=== PATIENT | female | born 1980 | race Caucasian/White ===

== ENCOUNTER 2017-07-12 20:33 | Observation (INO) | payer MEDICAID, SELFPAY ==
[2017-07-12 20:34] VITALS: BP 132/93; PULSE 100; RESP 18; TEMP 36.9; O2SAT 98; BMI 40.5
--- NOTE | 2017-07-12 20:44 | EKG12_ITS ---
Test Reason : REPEAT Blood Pressure : / mmHG Vent. Rate : 099 BPM Atrial Rate : 099 BPM P-R Int : 176 ms QRS Dur : 086 ms QT Int : 338 ms P-R-T Axes : 040 033 008 degrees QTc Int : 433 ms Normal sinus rhythm Nonspecific T wave abnormality Abnormal ECG Confirmed by MIKAEL HENRIQUEZ, AISHA ([id number]), newspaper or periodical editor ALESSANDRA TOLLIVER ([id number]) on 07/14/2017 1:25:12 PM Referred By: GIO Confirmed By:AISHA YOUSSEF MD
--- NOTE | 2017-07-12 20:48 | RAD_ITS ---
XR Chest 1 View INDICATION: PT STATED CHEST PAIN COMPARISON: None FINDINGS: Heart size and pulmonary vascularity are within normal limits. The lungs are clear without evidence of airspace consolidation or pleural effusion. The osseous structures are grossly unremarkable. RAD/Chest 1 View (Portable) IMPRESSION: No radiographic evidence of acute intrathoracic disease. at 2112 Reported and signed by: Brianne Bermeo MD Electronically Signed: Brianne Bermeo MD at 20:10 EDT Tel , Service support ,
[2017-07-12 20:51] LABS: Absolute Lymphocyte Count 2.14 X10^3/ul (0.83-4.51); Absolute Neutrophil Count 4.5 X10^3/uL (2.0-7.7); Basophil# 0.01 X10^3/uL; Basophil% 0.1 % (0-1); Eosinophil# 0.34 X10^3/uL; Eosinophils% 4.6 % (0-5); Hematocrit 42.4 % (37-47); Hemoglobin 13.7 g/dl (12.0-15.0); Lymphocyte # 2.14 X10^3/ul (4.0); Lymphocyte % 29.2 % (19-41); Mean Corp Hgb Conc 32.3 g/gl (32-36); Mean Corpuscular Hgb 27.2 pg (27.0-32.0); Mean Corpuscular Volume 84.3 fL (81-99); Mean Platelet Vol. 10.4 fl (6.2-12.0); Monocyte# 0.32 X10^3/uL; Monocyte% 4.4 % (0-10); Neutrophil # 4.51 X10^3/uL (2.7-7.7); Neutrophil % 61.6 % (47-70); Platelet Count 281 K/mm3 (150-450); RBC Distribution Width CV 13.2 % (11.6-14.6); RBC Distribution Width SD 39.7 fl (35.1-43.9); Red Blood Count 5.03 M/mm3 (4.2-5.4); White Blood Count 7.3 K/mm3 (4.4-11.0)
[2017-07-12 20:52] LABS: POSITIVE COUNT NO; POSITIVE DIFFERENTIAL NO; POSITIVE MORPHOLOGY NO
--- NOTE | 2017-07-12 20:57 | ED.DCSUM_ITS ---
- ER Visit Summary Date of Service: 07/12/17 Chief Complaint: Midsternal/left-sided sharp chest pain that started 3-4 hours ago with radiation to the left shoulder. History of Present Illness: The patient is a 37 F who presents with midsternal/ left-sided sharp chest pain with radiation to the left shoulder that started 3- 4 hours ago while at rest. She does have history of type 2 diabetes requiring insulin. She was diagnosed with diabetes in 2007. Brother had an DE at the age of 40. Mother and father both had cardiac problems. She denies hypertension, hypercholesterolemia and denies smoking. She denies history of PE or DVT. She denies any leg pain, swelling discoloration. She does not take aspirin because she had an anaphylactic reaction. She denies any ocular, visual or auditory symptoms. She has no constitutional symptoms of fever, chills night sweats. She denies palpitations or rapid heartbeat. She denies shortness of breath, dyspnea, orthopnea or PND. GI review of systems negative. review of systems negative. She denies history of bruising easily or bleeding problems. Physical Examination: Vital signs are marked for slight elevation of blood pressure 132/93. Head is atraumatic normocephalic. Pupils are equal round reactive. Extraocular muscles are intact. TMs are pearly white with landmarks noted. Nares patent with no drainage. Posterior pharynx without erythema or exudate. Uvula is midline. There is no dysphonia or dysphasia. Trachea is midline. There is no stridor with auscultation of the neck. Heart is regular without murmur, gallop or rub. S1 and S2 are normal. Lungs are clear to auscultation with good movement of air bilaterally. Abdomen is soft nontender with no hepatosplenomegaly. Negative Vazquez sign. There is no asymmetry, swelling, discoloration, leg vein distention, palpable cords or tenderness along the distribution of the deep venous system. Test Results: EKG revealed a sinus rhythm rate of 97 and is normal. Portable chest x-ray of nose normal cardiac silhouette, lung parenchyma, mediastinum and musculoskeletal structures. CBC normal. Troponin less than 0.02. BMP is remarkable for glucose of 396. Patient received 10 units of insulin subcu. Emergency Department Course and Treatment: EKG, chest x-ray and blood work was obtained to evaluate patient's complaint of chest pain. Need to rule out cardiac versus pulmonary versus GI cause. She did not receive aspirin because she had an anaphylactic reaction. Treatment Plan: Patient's heart score is 1. A 3 hour delta was ordered. Repeat EKG and blood work at 2335. If repeat EKG and troponin are normal outpatient follow-up would be appropriate. Disposition: Pending 3 hour delta troponin and EKG if repeat troponin and EKG are negative she will be discharged home with appropriate home-going instructions Impression: 1. Mid/left sided chest pain 2. Hyperglycemia and type II diabetic requiring insulin This note was generated with [employer] dictation software. It may contain incorrect words, spelling, and punctuation that were not noted in review of the chart prior to signing ED Disposition - Plan for ED Patient: Disposition: Home or Assisted Living Chief Complaint: Chest Pain Instructions: ED Chest Pain Atypical Unkn Cause, ED Hyperglycemia Diabetic Referrals: Padilla Osborne DO [Primary Care Provider] - 2 Days
[2017-07-12 21:05] LABS: Anion Gap 10 (5-15); BUN 13 mg/dL (7-18); BUN/Creat Ratio 14.2 RATIO (10-20); Chloride 99 mmol/L (98-107); Creatinine, Serum 0.91 mg/dL (0.55-1.02); EST Glomerular Filtration Rate 73 mL/min (>60); Est Glom Filt Rate - Afr Amer 89 mL/min (>60); Estimated Creatinine Clearance 78.47 ml/min; Glucose 396 mg/dL (74-106); Potassium 4.3 mmol/L (3.5-5.1); Sodium Level 137 mmol/L (136-145)
[2017-07-12 22:11] VITALS: BP 120/85; PULSE 99; RESP 20; O2SAT 98
[2017-07-12 23:11] LABS: Bedside Glucose 309 mg/dL (70-110)
--- NOTE | 2017-07-12 23:35 | EKG12_ITS ---
Test Reason : CP Blood Pressure : / mmHG Vent. Rate : 097 BPM Atrial Rate : 097 BPM P-R Int : 178 ms QRS Dur : 084 ms QT Int : 346 ms P-R-T Axes : 046 034 022 degrees QTc Int : 439 ms Normal sinus rhythm Normal ECG Confirmed by MIKAEL HENRIQUEZ, AISHA ([id number]), editor magazine ALESSANDRA TOLLIVER ([id number]) on 07/14/2017 1:25:26 PM Referred By: GIO/DILIA Confirmed By:AISHA YOUSSEF MD
[2017-07-13] VITALS (14 sets, daily range): BP systolic 110–133; BP diastolic 64–94; PULSE 86–97; RESP 14–18; TEMP 36.6–36.9; O2SAT 93–99; BMI 39.5
--- NOTE | 2017-07-13 02:31 | PCM.HP.STD ---
Problem List (1) Chest pain Status: Acute (2) DMII (diabetes mellitus, type 2) Status: Acute (3) HTN (hypertension) Status: Chronic History of Present Illness Date of Admission: 07/13/17 Chief Complaint: Chest pain The patient is a 37 year old female w/ h/o DMII and HTN admitted for chest pain. She c/o chest pain around 5:00 PM while resting at home. Pain was in the midepigastric area and radiated to the left shoulder and down the left arm. Pain lasted for hours. Nothing made it better or worse. Pain was not associated with any other symptoms. No diaphoresis. No palpitation. Pain was constant and severe. Pain came on suddenly and slowly improved over the course of a few hours. Both her mother and father has CAD. Her bother has NM at 40 y/o. She came to the ED for further workup. Past Medical History Past Medical History (Chronic Problems): Chronic Problems HTN (hypertension) (Chronic) Allergies aspirin Allergy (Verified 12/04/16 18:42) Hives ibuprofen Allergy (Verified 12/04/16 18:42) Hives tramadol Adverse Reaction (Verified 12/04/16 18:42) Other DIZZINESS Home Medications: Ambulatory Orders Medication Instructions Recorded Insulin Degludec [Tresiba 24 units SQ DAILY 12/04/16 Flextouch U-100] Liraglutide [Victoza 2-David] 1 injectable SQ DAILY 12/04/16 Metformin(XR) [Glucophage Xr] 500 mg PO BID 12/04/16 Levothyroxine [Synthroid] 50 mcg PO DAILY 07/12/17 Surgical History: no surgical history Psychiatric History: No pertinent psych hx HOUSE PRINCIPAL History: No pertinent HOUSE PRINCIPAL history Lives: With Family Smoking Status: Never smoker - *Family History Paternal History Items: Heart Disease Review of Systems Constitutional: Denies: Chills, Fever, Weight Change HEENT: Denies: Head Aches, Sinus Congestion, Sinus Drainage Cardiovascular: Reports: Chest Pain. Denies: Palpitations Respiratory: Denies: Cough, Shortness of breath at rest, Sputum production Gastrointestinal: Denies: Abdominal Pain, Nausea, Vomiting Genitourinary: Denies: Dysuria Musculoskeletal: Denies: Joint Pain, Joint Tenderness Skin: Denies: Rash, Wounds Neurological: Denies: Numbness, Tingling, Focal weakness Psychiatric: Denies: Anxiety, Depression, Homicidal Ideations, Suicidal Ideations Hematologic/ Lymphatic: Denies: Easy Bruising, Easy Bleeding VTE Information - Inpt Only VTE Present on Admission: No VTE Mechan Device Prophylaxis: SCD's VTE Pharm Prophylaxis ordered?: Yes Patient Problems: Active and Suspected Problems Chest pain (Acute) DMII (diabetes mellitus, type 2) (Acute) - Physical Exam General: Alert, Oriented x3, Cooperative HEENT: Atraumatic, PERRLA, EOMI, Normocephalic Neck: Supple, No JVD, Negative Carotid Bruits Lungs: Clear to auscultation, Normal air movement Cardiovascular: Regular rate, No murmurs Abdomen: Bowel Sounds Present, Soft, Non Tender Extremities: No edema, Capillary Refill Less than 3 Seconds Skin: No rashes, No breakdown Musculoskeletal: No Tenderness to Palpation of Joints or Extremities Neurological: Cranial nerves II-XII grossly intact Psych/Mental Status: Normal Affect, Appropriate Vital Signs Temp Pulse Resp BP Pulse Ox 98.4 F 93 14 120/80 97 07/13/17 01:30 07/13/17 01:30 07/13/17 01:30 07/13/17 01:30 07/13/17 01:30 Assessment/Plan Active and Suspected Problems Chest pain (Acute) DMII (diabetes mellitus, type 2) (Acute) 37 year old female w/ h/o DMII and HTN admitted for chest pain. 1) Chest pain: Heart score 4 Her brother has NM at 40 y/o. EKG disclosed flattening of T-wave in the inferolateral leads. Chest xray and trop negative. Will get serial trops. ECHO and stress test in AM. Will get lipid panel and A1C. Will start plavix given allergy to ASA. Will also start statin and beta-junaid. Nitro PRN. 2) DMII: Poorly controlled. Resume home meds. Accucheck and sliding scale. Monitor. 3) HTN: SBP 120s. Start beta-junaid. Monitor. 4) Prophylaxis: SCD / heparin.
--- NOTE | 2017-07-13 02:41 | HP.PCM_ITS ---
Problem List (1) Chest pain Status: Acute (2) DMII (diabetes mellitus, type 2) Status: Acute (3) HTN (hypertension) Status: Chronic History of Present Illness Date of Admission: 07/13/17 Chief Complaint: Chest pain The patient is a 37 year old female w/ h/o DMII and HTN admitted for chest pain. She c/o chest pain around 5:00 PM while resting at home. Pain was in the midepigastric area and radiated to the left shoulder and down the left arm. Pain lasted for hours. Nothing made it better or worse. Pain was not associated with any other symptoms. No diaphoresis. No palpitation. Pain was constant and severe. Pain came on suddenly and slowly improved over the course of a few hours. Both her mother and father has CAD. Her bother has ND at 40 y/o. She came to the ED for further workup. Past Medical History Past Medical History (Chronic Problems): Chronic Problems HTN (hypertension) (Chronic) Allergies aspirin Allergy (Verified 12/04/16 18:42) Hives ibuprofen Allergy (Verified 12/04/16 18:42) Hives tramadol Adverse Reaction (Verified 12/04/16 18:42) Other DIZZINESS Home Medications: Ambulatory Orders Medication Instructions Recorded Insulin Degludec [Tresiba 24 units SQ DAILY 12/04/16 Flextouch U-100] Liraglutide [Victoza 2-David] 1 injectable SQ DAILY 12/04/16 Metformin(XR) [Glucophage Xr] 500 mg PO BID 12/04/16 Levothyroxine [Synthroid] 50 mcg PO DAILY 07/12/17 Surgical History: no surgical history Psychiatric History: No pertinent psych hx 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 Denies: Palpitations Respiratory: Denies: Cough, Shortness of breath at rest, Sputum production Gastrointestinal: Denies: Abdominal Pain, Nausea, Vomiting Genitourinary: Denies: Dysuria Musculoskeletal: Denies: Joint Pain, Joint Tenderness Skin: Denies: Rash, Wounds Neurological: Denies: Numbness, Tingling, Focal weakness Psychiatric: Denies: Anxiety, Depression, Homicidal Ideations, Suicidal Ideations Hematologic/ Lymphatic: Denies: Easy Bruising, Easy Bleeding VTE Information - Inpt Only VTE Present on Admission: No VTE Mechan Device Prophylaxis: SCD's VTE Pharm Prophylaxis ordered?: Yes Patient Problems: Active and Suspected Problems Chest pain (Acute) DMII (diabetes mellitus, type 2) (Acute) - Physical Exam General: Alert, Oriented x3, Cooperative HEENT: Atraumatic, PERRLA, EOMI, Normocephalic Neck: Supple, No JVD, Negative Carotid Bruits Lungs: Clear to auscultation, Normal air movement Cardiovascular: Regular rate, No murmurs Abdomen: Bowel Sounds Present, Soft, Non Tender Extremities: No edema, Capillary Refill Less than 3 Seconds Skin: No rashes, No breakdown Musculoskeletal: No Tenderness to Palpation of Joints or Extremities Neurological: Cranial nerves II-XII grossly intact Psych/Mental Status: Normal Affect, Appropriate Vital Signs Temp Pulse Resp BP Pulse Ox 98.4 F 93 14 120/80 97 07/13/17 01:30 07/13/17 01:30 07/13/17 01:30 07/13/17 01:30 07/13/17 01:30 Assessment/Plan Active and Suspected Problems Chest pain (Acute) DMII (diabetes mellitus, type 2) (Acute) 37 year old female w/ h/o DMII and HTN admitted for chest pain. 1) Chest pain: Heart score 4 Her brother has ND at 40 y/o. EKG disclosed flattening of T-wave in the inferolateral leads. Chest xray and trop negative. Will get serial trops. ECHO and stress test in AM. Will get lipid panel and A1C. Will start plavix given allergy to ASA. Will also start statin and beta-junaid. Nitro PRN. 2) DMII: Poorly controlled. Resume home meds. Accucheck and sliding scale. Monitor. 3) HTN: SBP 120s. Start beta-junaid. Monitor. 4) Prophylaxis: SCD / heparin.
[2017-07-13 02:48] LABS: Vista UDS pH Range 6
[2017-07-13] MEDS: Clopidogrel Bisulfate 75 MG Tablet PO (02:58)
[2017-07-13] MEDS: 0.9% NaCl Peripheral Flush Adult/Peds IV ×2 (02:58→05:17)
[2017-07-13 02:59] LABS: Amphetamine Urine VISTA NEGATIVE (<1000 ng/mL); Barbiturate Urine VISTA NEGATIVE (< 200 ng/mL); Benzodiazepine Urine VISTA NEGATIVE (< 200 ng/mL); Cocaine Urine VISTA NEGATIVE (< 300 ng/mL); Ecstacy Urine VISTA NEGATIVE (< 500 ng/mL); Methadone Urine VISTA NEGATIVE (< 300 ng/mL); PCP Urine VISTA NEGATIVE (< 25 ng/mL); THC Urine VISTA NEGATIVE (< 50 ng/mL)
[2017-07-13 03:59] LABS: Absolute Lymphocyte Count 2.21 X10^3/ul (0.83-4.51); Absolute Neutrophil Count 3.1 X10^3/uL (2.0-7.7); Basophil# 0.01 X10^3/uL; Basophil% 0.2 % (0-1); Eosinophil# 0.33 X10^3/uL; Eosinophils% 5.4 % (0-5); Hematocrit 39.6 % (37-47); Hemoglobin 13.1 g/dl (12.0-15.0); Lymphocyte # 2.21 X10^3/ul (4.0); Lymphocyte % 36.5 % (19-41); Mean Corp Hgb Conc 33.1 g/gl (32-36); Mean Corpuscular Hgb 27.5 pg (27.0-32.0); Mean Corpuscular Volume 83.2 fL (81-99); Mean Platelet Vol. 10.5 fl (6.2-12.0); Monocyte# 0.41 X10^3/uL; Monocyte% 6.8 % (0-10); Neutrophil # 3.09 X10^3/uL (2.7-7.7); Neutrophil % 50.9 % (47-70); Platelet Count 244 K/mm3 (150-450); RBC Distribution Width CV 13.1 % (11.6-14.6); Red Blood Count 4.76 M/mm3 (4.2-5.4); White Blood Count 6.1 K/mm3 (4.4-11.0)
[2017-07-13 04:02] LABS: POSITIVE COUNT NO; POSITIVE DIFFERENTIAL NO; POSITIVE MORPHOLOGY NO
[2017-07-13] MEDS: Levothyroxine 50 MCG Tablet PO (05:16)
[2017-07-13] MEDS: Morphine 4 MG/ML Syringe IV (05:16)
[2017-07-13 05:22] LABS: ALB/GLOB Ratio 0.9 RATIO (0.9-2.4); AST(SGOT) 13 U/L (15-37); Alanine Aminotransfer ALT/SGPT 27 U/L (13-56); Albumin, Serum 3.1 g/dL (3.2-5.0); Alkaline Phosphatase 72 U/L (45-117); Anion Gap 9 (5-15); BUN 12 mg/dL (7-18); BUN/Creat Ratio 16.7 RATIO (10-20); Calcium,Total 8.5 mg/dL (8.5-10.1); Chloride 103 mmol/L (98-107); Cholesterol 195 mg/dL (200); Creatinine, Serum 0.72 mg/dL (0.55-1.02); EST Glomerular Filtration Rate 97 mL/min (>60); Est Glom Filt Rate - Afr Amer 117 mL/min (>60); Estimated Creatinine Clearance 99.18 ml/min; Globulin 3.6 g/dL (2.2-4.2); Glucose 261 mg/dL (74-106); High Density Lipoprotein 40 mg/dL; Magnesium 1.8 mg/dL (1.6-2.6); Potassium 3.9 mmol/L (3.5-5.1); Protein, Total 6.7 g/dL (6.4-8.2); Sodium Level 137 mmol/L (136-145); Triglycerides 156 mg/dL; Very Low Density Lipoprotein 31 mg/dL (5-40)
[2017-07-13 05:55] LABS: Partial Thromboplast Time 25.5 Seconds (24.1-36.2)
--- NOTE | 2017-07-13 05:55 | EKG12_ITS ---
Test Reason : AM EKG Blood Pressure : / mmHG Vent. Rate : 079 BPM Atrial Rate : 079 BPM P-R Int : 186 ms QRS Dur : 102 ms QT Int : 386 ms P-R-T Axes : 057 067 041 degrees QTc Int : 442 ms Normal sinus rhythm Normal ECG When compared with ECG of 12-JUL-2017 23:36, MANUAL COMPARISON REQUIRED, DATA IS UNCONFIRMED Confirmed by MIKAEL HENRIQUEZ, AISHA ([id number]), scientific editor ALESSANDRA TOLLIVER ([id number]) on 07/14/2017 1:40:04 PM Referred By: AKANKSHA Confirmed By:AISHA YOUSSEF MD
[2017-07-13 06:11] LABS: International Normalized Ratio 1.1; Prothrombin Time (Protime)PT. 13.9 SECONDS (11.7-14.9)
[2017-07-13 07:05] LABS: Bedside Glucose 253 mg/dL (70-110)
[2017-07-13 10:02] LABS: Hemoglobin A1c 10.8 % (4.2-6.3)
[2017-07-13] MEDS: Metoprolol Tartrate 25 MG Tablet 12.5 MG PO (10:34)
--- NOTE | 2017-07-13 10:48 | STRESSREP ---
Stress Test Report Exercise myocardial perfusion stress test. 37-year-old lady with a history of chest pain. Stress protocol: Resting EKG demonstrates normal sinus rhythm with a rate of 82 bpm normal intervals and noted resting blood pressure is 110/68 mmHg. The patient exercised according to the regular Dani protocol for total duration of 7 minutes and 10 seconds completing 1 minute and 10 seconds to stage III of the Dani protocol. The maximum heart rate attained was 187 bpm which was 102% of maximum predicted heart rate the maximum workload attained was 8.6 metabolic equivalents. At rest there were no ST or T-wave changes noted suggest ischemia at peak exercise upsloping ST changes only were noted with no meet the criteria for ischemia. No clinical angina was noted. The patient did get short of breath. Myocardial perfusion protocol. 14.7 mCi of technetium 99m sestamibi was injected at rest. The patient exercised according to Dani protocol for 4 7 minutes and 10 seconds attaining 102% of maximum predicted heart rate and a workload of 8.6 metabolic equivalents. At peak exercise 44.8 mCi of technetium 99m sestamibi was injected. Stress images were obtained stress and rest images were reconstructed and compared in the short axis vertical long and horizontal long axis. Gated images were also obtained. Perfusion SPECT analysis: Review of the stress images demonstrate normal uptake of tracer noted in all areas of the myocardium. The resting images similarly demonstrate normal uptake of tracer noted in all areas of the myocardium. No areas of reversibility are noted suggest ischemia no previous infarct is noted. Gated SPECT analysis: The gated ejection fraction is 75%. Conclusion: Normal exercise myocardial perfusion stress test at a moderate workload. No angina noted.
--- NOTE | 2017-07-13 11:12 | DCINST_ITS ---
- Discharge Diagnoses Current Active Problems: Current Active and Chronic Problems Chest pain (Acute) DMII (diabetes mellitus, type 2) (Acute) HTN (hypertension) (Chronic) You will use the following diet at home:: Calorie/Carbohydrate Controlled ( specify 1200, 1400, etc) Discharge Activity: Return to Normal Activity Call your doctor if you observe: Shortness of breath, Dizziness, Fainting spells , Chest pain, Increased palpitations (irregular heartbeat) Instructions: ED Chest Pain Atypical Unkn Cause, ED Hyperglycemia Diabetic Allergies/Adverse Reactions: Allergies aspirin Allergy (Verified 12/04/16 18:42) Hives ibuprofen Allergy (Verified 12/04/16 18:42) Hives tramadol Adverse Reaction (Verified 12/04/16 18:42) Other DIZZINESS Medications to take at Discharge Insulin Degludec [Tresiba Flextouch U-100] 24 units SQ DAILY 12/04/16 Liraglutide [Victoza 2-David] 1 injectable SQ DAILY 12/04/16 Metformin(XR) [Glucophage Xr] 500 mg PO BID 12/04/16 Levothyroxine [Synthroid] 50 mcg PO DAILY 07/12/17 Primary Care Physician: Padilla Osborne DO [Primary Care Provider] - 2 Days Please follow up with your Primary Care Physician in: 1 Week Proposed Discharge Date: 07/13/17
--- NOTE | 2017-07-13 11:13 | PCM.DC.SUM ---
<Shyla Key - Last Filed: 07/13/17 11:20> Discharge Date and Diagnosis Date of Admission: 07/13/17 Date of Discharge: 07/13/17 - Primary Discharge Diagnosis Active and Suspected Problems 1. Atypical chest pain-ACS ruled out. - Secondary Discharge Diagnosis Chronic Problems Type 2 diabetes mellitus Hypothyroidism Hospital Course and Treatment Imaging Results: Diagnostic Data Chest X-Ray 07/12/17 20:48 IMPRESSION: No radiographic evidence of acute intrathoracic disease. at 2112 Reported and signed by: Brianne Bermeo MD Electronically Signed: Brianne Bermeo MD at 20:10 EDT Tel , Service support , Operations: None Procedures: Stress test Summary of Care Provided: The patient is a 37 year old F admitted 07/13/17 due to chest pain. ACS ruled out. She has a past medical history of type 2 diabetes mellitus, hypothyroidism. Patient stated her pain occurred suddenly while resting at the home. Pain was continuous for a few hours. Pain has since resolved. Troponin negative ?3. Patient underwent nuclear stress test which was negative for ischemia. Chest x-ray unremarkable. Lipid panel within normal limits. Patient's type 2 diabetes mellitus is poorly controlled, hemoglobin A1c 10.8%. Recommend further follow-up with primary care physician to adjust diabetic medications. TSH within normal limits. Patient seen and examined prior to discharge. Heart rate regular rate and rhythm. Lungs clear. Abdomen soft, nontender. Neuro grossly intact. Vital signs stable. Patient stable for discharge home with further follow-up with primary care physician. This patient was seen by RAMA Jeffery under the supervision of Dr. Lopez. Discharge Diet: Low fat/ Low Cholesterol, Carb Control Diet Discharge Activity: Return to Normal Activity Call your doctor if you observe: Shortness of breath, Dizziness, Fainting spells, Chest pain, Increased palpitations (irregular heartbeat) Home Medications: Medications to take at Discharge Insulin Degludec [Tresiba Flextouch U-100] 24 units SQ DAILY 12/04/16 Liraglutide [Victoza 2-David] 1 injectable SQ DAILY 12/04/16 Metformin(XR) [Glucophage Xr] 500 mg PO BID 12/04/16 Levothyroxine [Synthroid] 50 mcg PO DAILY 07/12/17 Primary Care Physician: Padilla Osborne DO [Primary Care Provider] - 2 Days Please follow up with your Primary Care Physician in: 1 Week Patient Instructions: ED Chest Pain Atypical Unkn Cause, ED Hyperglycemia Diabetic Disposition: Home Minutes spent on discharge:: 35 Patient Condition:: Stable Medical Necessity - Tobacco Use Smoking Status: Never smoker Meaningful Use Info Meaningful Use Diagnoses (Choose all that apply): None applicable <Deyvi Lpoez E - Last Filed: 07/13/17 13:34> Discharge Date and Diagnosis - Secondary Discharge Diagnosis Chronic Problems HTN (hypertension) (Chronic) Hospital Course and Treatment Imaging Results: 07/13/17 05:55 Nuclear Stress Test - Chemical [NM] AM (NON MEDS) Summary of Care Provided: Hospitalist note: discharge summary above reviewed as well as physical examination and agree with above discharge plan. Patient was admitted for atypical chest pain for evaluation. She has risk factors for CAD including diabetes and obesity. Her EKG revealed no acute ischemic changes. Troponin was negative ?3. A chest x-ray showed no acute findings. She underwent nuclear stress test that was reported as negative without evidence of stress-induced myocardial ischemia. ACS ruled out. Her pain could be due to musculoskeletal pain. Patient discharged home in a stable medical condition, discharged on her home medication without any changes, recommended to follow-up with PCP in 1 week. - Physical Exam General: Alert, Oriented x3, Cooperative, No apparent distress. HEENT: Atraumatic, PERRLA, EOMI. Neck: Supple, No JVD, Negative Carotid Bruits, Trachea Midline, Thyroid Normal. Lungs: Clear to auscultation, Normal air movement, No rhonchi, No wheeze, No rales. Cardiovascular: Regular rate, Regular Rhythm, Normal S1, Normal S2, PMI Normal. Abdomen: Bowel Sounds Present, Soft, Non Tender, Non-Distended, No Hepato-splenomegaly. Extremities: No clubbing, No cyanosis, No edema Skin: No rashes, No breakdown Neurological: Neuro grossly intact Vital Signs are stable. . Minutes spent on discharge:: 25 Code Visit OBSV E&M: 50533 Observ/hosp same date L1
--- NOTE | 2017-07-13 11:20 | DS.PCM_ITS ---
<Shyla Key - Last Filed: 07/13/17 11:20> Discharge Date and Diagnosis Date of Admission: 07/13/17 Date of Discharge: 07/13/17 - Primary Discharge Diagnosis Active and Suspected Problems 1. Atypical chest pain-ACS ruled out. - Secondary Discharge Diagnosis Chronic Problems Type 2 diabetes mellitus Hypothyroidism Hospital Course and Treatment Imaging Results: Diagnostic Data Chest X-Ray 07/12/17 20:48 IMPRESSION: No radiographic evidence of acute intrathoracic disease. at 2112 Reported and signed by: Brianne Bermeo MD Electronically Signed: Brianne Bermeo MD at 20:10 EDT Tel , Service support , Operations: None Procedures: Stress test Summary of Care Provided: The patient is a 37 year old F admitted 07/13/17 due to chest pain. ACS ruled out. She has a past medical history of type 2 diabetes mellitus, hypothyroidism. Patient stated her pain occurred suddenly while resting at the home. Pain was continuous for a few hours. Pain has since resolved. Troponin negative ?3. Patient underwent nuclear stress test which was negative for ischemia. Chest x-ray unremarkable. Lipid panel within normal limits. Patient 's type 2 diabetes mellitus is poorly controlled, hemoglobin A1c 10.8%. Recommend further follow-up with primary care physician to adjust diabetic medications. TSH within normal limits. Patient seen and examined prior to discharge. Heart rate regular rate and rhythm. Lungs clear. Abdomen soft, nontender. Neuro grossly intact. Vital signs stable. Patient stable for discharge home with further follow-up with primary care physician. This patient was seen by RAMA Jeffery under the supervision of Dr. Lopez. Discharge Diet: Low fat/ Low Cholesterol, Carb Control Diet Discharge Activity: Return to Normal Activity Call your doctor if you observe: Shortness of breath, Dizziness, Fainting spells , Chest pain, Increased palpitations (irregular heartbeat) Home Medications: Medications to take at Discharge Insulin Degludec [Tresiba Flextouch U-100] 24 units SQ DAILY 12/04/16 Liraglutide [Victoza 2-David] 1 injectable SQ DAILY 12/04/16 Metformin(XR) [Glucophage Xr] 500 mg PO BID 12/04/16 Levothyroxine [Synthroid] 50 mcg PO DAILY 07/12/17 Primary Care Physician: Padilla Osborne DO [Primary Care Provider] - 2 Days Please follow up with your Primary Care Physician in: 1 Week Patient Instructions: ED Chest Pain Atypical Unkn Cause, ED Hyperglycemia Diabetic Disposition: Home Minutes spent on discharge:: 35 Patient Condition:: Stable Medical Necessity - Tobacco Use Smoking Status: Never smoker Meaningful Use Info Meaningful Use Diagnoses (Choose all that apply): None applicable <Deyvi Lopez E - Last Filed: 07/13/17 13:34> Discharge Date and Diagnosis - Secondary Discharge Diagnosis Chronic Problems HTN (hypertension) (Chronic) Hospital Course and Treatment Imaging Results: 07/13/17 05:55 Nuclear Stress Test - Chemical [NM] AM (NON MEDS) Summary of Care Provided: Hospitalist note: discharge summary above reviewed as well as physical examination and agree with above discharge plan. Patient was admitted for atypical chest pain for evaluation. She has risk factors for CAD including diabetes and obesity. Her EKG revealed no acute ischemic changes. Troponin was negative ?3. A chest x- ray showed no acute findings. She underwent nuclear stress test that was reported as negative without evidence of stress-induced myocardial ischemia. ACS ruled out. Her pain could be due to musculoskeletal pain. Patient discharged home in a stable medical condition, discharged on her home medication without any changes, recommended to follow-up with PCP in 1 week. - Physical Exam General: Alert, Oriented x3, Cooperative, No apparent distress. HEENT: Atraumatic, PERRLA, EOMI. Neck: Supple, No JVD, Negative Carotid Bruits, Trachea Midline, Thyroid Normal. Lungs: Clear to auscultation, Normal air movement, No rhonchi, No wheeze, No rales. Cardiovascular: Regular rate, Regular Rhythm, Normal S1, Normal S2, PMI Normal. Abdomen: Bowel Sounds Present, Soft, Non Tender, Non-Distended, No Hepato- splenomegaly. Extremities: No clubbing, No cyanosis, No edema Skin: No rashes, No breakdown Neurological: Neuro grossly intact Vital Signs are stable. . Minutes spent on discharge:: 25 Code Visit OBSV E&M: 38240 Observ/hosp same date L1
[2017-07-13 12:26] LABS: Bedside Glucose 385 mg/dL (70-110)
== END 2017-07-13 11:12 | disposition home or self-care (01) ==
LOC: ED 23:25 → PCU 07-13 01:28
PROVIDERS: Admitting Provider Internal Medicine; Emergency Provider Emergency Medicine; Family Provider Student in an Organized Health Care Education/Training Program; PCP Student in an Organized Health Care Education/Training Program; Visit Provider Hospitalist
DX: R07.89 Other chest pain (principal); E03.9 Hypothyroidism, unspecified; E11.65 Type 2 diabetes mellitus with hyperglycemia; I10 Essential (primary) hypertension; Z79.899 Other long term (current) drug therapy; Z79.4 Long term (current) use of insulin; E66.9 Obesity, unspecified; Z68.39 Body mass index [BMI] 39.0-39.9, adult; Z71.3 Dietary counseling and surveillance; Z82.49 Family history of ischemic heart disease and other diseases of the circulatory system
CPT/HCPCS: 36415; 71045; 78452; 80048; 80053; 80061; 80307; 82962; 83036; 83735; 84443; 84484; 85025; 85610; 85730; 93005; 93017; 96374; 99218; 99285; A9500; A4216; G0378

== ENCOUNTER → 2017-08-25 10:10 | Outpatient (CLI) | payer MEDICAID, SELFPAY ==
--- NOTE | 2017-08-25 10:15 | RAD_ITS ---
STUDY: X-RAY - LUMBAR SPINE REASON FOR EXAM: Female, 37 years old. Back pain TECHNIQUE: 5 view(s) of the lumbar spine were obtained. COMPARISON: None FINDINGS: There is no evidence of fracture or dislocation in the lumbar spine. The vertebral body heights and disc spaces are well-maintained. There are no significant degenerative changes. RAD/L/S Spine Min 4 Views IMPRESSION: No fracture or dislocation in the lumbar spine. Electronically Signed: Juan Oconnor, at 16:03 EDT Tel , Service support ,
== END ==
PROVIDERS: Family Provider Student in an Organized Health Care Education/Training Program; PCP Student in an Organized Health Care Education/Training Program; Visit Provider Nurse Practitioner Family
DX: M54.5 Low back pain (principal)
CPT/HCPCS: 72110

== ENCOUNTER 2017-10-16 09:59 | Emergency (ER) | payer MEDICAID, SELFPAY ==
[2017-10-16 09:59] VITALS: BP 131/82; PULSE 128; RESP 16; TEMP 37.4; O2SAT 96; BMI 38.9
--- NOTE | 2017-10-16 10:12 | ED.DCSUM_ITS ---
- ER Visit Summary Date of Service: 10/16/17 Chief Complaint: Nausea and vomiting with chills and temperature documented to 100.3 History of Present Illness: The patient is a 37 F who presents with temperature documented 100.3 with bilateral low back pain with nausea and vomiting and chills that started this morning. She states she does not feel well. She complains of dry mouth. She does complain of bifrontal headache. The headaches are not positional. She denies photophobia, change in vision or double vision. She denies rhinorrhea, congestion, postnasal drainage or ear pain. She reports sore throat after vomiting. She denies any chest pain, cough or shortness of breath. She denies leg pain, swelling or discoloration. She denies dysuria, frequency, urgency or hematuria. She denies any vaginal bleeding or discharge. She denies any skin lesions. Please read written note for complete detail Physical Examination: Vital signs remarkable for heart rate 128. She appears ill but not toxic. Head is atraumatic normocephalic. Pupils equal round reactive. Extra muscles are intact. Sclerae anicteric. TMs are normal. Nares patent with no discharge. Tongue and mucosa are dry. Uvula midline. No exudate or erythema. Trach is midline. There is no cervical lymphadenopathy. Heart is rapid and regular without murmur, gallop or rub. Lungs are clear to auscultation with good maneuver bilaterally. Abdomen is soft nontender with decreased bowel sounds. There is no CVA tenderness noted. There is no skin lesions noted. There is no asymmetry, swelling, discoloration, leg vein distention, palpable cords or tenderness along the distribution of the deep venous system. She is alert and oriented ?3 with a nonfocal neurologic exam Test Results: White count is 11.7 thousand 81 segs no bands. Electronic panels marked for glucose 164. UA reveals leukoesterase and blood on macro as well as ketones. There is evidence of pyuria with 5-10 WBCs 0-5 RBCs and 1+ bacteria. Emergency Department Course and Treatment: IV was established and she will receive 1 L of normal saline wide open. Since she has type 1 diabetes will treat the nausea vomiting with Reglan. Because she complains of low back pain with documented temperature 100.3 with chills will obtain UA. BMP to assess glucose and kidney function. Treatment Plan: Patient's symptoms are secondary to urinary tract infection. Patient will receive 1 g of Rocephin IV piggyback. If she has no vomiting will discharge to home with antiemetic and antibiotic. She was informed to follow- up with Dr. Osborne in 3 days. Disposition: Discharged to home Impression: 1. Complex urinary tract infection 2. Sepsis 3. Hyperglycemia in type I diabetic 4. Dehydration with ketosis This note was generated with [employer] dictation software. It may contain incorrect words, spelling, and punctuation that were not noted in review of the chart prior to signing ED Disposition - Plan for ED Patient: Disposition: Home or Assisted Living Chief Complaint: Nausea/Vomiting Instructions: ED UTI Cystitis Female Prescriptions: Ciprofloxacin [Cipro] 500 mg PO BID #14 tab Metoclopramide [Reglan] 10 mg PO 4X/DAY PRN #10 tab PRN Reason: Headache Referrals: Padilla Osborne DO [Primary Care Provider] - 1-2 Days if not improving
[2017-10-16 10:18] LABS: Absolute Lymphocyte Count 1.57 X10^3/ul (0.83-4.51); Absolute Neutrophil Count 9.5 X10^3/uL (2.0-7.7); Basophil# 0.02 X10^3/uL; Basophil% 0.2 % (0-1); Eosinophil# 0.08 X10^3/uL; Eosinophils% 0.7 % (0-5); Hematocrit 44.2 % (37-47); Hemoglobin 14.5 g/dl (12.0-15.0); Lymphocyte # 1.57 X10^3/ul (4.0); Lymphocyte % 13.5 % (19-41); Mean Corp Hgb Conc 32.8 g/gl (32-36); Mean Corpuscular Hgb 27.5 pg (27.0-32.0); Mean Corpuscular Volume 83.7 fL (81-99); Monocyte% 4.3 % (0-10); Neutrophil # 9.46 X10^3/uL (2.7-7.7); Neutrophil % 81.1 % (47-70); Platelet Count 284 K/mm3 (150-450); RBC Distribution Width CV 13.2 % (11.6-14.6); RBC Distribution Width SD 39.2 fl (35.1-43.9); Red Blood Count 5.28 M/mm3 (4.2-5.4); White Blood Count 11.7 K/mm3 (4.4-11.0)
[2017-10-16 10:19] LABS: POSITIVE COUNT NO; POSITIVE DIFFERENTIAL NO; POSITIVE MORPHOLOGY NO
[2017-10-16 10:30] LABS: Anion Gap 10 (5-15); BUN 9 mg/dL (7-18); BUN/Creat Ratio 11.1 RATIO (10-20); Calcium,Total 9.4 mg/dL (8.5-10.1); Chloride 99 mmol/L (98-107); Creatinine, Serum 0.81 mg/dL (0.55-1.02); EST Glomerular Filtration Rate 84 mL/min (>60); Est Glom Filt Rate - Afr Amer 101 mL/min (>60); Estimated Creatinine Clearance 88.16 ml/min; Glucose 164 mg/dL (74-106); Potassium 3.8 mmol/L (3.5-5.1); Sodium Level 137 mmol/L (136-145)
[2017-10-16] MEDS: Metoclopramide 10 MG/2 ML Vial IV (10:30)
[2017-10-16] MEDS: 0.9% Normal Saline 1,000 ML 1000 ML IV (10:30)
[2017-10-16 10:47] LABS: Color, Urine Yellow (Yellow); Glucose, Dipstick Normal (Normal); Ketone-Dipstick 5 mg/dl (Negative); Leukocyte Esterase-Dipstick 25 /ul (Negative); Nitrite-Dipstick Negative (Negative); Occult Blood-Urine 25 /ul (Negative); Protein-Dipstick 100 mg/dl (Negative); Urine Bilirubin Dipstick Negative (Negative); Urine Clarity Sl. Cloudy (Clear); Urine Urobilinogen Normal (Normal)
[2017-10-16 10:54] LABS: Red Blood Cells-Urine 0-5 SEEN /hpf (0-5); White Blood Cells 5-10 SEEN /hpf (0-5)
[2017-10-16 10:55] LABS: Bacteria 1+ /hpf (None Seen); Squamous Epithelial Cells - UA 0-5 SEEN /hpf (5-10)
[2017-10-16 10:56] LABS: Mucous, Urine RARE /hpf (<or=2+)
[2017-10-16] MEDS: Ceftriaxone 1 GM/50 ML BAG IV (11:13)
[2017-10-16 11:58] VITALS: BP 132/81; PULSE 118; RESP 22; O2SAT 100
== END 2017-10-16 11:59 | disposition home or self-care (01) ==
PROVIDERS: Emergency Provider Emergency Medicine; Family Provider Student in an Organized Health Care Education/Training Program; PCP Student in an Organized Health Care Education/Training Program
DX: A41.9 Sepsis, unspecified organism (principal); N30.90 Cystitis, unspecified without hematuria; E10.65 Type 1 diabetes mellitus with hyperglycemia; E86.0 Dehydration; E88.89 Other specified metabolic disorders; I10 Essential (primary) hypertension; E66.9 Obesity, unspecified; R00.0 Tachycardia, unspecified; Z68.38 Body mass index [BMI] 38.0-38.9, adult; Z79.84 Long term (current) use of oral hypoglycemic drugs; Z79.899 Other long term (current) drug therapy
CPT/HCPCS: 80048; 81001; 85025; 87077; 87086; 87088; 87186; 96365; 96375; 99283; J7030; A4216

== ENCOUNTER 2018-03-23 20:10 | Emergency (ER) | payer MEDICAID, SELFPAY ==
[2018-03-23 20:11] VITALS: BP 154/92; PULSE 111; RESP 18; TEMP 35.8; O2SAT 100; BMI 39.8
[2018-03-23] MEDS: BACITRACIN 15 GM Tube 1 APPLIC TOPICAL (21:22)
[2018-03-23] MEDS: Cephalexin 250 MG Capsule 500 MG PO (21:22)
--- NOTE | 2018-03-23 21:35 | ED.VISSUMM ---
- ER Visit Summary Date of Service: 03/23/18 Chief Complaint: Burn History of Present Illness: The patient is a 37 F presenting for evaluation secondary to a burn. Patient reports that about 2 days ago she was making a rock candy and she suffered a burn to her left ring finger. She is left hand dominate. Tetanus status is up-to-date. Patient states that she is having increasing pain and spreading redness. Physical Examination: Physical exam shows evidence of a blister over the dorsum of the middle phalanges of the patient's left ring finger. There is surrounding erythema with some streaking going up to the proximal portion of the hand. Test Results: None indicated Emergency Department Course and Treatment: Patient presented with a second-degree burn with evidence of infection. Patient told me that there was spontaneous drainage coming from this, so I did decide to deroof of the blister. A 21 gauge needle was used to incise along the blister, and then tissue scissors steps were used to remove the excess tissue. Bacitracin dressing was placed over top of this, and the patient will be placed on Keflex. Disposition: Discharge Impression: 1. Infected second-degree burn of the left ring finger This note was generated with [employer] dictation software. It may contain incorrect words, spelling, and punctuation that were not noted in review of the chart prior to signing ED Disposition - Plan for ED Patient: Disposition: Home or Assisted Living Chief Complaint: Burn Diagnosis: Cellulitis Instructions: ED Burn Scald, ED Infec Skin Cellulitis Prescriptions: Cephalexin [Keflex] 500 mg PO Q6 #40 cap Referrals: Padilla Osborne DO [Primary Care Provider] - 3-5 Days
--- NOTE | 2018-03-23 21:38 | ED.DCSUM_ITS ---
- ER Visit Summary Date of Service: 03/23/18 Chief Complaint: Burn History of Present Illness: The patient is a 37 F presenting for evaluation secondary to a burn. Patient reports that about 2 days ago she was making a rock candy and she suffered a burn to her left ring finger. She is left hand dominate. Tetanus status is up-to-date. Patient states that she is having increasing pain and spreading redness. Physical Examination: Physical exam shows evidence of a blister over the dorsum of the middle phalanges of the patient's left ring finger. There is surrounding erythema with some streaking going up to the proximal portion of the hand. Test Results: None indicated Emergency Department Course and Treatment: Patient presented with a second- degree burn with evidence of infection. Patient told me that there was spontaneous drainage coming from this, so I did decide to deroof of the blister. A 21 gauge needle was used to incise along the blister, and then tissue scissors steps were used to remove the excess tissue. Bacitracin dressing was placed over top of this, and the patient will be placed on Keflex. Disposition: Discharge Impression: 1. Infected second-degree burn of the left ring finger This note was generated with [employer] dictation software. It may contain incorrect words, spelling, and punctuation that were not noted in review of the chart p rior to signing ED Disposition - Plan for ED Patient: Disposition: Home or Assisted Living Chief Complaint: Burn Diagnosis: Cellulitis Instructions: ED Burn Scald, ED Infec Skin Cellulitis Prescriptions: Cephalexin [Keflex] 500 mg PO Q6 #40 cap Referrals: Padilla Osborne DO [Primary Care Provider] - 3-5 Days
--- OUTSIDE RECORDS SUMMARY | 2018-05-10 00:31 | XMS RPT_ITS ---
:1980 Author Organization OHIP Care Team Providers Name Role Phone [facility] Unavailable Yamil Ying Attending Unavailable [facility] Unavailable Akanksha, Adelso Admitting Unavailable Deyvi Lopez Attending Unavailable Akanksha, Adelso Admitting Unavailable [facility] Unavailable Akanksha, Adelso Consulting Unavailable Deyvi Lopez Attending Unavailable Denys Swain Attending Unavailable Akanksha, Adelso Referring Unavailable Michelle Payne NP-C Attending Unavailable [facility] Unavailable Denys Swain Attending Unavailable Akanksha, Adelso Referring Unavailable Pad[facility] Unavailable Agustin Virgen Attending Unavailable MIRANDA, PADILLA Castrejon Referring Unavailable OSBORNE, PADILLA L Attending Unavailable CORNIELLO, SWATI L (MARGARINE MAKER) Attending Unavailable BRANDON JONES Attending Unavailable CORNIELLO, SWATI L (MARGARINE MAKER) Attending Unavailable CORNIELLO, SWATI L (MARGARINE MAKER) Attending Unavailable ELROY CINTRON (PT) Attending Unavailable BRANDON JONES Referring Unavailable CORNIELLO, SWATI L (MARGARINE MAKER) Attending Unavailable CORNIELLO, SWATI L (MARGARINE MAKER) Referring Unavailable CORNIELLO, SWATI L (MARGARINE MAKER) Attending Unavailable LILIANA RAMIREZ Referring Unavailable CORNIELLO, SWATI L (MARGARINE MAKER) Referring Unavailable CORNIELLO, SWATI L (MARGARINE MAKER) Attending Unavailable CORNIELLO, SWATI L (MARGARINE MAKER) Referring Unavailable CORNIELLO, SWATI L (MARGARINE MAKER) Referring Unavailable LILIANA RAMIREZ Attending Unavailable OSBORNE, PADILLA L Referring Unavailable MEGHA SARAVIA (PT) Attending Unavailable ABDULAZIZ INTERIANO (STONE CARRIAGE OPERATOR) Referring Unavailable ABDULAZIZ INTERIANO (STONE CARRIAGE OPERATOR) Attending Unavailable ABDULAZIZ INTERIANO (STONE CARRIAGE OPERATOR) Referring Unavailable CORNIELLO, SWATI L (MARGARINE MAKER) Attending Unavailable CORNIELLO, SWATI L (MARGARINE MAKER) Referring Unavailable OSBORNE, PADILLA L Referring Unavailable ELROY CINTRON (PT) Attending Unavailable BRANDON JONES Referring Unavailable PROBLEMS PROBLEMS DATE TYPE CONDITION / CODE ATTENDING STATUS SOURCE 03/11/2018 Active Pain in right knee NA Active [facility] / M25.561(ICD-10) [facility] Repository 03/11/2018 Active Pain in left knee / NA Active [facility] M25.562(ICD-10) [facility] Repository 02/26/2018 Active Nontoxic NA Active [facility] multinodular goiter [facility] / E04.2(ICD-10) Repository 09/28/2015 Active Type 2 diabetes NA Active [facility] mellitus with [facility] hyperglycemia / Repository E11.65(ICD-10) 08/26/2017 Unknown M54.5 - Low back Prebish, Michelle Active [facility] pain / STONE CARRIAGE OPERATOR[facility] M54.5(ICD-10) Hospital Repository 08/12/2017 Active Hypothyroidism, NA Active [facility] unspecified / [facility] E03.9(ICD-10) Repository 08/04/2017 Active Unknown / RANI, MEGHA Active [facility] UNK(Unknown) (PT) [facility] Repository 07/22/2017 Active Other penitentiary NA Active [facility] (current) drug [facility] therapy / Repository Z79.899(ICD-10) 08/27/2017 Unknown R07.9 - Chest pain, Brynn, [place] Active [facility] unspecified / Community R07.9(ICD-10) Hospital Repository 08/27/2017 Unknown R07.89 - Other Brynn, Denys Active [facility] chest pain / Community R07.89(ICD-10) Hospital Repository 08/27/2017 Unknown I10 - Essential Brynn, Denys Active [facility] (primary) Community hypertension / Hospital I10(ICD-10) Repository PROCEDURES PROCEDURES No Procedure Records FoundRESULTS RESULTS PROGRESS Observed: 04/23/2018 Status: COMPLETED Source: [facility] 10:36 AM [facility] [place] REPOSITORY HNO ID: [id number] Author: Elroy (Pt) Abdulaziz Service: (none) Author Type: Physical Therapist Type: Progress Notes Filed: 04/23/2018 12:38 PM Note Text: Episode Visit Count: 2 Therapist That Will Oversee The Plan Of Care: Elroy Cintron Start of Care Date: 04/01/18 Plan of Care Certification Date: 04/01/18 Patient Identified by Name and Date of : Yes REHABILITATION AND SPORTS THERAPY PHYSICAL THERAPY TREATMENT NOTE ASSESSMENT: Yamila Kitchen demonstrated appropriate difficulty with exercises and was able to progress clamshells to added yellow theraband today. Patient continues to struggle with hills and stairs. The patient will continue to benefit from continued skilled physical therapy for progress report next session to gauge progress towards therapy. PLAN FOR NEXT VISIT: Progress report SUBJECTIVE: Pt with no change in condition thus far. [place] and stairs are still the hardest things for her to negotiate Pain Score: 9/10 Pain Location: Knee - Right;Knee - Left Description: Aching;Sharp Frequency: Continuous OBJECTIVE MEASURES WITH LEVEL OF FUNCTION: Patient with continued hypomobility of bilateral patella's medially TREATMENT: Therapeutic Exercise: 1: Patellar mobs with holds medially 2x10 2: Glute bridging 2x10 3: Prone hip extension 2x10/side 4: Side lying hip abduction 2x10/side 5: Side lying clamshells 2x10/side 6: Pt educated on proper brace wear and to try a compression sleeve underneath to prevent the brace from slipping down her leg Skilled Intervention: Patient was educated in proper exercise technique and purpose for exercises. Skilled judgment was provided in selection of appropriate interventions. Correct performance of therapeutic exercises was facilitated with verbal and visual cuing. Billing: [facility]: Therapeutic Exercise ([id number]): 1:1 time: 40 minutes (3 units: 38-52 mins) Total time: 40 minutes Elroy Cintron PT CNTHERAPY Observed: 04/23/2018 Status: COMPLETED Source: [place] 10:30 AM [facility] REPOSITORY OT/PT/Speech Visit (PTWS) YAMILA KITCHEN ([id number]) 1980 F Date Time Provider Department 04/23/18 10:30 AM ELROY CINTRON (PT) PTWS Date Time Provider Department Center 04/23/2018 10:30 AM [id number], SEAN (PT)PTWS [facility] Reason for Visit: Physical Therapy [503] Primary Visit Diagnosis:Chronic pain of both knees [M25.561, M25.562, G89.29] Allergies As of Date: 04/23/2018 Noted Allergy Reaction ASPIRIN 07/16/2011 12 - Shortness of Breath IBUPROFEN 07/16/2011 12 - Shortness of Breath SIMVASTATIN 2014 2 - Rash 12 - Shortness of Breath TRAMADOL 01/31/2014 14 - Other: See Comments Comments: Dizziness Date Reviewed: 04/21/2018 Reviewed by: Swati Campo - Fully Assessed Prescriptions as of 04/23/2018 Sig: PROPRANOLOL 60 MG TABLET Take 1 tablet by mouth once d* MELOXICAM 15 MG TABLET Take 1 tablet by mouth once d* INSULIN DEGLUDEC (U-100) 100 * Inject 40 Units subcutaneousl* LEVOTHYROXINE 50 MCG TABLET Take 1 tablet by mouth once d* METFORMIN ER 500 MG TABLET,EX* Take 2 tablets by mouth twice* PEN NEEDLE, DIABETIC 29 GAUGE* Use one needle per dose. 1 p* LIRAGLUTIDE 0.6 MG/0.1 ML (18* Inject 1.2 mg subcutaneously * PRAVASTATIN 20 MG TABLET Take 1 tablet by mouth once d* FLUTICASONE 50 MCG/ACTUATION * Use 2 Sprays in each nostril * FEXOFENADINE 60 MG TABLET Take 1 tablet by mouth once d* BLOOD-GLUCOSE METER KIT Glucose Meter of Choice - Kit* BLOOD SUGAR DIAGNOSTIC STRIPS Test blood sugar(s) 1 times d* LANCETS Test blood sugar(s) 1 times d* BUSPIRONE 5 MG TABLET Take 1 tablet by mouth three * FREESTYLE LITE STRIPS USE ONE STRIP TO CHECK GLUCOS* ALBUTEROL SULFATE HFA 90 MCG/* Inhale 2 Puffs as instructed * GLUCOSE 4 GRAM CHEWABLE TABLET Take 4 tablets by mouth as ne* Progress Notes: Elroy Cintron, PT 04/23/2018 12:38 PM Signed Episode Visit Count: 2 Therapist That Will Oversee The Plan Of Care: Elroy Cintron Start of Care Date: 04/01/18 Plan of Care Certification Date: 04/01/18 Patient Identified by Name and Date of : Yes REHABILITATION AND SPORTS THERAPY PHYSICAL THERAPY TREATMENT NOTE ASSESSMENT: Yamila Michel Fidelina demonstrated appropriate difficulty with exercises and was able to progress clamshells to added yellow theraband today. Patient continues to struggle with hills and stairs. The patient will continue to benefit from continued skilled physical therapy for progress report next session to gauge progress towards therapy. PLAN FOR NEXT VISIT: Progress report SUBJECTIVE: Pt with no change in condition thus far. [place] and stairs are still the hardest things for her to negotiate Pain Score: 9/10 Pain Location: Knee - Right;Knee - Left Description: Aching;Sharp Frequency: Continuous OBJECTIVE MEASURES WITH LEVEL OF FUNCTION: Patient with continued hypomobility of bilateral patella's medially TREATMENT: Therapeutic Exercise: 1: Patellar mobs with holds medially 2x10 2: Glute bridging 2x10 3: Prone hip extension 2x10/side 4: Side lying hip abduction 2x10/side 5: Side lying clamshells 2x10/side 6: Pt educated on proper brace wear and to try a compression sleeve underneath to prevent the brace from slipping down her leg Skilled Intervention: Patient was educated in proper exercise technique and purpose for exercises. Skilled judgment was provided in selection of appropriate interventions. Correct performance of therapeutic exercises was facilitated with verbal and visual cuing. Billing: [facility]: Therapeutic Exercise ([id number]): 1:1 time: 40 minutes (3 units: 38-52 mins) Total time: 40 minutes Elroy Cintron PT PROGRESS Observed: 04/21/2018 Status: COMPLETED Source: [place] 1:44 PM [facility] REPOSITORY HNO ID: [id number] Author: Swati Castrejon (Stock Or Delivery Clerk) Karena Service: (none) Author Type: Nurse Practitioner Type: Progress Notes Filed: 04/21/2018 2:07 PM Note Text: HP/CC: Yamila Kitchen is a 37 year old female who presents with complaint of a headache with chronic onset. The pain is located at bilateral and parietal region, and is described as: aching and throbbing, moderate and 8/10 in intensity; radiation: none. Associated symptoms include: phonopobia. Neurologic Symptoms: visual changes. Contributory PMHx: Prior headaches: yes Migraine history: no HTN: no DM: yes-120s temporal arthritis: no URI: yes Fever: no Chills: no Travel history (encephalitis): no Injury/Trauma: Yes Caffeine Intake: Yes- tea 2 per week Alcohol Intake: No. LMP: Patient's last menstrual period was 04/06/2018 (exact date). Contraception: tubal ligation Treatment: Treatments attempted include: anti-inflammatory drugs. Medication attempted include: acetaminophen. Taking OTC meds (Advil, Motrin, Aleve, ibuprofen, Tylenol): Yes If so, how often: three times per day(s) Do they help: Yes- but once wears off PENA returns Taking prescription meds (Imitrex, Zomig, Maxalt, Midrin): No Stopped amitriptyline d/t SE of fatigue PHYSICAL EXAMINATION: BP 114/72 (BP Site: Left Arm, BP Position: Sitting, BP Cuff Size: Large Adult) Pulse 100 Resp 14 Wt 113.9 kg (251 lb) BMI 40.51 kg/m? General appearance: Well appearing, alert, in no acute distress, well-hydrated, well nourished. and Obese, NC/AT. Skin: Skin color, texture, turgor normal, no suspicious rashes or lesions Head: Normocephalic, no masses, lesions, tenderness or abnormalities; TMJ pain: no Eyes: Anicteric sclera. Pupils are equally round and reactive to light. Extraocular movements are intact. Ears: External ears normal, canals clear, TM's normal Nose/Sinuses: Nares normal, septum midline, mucosa normal, no drainage or sinus tenderness Oropharynx: Lips, mucosa, and tongue normal, teeth and gums normal, oropharynx normal Neck: Supple, no adenopathy; thyroid symmetric, normal size, no bruits Lungs: Lungs clear to auscultation. No wheezing, rhonchi, rales Heart: RRR without murmur, gallop, or rubs. No ectopy Musculoskeletal: Muscular strength intact, No joint swelling, deformity, or tenderness Neuro: Gait normal. Reflexes normal and symmetric. Sensation grossly intact., CN II-XII intact, DTR 2+ upper and lower ext's, MS 5/5 upper and lower ext's, no motor or sensory deficit, propioception intact speech intact, gait intact, memory intact, A+Ox3 in time, place and person. Visual page intact. ASSESSMENT/PLAN: 1. Headache, unspecified headache type - ICD9: 784.0, ICD10: R51 - PROPRANOLOL 60 MG TABLET - follow up as scheduled MANNY Andre Observed: 04/21/2018 Status: COMPLETED Source: [place] 1:40 PM [facility] REPOSITORY Office Visit (FAMPWS) YAMILA KITCHEN ([id number]) 1980 F Date Time Provider Department 04/21/18 1:40 PM SWATI CAMPO (MAX) BRYON During your visit today, we recorded the following information about you: Pulse Respiration Blood pressure Weight 100/minute 14/minute 114/72 113.9 kg Last Period 04/06/18 Swati Campo APRN.CNP 04/21/2018 2:07 PM Signed HP/CC: Yamila Kitchen is a 37 year old female who presents with complaint of a headache with chronic onset. The pain is located at bilateral and parietal region, and is described as: aching and throbbing, moderate and 8/10 in intensity; radiation: none. Associated symptoms include: phonopobia. Neurologic Symptoms: visual changes. Contributory PMHx: Prior headaches: yes Migraine history: no HTN: no DM: yes-120s temporal arthritis: no URI: yes Fever: no Chills: no Travel history (encephalitis): no Injury/Trauma: Yes Caffeine Intake: Yes- tea 2 per week Alcohol Intake: No. LMP: Patient's last menstrual period was 04/06/2018 (exact date). Contraception: tubal ligation Treatment: Treatments attempted include: anti-inflammatory drugs. Medication attempted include: acetaminophen. Taking OTC meds (Advil, Motrin, Aleve, ibuprofen, Tylenol): Yes If so, how often: three times per day(s) Do they help: Yes- but once wears off PENA returns Taking prescription meds (Imitrex, Zomig, Maxalt, Midrin): No Stopped amitriptyline d/t SE of fatigue PHYSICAL EXAMINATION: BP 114/72 (BP Site: Left Arm, BP Position: Sitting, BP Cuff Size: Large Adult) Pulse 100 Resp 14 Wt 113.9 kg (251 lb) BMI 40.51 kg/m? General appearance: Well appearing, alert, in no acute distress, well-hydrated, well nourished. and Obese, NC/AT. Skin: Skin color, texture, turgor normal, no suspicious rashes or lesions Head: Normocephalic, no masses, lesions, tenderness or abnormalities; TMJ pain: no Eyes: Anicteric sclera. Pupils are equally round and reactive to light. Extraocular movements are intact. Ears: External ears normal, canals clear, TM's normal Nose/Sinuses: Nares normal, septum midline, mucosa normal, no drainage or sinus tenderness Oropharynx: Lips, mucosa, and tongue normal, teeth and gums normal, oropharynx normal Neck: Supple, no adenopathy; thyroid symmetric, normal size, no bruits Lungs: Lungs clear to auscultation. No wheezing, rhonchi, rales Heart: RRR without murmur, gallop, or rubs. No ectopy Musculoskeletal: Muscular strength intact, No joint swelling, deformity, or tenderness Neuro: Gait normal. Reflexes normal and symmetric. Sensation grossly intact., CN II-XII intact, DTR 2+ upper and lower ext's, MS 5/5 upper and lower ext's, no motor or sensory deficit, propioception intact speech intact, gait intact, memory intact, A+Ox3 in time, place and person. Visual page intact. ASSESSMENT/PLAN: 1. Headache, unspecified headache type - ICD9: 784.0, ICD10: R51 - PROPRANOLOL 60 MG TABLET - follow up as scheduled Swati Campo APRN.[facility] Allergies As of Date: 04/21/2018 Noted Allergy Reaction ASPIRIN 07/16/2011 12 - Shortness of Breath IBUPROFEN 07/16/2011 12 - Shortness of Breath SIMVASTATIN 2014 2 - Rash 12 - Shortness of Breath TRAMADOL 01/31/2014 14 - Other: See Comments Comments: Dizziness Date Reviewed: 04/21/2018 Reviewed by: Swati Campo - Fully Assessed Reason for Visit: Medication Follow-up [270] Primary Visit Diagnosis:Headache, unspecified headache type [R51] Order(s):propranolol (INDERAL) 60 mg tabletTake 1 tablet by mouth once daily.Disp: 90 tabletRfl: 0 Prescriptions as of 04/21/2018 Sig: PROPRANOLOL 60 MG TABLET Take 1 tablet by mouth once d* MELOXICAM 15 MG TABLET Take 1 tablet by mouth once d* INSULIN DEGLUDEC (U-100) 100 * Inject 40 Units subcutaneousl* LEVOTHYROXINE 50 MCG TABLET Take 1 tablet by mouth once d* METFORMIN ER 500 MG TABLET,EX* Take 2 tablets by mouth twice* PEN NEEDLE, DIABETIC 29 GAUGE* Use one needle per dose. 1 p* LIRAGLUTIDE 0.6 MG/0.1 ML (18* Inject 1.2 mg subcutaneously * PRAVASTATIN 20 MG TABLET Take 1 tablet by mouth once d* FLUTICASONE 50 MCG/ACTUATION * Use 2 Sprays in each nostril * FEXOFENADINE 60 MG TABLET Take 1 tablet by mouth once d* BLOOD-GLUCOSE METER KIT Glucose Meter of Choice - Kit* BLOOD SUGAR DIAGNOSTIC STRIPS Test blood sugar(s) 1 times d* LANCETS Test blood sugar(s) 1 times d* BUSPIRONE 5 MG TABLET Take 1 tablet by mouth three * FREESTYLE LITE STRIPS USE ONE STRIP TO CHECK GLUCOS* ALBUTEROL SULFATE HFA 90 MCG/* Inhale 2 Puffs as instructed * GLUCOSE 4 GRAM CHEWABLE TABLET Take 4 tablets by mouth as ne* Problem List As Of Date 04/21/2018 Noted Resolved Left wrist pain [M25.532] INVALID FOR*04/30/2016 Left wrist tendinitis [M77.8] INVALID FOR*04/30/2016 Multinodular goiter [E04.2] INVALID FOR* Hypothyroidism [E03.9] INVALID FOR* Diabetes mellitus type 2, controlled, without c*INVALID FOR*04/30/2016 Obesity, Class III, BMI 40-49.9 (morbid obesity*INVALID FOR* Major depression [F32.9] INVALID FOR*04/30/2016 Major depressive disorder, recurrent episode, m*INVALID FOR* Uncontrolled type 2 diabetes mellitus without c*INVALID FOR* Recurrent major depression in partial remission*INVALID FOR*04/30/2016 Pelvic floor dysfunction [M62.89] INVALID FOR* Pain in left hip [M25.552] INVALID FOR* Chronic pain of both knees [M25.561, M25.562, G*INVALID FOR* Prescriptions ordered this encounter Disp Refills Start End PROPRANOLOL 60 MG TABLET 90 t* 0 04/21/2018 Route: ORAL Sig: Take 1 tablet by mouth once daily. Medications Discontinued During This Encounter Xkjrloklbinedmj-Gfiguieww-SI (BROMFE* 200 * 0 03/02/2018 04/21/2018 Route: ORAL Sig: Take 10 mL by mouth four times daily as needed. Disc: Reason for discontinue is not on file. dextromethorphan-guaiFENesin (MUCINE* 30 t* 0 05/18/2017 04/21/2018 Route: ORAL Sig: Take 1 tablet by mouth twice daily. Disc: Course of therapy completed amitriptyline (ELAVIL) 25 mg tablet 30 t* 2 10/15/2017 04/21/2018 Route: ORAL Sig: Take 1 tablet by mouth daily at bedtime. Disc: Side Effects Follow-up and Disposition History Recorded Encounter Status:Closed by SWATI CAMPO CNP on 04/21/18 PROGRESS Observed: 04/01/2018 Status: COMPLETED Source: [place] 4:39 PM [facility] REPOSITORY HNO ID: [id number] Author: Elroy (Pt) Abdulaziz Service: (none) Author Type: Physical Therapist Type: Progress Notes Filed: 04/01/2018 5:14 PM Note Text: Episode Visit Count: 1 Therapist That Will Oversee The Plan Of Care: Elroy Cintron Start of Care Date: 04/01/18 Plan of Care Certification Date: 04/01/18 Patient Identified by Name and Date of : Yes REHABILITATION AND SPORTS THERAPY PHYSICAL THERAPY EVALUATION PLAN OF CARE: Assessment: Yamila Kitchen presents with the chief complaint of bilateral knee pain. She presents with impairments of limited hip strength, painful knee crepitus with lateral tilting and lateral translation of the patella, difficulty with stairs, walking, and standing. She may benefit from skilled therapy services to improve the above noted deficits to decrease pain and improve patient's quality of life. Will also work with patient to provide better fit with knee braces as these help, but she has difficulty keeping them in place. Prognosis: Fair Fair due to: clinical presentation;multiple co- morbidities;chronic nature of impairments;limited tolerance to activity Goals for Episode of Care: created on 04/01/18 through 06/02/18 [place] in home exercise program. Patient will decrease pain rating by 2 points to meet minimal clinical important difference for numeric pain rating scale. Patient will increase strength of B hips to 5/5 to allow for normalized gait mechanics, perform ADLs and negotiate stairs. Perform stairs and hills with decreased report of symptoms/pain in 6 weeks. Perform walking and standing without pain. Planned Interventions, Frequency, and Duration: Current Frequency: 1x/week Duration: 4 weeks Total Number of Visits Planned: 4 Planned Treatment Interventions: Therapeutic exercise;Manual therapy;Self-group home management;Patient/Family/Caregiver Education;Gait Training;Neuromuscular re-education PLAN FOR NEXT VISIT: continue manual on patellar tendon, distal quads; patellar mobs medially, work on fitting braces correctly, progress hip strengthening Patient demonstrates good understanding of plan of care and treatment. The above goals and plan of care were discussed and agreed upon by patient/family. SUBJECTIVE: Yamila Kitchen is a 37 year old female seen today for B knee pain R>L 3 years with pain getting worse. Pt feels it most going up and down stairs, with down worse and she takes it 1 step at a time descending with right leg first. [place], 1 mile or more of walking. Pt has noticed swelling on the outside of both knees, and pain is in the center of the knee. When pt sleeps pain can be on the inside of the knees, and she is a side sleeper. She did get braces but they tend to slip and fall down the knee so she hasn't been wearing them. Rest is the only thing she has found that helps. Pain Score: 9/10 Pain Location: Knee - Right;Knee - Left Description: Sharp;Aching;Sore Frequency: Continuous OBJECTIVE MEASURES WITH LEVEL OF FUNCTION: Knee Observations R Knee Presents with: Comments R Knee Presents with Comments: lateral tilt and translation of patella L Knee Presents with: Comments L Knee Presents with Comments: lateral tilt of patella R Knee Palpation Tenderness: Patellar tendon LE AROM R Knee Extension: -2 Degrees R Knee Flexion: 135 Degrees L Knee Extension: -2 Degrees L Knee Flexion: 135 Degrees LE Joint Mobility R Patellar Mobility: Hypomobile L Patellar Mobility: Hypomobile LE Strength R Hip Extension: 4/5 R Hip Flexion (L2): 5/5 R Hip ABduction: 4/5 R Hip ADduction: 4+/5 R Hip Internal Rotation: 4+/5 R Hip External Rotation: 4/5 R Knee Extension (L3): 4+/5 R Knee Flexion: 4+/5 L Hip Extension: 4+/5 L Hip Flexion (L2): 5/5 L Hip ABduction: 4/5 L Hip ADduction: 5/5 L Hip Internal Rotation: 5/5 L Hip External Rotation: 4+/5 L Knee Extension (L3): 5/5 L Knee Flexion: 5/5 Education: TREATMENT: Evaluation Therapeutic Exercise: 1: Patellar mobs with holds medially 2x10 2: Side lying hip abduction 2x10/side 3: Prone hip extension 2x10/side 4: Glute bridging 2x10 5: Side lying clamshells 2x10/side Skilled Intervention: Patient was educated in proper exercise technique and purpose for exercises. Skilled judgment was provided in selection of appropriate interventions. Provided written instruction for home exercise program to facilitate proper performance and compliance. Correct performance of therapeutic exercises was facilitated with verbal, visual and tactile cuing. Manual Therapy: 1: Manual patellar mobs medially with rpessure to pt tolerance x20/side with 5 second holds at end range 2: IASTM to B distal quads and patellar tendons with push to pt tolerance Skilled Intervention: Manual skills to improve joint mobility, ROM, and decrease pain. Utilized anatomy knowledge of the therapist, and assessment of patient's response to intervention. Billing: [facility]: Evaluation - Low Complexity ([id number]) Therapeutic Exercise (21475): 1:1 time: 10 minutes (1 unit: 8-22 mins) Manual Therapy (11950): 1:1 time: 15 minutes (1 unit: 8-22 mins) Total time: 48 minutes Elroy Cintron PT CNTHERAPY Observed: 04/01/2018 Status: COMPLETED Source: [place] 10:15 AM [facility] REPOSITORY OT/PT/Speech Visit (PTWS) YAMILA KITCHEN ([id number]) 1980 F Date Time Provider Department 04/01/18 10:15 AM ELROY CINTRON (PT) PTWS Date Time Provider Department Center 04/01/2018 10:15 AM [id number], SEAN (PT)PTWS [facility] Reason for Visit: PT Eval [747] Physical Therapy [503] Primary Visit Diagnosis:Chronic pain of both knees [M25.561, M25.562, G89.29] Allergies As of Date: 04/01/2018 Noted Allergy Reaction ASPIRIN 07/16/2011 12 - Shortness of Breath IBUPROFEN 07/16/2011 12 - Shortness of Breath SIMVASTATIN 2014 2 - Rash 12 - Shortness of Breath TRAMADOL 01/31/2014 14 - Other: See Comments Comments: Dizziness Date Reviewed: 03/26/2018 Reviewed by: Luc Blackwood LPN - Fully Assessed Prescriptions as of 04/01/2018 Sig: ALBUTEROL SULFATE HFA 90 MCG/* Inhale 2 Puffs as instructed * AMITRIPTYLINE 25 MG TABLET Take 1 tablet by mouth daily * BLOOD SUGAR DIAGNOSTIC STRIPS Test blood sugar(s) 1 times d* BLOOD-GLUCOSE METER KIT Glucose Meter of Choice - Kit* BROMPHENIRAMINE-PSEUDOEPHEDRI* Take 10 mL by mouth four time* BUSPIRONE 5 MG TABLET Take 1 tablet by mouth three * DEXTROMETHORPHAN-GUAIFENESIN * Take 1 tablet by mouth twice * FEXOFENADINE 60 MG TABLET Take 1 tablet by mouth once d* FLUTICASONE 50 MCG/ACTUATION * Use 2 Sprays in each nostril * FREESTYLE LITE STRIPS USE ONE STRIP TO CHECK GLUCOS* GLUCOSE 4 GRAM CHEWABLE TABLET Take 4 tablets by mouth as ne* INSULIN DEGLUDEC (U-100) 100 * Inject 40 Units subcutaneousl* PEN NEEDLE, DIABETIC 29 GAUGE* Use one needle per dose. 1 p* LANCETS Test blood sugar(s) 1 times d* LEVOTHYROXINE 50 MCG TABLET Take 1 tablet by mouth once d* LIRAGLUTIDE 0.6 MG/0.1 ML (18* Inject 1.2 mg subcutaneously * MELOXICAM 15 MG TABLET Take 1 tablet by mouth once d* METFORMIN ER 500 MG TABLET,EX* Take 2 tablets by mouth twice* PRAVASTATIN 20 MG TABLET Take 1 tablet by mouth once d* Progress Notes: Elroy Cintron, PT 04/01/2018 5:14 PM Signed Episode Visit Count: 1 Therapist That Will Oversee The Plan Of Care: Elroy Cintron Start of Care Date: 04/01/18 Plan of Care Certification Date: 04/01/18 Patient Identified by Name and Date of : Yes REHABILITATION AND SPORTS THERAPY PHYSICAL THERAPY EVALUATION PLAN OF CARE: Assessment: Yamila Kitchen presents with the chief complaint of bilateral knee pain. She presents with impairments of limited hip strength, painful knee crepitus with lateral tilting and lateral translation of the patella, difficulty with stairs, walking, and standing. She may benefit from skilled therapy services to improve the above noted deficits to decrease pain and improve patient's quality of life. Will also work with patient to provide better fit with knee braces as these help, but she has difficulty keeping them in place. Prognosis: Fair Fair due to: clinical presentation;multiple co- morbidities;chronic nature of impairments;limited tolerance to activity Goals for Episode of Care: created on 04/01/18 through 06/02/18 [place] in home exercise program. Patient will decrease pain rating by 2 points to meet minimal clinical important difference for numeric pain rating scale. Patient will increase strength of B hips to 5/5 to allow for normalized gait mechanics, perform ADLs and negotiate stairs. Perform stairs and hills with decreased report of symptoms/pain in 6 weeks. Perform walking and standing without pain. Planned Interventions, Frequency, and Duration: Current Frequency: 1x/week Duration: 4 weeks Total Number of Visits Planned: 4 Planned Treatment Interventions: Therapeutic exercise;Manual therapy;Self-group home management;Patient/Family/Caregiver Education;Gait Training;Neuromuscular re-education PLAN FOR NEXT VISIT: continue manual on patellar tendon, distal quads; patellar mobs medially, work on fitting braces correctly, progress hip strengthening Patient demonstrates good understanding of plan of care and treatment. The above goals and plan of care were discussed and agreed upon by patient/family. SUBJECTIVE: Yamila Kitchen is a 37 year old female seen today for B knee pain R>L 3 years with pain getting worse. Pt feels it most going up and down stairs, with down worse and she takes it 1 step at a time descending with right leg first. [place], 1 mile or more of walking. Pt has noticed swelling on the outside of both knees, and pain is in the center of the knee. When pt sleeps pain can be on the inside of the knees, and she is a side sleeper. She did get braces but they tend to slip and fall down the knee so she hasn't been wearing them. Rest is the only thing she has found that helps. Pain Score: 9/10 Pain Location: Knee - Right;Knee - Left Description: Sharp;Aching;Sore Frequency: Continuous OBJECTIVE MEASURES WITH LEVEL OF FUNCTION: Knee Observations R Knee Presents with: Comments R Knee Presents with Comments: lateral tilt and translation of patella L Knee Presents with: Comments L Knee Presents with Comments: lateral tilt of patella R Knee Palpation Tenderness: Patellar tendon LE AROM R Knee Extension: -2 Degrees R Knee Flexion: 135 Degrees L Knee Extension: -2 Degrees L Knee Flexion: 135 Degrees LE Joint Mobility R Patellar Mobility: Hypomobile L Patellar Mobility: Hypomobile LE Strength R Hip Extension: 4/5 R Hip Flexion (L2): 5/5 R Hip ABduction: 4/5 R Hip ADduction: 4+/5 R Hip Internal Rotation: 4+/5 R Hip External Rotation: 4/5 R Knee Extension (L3): 4+/5 R Knee Flexion: 4+/5 L Hip Extension: 4+/5 L Hip Flexion (L2): 5/5 L Hip ABduction: 4/5 L Hip ADduction: 5/5 L Hip Internal Rotation: 5/5 L Hip External Rotation: 4+/5 L Knee Extension (L3): 5/5 L Knee Flexion: 5/5 Education: TREATMENT: Evaluation Therapeutic Exercise: 1: Patellar mobs with holds medially 2x10 2: Side lying hip abduction 2x10/side 3: Prone hip extension 2x10/side 4: Glute bridging 2x10 5: Side lying clamshells 2x10/side Skilled Intervention: Patient was educated in proper exercise technique and purpose for exercises. Skilled judgment was provided in selection of appropriate interventions. Provided written instruction for home exercise program to facilitate proper performance and compliance. Correct performance of therapeutic exercises was facilitated with verbal, visual and tactile cuing. Manual Therapy: 1: Manual patellar mobs medially with rpessure to pt tolerance x20/side with 5 second holds at end range 2: IASTM to B distal quads and patellar tendons with push to pt tolerance Skilled Intervention: Manual skills to improve joint mobility, ROM, and decrease pain. Utilized anatomy knowledge of the therapist, and assessment of patient's response to intervention. Billing: [facility]: Evaluation - Low Complexity (10353) Therapeutic Exercise (26491): 1:1 time: 10 minutes (1 unit: 8-22 mins) Manual Therapy (99422): 1:1 time: 15 minutes (1 unit: 8-22 mins) Total time: 48 minutes Elroy Cintron PT PROGRESS Observed: 03/26/2018 Status: COMPLETED Source: [place] 11:09 AM [facility] REPOSITORY O ID: [id number] Author: Swati Castrejon (Max) Karena Service: (none) Author Type: Nurse Practitioner Type: Progress Notes Filed: 03/26/2018 11:14 AM Note Text: HPI/CC: Yamila Kitchen is a 37 year old female who presents to the office today for ER follow-up. She was to [facility] ER for 2nd degree burn to left ring finger after suffering a burn making rock candy. Burn became infected and she presented to the ER for evaluation. ER unroofed blister advised antibiotic ointment and PO keflex. Currently reports improved erythematous streaking, no drainage, fever, chills. REVIEW OF SYSTEMS As a arnoldo HISTORIES: PAST MEDICAL HISTORY Diagnosis Date - Diabetes mellitus type 2, controlled, without complications (HCC) 08/04/2014 - Hypothyroidism 05/2014 - Major depressive disorder, recurrent episode, moderate (HCC) 10/31/2014 - Obesity 08/04/2014 PAST SURGICAL HISTORY Procedure Laterality Date - [facility]/04[facility]2016 MAC - EGD W/O OR W/BRUSH/WASH N/A 06/04/2016 MAC - LIGATE FALLOPIAN TUBE 2013 Tubal ligation - PAST SURGICAL HISTORY OF 2013 - PAST SURGICAL HISTORY OF Left tendon surgery on left wrist FAMILY HISTORY Problem Relation Age of Onset - Diabetes Mother - Thyroid Mother hypothyroid - Stroke Mother - Diabetes Father - Stroke Father - Diabetes Sister - Diabetes Maternal Grandmother - Heart Maternal Grandmother congestive heart failure - Diabetes Maternal Grandfather - Heart Maternal Grandfather - Heart Paternal Grandfather had hole in heart at age 16 - Cancer Paternal Grandfather eye Social History Marital status: Single Spouse name: Years of education: Number of children: 4 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 amitriptyline (ELAVIL) 25 mg tablet Take 1 tablet by mouth daily at bedtime. blood sugar diagnostic (BLOOD GLUCOSE TEST) test strip Test blood sugar(s) 1 times daily. Dx: Type 2 DM - Uncontrolled Insulin: Yes Blood-Glucose Meter monitoring kit Glucose Meter of Choice - Kit - Dx: Type 2 DM - Uncontrolled Nxplgphbovawnih-Ntsnwjpiw-UH (BROMFED DM) 2-30-10 mg/5 mL syrup Take 10 mL by mouth four times daily as needed. busPIRone (BUSPAR) 5 mg tablet Take 1 tablet by mouth three times daily. As needed for anxiety attack dextromethorphan-guaiFENesin (MUCINEX DM) 30-600 mg per tablet Take 1 tablet by mouth twice daily. fexofenadine (JULIANN) 60 mg tablet Take 1 tablet by mouth once daily. fluticasone (FLONASE) 50 mcg/actuation nasal spray Use 2 Sprays in each nostril once daily. Rinse mouth after use. FREESTYLE LITE STRIPS test strip USE ONE STRIP TO CHECK GLUCOSE ONCE DAILY DIRECTED glucose 4 gram chewable tablet Take 4 tablets by mouth as needed. For low blood sugars insulin degludec (TRESIBA) 100 unit/mL (3 mL) injection Inject 40 Units subcutaneously every 24 hours. Insulin Gerald, Disposable, (PEN NEEDLE) 29 gauge x 1/2 ndle Use one needle per dose. 1 per day Lancets lancets Test blood sugar(s) 1 times daily. Dx: Type 2 DM - Uncontrolled Insulin: Yes levothyroxine (LEVOXYL) 50 mcg tablet Take 1 tablet by mouth once daily. Take on empty stomach. For Thyroid liraglutide (VICTOZA) 0.6 mg/ 0.1 ml subcutaneous pen injector Inject 1.2 mg subcutaneously once daily. meloxicam (MOBIC) 15 mg tablet Take 1 tablet by mouth once daily. metFORMIN ER (GLUCOPHAGE XR) 500 mg 24 hr tablet Take 2 tablets by mouth twice daily before meals. pravastatin (PRAVACHOL) 20 mg tablet Take 1 tablet by mouth once daily. No current facility-administered medications on file prior to visit. ALLERGIES Allergen Reactions - Aspirin Shortness of Breath - Ibuprofen Shortness of Breath - Simvastatin Rash, Shortness of Breath - Tramadol Other: See Comments Dizziness PHYSICAL EXAMINATION: BP 110/86 Pulse 80 Resp 16 Wt 112 kg (247 lb) BMI 39.87 kg/m? General appearance: Well appearing, alert, in no acute distress, well-hydrated, well nourished. and Obese Skin: left ring finger with open wound, skin macerated otherwise healing well. ASSESSMENT/PLAN: 1. Skin burn - ICD9: 949.0, ICD10: T30.0 - continue current care with periods of letting wound open to air. - f/u if worse MANNY AndreOV Observed: 03/26/2018 Status: COMPLETED Source: [place] 10:40 AM [facility] REPOSITORY Office Visit (FAMPWS) FIDELINAYAMILA M ([id number]) 1980 F Date Time Provider Department 03/26/18 10:40 AM SWATI CAMPO (MAX) FAMPWS During your visit today, we recorded the following information about you: Pulse Respiration Blood pressure Weight 80/minute 16/minute 110/86 112 kg Swati Campo APRN.CNP 03/26/2018 11:14 AM Signed HPI/CC: Yamila Kitchen is a 37 year old female who presents to the office today for ER follow-up. She was to [facility] ER for 2nd degree burn to left ring finger after suffering a burn making rock candy. Burn became infected and she presented to the ER for evaluation. ER unroofed blister advised antibiotic ointment and PO keflex. Currently reports improved erythematous streaking, no drainage, fever, chills. REVIEW OF SYSTEMS As a arnoldo HISTORIES: PAST MEDICAL HISTORY Diagnosis Date - Diabetes mellitus type 2, controlled, without complications (HCC) 08/04/2014 - Hypothyroidism 05/2014 - Major depressive disorder, recurrent episode, moderate (HCC) 10/31/2014 - Obesity 08/04/2014 PAST SURGICAL HISTORY Procedure Laterality Date - COLONOSCOP W/ OR W/O [facility] SPEC N/A 06/04/2016 MAC - EGD W/O OR W/BRUSH/WASH N/A 06/04/2016 MAC - LIGATE FALLOPIAN TUBE 2013 Tubal ligation - PAST SURGICAL HISTORY OF 2013 - PAST SURGICAL HISTORY OF Left tendon surgery on left wrist FAMILY HISTORY Problem Relation Age of Onset - Diabetes Mother - Thyroid Mother hypothyroid - Stroke Mother - Diabetes Father - Stroke Father - Diabetes Sister - Diabetes Maternal Grandmother - Heart Maternal Grandmother congestive heart failure - Diabetes Maternal Grandfather - Heart Maternal Grandfather - Heart Paternal Grandfather had hole in heart at age 16 - Cancer Paternal Grandfather eye Social History Marital status: Single Spouse name: Years of education: Number of children: 4 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 amitriptyline (ELAVIL) 25 mg tablet Take 1 tablet by mouth daily at bedtime. blood sugar diagnostic (BLOOD GLUCOSE TEST) test strip Test blood sugar(s) 1 times daily. Dx: Type 2 DM - Uncontrolled E11.65 Insulin: Yes Blood-Glucose Meter monitoring kit Glucose Meter of Choice - Kit - Dx: Type 2 DM - Uncontrolled E11.65 Ibpimpprvcrolle-Pqlcwiqcp-BS (BROMFED DM) 2-30-10 mg/5 mL syrup Take 10 mL by mouth four times daily as needed. busPIRone (BUSPAR) 5 mg tablet Take 1 tablet by mouth three times daily. As needed for anxiety attack dextromethorphan-guaiFENesin (MUCINEX DM) 30-600 mg per tablet Take 1 tablet by mouth twice daily. fexofenadine (JULIANN) 60 mg tablet Take 1 tablet by mouth once daily. fluticasone (FLONASE) 50 mcg/actuation nasal spray Use 2 Sprays in each nostril once daily. Rinse mouth after use. FREESTYLE LITE STRIPS test strip USE ONE STRIP TO CHECK GLUCOSE ONCE DAILY DIRECTED glucose 4 gram chewable tablet Take 4 tablets by mouth as needed. For low blood sugars insulin degludec (TRESIBA) 100 unit/mL (3 mL) injection Inject 40 Units subcutaneously every 24 hours. Insulin Gerald, Disposable, (PEN NEEDLE) 29 gauge x 1/2 ndle Use one needle per dose. 1 per day Lancets lancets Test blood sugar(s) 1 times daily. Dx: Type 2 DM - Uncontrolled E11.65 Insulin: Yes levothyroxine (LEVOXYL) 50 mcg tablet Take 1 tablet by mouth once daily. Take on empty stomach. For Thyroid liraglutide (VICTOZA) 0.6 mg/ 0.1 ml subcutaneous pen injector Inject 1.2 mg subcutaneously once daily. meloxicam (MOBIC) 15 mg tablet Take 1 tablet by mouth once daily. metFORMIN ER (GLUCOPHAGE XR) 500 mg 24 hr tablet Take 2 tablets by mouth twice daily before meals. pravastatin (PRAVACHOL) 20 mg tablet Take 1 tablet by mouth once daily. No current facility-administered medications on file prior to visit. ALLERGIES Allergen Reactions - Aspirin Shortness of Breath - Ibuprofen Shortness of Breath - Simvastatin Rash, Shortness of Breath - Tramadol Other: See Comments Dizziness PHYSICAL EXAMINATION: BP 110/86 Pulse 80 Resp 16 Wt 112 kg (247 lb) BMI 39.87 kg/m? General appearance: Well appearing, alert, in no acute distress, well-hydrated, well nourished. and Obese Skin: left ring finger with open wound, skin macerated otherwise healing well. ASSESSMENT/PLAN: 1. Skin burn - ICD9: 949.0, ICD10: T30.0 - continue current care with periods of letting wound open to air. - f/u if worse Swati Campo APRN.MARGARINE MAKER Allergies As of Date: 03/26/2018 Noted Allergy Reaction ASPIRIN 07/16/2011 12 - Shortness of Breath IBUPROFEN 07/16/2011 12 - Shortness of Breath SIMVASTATIN 2014 2 - Rash 12 - Shortness of Breath TRAMADOL 01/31/2014 14 - Other: See Comments Comments: Dizziness Date Reviewed: 03/26/2018 Reviewed by: Luc Blackwood LPN - Fully Assessed Reason for Visit: ER F/U [41] Cmt: [facility] ER 03/23 dx: burn L ring finger Primary Visit Diagnosis:Skin burn [T30.0] Prescriptions as of 03/26/2018 Sig: ALBUTEROL SULFATE HFA 90 MCG/* Inhale 2 Puffs as instructed * AMITRIPTYLINE 25 MG TABLET Take 1 tablet by mouth daily * BLOOD SUGAR DIAGNOSTIC STRIPS Test blood sugar(s) 1 times d* BLOOD-GLUCOSE METER KIT Glucose Meter of Choice - Kit* BROMPHENIRAMINE-PSEUDOEPHEDRI* Take 10 mL by mouth four time* BUSPIRONE 5 MG TABLET Take 1 tablet by mouth three * DEXTROMETHORPHAN-GUAIFENESIN * Take 1 tablet by mouth twice * FEXOFENADINE 60 MG TABLET Take 1 tablet by mouth once d* FLUTICASONE 50 MCG/ACTUATION * Use 2 Sprays in each nostril * FREESTYLE LITE STRIPS USE ONE STRIP TO CHECK GLUCOS* GLUCOSE 4 GRAM CHEWABLE TABLET Take 4 tablets by mouth as ne* INSULIN DEGLUDEC (U-100) 100 * Inject 40 Units subcutaneousl* PEN NEEDLE, DIABETIC 29 GAUGE* Use one needle per dose. 1 p* LANCETS Test blood sugar(s) 1 times d* LEVOTHYROXINE 50 MCG TABLET Take 1 tablet by mouth once d* LIRAGLUTIDE 0.6 MG/0.1 ML (18* Inject 1.2 mg subcutaneously * MELOXICAM 15 MG TABLET Take 1 tablet by mouth once d* METFORMIN ER 500 MG TABLET,EX* Take 2 tablets by mouth twice* PRAVASTATIN 20 MG TABLET Take 1 tablet by mouth once d* Problem List As Of Date 03/26/2018 Noted Resolved Left wrist pain [M25.532] INVALID FOR*04/30/2016 Left wrist tendinitis [M77.8] INVALID FOR*04/30/2016 Multinodular goiter [E04.2] INVALID FOR* Hypothyroidism [E03.9] INVALID FOR* Diabetes mellitus type 2, controlled, without c*INVALID FOR*04/30/2016 Obesity, Class III, BMI 40-49.9 (morbid obesity*INVALID FOR* Major depression [F32.9] INVALID FOR*04/30/2016 Major depressive disorder, recurrent episode, m*INVALID FOR* Uncontrolled type 2 diabetes mellitus without c*INVALID FOR* Recurrent major depression in partial remission*INVALID FOR*04/30/2016 Pelvic floor dysfunction [M62.89] INVALID FOR* Pain in left hip [M25.552] INVALID FOR* Encounter Status:Closed by SWATI CAMPO CNP on 03/26/18 EMERGENCY DEPARTMENT Observed: 03/24/2018 Status: F Source: CHERY SUMMARY 12:35 AM [facility] REPOSITORY [facility] Medical Records Department [address] [place] [address] Emergency Department Summary 03/23/18 2135 MR#: [id number] Acct: [id number] Name: YAMILA KITCHEN Rep #: [id number] : 1980 37 From: Yamil Ying MD PCP: Padilla Carroll DO Status: DEP ER - ER Visit Summary Date of Service: 03/23/18 Chief Complaint: Burn History of Present Illness: The patient is a 37 F presenting for evaluation secondary to a burn. Patient reports that about 2 days ago she was making a rock candy and she suffered a burn to her left ring finger. She is left hand dominate. Tetanus status is up-to-date. Patient states that she is having increasing pain and spreading redness. Physical Examination: Physical exam shows evidence of a blister over the dorsum of the middle phalanges of the patient's left ring finger. There is surrounding erythema with some streaking going up to the proximal portion of the hand. Test Results: None indicated Emergency Department Course and Treatment: Patient presented with a second-degree burn with evidence of infection. Patient told me that there was spontaneous drainage coming from this, so I did decide to deroof of the blister. A 21 gauge needle was used to incise along the blister, and then tissue scissors steps were used to remove the excess tissue. Bacitracin dressing was placed over top of this, and the patient will be placed on Keflex. Disposition: Discharge Impression: 1. Infected second-degree burn of the left ring finger This note was generated with FX Aligned dictation software. It may contain incorrect words, spelling, and punctuation that were not noted in review of the chart prior to signing ED Disposition - Plan for ED Patient: Disposition: Home or Assisted Living Chief Complaint: Burn Diagnosis: Cellulitis Instructions: ED Burn Scald, ED Infec Skin Cellulitis Prescriptions: Cephalexin [Keflex] 500 mg PO Q6 #40 cap Referrals: Padilla Osborne DO [Primary Care Provider] - 3-5 Days What to do if you have Problems For any increased pain, shortness of breath, bleeding, nausea or vomiting, chest pain, or any unexpected problems, contact your Primary Care Provider. Call [facility] ([phone]) or report to the closest Emergency Room. Call 911 if necessary. 03/24/18 0035 <Electronically signed by Yamil Ying MD> Date Yamil Ying MD Cosigner Signature (If Indicated): Date CC: Padilla Carroll DO PROGRESS Observed: 03/19/2018 Status: COMPLETED Source: [place] 10:36 AM [facility] REPOSITORY HNO ID: [id number] Author: Juhi Zayas Ma Service: (none) Author Type: (none) Type: Progress Notes Filed: 03/19/2018 10:39 AM Note Text: PT ASSESSMENT - CASTING ROOM Yamila presents for Application of brace. Applied XL lateral J brace to Bilateral knee. Patient electronically signed Arthur JACKSON. Patient has been instructed in Care and proper application of brace. Printed manufacturers instructions were sent home with patient. Juhi Zayas Ma PROGRESS Observed: 03/19/2018 Status: COMPLETED Source: [place] 10:29 AM [facility] REPOSITORY HNO ID: [id number] Author: Brandon Jones V Service: (none) Author Type: Physician Type: Progress Notes Filed: 03/19/2018 10:39 AM Note Text: SELF Ms. Kitchen is a 37 year old female that presents today complaining of knee problems bilaterally for the last 9 years. She claims that this pain appears to be related to exercising on a stair stepper- at least that is her connection to the onset of pain. The pain is described as chronic located in the front of the knee. Patient states that her pain level is a number 9 on a scale of 1-10 ALLERGIES: Aspirin; Ibuprofen; Simvastatin; Tramadol MEDICATIONS: Current Outpatient Prescriptions: insulin degludec (TRESIBA) 100 unit/mL (3 mL) injection Inject 40 Units subcutaneously every 24 hours. levothyroxine (LEVOXYL) 50 mcg tablet Take 1 tablet by mouth once daily. Take on empty stomach. For Thyroid metFORMIN ER (GLUCOPHAGE XR) 500 mg 24 hr tablet Take 2 tablets by mouth twice daily before meals. Insulin Gerald, Disposable, (PEN NEEDLE) 29 gauge x 1/2 ndle Use one needle per dose. 1 per day amitriptyline (ELAVIL) 25 mg tablet Take 1 tablet by mouth daily at bedtime. liraglutide (VICTOZA) 0.6 mg/ 0.1 ml subcutaneous pen injector Inject 1.2 mg subcutaneously once daily. pravastatin (PRAVACHOL) 20 mg tablet Take 1 tablet by mouth once daily. fexofenadine (JULIANN) 60 mg tablet Take 1 tablet by mouth once daily. Blood-Glucose Meter monitoring kit Glucose Meter of Choice - Kit - Dx: Type 2 DM - Uncontrolled E11.65 blood sugar diagnostic (BLOOD GLUCOSE TEST) test strip Test blood sugar(s) 1 times daily. Dx: Type 2 DM - Uncontrolled E11.65 Insulin: Yes Lancets lancets Test blood sugar(s) 1 times daily. Dx: Type 2 DM - Uncontrolled E11.65 Insulin: Yes busPIRone (BUSPAR) 5 mg tablet Take 1 tablet by mouth three times daily. As needed for anxiety attack FREESTYLE LITE STRIPS test strip USE ONE STRIP TO CHECK GLUCOSE ONCE DAILY DIRECTED glucose 4 gram chewable tablet Take 4 tablets by mouth as needed. For low blood sugars meloxicam (MOBIC) 15 mg tablet Take 1 tablet by mouth once daily. Ebhcslkyywgzwrv-Bifanagjz-SB (BROMFED DM) 2-30-10 mg/5 mL syrup Take 10 mL by mouth four times daily as needed. fluticasone (FLONASE) 50 mcg/actuation nasal spray Use 2 Sprays in each nostril once daily. Rinse mouth after use. albuterol HFA (PROAIR HFA) 90 mcg/actuation inhaler Inhale 2 Puffs as instructed every 4 hours as needed. dextromethorphan-guaiFENesin (MUCINEX DM) 30-600 mg per tablet Take 1 tablet by mouth twice daily. No current facility-administered medications for this visit. MEDICAL HISTORY: PAST MEDICAL HISTORY Diagnosis Date - Diabetes mellitus type 2, controlled, without complications (HCC) 08/04/2014 - Hypothyroidism 05/2014 - Major depressive disorder, recurrent episode, moderate (HCC) 10/31/2014 - Obesity 08/04/2014 SURGICAL HISTORY: PAST SURGICAL HISTORY Procedure Laterality Date - COLONOSCOP W/ OR W/O BRSH SPEC N/A 06/04/2016 MAC - EGD W/O OR W/BRUSH/WASH N/A 06/04/2016 MAC - LIGATE FALLOPIAN TUBE 2013 Tubal ligation - PAST SURGICAL HISTORY OF 2013 - PAST SURGICAL HISTORY OF Left tendon surgery on left wrist FAMILY HISTORY: FAMILY HISTORY Problem Relation Age of Onset - Diabetes Mother - Thyroid Mother hypothyroid - Stroke Mother - Diabetes Father - Stroke Father - Diabetes Sister - Diabetes Maternal Grandmother - Heart Maternal Grandmother congestive heart failure - Diabetes Maternal Grandfather - Heart Maternal Grandfather - Heart Paternal Grandfather had hole in heart at age 16 - Cancer Paternal Grandfather eye SOCIAL HISTORY: Social History Marital status: Single Spouse name: Years of education: Number of children: 4 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 0-135 degrees of motion. No Abnormal Anterior, Posterior, Varus or Valgus Laxity. No Medial or Lateral Joint Line Tenderness. No pain with Direct Palpation over the Distal Medial or Lateral Femoral Condyles. Negative Staci's Test. There is pain with Patellar compression. The Left Knee Reveals No Effusion. 0-135 degrees of motion. No Abnormal Anterior, Posterior, Varus or Valgus Laxity. No Medial or Lateral Joint Line Tenderness. No pain with Direct Palpation over the Distal Medial or Lateral Femoral Condyles. Negative Staci's Test. There is pain with patellar compression. RADIOGRAPH: MILD DEGENERATIVE JOINT DISEASE OF THE KNEE JOINT AND PATELLOFEMORAL JOINT BILATERALLY. ?BILATERAL LATERAL SUBLUXATION THE PATELLA ASSESSMENT: patellofemoral arthritis with lateral subluxation bilaterally PLAN: patellar J-braces issued PT order entered Signed Prescriptions Disp Refills meloxicam (MOBIC) 15 mg tablet 30 tablet 0 Sig: Take 1 tablet by mouth once daily. ASA and ibuprofen allergies listed, but patient states she has taken mobic in the past with no allergic reaction DO JOSELUIS Holman Observed: 03/19/2018 Status: COMPLETED Source: [place] 10:00 AM [facility] [place] REPOSITORY Office Visit (UC) YAMILA KITCHEN ([id number]) 1980 F Date Time Provider Department 03/19/18 10:00 AM BRANDON JONES During your visit today, we recorded the following information about you: Juhi Zayas Ma 03/19/2018 10:39 AM Signed AMB ROOMING INTAKE FLOWSHEET DATA Risk Screening Do you have concerns about personal safety or safety in the home?: No Pain Pain Score: 9/10 Pain Location: Other: See Comment (bilateral knees) Description: Stabbing Duration Amount of Time: 8 Duration Units: Years Frequency: Continuous Intervention: Other: See comment (none) Patient here today for evaluation of bilateral knee pain. States stairs are painful. Right knee pops and locks. Brandon Jones DO 03/19/2018 10:39 AM Signed SELF Ms. Kitchen is a 37 year old female that presents today complaining of knee problems bilaterally for the last 9 years. She claims that this pain appears to be related to exercising on a stair stepper- at least that is her connection to the onset of pain. The pain is described as chronic located in the front of the knee. Patient states that her pain level is a number 9 on a scale of 1-10 ALLERGIES: Aspirin; Ibuprofen; Simvastatin; Tramadol MEDICATIONS: Current Outpatient Prescriptions: insulin degludec (TRESIBA) 100 unit/mL (3 mL) injection Inject 40 Units subcutaneously every 24 hours. levothyroxine (LEVOXYL) 50 mcg tablet Take 1 tablet by mouth once daily. Take on empty stomach. For Thyroid metFORMIN ER (GLUCOPHAGE XR) 500 mg 24 hr tablet Take 2 tablets by mouth twice daily before meals. Insulin Gerald, Disposable, (PEN NEEDLE) 29 gauge x 1/2 ndle Use one needle per dose. 1 per day amitriptyline (ELAVIL) 25 mg tablet Take 1 tablet by mouth daily at bedtime. liraglutide (VICTOZA) 0.6 mg/ 0.1 ml subcutaneous pen injector Inject 1.2 mg subcutaneously once daily. pravastatin (PRAVACHOL) 20 mg tablet Take 1 tablet by mouth once daily. fexofenadine (JULIANN) 60 mg tablet Take 1 tablet by mouth once daily. Blood-Glucose Meter monitoring kit Glucose Meter of Choice - Kit - Dx: Type 2 DM - Uncontrolled E11.65 blood sugar diagnostic (BLOOD GLUCOSE TEST) test strip Test blood sugar(s) 1 times daily. Dx: Type 2 DM - Uncontrolled E11.65 Insulin: Yes Lancets lancets Test blood sugar(s) 1 times daily. Dx: Type 2 DM - Uncontrolled E11.65 Insulin: Yes busPIRone (BUSPAR) 5 mg tablet Take 1 tablet by mouth three times daily. As needed for anxiety attack FREESTYLE LITE STRIPS test strip USE ONE STRIP TO CHECK GLUCOSE ONCE DAILY DIRECTED glucose 4 gram chewable tablet Take 4 tablets by mouth as needed. For low blood sugars meloxicam (MOBIC) 15 mg tablet Take 1 tablet by mouth once daily. Meklhnxtihtrrml-Dxbwphulj-YO (BROMFED DM) 2-30-10 mg/5 mL syrup Take 10 mL by mouth four times daily as needed. fluticasone (FLONASE) 50 mcg/actuation nasal spray Use 2 Sprays in each nostril once daily. Rinse mouth after use. albuterol HFA (PROAIR HFA) 90 mcg/actuation inhaler Inhale 2 Puffs as instructed every 4 hours as needed. dextromethorphan-guaiFENesin (MUCINEX DM) 30-600 mg per tablet Take 1 tablet by mouth twice daily. No current facility-administered medications for this visit. MEDICAL HISTORY: PAST MEDICAL HISTORY Diagnosis Date - Diabetes mellitus type 2, controlled, without complications (HCC) 08/04/2014 - Hypothyroidism 05/2014 - Major depressive disorder, recurrent episode, moderate (HCC) 10/31/2014 - Obesity 08/04/2014 SURGICAL HISTORY: PAST SURGICAL HISTORY Procedure Laterality Date - COLONOSCOP W/ OR W/O BRSH SPEC N/A 06/04/2016 MAC - EGD W/O OR W/BRUSH/WASH N/A 06/04/2016 MAC - LIGATE FALLOPIAN TUBE 2013 Tubal ligation - PAST SURGICAL HISTORY OF 2013 - PAST SURGICAL HISTORY OF Left tendon surgery on left wrist FAMILY HISTORY: FAMILY HISTORY Problem Relation Age of Onset - Diabetes Mother - Thyroid Mother hypothyroid - Stroke Mother - Diabetes Father - Stroke Father - Diabetes Sister - Diabetes Maternal Grandmother - Heart Maternal Grandmother congestive heart failure - Diabetes Maternal Grandfather - Heart Maternal Grandfather - Heart Paternal Grandfather had hole in heart at age 16 - Cancer Paternal Grandfather eye SOCIAL HISTORY: Social History Marital status: Single Spouse name: Years of education: Number of children: 4 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 0-135 degrees of motion. No Abnormal Anterior, Posterior, Varus or Valgus Laxity. No Medial or Lateral Joint Line Tenderness. No pain with Direct Palpation over the Distal Medial or Lateral Femoral Condyles. Negative Staci's Test. There is pain with Patellar compression. The Left Knee Reveals No Effusion. 0-135 degrees of motion. No Abnormal Anterior, Posterior, Varus or Valgus Laxity. No Medial or Lateral Joint Line Tenderness. No pain with Direct Palpation over the Distal Medial or Lateral Femoral Condyles. Negative Staci's Test. There is pain with patellar compression. RADIOGRAPH: MILD DEGENERATIVE JOINT DISEASE OF THE KNEE JOINT AND PATELLOFEMORAL JOINT BILATERALLY. ?BILATERAL LATERAL SUBLUXATION THE PATELLA ASSESSMENT: patellofemoral arthritis with lateral subluxation bilaterally PLAN: patellar J-braces issued PT order entered Signed Prescriptions Disp Refills meloxicam (MOBIC) 15 mg tablet 30 tablet 0 Sig: Take 1 tablet by mouth once daily. ASA and ibuprofen allergies listed, but patient states she has taken mobic in the past with no allergic reaction DO Juhi Holman Ma 03/19/2018 10:39 AM Signed PT ASSESSMENT - CASTING ROOM Yamila presents for Application of brace. Applied XL lateral J brace to Bilateral knee. Patient electronically signed Arthur JACKSON. Patient has been instructed in Care and proper application of brace. Printed manufacturers instructions were sent home with patient. Juhi Zayas Ma Referring Provider: SELF [[id number]] Allergies As of Date: 03/19/2018 Noted Allergy Reaction ASPIRIN 07/16/2011 12 - Shortness of Breath IBUPROFEN 07/16/2011 12 - Shortness of Breath SIMVASTATIN 2014 2 - Rash 12 - Shortness of Breath TRAMADOL 01/31/2014 14 - Other: See Comments Comments: Dizziness Date Reviewed: 03/19/2018 Reviewed by: Juhi Zayas Ma - Fully Assessed Reason for Visit: New Patient [172] Cmt: Bilateral knee pain REF: Karena x-ray: 03/11/2018 Primary Visit Diagnosis:Patellofemoral arthritis [M17.10] Order(s):CONSULT TO PHYSICAL THERAPY [6416] Order #: [id number]: 1 meloxicam (MOBIC) 15 mg tabletTake 1 tablet by mouth once daily.Disp: 30 tabletRfl: 0 Prescriptions as of 03/19/2018 Sig: INSULIN DEGLUDEC (U-100) 100 * Inject 40 Units subcutaneousl* LEVOTHYROXINE 50 MCG TABLET Take 1 tablet by mouth once d* METFORMIN ER 500 MG TABLET,EX* Take 2 tablets by mouth twice* PEN NEEDLE, DIABETIC 29 GAUGE* Use one needle per dose. 1 p* AMITRIPTYLINE 25 MG TABLET Take 1 tablet by mouth daily * LIRAGLUTIDE 0.6 MG/0.1 ML (18* Inject 1.2 mg subcutaneously * PRAVASTATIN 20 MG TABLET Take 1 tablet by mouth once d* FEXOFENADINE 60 MG TABLET Take 1 tablet by mouth once d* BLOOD-GLUCOSE METER KIT Glucose Meter of Choice - Kit* BLOOD SUGAR DIAGNOSTIC STRIPS Test blood sugar(s) 1 times d* LANCETS Test blood sugar(s) 1 times d* BUSPIRONE 5 MG TABLET Take 1 tablet by mouth three * FREESTYLE LITE STRIPS USE ONE STRIP TO CHECK GLUCOS* GLUCOSE 4 GRAM CHEWABLE TABLET Take 4 tablets by mouth as ne* MELOXICAM 15 MG TABLET Take 1 tablet by mouth once d* BROMPHENIRAMINE-PSEUDOEPHEDRI* Take 10 mL by mouth four time* FLUTICASONE 50 MCG/ACTUATION * Use 2 Sprays in each nostril * ALBUTEROL SULFATE HFA 90 MCG/* Inhale 2 Puffs as instructed * DEXTROMETHORPHAN-GUAIFENESIN * Take 1 tablet by mouth twice * Medication notes this encounter ACIBOMDJXBOTJUS-OELKMDXGZTYEROH-QE 2 MG-30 MG-10 MG/5 ML SYRUP >> Juhi Zayas Ma 03/19/2018 9:51 AM >> JUHI ZAYAS MA ThuMar 19, 2018 9:51 AM Not taking. Problem List As Of Date 03/19/2018 Noted Resolved Left wrist pain [M25.532] INVALID FOR*04/30/2016 Left wrist tendinitis [M77.8] INVALID FOR*04/30/2016 Multinodular goiter [E04.2] INVALID FOR* Hypothyroidism [E03.9] INVALID FOR* Diabetes mellitus type 2, controlled, without c*INVALID FOR*04/30/2016 Obesity, Class III, BMI 40-49.9 (morbid obesity*INVALID FOR* Major depression [F32.9] INVALID FOR*04/30/2016 Major depressive disorder, recurrent episode, m*INVALID FOR* Uncontrolled type 2 diabetes mellitus without c*INVALID FOR* Recurrent major depression in partial remission*INVALID FOR*04/30/2016 Pelvic floor dysfunction [M62.89] INVALID FOR* Pain in left hip [M25.552] INVALID FOR* Prescriptions ordered this encounter Disp Refills Start End MELOXICAM 15 MG TABLET 30 t* 0 03/19/2018 Route: ORAL Sig: Take 1 tablet by mouth once daily. Encounter Status:Closed by BRANDON JONES DO, V on 03/19/18 PROGRESS Observed: 03/19/2018 Status: COMPLETED Source: [place] 9:53 AM [facility] REPOSITORY O ID: [id number] Author: Juhi Zayas Ma Service: (none) Author Type: (none) Type: Progress Notes Filed: 03/19/2018 10:39 AM Note Text: AMB ROOMING INTAKE FLOWSHEET DATA Risk Screening Do you have concerns about personal safety or safety in the home?: No Pain Pain Score: 9/10 Pain Location: Other: See Comment (bilateral knees) Description: Stabbing Duration Amount of Time: 8 Duration Units: Years Frequency: Continuous Intervention: Other: See comment (none) Patient here today for evaluation of bilateral knee pain. States stairs are painful. Right knee pops and locks. XR KNEE 4V AP/PA/LAT/MERCH Observed: 03/11/2018 Status: F Source: [facility] 10:55 AM [facility] REPOSITORY * * *Final Report* * * DATE OF EXAM: Mar 11 2018 10:55AM WOX [id number] - XR KNEE 4V AP/PA/LAT/MERCH CARLOS ALBERTO / PROCEDURE REASON: multiple diagnoses * * * * Physician Interpretation * * * * HISTORY: 37-YEAR-OLD FEMALE WITH Pain in both knees, unspecified chronicity Pain in both knees, unspecified chronicity . Anterior bilateral knee pain without injury. Right knee is worse than the left. TECHNIQUE: XR KNEE 4V AP/PA/LAT/MERCH CARLOS ALBERTO Laterality: BILATERAL Number of different views (projections): 4 each COMPARISON: None RESULT: Left knee: Small osteophytes about the medial compartment knee joint and patellofemoral joint. Tiny joint effusion. No fracture. Lateral subluxation and lateral tilting the patellofemoral joint. Right knee: Small osteophytes about the medial compartment knee joint with slight lateral translation tibia in relation to the femur. Patellofemoral joint is laterally subluxed with lateral tilting the patella. Osteophytes but patellofemoral joint. No fracture. No joint effusion. IMPRESSION: MILD DEGENERATIVE JOINT DISEASE OF THE KNEE JOINT AND PATELLOFEMORAL JOINT BILATERALLY. BILATERAL LATERAL SUBLUXATION THE PATELLA. Customer Quality Specialist: PSCB Transcribe Date/Time: Mar 11 2018 2:07P Dictated by : PILY FOSTER MD This examination was interpreted and the report reviewed and electronically signed by: PILY FOSTER MD on Mar 11 2018 2:09PM EST [id number] PROGRESS Observed: 03/11/2018 Status: COMPLETED Source: [place] 10:37 AM [facility] REPOSITORY O ID: [id number] Author: Judith Castrejon (Thai Campbell Service: (none) Author Type: Die Forger Type: Progress Notes Filed: 03/11/2018 10:55 AM Note Text: Radiology Service Progress Note PATIENT NAME: Yamila Kitchen DATE OF SERVICE: March 11, 2018 TIME: 10:37 AM PATIENT IDENTITY VERIFICATION COMPLETED USING TWO (2) METHODS: Patient confirmed name verbally and Date of . PATIENT GENDER DATA: Female. status: : No status: NO. PATIENT RELEVANT IMPLANT DATA REVIEWED: Not Applicable RADIOLOGY DEPARTMENT: General X-ray: Exam(s) Completed: Lower Extremity X-Ray(s): Knee, AP / Lat / Tunne / Merchant Bilateral and Wt. Bearing: PERIPHERAL IV DATA: Not applicable SIGNED BY: RT Neftali March 11, 2018 10:37 AM PROGRESS Observed: 03/11/2018 Status: COMPLETED Source: [place] 9:48 AM [facility] REPOSITORY O ID: [id number] Author: Swati Castrejon (Max) Karena Service: (none) Author Type: Nurse Practitioner Type: Progress Notes Filed: 03/11/2018 10:22 AM Note Text: HPI/CC: Yamila Kitchen is a 37 year old female who presents to the office today for review of health conditions. Ms. Kitchen has past history of diabetes, hyperlipidemia and hypertension. DM: Since our last visit she denies excessive thirst or increased frequency of urination, chest pain or dyspnea , numbness, tingling or pain in extremities, new or unusual visual symptoms and low sugar/hypoglycemic reactions. Follows a diabetic diet some of the time. She is compliant with medication(s) and is tolerating med(s) without any side effects. She reports checking her glucose on a once a day schedule with sugars in the fasting 110 range. Patient's last HgA1C was Hemoglobin A1C (%) Date Value 12/02/2017 8.6 07/22/2017 10.8 Hemoglobin A1C (POCT) (%) Date Value 11/05/2017 8.8 10/06/2017 9.3 ) Last Ophthalmology exam was within the past 12 months Last Podiatry exam- none Hyperlipidemia. Current therapy includes pravastatin (Pravachol) 20 mg. Taking ever other day Denies side effects of muscle weakness or achiness. Her most recent lipid panels are reviewed. Cholesterol, Total (mg/dL) Date Value 12/02/2017 188 HDL Cholesterol (mg/dL) Date Value 12/02/2017 38 LDL Cholesterol (mg/dL) Date Value 12/02/2017 111 Triglyceride (mg/dL) Date Value 12/02/2017 197 C/o bilateral knee pain. Intermittent for years but has worsened over the last month. Pain is sharp achy. Experiences popping and locking of joints. Previous Dx with knee tendinitis. Has attempted topical treatment. Bought knee braces but has not started using them. Previously treated with Naprosyn and Mobic without relief. Has seen pain management. Was told she needed to see PT before other treatment regimens. Continues to experience throat pain. Was seen in 03/02. Rapid and culture negative. REVIEW OF SYSTEMS: as above Reviewed relevant PMHx, PSHx, Social Hx, current medications and allergies. PHYSICAL EXAMINATION: BP 112/78 Pulse 80 Resp 16 Wt 109.3 kg (241 lb) BMI 38.90 kg/m? General appearance: Well appearing, alert, in no acute distress, well-hydrated, well nourished. Skin: Skin color, texture, turgor normal, no suspicious rashes or lesions Head: Normocephalic, no masses, lesions, tenderness or abnormalities Eyes: Anicteric sclera Ears: External ears normal Oropharynx: Lips, mucosa, and tongue normal, teeth and gums normal, oropharynx normal Neck: Supple, no adenopathy; thyroid symmetric, normal size, no bruits Lungs: Lungs clear to auscultation. No wheezing, rhonchi, rales Heart: RRR without murmur, gallop, or rubs. No ectopy Extremities: bilateral LE with FROM with mild- moderate pain. Pain to palpation of right lateral/medial Ligament. No laxity noted. ASSESSMENT/PLAN: 1. Uncontrolled type 2 diabetes mellitus without complication, without long-term current use of insulin (HCC) - ICD9: 250.02, ICD10: E11.65 (primary diagnosis) Worsening control - Continue current medications - Blood glucose monitoring on a once a day schedule - Follow up in 3 months, sooner should any other issues arise. - BP goal of <130/80 - LDL goal of <100 - COMP METABOLIC PANEL, fasting lipids, CBC - HEMOGLOBIN A1C (POC): 9.6% - increase Tresiba to 40 mg daily 2. Pain in both knees, unspecified chronicity - ICD9: 719.46, ICD10: M25.561, M25.562 - XR KNEE GENERAL 4V AP BOTH/PA BOTH/LAT/MERC BILAT - CONSULT TO PHYSICAL THERAPY - use knee braces, ice and NSAIDs as per box label - OV with PCP and labs in 3 months prior to appt. Swati Campo APRN.MARGARINE MAKER CNOV Observed: 03/11/2018 Status: COMPLETED Source: [place] 9:40 AM [facility] REPOSITORY Office Visit (FAMPWS) YAMILA KITCHEN ([id number]) 1980 F Date Time Provider Department 03/11/18 9:40 AM SWATI CAMPO ([facility]) [facility] During your visit today, we recorded the following information about you: Pulse Respiration Blood pressure Weight 80/minute 16/minute 112/78 109.3 kg Swati Campo APRN.CNP 03/11/2018 10:22 AM Signed HPI/CC: Yamila Kitchen is a 37 year old female who presents to the office today for review of health conditions. Ms. Kitchen has past history of diabetes, hyperlipidemia and hypertension. DM: Since our last visit she denies excessive thirst or increased frequency of urination, chest pain or dyspnea , numbness, tingling or pain in extremities, new or unusual visual symptoms and low sugar/hypoglycemic reactions. Follows a diabetic diet some of the time. She is compliant with medication(s) and is tolerating med(s) without any side effects. She reports checking her glucose on a once a day schedule with sugars in the fasting 110 range. Patient's last HgA1C was Hemoglobin A1C (%) Date Value 12/02/2017 8.6 07/22/2017 10.8 Hemoglobin A1C (POCT) (%) Date Value 11/05/2017 8.8 10/06/2017 9.3 ) Last Ophthalmology exam was within the past 12 months Last Podiatry exam- none Hyperlipidemia. Current therapy includes pravastatin (Pravachol) 20 mg. Taking ever other day Denies side effects of muscle weakness or achiness. Her most recent lipid panels are reviewed. Cholesterol, Total (mg/dL) Date Value 12/02/2017 188 HDL Cholesterol (mg/dL) Date Value 12/02/2017 38 LDL Cholesterol (mg/dL) Date Value 12/02/2017 111 Triglyceride (mg/dL) Date Value 12/02/2017 197 C/o bilateral knee pain. Intermittent for years but has worsened over the last month. Pain is sharp achy. Experiences popping and locking of joints. Previous Dx with knee tendinitis. Has attempted topical treatment. Bought knee braces but has not started using them. Previously treated with Naprosyn and Mobic without relief. Has seen pain management. Was told she needed to see PT before other treatment regimens. Continues to experience throat pain. Was seen in 03/02. Rapid and culture negative. REVIEW OF SYSTEMS: as above Reviewed relevant PMHx, PSHx, Social Hx, current medications and allergies. PHYSICAL EXAMINATION: BP 112/78 Pulse 80 Resp 16 Wt 109.3 kg (241 lb) BMI 38.90 kg/m? General appearance: Well appearing, alert, in no acute distress, well-hydrated, well nourished. Skin: Skin color, texture, turgor normal, no suspicious rashes or lesions Head: Normocephalic, no masses, lesions, tenderness or abnormalities Eyes: Anicteric sclera Ears: External ears normal Oropharynx: Lips, mucosa, and tongue normal, teeth and gums normal, oropharynx normal Neck: Supple, no adenopathy; thyroid symmetric, normal size, no bruits Lungs: Lungs clear to auscultation. No wheezing, rhonchi, rales Heart: RRR without murmur, gallop, or rubs. No ectopy Extremities: bilateral LE with FROM with mild- moderate pain. Pain to palpation of right lateral/medial Ligament. No laxity noted. ASSESSMENT/PLAN: 1. Uncontrolled type 2 diabetes mellitus without complication, without long-term current use of insulin (HCC) - ICD9: 250.02, ICD10: E11.65 (primary diagnosis) Worsening control - Continue current medications - Blood glucose monitoring on a once a day schedule - Follow up in 3 months, sooner should any other issues arise. - BP goal of <130/80 - LDL goal of <100 - COMP METABOLIC PANEL, fasting lipids, CBC - HEMOGLOBIN A1C (POC): 9.6% - increase Tresiba to 40 mg daily 2. Pain in both knees, unspecified chronicity - ICD9: 719.46, ICD10: M25.561, M25.562 - XR KNEE GENERAL 4V AP BOTH/PA BOTH/LAT/MERC BILAT - CONSULT TO PHYSICAL THERAPY - use knee braces, ice and NSAIDs as per box label - OV with PCP and labs in 3 months prior to appt. MANNY Andre APRN.CNP 03/11/2018 10:19 AM Signed ASSESSMENT/PLAN: 1. Uncontrolled type 2 diabetes mellitus without complication, without long-term current use of insulin (HCC) - ICD9: 250.02, ICD10: E11.65 (primary diagnosis) Worsening control - Blood glucose monitoring on a once a day schedule - Follow up in 3 months, sooner should any other issues arise. - BP goal of <130/80 - LDL goal of <100 - COMP METABOLIC PANEL, fasting lipids, CBC in 3 months prior to office visit - HEMOGLOBIN A1C (POC) - increase Tresiba to 40 mg daily 2. Pain in both knees, unspecified chronicity - ICD9: 719.46, ICD10: M25.561, M25.562 - XR KNEE GENERAL 4V AP BOTH/PA BOTH/LAT/MERC BILAT - CONSULT TO PHYSICAL THERAPY - use knee braces, ice and NSAIDs as per box label - OV with PCP and labs in 3 months prior to appt. Swati Campo APRN.CNP Allergies As of Date: 03/11/2018 Noted Allergy Reaction ASPIRIN 07/16/2011 12 - Shortness of Breath IBUPROFEN 07/16/2011 12 - Shortness of Breath SIMVASTATIN 2014 2 - Rash 12 - Shortness of Breath TRAMADOL 01/31/2014 14 - Other: See Comments Comments: Dizziness Date Reviewed: 03/11/2018 Reviewed by: Luc Blackwood LPN - Fully Assessed Reason for Visit: Recheck [92] Cmt: medication review Knee Pain [132] Cmt: bilateral knee pain x couple weeks; no acute injury Primary Visit Diagnosis:Uncontrolled type 2 diabetes mellitus without complication, without long-term current use of insulin (HCC) [E11.65] Other Visit Diagnosis:Pain in both knees, unspecified chronicity [M25.561, M25.562] Order(s):XR KNEE GENERAL 4V AP BOTH/PA BOTH/LAT/MERC BILAT [0064775] Order #: [id number] FUTURE CONSULT TO PHYSICAL THERAPY [9071] Order #: [id number]: 1 HEMOGLOBIN A1C (POC) [1856018] Order #: [id number]. #:[id number] CBC + DIFF [SQCBCDIF] Order #: [id number] FUTURE LIPID PANEL BASIC [SQLIPB] Order #: [id number] FUTURE COMP METABOLIC PANEL [SQCMP] Order #: [id number] FUTURE HGB A1C [KTKMI4Q] Order #: [id number] FUTURE insulin degludec (TRESIBA) 100 unit/mL (3 mL) injectionInject 40 Units subcutaneously every 24 hours.Disp: 6 PenRfl: 3 Prescriptions as of 03/11/2018 Sig: INSULIN DEGLUDEC (U-100) 100 * Inject 40 Units subcutaneousl* BROMPHENIRAMINE-PSEUDOEPHEDRI* Take 10 mL by mouth four time* LEVOTHYROXINE 50 MCG TABLET Take 1 tablet by mouth once d* METFORMIN ER 500 MG TABLET,EX* Take 2 tablets by mouth twice* PEN NEEDLE, DIABETIC 29 GAUGE* Use one needle per dose. 1 p* AMITRIPTYLINE 25 MG TABLET Take 1 tablet by mouth daily * LIRAGLUTIDE 0.6 MG/0.1 ML (18* Inject 1.2 mg subcutaneously * PRAVASTATIN 20 MG TABLET Take 1 tablet by mouth once d* FLUTICASONE 50 MCG/ACTUATION * Use 2 Sprays in each nostril * FEXOFENADINE 60 MG TABLET Take 1 tablet by mouth once d* BLOOD-GLUCOSE METER KIT Glucose Meter of Choice - Kit* BLOOD SUGAR DIAGNOSTIC STRIPS Test blood sugar(s) 1 times d* LANCETS Test blood sugar(s) 1 times d* BUSPIRONE 5 MG TABLET Take 1 tablet by mouth three * FREESTYLE LITE STRIPS USE ONE STRIP TO CHECK GLUCOS* ALBUTEROL SULFATE HFA 90 MCG/* Inhale 2 Puffs as instructed * DEXTROMETHORPHAN-GUAIFENESIN * Take 1 tablet by mouth twice * GLUCOSE 4 GRAM CHEWABLE TABLET Take 4 tablets by mouth as ne* Problem List As Of Date 03/11/2018 Noted Resolved Left wrist pain [M25.532] INVALID FOR*04/30/2016 Left wrist tendinitis [M77.8] INVALID FOR*04/30/2016 Multinodular goiter [E04.2] INVALID FOR* Hypothyroidism [E03.9] INVALID FOR* Diabetes mellitus type 2, controlled, without c*INVALID FOR*04/30/2016 Obesity, Class III, BMI 40-49.9 (morbid obesity*INVALID FOR* Major depression [F32.9] INVALID FOR*04/30/2016 Major depressive disorder, recurrent episode, m*INVALID FOR* Uncontrolled type 2 diabetes mellitus without c*INVALID FOR* Recurrent major depression in partial remission*INVALID FOR*04/30/2016 Pelvic floor dysfunction [M62.89] INVALID FOR* Pain in left hip [M25.552] INVALID FOR* Other instructions from your clinician: ASSESSMENT/PLAN: 1. Uncontrolled type 2 diabetes mellitus without complication, without long-term current use of insulin (HCC) - ICD9: 250.02, ICD10: E11.65 (primary diagnosis) Worsening control - Blood glucose monitoring on a once a day schedule - Follow up in 3 months, sooner should any other issues arise. - BP goal of <130/80 - LDL goal of <100 - COMP METABOLIC PANEL, fasting lipids, CBC in 3 months prior to office visit - HEMOGLOBIN A1C (POC) - increase Tresiba to 40 mg daily 2. Pain in both knees, unspecified chronicity - ICD9: 719.46, ICD10: M25.561, M25.562 - XR KNEE GENERAL 4V AP BOTH/PA BOTH/LAT/MERC BILAT - CONSULT TO PHYSICAL THERAPY - use knee braces, ice and NSAIDs as per box label - OV with PCP and labs in 3 months prior to appt. Swati Campo APRN.MARGARINE MAKER Prescriptions ordered this encounter Disp Refills Start End INSULIN DEGLUDEC (U-100) 100 UNIT/ML* 6 Pen 3 03/11/2018 Class: Med Update Route: SUBCUTANEOUS Sig: Inject 40 Units subcutaneously every 24 hours. Medications Discontinued During This Encounter tolnaftate (TINACTIN) 1 % cream 35.4* 0 08/03/2017 03/11/2018 Route: TOPICAL Sig: Apply 1 application to affected area twice daily. Disc: Course of therapy completed insulin degludec (TRESIBA) 100 unit/* 6 Pen 3 10/06/2017 03/11/2018 Route: SUBCUTANEOUS Sig: Inject 36 Units subcutaneously every 24 hours. Disc: Reason for discontinue is not on file. Disposition: Return in about 3 months (around 06/10/2018) for DM, cholesterol. Follow-up and Disposition History Recorded Letter Text Swati Campo CNP [address] [place], [place] [address] 03/11/2018 TO WHOM IT MAY CONCERN: This is to confirm that Yamila Kitchen had an appointment and was seen at the [facility] in the Department of Family Medicine by Swati Campo CNPon 03/11/2018 and may return to normal activities based on exam. Sincerely yours, Swati Campo CNP Encounter Status:Closed by SWATI CAMPO CNP on 03/11/18 PROGRESS Observed: 03/02/2018 Status: COMPLETED Source: [place] 1:11 PM [facility] REPOSITORY HNO ID: [id number] Author: Winston Wong) [place] Service: (none) Author Type: Physician Pack Out Operator Type: Progress Notes Filed: 03/02/2018 1:13 PM Note Text: Subjective HPI Patient presents with a sore throat ?3 days and a cough ?1 day. Her mom is here with similar symptoms. She has had some congestion. She is not a smoker. No history of asthma. Denies chest pain or shortness of breath. Cough has not been productive. No vomiting, she has had a couple bouts of diarrhea. No fevers that she has had some chills. No abdominal pain. Review of Systems Constitutional: Positive for chills. Negative for fever. HENT: Positive for congestion and sore throat. Eyes: Negative. Respiratory: Positive for cough. Negative for sputum production, shortness of breath and wheezing. Cardiovascular: Negative. Gastrointestinal: Positive for diarrhea and nausea. Negative for abdominal pain and vomiting. Genitourinary: Negative. Skin: Negative. All other systems reviewed and are negative. PAST MEDICAL HISTORY Diagnosis Date - Diabetes mellitus type 2, controlled, without complications (HCC) 08/04/2014 - Hypothyroidism 05/2014 - Major depressive disorder, recurrent episode, moderate (HCC) 10/31/2014 - Obesity 08/04/2014 Current Outpatient Prescriptions: levothyroxine (LEVOXYL) 50 mcg tablet Take 1 tablet by mouth once daily. Take on empty stomach. For Thyroid Disp: 30 tablet Rfl: 5 metFORMIN ER (GLUCOPHAGE XR) 500 mg 24 hr tablet Take 2 tablets by mouth twice daily before meals. Disp: 120 tablet Rfl: 3 Insulin Gerald, Disposable, (PEN NEEDLE) 29 gauge x 1/2 ndle Use one needle per dose. 1 per day Disp: 100 Each Rfl: 11 amitriptyline (ELAVIL) 25 mg tablet Take 1 tablet by mouth daily at bedtime. Disp: 30 tablet Rfl: 2 liraglutide (VICTOZA) 0.6 mg/ 0.1 ml subcutaneous pen injector Inject 1.2 mg subcutaneously once daily. Disp: 2 Pen Rfl: 3 fluticasone (FLONASE) 50 mcg/actuation nasal spray Use 2 Sprays in each nostril once daily. Rinse mouth after use. Disp: 1 Bottle Rfl: 11 fexofenadine (JULIANN) 60 mg tablet Take 1 tablet by mouth once daily. Disp: 90 tablet Rfl: 3 insulin degludec (TRESIBA) 100 unit/mL (3 mL) injection Inject 36 Units subcutaneously every 24 hours. Disp: 6 Pen Rfl: 3 Blood-Glucose Meter monitoring kit Glucose Meter of Choice - Kit - Dx: Type 2 DM - Uncontrolled E11.65 Disp: 1 Each Rfl: 0 blood sugar diagnostic (BLOOD GLUCOSE TEST) test strip Test blood sugar(s) 1 times daily. Dx: Type 2 DM - Uncontrolled E11.65 Insulin: Yes Disp: 50 Strip Rfl: 11 Lancets lancets Test blood sugar(s) 1 times daily. Dx: Type 2 DM - Uncontrolled E11.65 Insulin: Yes Disp: 100 Each Rfl: 11 busPIRone (BUSPAR) 5 mg tablet Take 1 tablet by mouth three times daily. As needed for anxiety attack Disp: 30 tablet Rfl: 1 FREESTYLE LITE STRIPS test strip USE ONE STRIP TO CHECK GLUCOSE ONCE DAILY DIRECTED Disp: 100 Strip Rfl: 11 albuterol HFA (PROAIR HFA) 90 mcg/actuation inhaler Inhale 2 Puffs as instructed every 4 hours as needed. Disp: 1 Inhaler Rfl: 0 dextromethorphan-guaiFENesin (MUCINEX DM) 30-600 mg per tablet Take 1 tablet by mouth twice daily. Disp: 30 tablet Rfl: 0 glucose 4 gram chewable tablet Take 4 tablets by mouth as needed. For low blood sugars Disp: 30 tablet Rfl: 3 Tlwnandvzojwsgv-Fxnxuonrh-TG (BROMFED DM) 2-30-10 mg/5 mL syrup Take 10 mL by mouth four times daily as needed. Disp: 200 mL Rfl: 0 pravastatin (PRAVACHOL) 20 mg tablet Take 1 tablet by mouth once daily. (Patient not taking: Reported on 03/02/2018 ) Disp: 30 tablet Rfl: 3 tolnaftate (TINACTIN) 1 % cream Apply 1 application to affected area twice daily. (Patient not taking: Reported on 03/02/2018 ) Disp: 35.4 g Rfl: 0 No current facility-administered medications for this visit. PAST SURGICAL HISTORY Procedure Laterality Date - COLONOSCOP W/ OR W/O [facility]SH SPEC N/A 06/04/2016 MAC - EGD W/O OR W/BRUSH/WASH N/A 06/04/2016 MAC - LIGATE FALLOPIAN TUBE 2013 Tubal ligation - PAST SURGICAL HISTORY OF 2014 - PAST SURGICAL HISTORY OF Left tendon surgery on left wrist FAMILY HISTORY Problem Relation Age of Onset - Diabetes Mother - Thyroid Mother hypothyroid - Stroke Mother - Diabetes Father - Stroke Father - Diabetes Sister - Diabetes Maternal Grandmother - Heart Maternal Grandmother congestive heart failure - Diabetes Maternal Grandfather - Heart Maternal Grandfather - Heart Paternal Grandfather had hole in heart at age 16 - Cancer Paternal Grandfather eye Social History Substance Use Topics - Smoking status: Never Smoker - Smokeless tobacco: Never Used - Alcohol use No BP 118/78 Pulse 78 Temp 36.3 ?C (97.4 ?F) (Tympanic) Resp 16 Wt 112.5 kg (248 lb) LMP 02/02/2018 SpO2 98% BMI 40.03 kg/m? Objective Physical Exam Constitutional: She is oriented to person, place, and time and well-developed, well-nourished, and in no distress. HENT: Head: Normocephalic and atraumatic. Right Ear: Tympanic membrane, external ear and ear canal normal. Left Ear: Tympanic membrane, external ear and ear canal normal. Nose: Mucosal edema and rhinorrhea present. Mouth/Throat: Uvula is midline and mucous membranes are normal. Posterior oropharyngeal erythema present. No oropharyngeal exudate, posterior oropharyngeal edema or tonsillar abscesses. Neck: Normal range of motion. Neck supple. Cardiovascular: Normal rate, regular rhythm and normal heart sounds. Pulmonary/Chest: Effort normal and breath sounds normal. No respiratory distress. She has no wheezes. She has no rales. Lymphadenopathy: She has no cervical adenopathy. Neurological: She is alert and oriented to person, place, and time. Skin: Skin is warm and dry. No rash noted. Psychiatric: Affect normal. Nursing note and vitals reviewed. ASSESSMENT/PLAN: 1. Sore throat - ICD9: 462, ICD10: J02.9 (primary diagnosis) - Rapid Strep negative in the office today and Throat culture pending - Discussed supportive care treatment with fluids, rest and analgesia. - GROUP A STREPTOCOCCUS BY PCR - RAPID STREP TEST B/O 2. Viral URI with cough - ICD9: 465.9, ICD10: J06.9, B97.89 - Discussed viral etiology and rationale for treatment. - Symptomatic treatment with prn analgesia - Supportive care with fluids and rest - Bromfed for sx. Discussed with patient concerning symptoms to go to the emergency department or follow up here. Pt agreeable with this plan. Winston Fierro PA-C GROUP A STREP BY Collected: 03/02/2018 Status: F Source: [place] PCR 11:00 AM [facility] REPOSITORY TYPE CODE TESTS RESULT OUT OF REFERENCE UNITS RANGE LAB GASSRC Throat Swab GAS Specimen Source LAB PCRGAS Negative for Group A Strep Group A PCR Streptococcus by PCR. Result Comment: This test was developed and its performance characteristics determined by [facility]'s Emre Zhu [facility] [place] ([facility] It has not been cleared or approved by the FDA. -[facility] is regulated under CLIA as qualified to perform high-complexity testing. This test is used for clinical purposes. It should not be regarded as inv estigational or for research. Performed By: #### GASPCR #### [facility] [address] [place], [place] [address] CNOV Observed: 03/02/2018 Status: COMPLETED Source: [place] 10:00 AM [facility] REPOSITORY Office Visit (WSTR) YAMILA KITCHEN ([id number]) 1980 F Date Time Provider Department 03/02/18 10:00 AM WINSTON FIERRO) [facility] During your visit today, we recorded the following information about you: Temperature Pulse Respiration Blood pressure 97.4 degrees 78/minute 16/minute 118/78 Weight Last Period 112.5 kg 02/02/18 Winston Fierro PA-C 03/02/2018 1:13 PM Signed Subjective HPI Patient presents with a sore throat ?3 days and a cough ?1 day. Her mom is here with similar symptoms. She has had some congestion. She is not a smoker. No history of asthma. Denies chest pain or shortness of breath. Cough has not been productive. No vomiting, she has had a couple bouts of diarrhea. No fevers that she has had some chills. No abdominal pain. Review of Systems Constitutional: Positive for chills. Negative for fever. HENT: Positive for congestion and sore throat. Eyes: Negative. Respiratory: Positive for cough. Negative for sputum production, shortness of breath and wheezing. Cardiovascular: Negative. Gastrointestinal: Positive for diarrhea and nausea. Negative for abdominal pain and vomiting. Genitourinary: Negative. Skin: Negative. All other systems reviewed and are negative. PAST MEDICAL HISTORY Diagnosis Date - Diabetes mellitus type 2, controlled, without complications ([facility]) 08/04/2014 - Hypothyroidism 05/2014 - Major depressive disorder, recurrent episode, moderate (HCC) 10/31/2014 - Obesity 08/04/2014 Current Outpatient Prescriptions: levothyroxine (LEVOXYL) 50 mcg tablet Take 1 tablet by mouth once daily. Take on empty stomach. For Thyroid Disp: 30 tablet Rfl: 5 metFORMIN ER (GLUCOPHAGE XR) 500 mg 24 hr tablet Take 2 tablets by mouth twice daily before meals. Disp: 120 tablet Rfl: 3 Insulin Gerald, Disposable, (PEN NEEDLE) 29 gauge x 1/2 ndle Use one needle per dose. 1 per day Disp: 100 Each Rfl: 11 amitriptyline (ELAVIL) 25 mg tablet Take 1 tablet by mouth daily at bedtime. Disp: 30 tablet Rfl: 2 liraglutide (VICTOZA) 0.6 mg/ 0.1 ml subcutaneous pen injector Inject 1.2 mg subcutaneously once daily. Disp: 2 Pen Rfl: 3 fluticasone (FLONASE) 50 mcg/actuation nasal spray Use 2 Sprays in each nostril once daily. Rinse mouth after use. Disp: 1 Bottle Rfl: 11 fexofenadine (JULIANN) 60 mg tablet Take 1 tablet by mouth once daily. Disp: 90 tablet Rfl: 3 insulin degludec (TRESIBA) 100 unit/mL (3 mL) injection Inject 36 Units subcutaneously every 24 hours. Disp: 6 Pen Rfl: 3 Blood-Glucose Meter monitoring kit Glucose Meter of Choice - Kit - Dx: Type 2 DM - Uncontrolled E11.65 Disp: 1 Each Rfl: 0 blood sugar diagnostic (BLOOD GLUCOSE TEST) test strip Test blood sugar(s) 1 times daily. Dx: Type 2 DM - Uncontrolled E11.65 Insulin: Yes Disp: 50 Strip Rfl: 11 Lancets lancets Test blood sugar(s) 1 times daily. Dx: Type 2 DM - Uncontrolled E11.65 Insulin: Yes Disp: 100 Each Rfl: 11 busPIRone (BUSPAR) 5 mg tablet Take 1 tablet by mouth three times daily. As needed for anxiety attack Disp: 30 tablet Rfl: 1 FREESTYLE LITE STRIPS test strip USE ONE STRIP TO CHECK GLUCOSE ONCE DAILY DIRECTED Disp: 100 Strip Rfl: 11 albuterol HFA (PROAIR HFA) 90 mcg/actuation inhaler Inhale 2 Puffs as instructed every 4 hours as needed. Disp: 1 Inhaler Rfl: 0 dextromethorphan-guaiFENesin (MUCINEX DM) 30-600 mg per tablet Take 1 tablet by mouth twice daily. Disp: 30 tablet Rfl: 0 glucose 4 gram chewable tablet Take 4 tablets by mouth as needed. For low blood sugars Disp: 30 tablet Rfl: 3 Yhoezlcoowfbbcj-Fqcoqnlep-FW (BROMFED DM) 2-30-10 mg/5 mL syrup Take 10 mL by mouth four times daily as needed. Disp: 200 mL Rfl: 0 pravastatin (PRAVACHOL) 20 mg tablet Take 1 tablet by mouth once daily. (Patient not taking: Reported on 03/02/2018 ) Disp: 30 tablet Rfl: 3 tolnaftate (TINACTIN) 1 % cream Apply 1 application to affected area twice daily. (Patient not taking: Reported on 03/02/2018 ) Disp: 35.4 g Rfl: 0 No current facility-administered medications for this visit. PAST SURGICAL HISTORY Procedure Laterality Date - COLONOSCOP W/ OR W/O [facility] SPEC N/A 06/04/2016 MAC - EGD W/O OR W/BRUSH/WASH N/A 06/04/2016 MAC - LIGATE FALLOPIAN TUBE 2013 Tubal ligation - PAST SURGICAL HISTORY OF 2013 - PAST SURGICAL HISTORY OF Left tendon surgery on left wrist FAMILY HISTORY Problem Relation Age of Onset - Diabetes Mother - Thyroid Mother hypothyroid - Stroke Mother - Diabetes Father - Stroke Father - Diabetes Sister - Diabetes Maternal Grandmother - Heart Maternal Grandmother congestive heart failure - Diabetes Maternal Grandfather - Heart Maternal Grandfather - Heart Paternal Grandfather had hole in heart at age 16 - Cancer Paternal Grandfather eye Social History Substance Use Topics - Smoking status: Never Smoker - Smokeless tobacco: Never Used - Alcohol use No BP 118/78 Pulse 78 Temp 36.3 ?C (97.4 ?F) (Tympanic) Resp 16 Wt 112.5 kg (248 lb) LMP 02/02/2018 SpO2 98% BMI 40.03 kg/m? Objective Physical Exam Constitutional: She is oriented to person, place, and time and well-developed, well-nourished, and in no distress. HENT: Head: Normocephalic and atraumatic. Right Ear: Tympanic membrane, external ear and ear canal normal. Left Ear: Tympanic membrane, external ear and ear canal normal. Nose: Mucosal edema and rhinorrhea present. Mouth/Throat: Uvula is midline and mucous membranes are normal. Posterior oropharyngeal erythema present. No oropharyngeal exudate, posterior oropharyngeal edema or tonsillar abscesses. Neck: Normal range of motion. Neck supple. Cardiovascular: Normal rate, regular rhythm and normal heart sounds. Pulmonary/Chest: Effort normal and breath sounds normal. No respiratory distress. She has no wheezes. She has no rales. Lymphadenopathy: She has no cervical adenopathy. Neurological: She is alert and oriented to person, place, and time. Skin: Skin is warm and dry. No rash noted. Psychiatric: Affect normal. Nursing note and vitals reviewed. ASSESSMENT/PLAN: 1. Sore throat - ICD9: 462, ICD10: J02.9 (primary diagnosis) - Rapid Strep negative in the office today and Throat culture pending - Discussed supportive care treatment with fluids, rest and analgesia. - GROUP A STREPTOCOCCUS BY PCR - RAPID STREP TEST B/O 2. Viral URI with cough - ICD9: 465.9, ICD10: J06.9, B97.89 - Discussed viral etiology and rationale for treatment. - Symptomatic treatment with prn analgesia - Supportive care with fluids and rest - Bromfed for sx. Discussed with patient concerning symptoms to go to the emergency department or follow up here. Pt agreeable with this plan. Winston Fierro PA-C Referring Provider: SELF [200] Allergies As of Date: 03/02/2018 Noted Allergy Reaction ASPIRIN 07/16/2011 12 - Shortness of Breath IBUPROFEN 07/16/2011 12 - Shortness of Breath SIMVASTATIN 2014 2 - Rash 12 - Shortness of Breath TRAMADOL 01/31/2014 14 - Other: See Comments Comments: Dizziness Date Reviewed: 03/02/2018 Reviewed by: Jeanette Luna Ma - Fully Assessed Reason for Visit: Cough [28] Cmt: sore throat x 3 days, chills x this am Primary Visit Diagnosis:Sore throat [J02.9] Other Visit Diagnosis:Viral URI with cough [J06.9, B97.89] Order(s):GROUP A STREPTOCOCCUS BY PCR [SQGASPCR] Order #: [id number] RAPID STREP TEST B/O [6114390] Order #: [id number] Zgnsvbccgublyyx-Tninwncvj-VB (BROMFED DM) 2-30-10 mg/5 mL syrupTake 10 mL by mouth four times daily as needed.Disp: 200 mLRfl: 0 Prescriptions as of 03/02/2018 Sig: LEVOTHYROXINE 50 MCG TABLET Take 1 tablet by mouth once d* METFORMIN ER 500 MG TABLET,EX* Take 2 tablets by mouth twice* PEN NEEDLE, DIABETIC 29 GAUGE* Use one needle per dose. 1 p* AMITRIPTYLINE 25 MG TABLET Take 1 tablet by mouth daily * LIRAGLUTIDE 0.6 MG/0.1 ML (18* Inject 1.2 mg subcutaneously * FLUTICASONE 50 MCG/ACTUATION * Use 2 Sprays in each nostril * FEXOFENADINE 60 MG TABLET Take 1 tablet by mouth once d* INSULIN DEGLUDEC (U-100) 100 * Inject 36 Units subcutaneousl* BLOOD-GLUCOSE METER KIT Glucose Meter of Choice - Kit* BLOOD SUGAR DIAGNOSTIC STRIPS Test blood sugar(s) 1 times d* LANCETS Test blood sugar(s) 1 times d* BUSPIRONE 5 MG TABLET Take 1 tablet by mouth three * FREESTYLE LITE STRIPS USE ONE STRIP TO CHECK GLUCOS* ALBUTEROL SULFATE HFA 90 MCG/* Inhale 2 Puffs as instructed * DEXTROMETHORPHAN-GUAIFENESIN * Take 1 tablet by mouth twice * GLUCOSE 4 GRAM CHEWABLE TABLET Take 4 tablets by mouth as ne* BROMPHENIRAMINE-PSEUDOEPHEDRI* Take 10 mL by mouth four time* PRAVASTATIN 20 MG TABLET Take 1 tablet by mouth once d* Patient not taking: Reported on 03/02/2018 TOLNAFTATE 1 % TOPICAL CREAM Apply 1 application to affect* Patient not taking: Reported on 03/02/2018 Problem List As Of Date 03/02/2018 Noted Resolved Left wrist pain [M25.532] INVALID FOR*04/30/2016 Left wrist tendinitis [M77.8] INVALID FOR*04/30/2016 Multinodular goiter [E04.2] INVALID FOR* Hypothyroidism [E03.9] INVALID FOR* Diabetes mellitus type 2, controlled, without c*INVALID FOR*04/30/2016 Obesity, Class III, BMI 40-49.9 (morbid obesity*INVALID FOR* Major depression [F32.9] INVALID FOR*04/30/2016 Major depressive disorder, recurrent episode, m*INVALID FOR* Uncontrolled type 2 diabetes mellitus without c*INVALID FOR* Recurrent major depression in partial remission*INVALID FOR*04/30/2016 Pelvic floor dysfunction [M62.89] INVALID FOR* Pain in left hip [M25.552] INVALID FOR* Prescriptions ordered this encounter Disp Refills Start End JPHKKADTYVRLFFP-MAGUACKGRMKQBRU-IS 2* 200 * 0 03/02/2018 Route: ORAL Sig: Take 10 mL by mouth four times daily as needed. Letter Text [facility] PEREZ Rooney [address] [place], [place] [address] 03/02/2018 TO WHOM IT MAY CONCERN: This is to confirm that Yamila Kitchen had an appointment and was seen at the [facility] in the Department of Urgent Care by PEREZ Rooney on 03/02/2018 and may return to work on 03/03/2018. 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 PATIENT GENDER DATA: Female. status: : No status: N/A PATIENT RELEVANT IMPLANT DATA REVIEWED: Not Applicable RADIOLOGY DEPARTMENT: Ultrasound PERIPHERAL IV DATA: Not applicable SIGNED BY: SHYLA PIZARRO RDMS RVEnid February 26, 2018 2:10 PM US THYROID/PARATHYROID Observed: 02/26/2018 Status: F Source: [place] 2:09 PM [facility] REPOSITORY * * *Final Report* * * DATE OF EXAM: Feb 26 2018 2:09PM [facility] 1048 - US THYROID/PARATHYROID / PROCEDURE REASON: Multiple thyroid nodules * * * * Physician Interpretation * * * * EXAMINATION: US THYROID/PARATHYROID HISTORY: Follow-up Multiple thyroid nodules . TECHNIQUE: US THYROID/PARATHYROID Laterality: Not applicable Number of different views (projections): Not applicable M: XB_1 Grayscale and color-flow evaluation of the thyroid gland was performed. Images were stored in a permanent archive. Comparison is made to prior ultrasound dated 12 Aug 2017 RESULT: The thyroid gland is inhomogeneous in echogenicity with normal vascularity. The right lobe measures 4.5 x 1.8 x 1.3 cm. The left measures 4.4 x 1.8 x 1.1 cm. The isthmus measures 2 mm. With respect to the right lobe, there is a somewhat iso to hyperechoic nodule within the right mid gland laterally which measures 11 x 11 x 10 mm. Inferiorly and laterally there is a 9 x 9 x 7 mm isoechoic nodule and inferiorly a somewhat hypoechoic nodule measuring 9 x 8 x 8 mm.. With respect to the left lobe, within the inferior lobe there is a isoechoic to hyperechoic nodule measuring 11 x 11 x 11 mm. Within the mid gland laterally there is a 7 x 7 x 7 mm hyperechoic nodule and within the mid to superior gland centrally there is a small hypoechoic nodule with hypoechoic rim measuring 6 x 6 x 4 mm.. IMPRESSION: Multiple bilateral thyroid nodules as detailed in report. Allowing for differences in technologist scanning and measurement techniques, findings appear stable. No new nodules or dominant masses are identified. Customer Quality Specialist: SIMRAN Transcribe Date/Time: Feb 26 2018 10:02P Dictated by : DEVIN WEAVER MD This examination was interpreted and the report reviewed and electronically signed by: DEVIN WEAVER MD on Feb 26 2018 10:07PM EST [id number] PROGRESS Observed: 01/22/2018 Status: COMPLETED Source: [place] 6:04 PM [facility] REPOSITORY HNO ID: [id number] Author: Winston Wong) [place] Service: (none) Author Type: Physician Pack Out Operator Type: Progress Notes Filed: 01/22/2018 6:07 PM Note Text: Subjective HPI Patient presents with a chief complaint of dental infection. Her left lower molar has been bothering her over the past 3 days. She noticed yesterday however that her face was starting to swell. She goes to the [facility] dentist in [place] but they told her she did have antibiotics before they were able to see her. She denies fever or chills. She has type II diabetic. Review of Systems HENT: Dental pain All other systems reviewed and are negative. PAST MEDICAL HISTORY Diagnosis Date - Diabetes mellitus type 2, controlled, without complications (HCC) 08/04/2014 - Hypothyroidism 05/2014 - Major depressive disorder, recurrent episode, moderate (HCC) 10/31/2014 - Obesity 08/04/2014 Current Outpatient Prescriptions: levothyroxine (LEVOXYL) 50 mcg tablet Take 1 tablet by mouth once daily. Take on empty stomach. For Thyroid Disp: 30 tablet Rfl: 5 metFORMIN ER (GLUCOPHAGE XR) 500 mg 24 hr tablet Take 2 tablets by mouth twice daily before meals. Disp: 120 tablet Rfl: 3 Insulin Gerald, Disposable, (PEN NEEDLE) 29 gauge x 1/2 ndle Use one needle per dose. 1 per day Disp: 100 Each Rfl: 11 amitriptyline (ELAVIL) 25 mg tablet Take 1 tablet by mouth daily at bedtime. Disp: 30 tablet Rfl: 2 liraglutide (VICTOZA) 0.6 mg/ 0.1 ml subcutaneous pen injector Inject 1.2 mg subcutaneously once daily. Disp: 2 Pen Rfl: 3 pravastatin (PRAVACHOL) 20 mg tablet Take 1 tablet by mouth once daily. Disp: 30 tablet Rfl: 3 fluticasone (FLONASE) 50 mcg/actuation nasal spray Use 2 Sprays in each nostril once daily. Rinse mouth after use. Disp: 1 Bottle Rfl: 11 fexofenadine (JULIANN) 60 mg tablet Take 1 tablet by mouth once daily. Disp: 90 tablet Rfl: 3 insulin degludec (TRESIBA) 100 unit/mL (3 mL) injection Inject 36 Units subcutaneously every 24 hours. Disp: 6 Pen Rfl: 3 Blood-Glucose Meter monitoring kit Glucose Meter of Choice - Kit - Dx: Type 2 DM - Uncontrolled E11.65 Disp: 1 Each Rfl: 0 blood sugar diagnostic (BLOOD GLUCOSE TEST) test strip Test blood sugar(s) 1 times daily. Dx: Type 2 DM - Uncontrolled E11.65 Insulin: Yes Disp: 50 Strip Rfl: 11 Lancets lancets Test blood sugar(s) 1 times daily. Dx: Type 2 DM - Uncontrolled E11.65 Insulin: Yes Disp: 100 Each Rfl: 11 tolnaftate (TINACTIN) 1 % cream Apply 1 application to affected area twice daily. Disp: 35.4 g Rfl: 0 busPIRone (BUSPAR) 5 mg tablet Take 1 tablet by mouth three times daily. As needed for anxiety attack Disp: 30 tablet Rfl: 1 FREESTYLE LITE STRIPS test strip USE ONE STRIP TO CHECK GLUCOSE ONCE DAILY DIRECTED Disp: 100 Strip Rfl: 11 albuterol HFA (PROAIR HFA) 90 mcg/actuation inhaler Inhale 2 Puffs as instructed every 4 hours as needed. Disp: 1 Inhaler Rfl: 0 dextromethorphan-guaiFENesin (MUCINEX DM) 30-600 mg per tablet Take 1 tablet by mouth twice daily. Disp: 30 tablet Rfl: 0 glucose 4 gram chewable tablet Take 4 tablets by mouth as needed. For low blood sugars Disp: 30 tablet Rfl: 3 penicillin V potassium (V-CILLIN, VEETIDS) 500 mg tablet Take 1 tablet by mouth four times daily for 10 days. Disp: 40 tablet Rfl: 0 No current facility-administered medications for this visit. PAST SURGICAL HISTORY Procedure Laterality Date - COLONOSCOP W/ OR W/O BRSH SPEC N/A 06/04/2016 MAC - EGD W/O OR W/BRUSH/WASH N/A 06/04/2016 MAC - LIGATE FALLOPIAN TUBE 2013 Tubal ligation - PAST SURGICAL HISTORY OF 2014 - PAST SURGICAL HISTORY OF Left tendon surgery on left wrist FAMILY HISTORY Problem Relation Age of Onset - Diabetes Mother - Thyroid Mother hypothyroid - Stroke Mother - Diabetes Father - Stroke Father - Diabetes Sister - Diabetes Maternal Grandmother - Heart Maternal Grandmother congestive heart failure - Diabetes Maternal Grandfather - Heart Maternal Grandfather - Heart Paternal Grandfather had hole in heart at age 16 - Cancer Paternal Grandfather eye Social History Substance Use Topics - Smoking status: Never Smoker - Smokeless tobacco: Never Used - Alcohol use No BP 120/84 Pulse 90 Temp 36.6 ?C (97.9 ?F) (Left Tympanic) Resp 16 Wt 108.2 kg (238 lb 9.6 oz) SpO2 98% BMI 38.51 kg/m? Objective Physical Exam Constitutional: She is oriented to person, place, and time and well-developed, well-nourished, and in no distress. HENT: Head: Normocephalic and atraumatic. Overall patient has multiple dental caries present on exam. Tooth #18 is severely decayed. There is some redness surrounding the gumline but no fluctuance or abscess visualized. She has some mild overlying facial swelling on the left lower jaw. No sign of ludwigs angina Cardiovascular: Normal rate, regular rhythm and normal heart sounds. Pulmonary/Chest: Effort normal and breath sounds normal. Neurological: She is alert and oriented to person, place, and time. Skin: Skin is warm and dry. Psychiatric: Affect and judgment normal. Nursing note and vitals reviewed. ASSESSMENT/PLAN: 1. Dental infection - ICD9: 522.4, ICD10: K04.7 Patient started on Pen-VK. Instructed that if she has any more significant facial swelling fevers or chills or odor come in the ER otherwise follow up with the dentist. She was agreeable to this plan. CARMEN Valles Observed: 01/22/2018 Status: COMPLETED Source: [place] 5:30 PM [facility] REPOSITORY Office Visit (WSTR) YAMILA KITCHEN ([id number]) 1980 F Date Time Provider Department 01/22/18 5:30 PM WINSTON FIERRO (PEREZ) [facility] During your visit today, we recorded the following information about you: Temperature Pulse Respiration Blood pressure 97.9 degrees 90/minute 16/minute 120/84 Weight 108.2 kg Winston Fierro PA-C 01/22/2018 6:07 PM Signed Subjective HPI Patient presents with a chief complaint of dental infection. Her left lower molar has been bothering her over the past 3 days. She noticed yesterday however that her face was starting to swell. She goes to the [facility] dentist in [place] but they told her she did have antibiotics before they were able to see her. She denies fever or chills. She has type II diabetic. Review of Systems HENT: Dental pain All other systems reviewed and are negative. PAST MEDICAL HISTORY Diagnosis Date - Diabetes mellitus type 2, controlled, without complications (HCC) 08/04/2014 - Hypothyroidism 05/2014 - Major depressive disorder, recurrent episode, moderate (HCC) 10/31/2014 - Obesity 08/04/2014 Current Outpatient Prescriptions: levothyroxine (LEVOXYL) 50 mcg tablet Take 1 tablet by mouth once daily. Take on empty stomach. For Thyroid Disp: 30 tablet Rfl: 5 metFORMIN ER (GLUCOPHAGE XR) 500 mg 24 hr tablet Take 2 tablets by mouth twice daily before meals. Disp: 120 tablet Rfl: 3 Insulin Gerald, Disposable, (PEN NEEDLE) 29 gauge x 1/2 ndle Use one needle per dose. 1 per day Disp: 100 Each Rfl: 11 amitriptyline (ELAVIL) 25 mg tablet Take 1 tablet by mouth daily at bedtime. Disp: 30 tablet Rfl: 2 liraglutide (VICTOZA) 0.6 mg/ 0.1 ml subcutaneous pen injector Inject 1.2 mg subcutaneously once daily. Disp: 2 Pen Rfl: 3 pravastatin (PRAVACHOL) 20 mg tablet Take 1 tablet by mouth once daily. Disp: 30 tablet Rfl: 3 fluticasone (FLONASE) 50 mcg/actuation nasal spray Use 2 Sprays in each nostril once daily. Rinse mouth after use. Disp: 1 Bottle Rfl: 11 fexofenadine (JULIANN) 60 mg tablet Take 1 tablet by mouth once daily. Disp: 90 tablet Rfl: 3 insulin degludec (TRESIBA) 100 unit/mL (3 mL) injection Inject 36 Units subcutaneously every 24 hours. Disp: 6 Pen Rfl: 3 Blood-Glucose Meter monitoring kit Glucose Meter of Choice - Kit - Dx: Type 2 DM - Uncontrolled E11. Disp: 1 Each Rfl: 0 blood sugar diagnostic (BLOOD GLUCOSE TEST) test strip Test blood sugar(s) 1 times daily. Dx: Type 2 DM - Uncontrolled E11.65 Insulin: Yes Disp: 50 Strip Rfl: 11 Lancets lancets Test blood sugar(s) 1 times daily. Dx: Type 2 DM - Uncontrolled E11.65 Insulin: Yes Disp: 100 Each Rfl: 11 tolnaftate (TINACTIN) 1 % cream Apply 1 application to affected area twice daily. Disp: 35.4 g Rfl: 0 busPIRone (BUSPAR) 5 mg tablet Take 1 tablet by mouth three times daily. As needed for anxiety attack Disp: 30 tablet Rfl: 1 FREESTYLE LITE STRIPS test strip USE ONE STRIP TO CHECK GLUCOSE ONCE DAILY DIRECTED Disp: 100 Strip Rfl: 11 albuterol HFA (PROAIR HFA) 90 mcg/actuation inhaler Inhale 2 Puffs as instructed every 4 hours as needed. Disp: 1 Inhaler Rfl: 0 dextromethorphan-guaiFENesin (MUCINEX DM) 30-600 mg per tablet Take 1 tablet by mouth twice daily. Disp: 30 tablet Rfl: 0 glucose 4 gram chewable tablet Take 4 tablets by mouth as needed. For low blood sugars Disp: 30 tablet Rfl: 3 penicillin V potassium (V-CILLIN, VEETIDS) 500 mg tablet Take 1 tablet by mouth four times daily for 10 days. Disp: 40 tablet Rfl: 0 No current facility-administered medications for this visit. PAST SURGICAL HISTORY Procedure Laterality Date - COLONOSCOP W/ OR W/O BRSH SPEC N/A 06/04/2016 MAC - EGD W/O OR W/BRUSH/WASH N/A 06/04/2016 MAC - LIGATE FALLOPIAN TUBE 2013 Tubal ligation - PAST SURGICAL HISTORY OF 2013 - PAST SURGICAL HISTORY OF Left tendon surgery on left wrist FAMILY HISTORY Problem Relation Age of Onset - Diabetes Mother - Thyroid Mother hypothyroid - Stroke Mother - Diabetes Father - Stroke Father - Diabetes Sister - Diabetes Maternal Grandmother - Heart Maternal Grandmother congestive heart failure - Diabetes Maternal Grandfather - Heart Maternal Grandfather - Heart Paternal Grandfather had hole in heart at age 16 - Cancer Paternal Grandfather eye Social History Substance Use Topics - Smoking status: Never Smoker - Smokeless tobacco: Never Used - Alcohol use No BP 120/84 Pulse 90 Temp 36.6 ?C (97.9 ?F) (Left Tympanic) Resp 16 Wt 108.2 kg (238 lb 9.6 oz) SpO2 98% BMI 38.51 kg/m? Objective Physical Exam Constitutional: She is oriented to person, place, and time and well-developed, well-nourished, and in no distress. HENT: Head: Normocephalic and atraumatic. Overall patient has multiple dental caries present on exam. Tooth #18 is severely decayed. There is some redness surrounding the gumline but no fluctuance or abscess visualized. She has some mild overlying facial swelling on the left lower jaw. No sign of ludwigs angina Cardiovascular: Normal rate, regular rhythm and normal heart sounds. Pulmonary/Chest: Effort normal and breath sounds normal. Neurological: She is alert and oriented to person, place, and time. Skin: Skin is warm and dry. Psychiatric: Affect and judgment normal. Nursing note and vitals reviewed. ASSESSMENT/PLAN: 1. Dental infection - ICD9: 522.4, ICD10: K04.7 Patient started on Pen-VK. Instructed that if she has any more significant facial swelling fevers or chills or odor come in the ER otherwise follow up with the dentist. She was agreeable to this plan. Winston Fierro PA-C Referring Provider: SELF [[id number]] Allergies As of Date: 01/22/2018 Noted Allergy Reaction ASPIRIN 07/16/2011 12 - Shortness of Breath IBUPROFEN 07/16/2011 12 - Shortness of Breath SIMVASTATIN 2014 2 - Rash 12 - Shortness of Breath TRAMADOL 01/31/2014 14 - Other: See Comments Comments: Dizziness Date Reviewed: 01/22/2018 Reviewed by: Bobbi Lennon Ma - Fully Assessed Reason for Visit: infected tooth [Other] Cmt: x 3 days Primary Visit Diagnosis:Dental infection [K04.7] Order(s):penicillin V potassium (V-CILLIN, VEETIDS) 500 mg tabletTake 1 tablet by mouth four times daily for 10 days.Disp: 40 tabletRfl: 0 Prescriptions as of 01/22/2018 Sig: LEVOTHYROXINE 50 MCG TABLET Take 1 tablet by mouth once d* METFORMIN ER 500 MG TABLET,EX* Take 2 tablets by mouth twice* PEN NEEDLE, DIABETIC 29 GAUGE* Use one needle per dose. 1 p* AMITRIPTYLINE 25 MG TABLET Take 1 tablet by mouth daily * LIRAGLUTIDE 0.6 MG/0.1 ML (18* Inject 1.2 mg subcutaneously * PRAVASTATIN 20 MG TABLET Take 1 tablet by mouth once d* FLUTICASONE 50 MCG/ACTUATION * Use 2 Sprays in each nostril * FEXOFENADINE 60 MG TABLET Take 1 tablet by mouth once d* INSULIN DEGLUDEC (U-100) 100 * Inject 36 Units subcutaneousl* BLOOD-GLUCOSE METER KIT Glucose Meter of Choice - Kit* BLOOD SUGAR DIAGNOSTIC STRIPS Test blood sugar(s) 1 times d* LANCETS Test blood sugar(s) 1 times d* TOLNAFTATE 1 % TOPICAL CREAM Apply 1 application to affect* BUSPIRONE 5 MG TABLET Take 1 tablet by mouth three * FREESTYLE LITE STRIPS USE ONE STRIP TO CHECK GLUCOS* ALBUTEROL SULFATE HFA 90 MCG/* Inhale 2 Puffs as instructed * DEXTROMETHORPHAN-GUAIFENESIN * Take 1 tablet by mouth twice * GLUCOSE 4 GRAM CHEWABLE TABLET Take 4 tablets by mouth as ne* PENICILLIN V POTASSIUM 500 MG* Take 1 tablet by mouth four t* Problem List As Of Date 01/22/2018 Noted Resolved Left wrist pain [M25.532] INVALID FOR*04/30/2016 Left wrist tendinitis [M77.8] INVALID FOR*04/30/2016 Multinodular goiter [E04.2] INVALID FOR* Hypothyroidism [E03.9] INVALID FOR* Diabetes mellitus type 2, controlled, without c*INVALID FOR*04/30/2016 Obesity, Class III, BMI 40-49.9 (morbid obesity*INVALID FOR* Major depression [F32.9] INVALID FOR*04/30/2016 Major depressive disorder, recurrent episode, m*INVALID FOR* Uncontrolled type 2 diabetes mellitus without c*INVALID FOR* Recurrent major depression in partial remission*INVALID FOR*04/30/2016 Pelvic floor dysfunction [M62.89] INVALID FOR* Pain in left hip [M25.552] INVALID FOR* Prescriptions ordered this encounter Disp Refills Start End PENICILLIN V POTASSIUM 500 MG TABLET 40 t* 0 01/22/2018 02/01/2018 Route: ORAL Sig: Take 1 tablet by mouth four times daily for 10 days. Encounter Status:Closed by WINSTON FIERRO PA-C on 01/22/18 COMP METABOLIC PANEL Collected: 12/02/2017 Status: F Source: [facility] 9:50 AM [facility] TYPE CODE TESTS RESULT OUT OF REFERENCE UNITS RANGE LAB TP 6.3-8.0 g/dL Protein, Total 6.3 LAB ALB 3.9-4.9 g/dL Albumin 4.2 LAB CA 8.5-10.2 mg/dL Calcium, Total 9.5 LAB TBIL 0.2-1.3 mg/dL Bilirubin, Total 0.8 LAB ALKP 32-117 U/L Alkaline Phosphatase 77 LAB AST 13-35 U/L Low AST 12 LAB GLU 74-99 mg/dL Glucose High 180 Result Comment: The [place] Diabetes Association (ADA) provides guidance for cutoff values for fasting glucose and random glucose. The ADA defines fasting as no caloric intake for at least 8 hours. Fas ting plasma glucose results between 100 to 125 mg/dL indicate increased risk for diabetes (prediabetes). Fasting plasma glucose results greater than or equal to 126 mg/dL meet the criteria for diagnosis of diabetes. In the absence of unequivocal hyperglycemia, results should be confirmed by repeat testing. In a patient with classic symptoms of hyperglycemia or hyperglycemic crisis, random plasma glucose results greater than or equal to 200 mg/dL meet the criteria for diagnosis of diabetes. Reference: Standards of Medical Care in Diabetes 2016, [place] Diabetes Association. Diabetes Care. 2016.39(Suppl 1). LAB BUN 7-21 mg/dL BUN 14 LAB CRET 0.58-0.96 mg/dL Creatinine 0.67 LAB NA 136-144 mmol/L Sodium 139 LAB K 3.7-5.1 mmol/L Potassium 4.3 LAB CL 97-105 mmol/L Chloride 100 LAB CO2 22-30 mmol/L CO2 27 LAB AGAP 9-18 mmol/L Anion Gap 12 LAB ALT 7-38 U/L ALT 17 LAB GFRAA eGFR- Amer. >60 LAB GFRNAA . eGFR-All Other Races >60 Result Comment: eGFR (Estimated GFR) Units of measure: mL/min/1.73 meters squared eGFR is derived from the reexpressed MDRD Study equation using the following parameters: serum creatinine, age, gender and race. The creatinine assay has been calibrated to be traceable to IDMS. An eGFR <60 mL/min/1.73m2 for >3 months is consistent with chronic kidney disease. Refer to KDOQI guidelines for clinical interpretation. In patients with unstable renal function, e.g. those with acute kidney injury, the eGFR may not accurately reflect actual GFR. Performed By: #### CMP, LIPB, HBA1C #### [facility] [address] [place] [address] LIPID PANEL, BASIC Collected: 12/02/2017 Status: F Source: [place] 9:50 AM [facility] REPOSITORY TYPE CODE TESTS RESULT OUT OF REFERENCE UNITS RANGE LAB CHOL <200 mg/dL Cholesterol 188 Result Comment: <200 mg/dL, Desirable 200-239 mg/dL, Borderline high >239 mg/dL, High LAB TRIGLY <150 mg/dL Triglyceride High 197 Result Comment: <150 mg/dL, Normal 150-199 mg/dL, Borderline high 200-499 mg/dL, High >499 mg/dL, Very high LAB HDL >39 mg/dL HDL-Cholesterol Low 38 Result Comment: 40-59 mg/dL, Acceptable >59 mg/dL, High: Negative risk factor for coronary heart disease <40 mg/dL, Low: Positive risk factor for coronary heart disease LAB LDL <100 mg/dL LDL-Cholesterol High 111 Result Comment: <100 mg/dL, Optimal 100-129 mg/dL, Near optimal/above optimal 130-159 mg/dL, Borderline high 160-189 mg/dL, High >189 mg/dL, Very high Secondary prevention optimal LDL Cholesterol levels are recommended to be < 70 mg/dL LAB NONHDL <130 mg/dL Non HDL High Cholesterol 150 Result Comment: <130 mg/dL, Optimal 130-159 mg/dL, Near optimal/above optimal 160-189 mg/dL, Borderline high 190-219 mg/dL, High >219 mg/dL, Very high Secondary prevention optimal non HDL Cholesterol levels are recommended to be < 100 mg/dL LAB FT hrs Fasting Time 12 LAB VLDL <30 mg/dL High VLDL Cholesterol 39 LAB TCHDL <5.10 TC:HDL Ratio 4.95 LAB LDLHDL <2.54 High LDL:HDL Ratio 2.92 Result Comment: Reference: 1. National Cholesterol Education Program ATP III Guideline At-A-Glance Quick Desk Reference: National Heart, Lung, and Blood [place]. National Institutes of Health. 2001: NIH Publication No. 01-3305. 2. An International Atherosclerosis Society position paper: global recommendations for the management of dyslipidemia: executive summary, Atherosclerosis. 2014: 232(2):410-413. Performed By: #### CMP, LIPB, HBA1C #### [facility] [address] [place] [id number] HEMOGLOBIN A1C Collected: 12/02/2017 Status: F Source: [place] 9:50 AM [facility] REPOSITORY TYPE CODE TESTS RESULT OUT OF REFERENCE UNITS RANGE LAB HGBA1C 4.3-5.6 % High Hemoglobin A1c 8.6 LAB HBA0 mg/dL Est. Average Glucose 200 Result Comment: eAG: (Estimated average glucose) is a calculated value from HgbA1c and is textile machinery sales representative of the average blood glucose level in the last 2-3 month period. Performed By: #### CMP, LIPB, HBA1C #### [facility] [address] [place] [id number] PROGRESS Observed: 11/05/2017 Status: COMPLETED Source: [place] 9:35 AM [facility] REPOSITORY HNO ID: [id number] Author: Swati Campo Service: (none) Author Type: Nurse Practitioner Type: Progress Notes Filed: 11/05/2017 10:39 AM Note Text: HPI/CC: Yamila Kitchen is a 37 year old female who presents to the office today for review of health conditions. Ms. Kitchen has past history of diabetes, hyperlipidemia and hypertension. DM: Since our last visit she denies excessive thirst or increased frequency of urination, chest pain or dyspnea , numbness, tingling or pain in extremities, new or unusual visual symptoms, low sugar/hypoglycemic reactions and lightheadedness/dizziness. Follows a diabetic diet probably noncomplaint although I cannot elucidate specific history. She is compliant with medication(s) and is tolerating med(s) without any side effects. She reports checking her glucose on a once a day schedule with sugars in the fasting 100-119 range. Patient's last HgA1C was Hemoglobin A1C (%) Date Value 07/22/2017 10.8 02/27/2017 8.5 Hemoglobin A1C (POCT) (%) Date Value 11/05/2017 8.8 10/06/2017 9.3 ) Hyperlipidemia. Current therapy includes pravastatin (Pravachol) 20 mg. Denies side effects of muscle weakness or achiness. Her most recent lipid panels are reviewed. Cholesterol, Total (mg/dL) Date Value 10/06/2017 183 HDL Cholesterol (mg/dL) Date Value 10/06/2017 44 LDL Cholesterol (mg/dL) Date Value 10/06/2017 104 Triglyceride (mg/dL) Date Value 10/06/2017 177 Yamila gets sporadic irregular exercise. REVIEW OF SYSTEMS: as above Reviewed relevant PMHx, PSHx, Social Hx, current medications and allergies. PHYSICAL EXAMINATION: BP 110/74 Pulse 84 Resp 16 Wt 110.2 kg (243 lb) BMI 39.22 kg/m? General appearance: Well appearing, alert, in no acute distress, well-hydrated, well nourished. Lungs: Lungs clear to auscultation. No wheezing, rhonchi, rales Heart: RRR without murmur, gallop, or rubs. No ectopy ASSESSMENT/PLAN: 1. Uncontrolled type 2 diabetes mellitus without complication, without long-term current use of insulin (HCC) - ICD9: 250.02, ICD10: E11.65 improved control - Continue current medications - Blood glucose monitoring on a once a day schedule - Follow up in 1 month with labs prior, sooner should any other issues arise. - BP goal of <130/80 - LDL goal of <100 - COMP METABOLIC PANEL - LIPID PANEL BASIC - HGB A1C Swati Campo APRN.CNP CNOV Observed: 11/05/2017 Status: COMPLETED Source: [place] 9:20 AM [facility] REPOSITORY Office Visit (FAMPWS) YAMILA KITCHEN ([id number]) 1980 F Date Time Provider Department 11/05/17 9:20 AM [facility] During your visit today, we recorded the following information about you: Pulse Respiration Blood pressure Weight 84/minute 16/minute 110/74 110.2 kg Swati Campo APRN.CNP 11/05/2017 10:39 AM Signed HPI/CC: Yamila Kitchen is a 37 year old female who presents to the office today for review of health conditions. Ms. Kitchen has past history of diabetes, hyperlipidemia and hypertension. DM: Since our last visit she denies excessive thirst or increased frequency of urination, chest pain or dyspnea , numbness, tingling or pain in extremities, new or unusual visual symptoms, low sugar/hypoglycemic reactions and lightheadedness/dizziness. Follows a diabetic diet probably noncomplaint although I cannot elucidate specific history. She is compliant with medication(s) and is tolerating med(s) without any side effects. She reports checking her glucose on a once a day schedule with sugars in the fasting 100-119 range. Patient's last HgA1C was Hemoglobin A1C (%) Date Value 07/22/2017 10.8 02/27/2017 8.5 Hemoglobin A1C (POCT) (%) Date Value 11/05/2017 8.8 10/06/2017 9.3 ) Hyperlipidemia. Current therapy includes pravastatin (Pravachol) 20 mg. Denies side effects of muscle weakness or achiness. Her most recent lipid panels are reviewed. Cholesterol, Total (mg/dL) Date Value 10/06/2017 183 HDL Cholesterol (mg/dL) Date Value 10/06/2017 44 LDL Cholesterol (mg/dL) Date Value 10/06/2017 104 Triglyceride (mg/dL) Date Value 10/06/2017 177 Yamila gets sporadic irregular exercise. REVIEW OF SYSTEMS: as above Reviewed relevant PMHx, PSHx, Social Hx, current medications and allergies. PHYSICAL EXAMINATION: BP 110/74 Pulse 84 Resp 16 Wt 110.2 kg (243 lb) BMI 39.22 kg/m? General appearance: Well appearing, alert, in no acute distress, well-hydrated, well nourished. Lungs: Lungs clear to auscultation. No wheezing, rhonchi, rales Heart: RRR without murmur, gallop, or rubs. No ectopy ASSESSMENT/PLAN: 1. Uncontrolled type 2 diabetes mellitus without complication, without long-term current use of insulin ([facility]) - ICD9: 250.02, ICD10: E11.65 improved control - Continue current medications - Blood glucose monitoring on a once a day schedule - Follow up in 1 month with labs prior, sooner should any other issues arise. - BP goal of <130/80 - LDL goal of <100 - COMP METABOLIC PANEL - LIPID PANEL BASIC - HGB A1C Swati Campo APRN.MARGARINE MAKER Referring Provider: SWATI CAMPO ([facility]) [[id number]] Allergies As of Date: 11/05/2017 Noted Allergy Reaction ASPIRIN 07/16/2011 12 - Shortness of Breath IBUPROFEN 07/16/2011 12 - Shortness of Breath SIMVASTATIN 2014 2 - Rash 12 - Shortness of Breath TRAMADOL 01/31/2014 14 - Other: See Comments Comments: Dizziness Date Reviewed: 11/05/2017 Reviewed by: Luc Mowrer SOFTWARE PRODUCT MANAGER - Fully Assessed Primary Visit Diagnosis:Uncontrolled type 2 diabetes mellitus without complication, without long-term current use of insulin (HCC) [E11.65] Order(s):COMP METABOLIC PANEL [SQCMP] Order #: [id number] FUTURE LIPID PANEL BASIC [SQLIPB] Order #: [id number] FUTURE HGB A1C [FXZXW3G] Order #: [id number] FUTURE HEMOGLOBIN A1C (POC) [[id number]] Order #: [id number]. #:[id number] Prescriptions as of 11/05/2017 Sig: LEVOTHYROXINE 50 MCG TABLET Take 1 tablet by mouth once d* METFORMIN ER 500 MG TABLET,EX* Take 2 tablets by mouth twice* PEN NEEDLE, DIABETIC 29 GAUGE* Use one needle per dose. 1 p* AMITRIPTYLINE 25 MG TABLET Take 1 tablet by mouth daily * LIRAGLUTIDE 0.6 MG/0.1 ML (18* Inject 1.2 mg subcutaneously * PRAVASTATIN 20 MG TABLET Take 1 tablet by mouth once d* FLUTICASONE 50 MCG/ACTUATION * Use 2 Sprays in each nostril * FEXOFENADINE 60 MG TABLET Take 1 tablet by mouth once d* INSULIN DEGLUDEC (U-100) 100 * Inject 36 Units subcutaneousl* BLOOD-GLUCOSE METER KIT Glucose Meter of Choice - Kit* BLOOD SUGAR DIAGNOSTIC STRIPS Test blood sugar(s) 1 times d* LANCETS Test blood sugar(s) 1 times d* TOLNAFTATE 1 % TOPICAL CREAM Apply 1 application to affect* BUSPIRONE 5 MG TABLET Take 1 tablet by mouth three * FREESTYLE LITE STRIPS USE ONE STRIP TO CHECK GLUCOS* ALBUTEROL SULFATE HFA 90 MCG/* Inhale 2 Puffs as instructed * GLUCOSE 4 GRAM CHEWABLE TABLET Take 4 tablets by mouth as ne* DEXTROMETHORPHAN-GUAIFENESIN * Take 1 tablet by mouth twice * Problem List As Of Date 11/05/2017 Noted Resolved Left wrist pain [M25.532] INVALID FOR*04/30/2016 Left wrist tendinitis [M77.8] INVALID FOR*04/30/2016 Multinodular goiter [E04.2] INVALID FOR* Hypothyroidism [E03.9] INVALID FOR* Diabetes mellitus type 2, controlled, without c*INVALID FOR*04/30/2016 Obesity, Class III, BMI 40-49.9 (morbid obesity*INVALID FOR* Major depression [F32.9] INVALID FOR*04/30/2016 Major depressive disorder, recurrent episode, m*INVALID FOR* Uncontrolled type 2 diabetes mellitus without c*INVALID FOR* Recurrent major depression in partial remission*INVALID FOR*04/30/2016 Pelvic floor dysfunction [M62.89] INVALID FOR* Pain in left hip [M25.552] INVALID FOR* Encounter Status:Closed by SWATI CAMPO CNP on 11/05/17 EMERGENCY DEPARTMENT Observed: 10/16/2017 Status: F Source: LOLITA SUMMARY 11:47 AM [facility] REPOSITORY [facility] Medical Records Department [address] [place] [address] Emergency Department Summary 10/16/17 1009 MR#: [id number] Acct: [id number] Name: YAMILA KITCHEN Rep #: [id number] : 1980 37 From: Agustin Virgen MD PCP: Padilla Carroll DO Status: REG ER - ER Visit Summary Date of Service: 10/16/17 Chief Complaint: Nausea and vomiting with chills and temperature documented to 100.3 History of Present Illness: The patient is a 37 F who presents with temperature documented 100.3 with bilateral low back pain with nausea and vomiting and chills that started this morning. She states she does not feel well. She complains of dry mouth. She does complain of bifrontal headache. The headaches are not positional. She denies photophobia, change in vision or double vision. She denies rhinorrhea, congestion, postnasal drainage or ear pain. She reports sore throat after vomiting. She denies any chest pain, cough or shortness of breath. She denies leg pain, swelling or discoloration. She denies dysuria, frequency, urgency or hematuria. She denies any vaginal bleeding or discharge. She denies any skin lesions. Please read written note for complete detail Physical Examination: Vital signs remarkable for heart rate 128. She appears ill but not toxic. Head is atraumatic normocephalic. Pupils equal round reactive. Extra muscles are intact. Sclerae anicteric. TMs are normal. Nares patent with no discharge. Tongue and mucosa are dry. Uvula midline. No exudate or erythema. Trach is midline. There is no cervical lymphadenopathy. Heart is rapid and regular without murmur, gallop or rub. Lungs are clear to auscultation with good maneuver bilaterally. Abdomen is soft nontender with decreased bowel sounds. There is no CVA tenderness noted. There is no skin lesions noted. There is no asymmetry, swelling, discoloration, leg vein distention, palpable cords or tenderness along the distribution of the deep venous system. She is alert and oriented 3 with a nonfocal neurologic exam Test Results: White count is 11.7 thousand 81 segs no bands. Electronic panels marked for glucose 164. UA reveals leukoesterase and blood on macro as well as ketones. There is evidence of pyuria with 5-10 WBCs 0-5 RBCs and 1+ bacteria. Emergency Department Course and Treatment: IV was established and she will receive 1 L of normal saline wide open. Since she has type 1 diabetes will treat the nausea vomiting with Reglan. Because she complains of low back pain with documented temperature 100.3 with chills will obtain UA. BMP to assess glucose and kidney function. Treatment Plan: Patient's symptoms are secondary to urinary tract infection. Patient will receive 1 g of Rocephin IV piggyback. If she has no vomiting will discharge to home with antiemetic and antibiotic. She was informed to follow-up with Dr. Osborne in 3 days. Disposition: Discharged to home Impression: 1. Complex urinary tract infection 2. Sepsis 3. Hyperglycemia in type I diabetic 4. Dehydration with ketosis This note was generated with FX Aligned dictation software. It may contain incorrect words, spelling, and punctuation that were not noted in review of the chart prior to signing ED Disposition - Plan for ED Patient: Disposition: Home or Assisted Living Chief Complaint: Nausea/Vomiting Instructions: ED UTI Cystitis Female Prescriptions: Ciprofloxacin [Cipro] 500 mg PO BID #14 tab Metoclopramide [Reglan] 10 mg PO 4X/DAY PRN #10 tab PRN Reason: Headache Referrals: Padilla Osborne DO [Primary Care Provider] - 1-2 Days if not improving What to do if you have Problems For any increased pain, shortness of breath, bleeding, nausea or vomiting, chest pain, or any unexpected problems, contact your Primary Care Provider. Call [facility] ([phone]) or report to the closest Emergency Room. Call 911 if necessary. 10/16/17 1147 <Electronically signed by Agustin Virgen MD> Date Agustin Virgen MD Cosigner Signature (If Indicated): Date CC: Padilla Carroll, URINALYSIS, COMPLETE Collected: 10/16/2017 Status: F Source: CHERY 10:30 AM [facility] REPOSITORY Order Comment: Order Date: 10/16/17 Has pt arrived? Y How was Urine Obtained? CLEAN CATCH TYPE CODE TESTS RESULT OUT OF RANGE REFERENCE UNITS LAB L400.3000 Yellow COLOR Normal Yellow LAB L400.3050 Clear Normal CLARITY Sl. Cloudy LAB L400.3200 Normal mg/dl Normal GLUCOSE, UR Normal LAB L400.3300 Negative mg/dL Normal BILIRUBIN URINE Negative LAB L400.3400 Negative mg/dl High 5 KETONE UR LAB L400.3465 1.002-1.030 Normal SP.GR. DIPSTX 1.020 LAB L400.3550 5.0 - 8.0 pH UR Normal 5.0 LAB L400.3600 Negative mg/dl High PROT DIPSTX 100 LAB L400.3700 Normal mg/dl Normal UROBILI Normal LAB L400.3750 Negative Normal NITRITE UR Negative LAB L400.3780 Negative /ul High 25 OCCULT BLOOD-UR LAB L400.3800 Negative /ul High LEUK 25 ESTERASE LAB L400.4050 0-5 /hpf WBC Normal 5-10 SEEN LAB L400.4100 0-5 /hpf Normal RBC-UA 0-5 SEEN LAB L400.4150 5-10 /hpf SQUAM Normal EPI 0-5 SEEN LAB L400.4300 None Seen /hpf 1+ Normal BACTERIA LAB L400.4350 <or=2+ /hpf Normal MUCUS, URINE RARE Performed By: #### L400.0001 #### [facility] [address] [place], [address] Observed: 10/16/2017 Status: F Source: CHERY CULTURE, URINE 10:30 AM [facility] REPOSITORY Order Date: 10/16/17 Has pt arrived? Y Urine Culture ORGANISM 1: Klebsiella pneumoniae sp pneum [place] Count 80,000-100,000 Klebsiella pneumoniae sp pneum: REACTION Amoxacillin/Clavulanic Acid $ <=2 S Ampicillin $ >=32 R Ampicillin/Sulbactam $ 4 S Cefazolin $ <=4 S Cefepime $ <=1 S Ceftriaxone $ <=1 S Ciprofloxacin $ <=0.25 S ESBL - Ertapenim $$$ <=0.5 S Gentamicin $ <=1 S Imipenem *NF <=0.25 S Levofloxacin $ <=0.12 S Nitrofurantoin $ <=16 S Piperacillin/Tazobactam $$ 8 S Tobramycin $ <=1 S Trimethoprim/Sulfametho $ <=20 S (NF) indicates non-formulary drug at [facility]. Approval by Infectious Disease Specialist required before non-formulary drugs may be ordered and/or dispensed. Performed By: #### M100.0650 #### [facility] [address] [place], [address] CBC W/DIFF, AUTOMATED Collected: 10/16/2017 Status: F Source: CHERY 10:10 AM [facility] REPOSITORY TYPE CODE TESTS RESULT OUT OF RANGE REFERENCE UNITS LAB L100.1000 4.4-11.0 K/mm3 High WBC 11.7 LAB L100.1200 4.2-5.4 M/mm3 Normal RBC 5.28 LAB L100.1300 12.0-15.0 g/dl Normal HGB 14.5 LAB L100.1400 37-47 % Normal HCT 44.2 LAB L100.1500 81-99 fL Normal MCV 83.7 LAB L100.1600 27.0-32.0 pg Normal MCH 27.5 LAB L100.1700 32-36 g/gl Normal MCHC 32.8 LAB L100.1810 11.6-14.6 % Normal RDW CV 13.2 LAB L100.1820 35.1-43.9 fl Normal RDW SD 39.2 LAB L100.1900 150-450 K/mm3 Normal PLT 284 LAB L100.2000 6.2-12.0 fl Normal MPV 10.0 LAB L100.2100 47-70 % High NEUT% 81.1 LAB L100.2200 19-41 % Low LY% 13.5 LAB L100.2300 0-10 % Normal MONO% 4.3 LAB L100.2400 0-5 % Normal EO% 0.7 LAB L100.2500 0-1 % Normal BASO% 0.2 LAB L100.2550 0.0-0.9 % Normal IM GRAN % 0.200 Result Comment: IG% - Immature Granulocytes (promyelocytes, myelocytes and metamyelocytes) > 1% indicates that a LEFT SHIFT is Present. LAB L100.2620 2.0-7.7 X10 3/uL High Absolute Neut 9.5 LAB L100.2720 0.83-4.51 X10 3/ul Normal Absolute Lymph 1.57 Performed By: #### L100.0100 #### [facility] [address] [place], [address] BASIC METABOLIC Collected: 10/16/2017 Status: F Source: LOLITA PROFILE (BMP) 10:10 AM [facility] REPOSITORY TYPE CODE TESTS RESULT OUT OF RANGE REFERENCE UNITS LAB L501.0100 74-106 mg/dL High GLU 164 Result Comment: Fasting Glucose result greater than or equal to 126 mg/dL suggests DIABETES MELLITUS per A.D.A. criteria. Please note revised GLUCOSE reference range effective 2017. LAB L501.1000 7-18 mg/dL Normal BUN 9 LAB L501.1100 0.55-1.02 mg/dL Normal CREAT,SERUM 0.81 Result Comment: The validity of the calculated GFR AND GFRAA in patients over 70 years has not been determined. Clinical correlation is essential. LAB L501.1110 >60 mL/min Normal EST GFR 84 Result Comment: Non- GFR Calc LAB L501.1115 >60 mL/min Normal EST GFR - AA 101 Result Comment: GFR Calc LAB L501.1255 ml/min Normal Estimated CRCL 88.16 LAB L501.1300 10-20 RATIO Normal BUN/CRE 11.1 LAB L501.2200 8.5-10 mg/dL Normal .1 CA 9.4 LAB L501.5300 136-14 mmol/L Normal 5 NA 137 LAB L501.5600 3.5-5. mmol/L Normal 1 K 3.8 LAB L501.5900 98-107 mmol/L Normal CL 99 LAB L501.6100 21.0-3 mmol/L Normal 2.0 CO2 28.0 LAB L501.6200 5-15 Normal GAP 10 Performed By: #### L500.2500 #### [facility] [address] [place], [address] COMP METABOLIC PANEL Collected: 10/06/2017 Status: F Source: ALTHEIMER 10:05 AM [facility] [place] REPOSITORY TYPE CODE TESTS RESULT OUT OF REFERENCE UNITS RANGE LAB TP 6.3-8.0 g/dL Protein, Total 7.4 LAB ALB 3.9-4.9 g/dL Albumin 4.5 LAB CA 8.5-10.2 mg/dL Calcium, Total 9.5 LAB TBIL 0.2-1.3 mg/dL Bilirubin, Total 0.6 LAB ALKP 32-117 U/L Alkaline Phosphatase 63 LAB AST 13-35 U/L AST 26 LAB GLU 74-99 mg/dL Glucose High 121 Result Comment: The [place] Diabetes Association (ADA) provides guidance for cutoff values for fasting glucose and random glucose. The ADA defines fasting as no caloric intake for at least 8 hours. Fas ting plasma glucose results between 100 to 125 mg/dL indicate increased risk for diabetes (prediabetes). Fasting plasma glucose results greater than or equal to 126 mg/dL meet the criteria for diagnosis of diabetes. In the absence of unequivocal hyperglycemia, results should be confirmed by repeat testing. In a patient with classic symptoms of hyperglycemia or hyperglycemic crisis, random plasma glucose results greater than or equal to 200 mg/dL meet the criteria for diagnosis of diabetes. Reference: Standards of Medical Care in Diabetes 2016, [place] Diabetes Association. Diabetes Care. 2016.39(Suppl 1). LAB BUN 7-21 mg/dL BUN 11 LAB CRET 0.58-0.96 mg/dL Creatinine Low 0.57 LAB NA 136-144 mmol/L Sodium 140 LAB K 3.7-5.1 mmol/L Potassium 4.2 LAB CL 97-105 mmol/L Chloride 99 LAB CO2 22-30 mmol/L CO2 27 LAB AGAP 9-18 mmol/L Anion Gap 14 LAB ALT 7-38 U/L ALT 28 LAB GFRAA eGFR- Amer. >60 LAB GFRNAA . eGFR-All Other Races >60 Result Comment: eGFR (Estimated GFR) Units of measure: mL/min/1.73 meters squared eGFR is derived from the reexpressed MDRD Study equation using the following parameters: serum creatinine, age, gender and race. The creatinine assay has been calibrated to be traceable to IDMS. An eGFR <60 mL/min/1.73m2 for >3 months is consistent with chronic kidney disease. Refer to KDOQI guidelines for clinical interpretation. In patients with unstable renal function, e.g. those with acute kidney injury, the eGFR may not accurately reflect actual GFR. Performed By: #### CMP, LIPB #### [facility] [address] [place], [place] [address] LIPID PANEL, BASIC Collected: 10/06/2017 Status: F Source: ALTHEIMER 10:05 AM [facility] [place] REPOSITORY TYPE CODE TESTS RESULT OUT OF REFERENCE UNITS RANGE LAB CHOL <200 mg/dL Cholesterol 183 Result Comment: <200 mg/dL, Desirable 200-239 mg/dL, Borderline high >239 mg/dL, High LAB TRIGLY <150 mg/dL Triglyceride High 177 Result Comment: <150 mg/dL, Normal 150-199 mg/dL, Borderline high 200-499 mg/dL, High >499 mg/dL, Very high LAB HDL >39 mg/dL HDL-Cholesterol 44 Result Comment: 40-59 mg/dL, Acceptable >59 mg/dL, High: Negative risk factor for coronary heart disease <40 mg/dL, Low: Positive risk factor for coronary heart disease LAB LDL <100 mg/dL LDL-Cholesterol High 104 Result Comment: <100 mg/dL, Optimal 100-129 mg/dL, Near optimal/above optimal 130-159 mg/dL, Borderline high 160-189 mg/dL, High >189 mg/dL, Very high Secondary prevention optimal LDL Cholesterol levels are recommended to be < 70 mg/dL LAB NONHDL <130 mg/dL Non HDL High Cholesterol 139 Result Comment: <130 mg/dL, Optimal 130-159 mg/dL, Near optimal/above optimal 160-189 mg/dL, Borderline high 190-219 mg/dL, High >219 mg/dL, Very high Secondary prevention optimal non HDL Cholesterol levels are recommended to be < 100 mg/dL LAB FT hrs Fasting Time 12 LAB VLDL <30 mg/dL High VLDL Cholesterol 35 LAB TCHDL <5.10 TC:HDL Ratio 4.16 LAB LDLHDL <2.54 LDL:HDL Ratio 2.36 Result Comment: Reference: 1. National Cholesterol Education Program ATP III Guideline At-A-Glance Quick Desk Reference: National Heart, Lung, and Blood [place]. National Institutes of Health. 2001: NIH Publication No. 01-3305. 2. An International Atherosclerosis Society position paper: global recommendations for the management of dyslipidemia: executive summary, Atherosclerosis. 2014: 232(2):410-413. Performed By: #### CMP, LIPB #### [facility] [address] [place], [place] [address] CNOV Observed: 10/06/2017 Status: COMPLETED Source: ALTHEIMER 9:20 AM [facility] REPOSITORY Office Visit (FAMPWS) FIDELINAYAMILA Michel ([id number]) 1980 F Date Time Provider Department 10/06/17 9:20 AM SWATI CAMPO [facility] During your visit today, we recorded the following information about you: Pulse Respiration Blood pressure Weight 88/minute 16/minute 104/72 110.2 kg Last Period 09/28/17 Swati Campo APRN.CNP 10/06/2017 9:42 AM Signed HPI/CC: Yamila Kitchen is a 37 year old female who presents to the office today for review of health conditions. Ms. Kitchen has past history of diabetes, hyperlipidemia and hypertension. DM: Since our last visit she denies excessive thirst or increased frequency of urination, chest pain or dyspnea , numbness, tingling or pain in extremities, new or unusual visual symptoms and low sugar/hypoglycemic reactions. Patient admits to have low sugar/hypoglycemic reactions less than once a week. Follows a diabetic diet generally not very much. She is compliant with medication(s) and is tolerating med(s) without any side effects. She reports checking her glucose on a once a day schedule with sugars in the fasting 120-130 range. Patient's last HgA1C was Hemoglobin A1C (%) Date Value 07/22/2017 10.8 02/27/2017 8.5 Hemoglobin A1C (POCT) (%) Date Value 09/02/2017 10.1 ) Last Ophthalmology exam was within the past 3 months Hyperlipidemia. No medications. Her most recent lipid panels are reviewed. Cholesterol, Total (mg/dL) Date Value 02/27/2017 213 HDL Cholesterol (mg/dL) Date Value 02/27/2017 52 LDL Cholesterol (mg/dL) Date Value 02/27/2017 125 Triglyceride (mg/dL) Date Value 02/27/2017 178 Last 3 Encounter BP Readings: Date: BP: 10/06/2017 104/72 09/02/2017 120/74 08/24/2017 140/90 Yamila denies regular aerobic exercise. Headaches: x 2 weeks sharp maxillary pain, constant. Reports sneezing. Denies fever, chills, PND, sore throat, ear pain, cough, numbness, tingling, change in vision, N/V, Attempted acetaminophen without resolve. REVIEW OF SYSTEMS: as above Reviewed relevant PMHx, PSHx, Social Hx, current medications and allergies. PHYSICAL EXAMINATION: BP 104/72 Pulse 88 Resp 16 Wt 110.2 kg (243 lb) LMP 09/28/2017 BMI 39.22 kg/m? General appearance: Well appearing, alert, in no acute distress, well-hydrated, well nourished., Morbidly obese Skin: Skin color, texture, turgor normal, no suspicious rashes or lesions, Positives: Rash: diffuse, discrete open maculopapular rash Head: Normocephalic, no masses, lesions, tenderness or abnormalities Eyes: Anicteric sclera. Ears: External ears normal, canals clear, TM's normal Nose/Sinuses: external nares normal, septum midline, no drainage. + bilateral maxillary sinus tenderness, Positive findings: right side mucosa erythematous and left side swollen, mucosa swollen, pale, and boggy Oropharynx: Lips, mucosa, and tongue normal, teeth and gums normal, oropharynx normal Neck: Supple, no adenopathy; thyroid symmetric, normal size, no bruits Lungs: Lungs clear to auscultation. No wheezing, rhonchi, rales Heart: RRR without murmur, gallop, or rubs. No ectopy ASSESSMENT/PLAN: 1. Uncontrolled type 2 diabetes mellitus without complication, without long-term current use of insulin ([facility]) - ICD9: 250.02, ICD10: E11.65 (primary diagnosis) uncontrolled - Increase Tresiba to 36 units daily - Blood glucose monitoring on a once a day schedule - Encouraged regular aerobic exercise and weight loss - Follow up in 1 month, sooner should any other issues arise. - BP goal of <130/80 - LDL goal of <100 - COMP METABOLIC PANEL - LIPID PANEL BASIC 2. Allergic sinusitis - ICD9: 477.9, ICD10: J30.9 - FLUTICASONE 50 MCG/ACTUATION NASAL SPRAY,SUSPENSION - FEXOFENADINE 60 MG TABLET MANNY Andre APRN.CNP 10/06/2017 9:42 AM Addendum ASSESSMENT/PLAN: 1. Uncontrolled type 2 diabetes mellitus without complication, without long-term current use of insulin ([facility]) - ICD9: 250.02, ICD10: E11.65 (primary diagnosis) uncontrolled - Increase Tresiba to 36 units daily - Blood glucose monitoring on a once a day schedule - Encouraged regular aerobic exercise and weight loss - Follow up in 1 month, sooner should any other issues arise. - BP goal of <130/80 - LDL goal of <100 - COMP METABOLIC PANEL - LIPID PANEL BASIC 2. Allergic sinusitis - ICD9: 477.9, ICD10: J30.9 - FLUTICASONE 50 MCG/ACTUATION NASAL SPRAY,SUSPENSION - FEXOFENADINE 60 MG TABLET - f/u 1 month Swati Campo APRN.CNP Referring Provider: SWATI CAMPO (MAX) [[id number]] Allergies As of Date: 10/06/2017 Noted Allergy Reaction ASPIRIN 07/16/2011 12 - Shortness of Breath IBUPROFEN 07/16/2011 12 - Shortness of Breath SIMVASTATIN 2014 2 - Rash 12 - Shortness of Breath TRAMADOL 01/31/2014 14 - Other: See Comments Comments: Dizziness Date Reviewed: 10/06/2017 Reviewed by: Luc Blackwood LPN - Fully Assessed Reason for Visit: Recheck [92] Cmt: 1 month follow up Primary Visit Diagnosis:Uncontrolled type 2 diabetes mellitus without complication, without long-term current use of insulin (HCC) [E11.65] Other Visit Diagnosis:Allergic sinusitis [J30.9] Order(s):COMP METABOLIC PANEL [SQCMP] Order #: [id number] FUTURE LIPID PANEL BASIC [SQLIPB] Order #: [id number] FUTURE fluticasone (FLONASE) 50 mcg/actuation nasal sprayUse 2 Sprays in each nostril once daily. Rinse mouth after use.Disp: 1 BottleRfl: 11 fexofenadine (JULIANN) 60 mg tabletTake 1 tablet by mouth once daily.Disp: 90 tabletRfl: 3 HEMOGLOBIN A1C (POC) [2959912] Order #: [id number]. #:[id number] insulin degludec (TRESIBA) 100 unit/mL (3 mL) injectionInject 36 Units subcutaneously every 24 hours.Disp: 6 PenRfl: 3 Prescriptions as of 10/06/2017 Sig: INSULIN DEGLUDEC (U-100) 100 * Inject 36 Units subcutaneousl* BLOOD-GLUCOSE METER KIT Glucose Meter of Choice - Kit* BLOOD SUGAR DIAGNOSTIC STRIPS Test blood sugar(s) 1 times d* LANCETS Test blood sugar(s) 1 times d* TOLNAFTATE 1 % TOPICAL CREAM Apply 1 application to affect* BUSPIRONE 5 MG TABLET Take 1 tablet by mouth three * AMITRIPTYLINE 25 MG TABLET TAKE ONE TABLET BY MOUTH ONCE* FREESTYLE LITE STRIPS USE ONE STRIP TO CHECK GLUCOS* LIRAGLUTIDE 0.6 MG/0.1 ML (18* Inject 1.2 mg subcutaneously * ALBUTEROL SULFATE HFA 90 MCG/* Inhale 2 Puffs as instructed * DEXTROMETHORPHAN-GUAIFENESIN * Take 1 tablet by mouth twice * PEN NEEDLE, DIABETIC 29 GAUGE* Use one needle per dose. 1 p* LEVOTHYROXINE 50 MCG TABLET Take 1 tablet by mouth once d* METFORMIN ER 500 MG TABLET,EX* Take 2 tablets by mouth twice* GLUCOSE 4 GRAM CHEWABLE TABLET Take 4 tablets by mouth as ne* FLUTICASONE 50 MCG/ACTUATION * Use 2 Sprays in each nostril * FEXOFENADINE 60 MG TABLET Take 1 tablet by mouth once d* Problem List As Of Date 10/06/2017 Noted Resolved Left wrist pain [M25.532] INVALID FOR*04/30/2016 Left wrist tendinitis [M77.8] INVALID FOR*04/30/2016 Multinodular goiter [E04.2] INVALID FOR* Hypothyroidism [E03.9] INVALID FOR* Diabetes mellitus type 2, controlled, without c*INVALID FOR*04/30/2016 Obesity, Class III, BMI 40-49.9 (morbid obesity*INVALID FOR* Major depression [F32.9] INVALID FOR*04/30/2016 Major depressive disorder, recurrent episode, m*INVALID FOR* Uncontrolled type 2 diabetes mellitus without c*INVALID FOR* Recurrent major depression in partial remission*INVALID FOR*04/30/2016 Pelvic floor dysfunction [M62.89] INVALID FOR* Pain in left hip [M25.552] INVALID FOR* Other instructions from your clinician: ASSESSMENT/PLAN: 1. Uncontrolled type 2 diabetes mellitus without complication, without long-term current use of insulin (HCC) - ICD9: 250.02, ICD10: E11.65 (primary diagnosis) uncontrolled - Increase Tresiba to 36 units daily - Blood glucose monitoring on a once a day schedule - Encouraged regular aerobic exercise and weight loss - Follow up in 1 month, sooner should any other issues arise. - BP goal of <130/80 - LDL goal of <100 - COMP METABOLIC PANEL - LIPID PANEL BASIC 2. Allergic sinusitis - ICD9: 477.9, ICD10: J30.9 - FLUTICASONE 50 MCG/ACTUATION NASAL SPRAY,SUSPENSION - FEXOFENADINE 60 MG TABLET - f/u 1 month Swati Campo APRN.MARGARINE MAKER Prescriptions ordered this encounter Disp Refills Start End FLUTICASONE 50 MCG/ACTUATION NASAL S* 1 John* 11 10/06/2017 Route: EACH NOSTRIL Sig: Use 2 Sprays in each nostril once daily. Rinse mouth after use. FEXOFENADINE 60 MG TABLET 90 t* 3 10/06/2017 Route: ORAL Sig: Take 1 tablet by mouth once daily. INSULIN DEGLUDEC (U-100) 100 UNIT/ML* 6 Pen 3 10/06/2017 Route: SUBCUTANEOUS Sig: Inject 36 Units subcutaneously every 24 hours. Medications Discontinued During This Encounter insulin degludec (TRESIBA) 100 unit/* 6 Pen 3 09/02/2017 10/06/2017 Route: SUBCUTANEOUS Sig: Inject 34 Units subcutaneously every 24 hours. Disc: Reason for discontinue is not on file. Encounter Status:Closed by SWATI CAMPO CNP on 10/06/17 PROGRESS Observed: 10/06/2017 Status: COMPLETED Source: ALTHEIMER 9:14 AM [facility] REPOSITORY HNO ID: [id number] Author: Swati Castrejon (Max) Karena Service: (none) Author Type: Nurse Practitioner Type: Progress Notes Filed: 10/06/2017 9:42 AM Note Text: HPI/CC: Yamila Kitchen is a 37 year old female who presents to the office today for review of health conditions. Ms. Kitchen has past history of diabetes, hyperlipidemia and hypertension. DM: Since our last visit she denies excessive thirst or increased frequency of urination, chest pain or dyspnea , numbness, tingling or pain in extremities, new or unusual visual symptoms and low sugar/hypoglycemic reactions. Patient admits to have low sugar/hypoglycemic reactions less than once a week. Follows a diabetic diet generally not very much. She is compliant with medication(s) and is tolerating med(s) without any side effects. She reports checking her glucose on a once a day schedule with sugars in the fasting 120-130 range. Patient's last HgA1C was Hemoglobin A1C (%) Date Value 07/22/2017 10.8 02/27/2017 8.5 Hemoglobin A1C (POCT) (%) Date Value 09/02/2017 10.1 ) Last Ophthalmology exam was within the past 3 months Hyperlipidemia. No medications. Her most recent lipid panels are reviewed. Cholesterol, Total (mg/dL) Date Value 02/27/2017 213 HDL Cholesterol (mg/dL) Date Value 02/27/2017 52 LDL Cholesterol (mg/dL) Date Value 02/27/2017 125 Triglyceride (mg/dL) Date Value 02/27/2017 178 Last 3 Encounter BP Readings: Date: BP: 10/06/2017 104/72 09/02/2017 120/74 08/24/2017 140/90 Yamila denies regular aerobic exercise. Headaches: x 2 weeks sharp maxillary pain, constant. Reports sneezing. Denies fever, chills, PND, sore throat, ear pain, cough, numbness, tingling, change in vision, N/V, Attempted acetaminophen without resolve. REVIEW OF SYSTEMS: as above Reviewed relevant PMHx, PSHx, Social Hx, current medications and allergies. PHYSICAL EXAMINATION: BP 104/72 Pulse 88 Resp 16 Wt 110.2 kg (243 lb) LMP 09/28/2017 BMI 39.22 kg/m? General appearance: Well appearing, alert, in no acute distress, well-hydrated, well nourished., Morbidly obese Skin: Skin color, texture, turgor normal, no suspicious rashes or lesions, Positives: Rash: diffuse, discrete open maculopapular rash Head: Normocephalic, no masses, lesions, tenderness or abnormalities Eyes: Anicteric sclera. Ears: External ears normal, canals clear, TM's normal Nose/Sinuses: external nares normal, septum midline, no drainage. + bilateral maxillary sinus tenderness, Positive findings: right side mucosa erythematous and left side swollen, mucosa swollen, pale, and boggy Oropharynx: Lips, mucosa, and tongue normal, teeth and gums normal, oropharynx normal Neck: Supple, no adenopathy; thyroid symmetric, normal size, no bruits Lungs: Lungs clear to auscultation. No wheezing, rhonchi, rales Heart: RRR without murmur, gallop, or rubs. No ectopy ASSESSMENT/PLAN: 1. Uncontrolled type 2 diabetes mellitus without complication, without long-term current use of insulin (HCC) - ICD9: 250.02, ICD10: E11.65 (primary diagnosis) uncontrolled - Increase Tresiba to 36 units daily - Blood glucose monitoring on a once a day schedule - Encouraged regular aerobic exercise and weight loss - Follow up in 1 month, sooner should any other issues arise. - BP goal of <130/80 - LDL goal of <100 - COMP METABOLIC PANEL - LIPID PANEL BASIC 2. Allergic sinusitis - ICD9: 477.9, ICD10: J30.9 - FLUTICASONE 50 MCG/ACTUATION NASAL SPRAY,SUSPENSION - FEXOFENADINE 60 MG TABLET Swati Campo APRN.CNP CNOV Observed: 09/02/2017 Status: COMPLETED Source: [place] 10:40 AM [facility] REPOSITORY Office Visit (FAMPWS) FIDELINAYAMILA ZENDEJAS ([id number]) 1980 F Date Time Provider Department 09/02/17 10:40 AM SWATI CAMPO [facility] During your visit today, we recorded the following information about you: Pulse Respiration Blood pressure Weight 80/minute 20/minute 120/74 112.5 kg Swati Campo APRN.CNP 09/02/2017 11:21 AM Signed HPI/CC: Yamila Kitchen is a 37 year old female who presents to the office today for review of health conditions. Ms. Kitchen has past history of diabetes, hyperlipidemia and hypertension. DM: Since our last visit she denies excessive thirst or increased frequency of urination, chest pain or dyspnea , numbness, tingling or pain in extremities, new or unusual visual symptoms, low sugar/hypoglycemic reactions and lightheadedness/dizziness. Follows a diabetic diet probably noncomplaint although I cannot elucidate specific history. She is compliant with medication(s) and is tolerating med(s) without any side effects. She reports checking her glucose on a once a day schedule with sugars in the fasting 150-179 range. Patient's last HgA1C was Hemoglobin A1C (%) Date Value 07/22/2017 10.8 02/27/2017 8.5 Hemoglobin A1C (POCT) (%) Date Value 09/02/2017 10.1 ) Last Ophthalmology exam was within the past 6 months Hyperlipidemia. Current therapy includes none Cholesterol, Total (mg/dL) Date Value 02/27/2017 213 HDL Cholesterol (mg/dL) Date Value 02/27/2017 52 LDL Cholesterol (mg/dL) Date Value 02/27/2017 125 Triglyceride (mg/dL) Date Value 02/27/2017 178 Hypertension: states that she is feeling well and denies any symptoms referable to elevated blood pressure. Specifically denies chest pain, palpitations, dyspnea and peripheral edema. Patient denies any side effects of her medication(s) and is compliant with their regimen. Last 3 Encounter BP Readings: Date: BP: 09/02/2017 120/74 08/24/2017 140/90 08/03/2017 120/80 She watches her diet for sodium, low fat and low cholesterol probably noncomplaint although I cannot elucidate specific history. She does not check BP's generally. Yamila denies regular aerobic exercise. Starting to see pain management Dr. Burk and Pt tomorrow REVIEW OF SYSTEMS: as above Reviewed relevant PMHx, PSHx, Social Hx, current medications and allergies. PHYSICAL EXAMINATION: BP 120/74 Pulse 80 Resp 20 Wt 112.5 kg (248 lb) BMI 40.03 kg/m? General appearance: Well appearing, alert, in no acute distress, well-hydrated, well nourished. Neck: Supple, no adenopathy; thyroid symmetric, normal size, no bruits Lungs: Lungs clear to auscultation. No wheezing, rhonchi, rales Heart: RRR without murmur, gallop, or rubs. No ectopy ASSESSMENT/PLAN: 1. Uncontrolled type 2 diabetes mellitus without complication, without long-term current use of insulin ([facility]) - ICD9: 250.02, ICD10: E11.65 uncontrolled poorly controlled - HB A1C B/O - INSULIN DEGLUDEC (U-100) 100 UNIT/ML (3 ML) SUBCUTANEOUS PEN- increased from 30 to 34 units - F/U 1 month Swati Campo APRN.MARGARINE MAKER Referring Provider: SELF [200] Allergies As of Date: 09/02/2017 Noted Allergy Reaction ASPIRIN 07/16/2011 12 - Shortness of Breath IBUPROFEN 07/16/2011 12 - Shortness of Breath SIMVASTATIN 2014 2 - Rash 12 - Shortness of Breath TRAMADOL 01/31/2014 14 - Other: See Comments Comments: Dizziness Date Reviewed: 09/02/2017 Reviewed by: Swati Castrejon (Stock Or Delivery Clerk) Karena - Fully Assessed Reason for Visit: Diabetes [34] Primary Visit Diagnosis:Uncontrolled type 2 diabetes mellitus without complication, without long-term current use of insulin (HCC) [E11.65] Order(s):HB A1C B/O [0540076] Order #: [id number] HEMOGLOBIN A1C (POC) [1901801] Order #: [id number]. #:[id number] insulin degludec (TRESIBA) 100 unit/mL (3 mL) injectionInject 34 Units subcutaneously every 24 hours.Disp: 6 PenRfl: 3 Prescriptions as of 09/02/2017 Sig: INSULIN DEGLUDEC (U-100) 100 * Inject 34 Units subcutaneousl* TOLNAFTATE 1 % TOPICAL CREAM Apply 1 application to affect* BUSPIRONE 5 MG TABLET Take 1 tablet by mouth three * AMITRIPTYLINE 25 MG TABLET TAKE ONE TABLET BY MOUTH ONCE* FREESTYLE LITE STRIPS USE ONE STRIP TO CHECK GLUCOS* LIRAGLUTIDE 0.6 MG/0.1 ML (18* Inject 1.2 mg subcutaneously * ALBUTEROL SULFATE HFA 90 MCG/* Inhale 2 Puffs as instructed * DEXTROMETHORPHAN-GUAIFENESIN * Take 1 tablet by mouth twice * PEN NEEDLE, DIABETIC 29 GAUGE* Use one needle per dose. 1 p* LEVOTHYROXINE 50 MCG TABLET Take 1 tablet by mouth once d* METFORMIN ER 500 MG TABLET,EX* Take 2 tablets by mouth twice* GLUCOSE 4 GRAM CHEWABLE TABLET Take 4 tablets by mouth as ne* Problem List As Of Date 09/02/2017 Noted Resolved Left wrist pain [M25.532] INVALID FOR*04/30/2016 Left wrist tendinitis [M77.8] INVALID FOR*04/30/2016 Multinodular goiter [E04.2] INVALID FOR* Hypothyroidism [E03.9] INVALID FOR* Diabetes mellitus type 2, controlled, without c*INVALID FOR*04/30/2016 Obesity, Class III, BMI 40-49.9 (morbid obesity*INVALID FOR* Major depression [F32.9] INVALID FOR*04/30/2016 Major depressive disorder, recurrent episode, m*INVALID FOR* Uncontrolled type 2 diabetes mellitus without c*INVALID FOR* Recurrent major depression in partial remission*INVALID FOR*04/30/2016 Pelvic floor dysfunction [M62.89] INVALID FOR* Pain in left hip [M25.552] INVALID FOR* Prescriptions ordered this encounter Disp Refills Start End INSULIN DEGLUDEC (U-100) 100 UNIT/ML* 6 Pen 3 09/02/2017 Route: SUBCUTANEOUS Sig: Inject 34 Units subcutaneously every 24 hours. Medications Discontinued During This Encounter insulin degludec (TRESIBA) 100 unit/* 6 Pen 3 08/03/2017 09/02/2017 Route: SUBCUTANEOUS Sig: Inject 30 Units subcutaneously every 24 hours. Disc: Reason for discontinue is not on file. Encounter Status:Closed by SWATI CAMPO CNP on 09/02/17 PROGRESS Observed: 09/02/2017 Status: COMPLETED Source: [place] 10:35 AM [facility] REPOSITORY [facility] ID: [id number] Author: Swati Light) Karena Service: (none) Author Type: Nurse Practitioner Type: Progress Notes Filed: 09/02/2017 11:21 AM Note Text: HPI/CC: Yamila Kitchen is a 37 year old female who presents to the office today for review of health conditions. Ms. Kitchen has past history of diabetes, hyperlipidemia and hypertension. DM: Since our last visit she denies excessive thirst or increased frequency of urination, chest pain or dyspnea , numbness, tingling or pain in extremities, new or unusual visual symptoms, low sugar/hypoglycemic reactions and lightheadedness/dizziness. Follows a diabetic diet probably noncomplaint although I cannot elucidate specific history. She is compliant with medication(s) and is tolerating med(s) without any side effects. She reports checking her glucose on a once a day schedule with sugars in the fasting 150-179 range. Patient's last HgA1C was Hemoglobin A1C (%) Date Value 07/22/2017 10.8 02/27/2017 8.5 Hemoglobin A1C (POCT) (%) Date Value 09/02/2017 10.1 ) Last Ophthalmology exam was within the past 6 months Hyperlipidemia. Current therapy includes none Cholesterol, Total (mg/dL) Date Value 02/27/2017 213 HDL Cholesterol (mg/dL) Date Value 02/27/2017 52 LDL Cholesterol (mg/dL) Date Value 02/27/2017 125 Triglyceride (mg/dL) Date Value 02/27/2017 178 Hypertension: states that she is feeling well and denies any symptoms referable to elevated blood pressure. Specifically denies chest pain, palpitations, dyspnea and peripheral edema. Patient denies any side effects of her medication(s) and is compliant with their regimen. Last 3 Encounter BP Readings: Date: BP: 09/02/2017 120/74 08/24/2017 140/90 08/03/2017 120/80 She watches her diet for sodium, low fat and low cholesterol probably noncomplaint although I cannot elucidate specific history. She does not check BP's generally. Yamila denies regular aerobic exercise. Starting to see pain management Dr. Burk and Pt tomorrow REVIEW OF SYSTEMS: as above Reviewed relevant PMHx, PSHx, Social Hx, current medications and allergies. PHYSICAL EXAMINATION: BP 120/74 Pulse 80 Resp 20 Wt 112.5 kg (248 lb) BMI 40.03 kg/m? General appearance: Well appearing, alert, in no acute distress, well-hydrated, well nourished. Neck: Supple, no adenopathy; thyroid symmetric, normal size, no bruits Lungs: Lungs clear to auscultation. No wheezing, rhonchi, rales Heart: RRR without murmur, gallop, or rubs. No ectopy ASSESSMENT/PLAN: 1. Uncontrolled type 2 diabetes mellitus without complication, without long-term current use of insulin (HCC) - ICD9: 250.02, ICD10: E11.65 uncontrolled poorly controlled - HB A1C B/O - INSULIN DEGLUDEC (U-100) 100 UNIT/ML (3 ML) SUBCUTANEOUS PEN- increased from 30 to 34 units - F/U 1 month Swati Campo APRN.CNP PROGRESS Observed: 08/25/2017 Status: COMPLETED Source: [place] 3:08 PM [facility] REPOSITORY HNO ID: [id number] Author: Liliana Ramirez Service: (none) Author Type: Physician Type: Progress Notes Filed: 08/28/2017 9:33 AM Note Text: Yamila Kitchen 1980 REFERRING PHYSICIAN: Padilla Osborne DO CHIEF COMPLAINT: Consult (thyroid) HPI: The patient is a 37 year old female present with multiple thyroid nodules by US. Has been on thyroid hormones since 2014. Denies any thyroid cancer in the family. Denies swallowing problems. Denies new onset hoarseness. Denies globus symptoms. Denies exposure to radiation. Denies history of thyroiditis. US 08/12/17 Right thyroid lobe: Size: 3.7 x 1.3 x 2 cm (cc by AP by transverse) Nodules: Heterogeneous, minimally vascular nodules include 1.1 x 0.9 x 1 cm (previously 0.9 x 0.6 x 0.6 cm) lateral mid pole; 0.9 x 0.7 x 0.8 cm (previously 0.7 x 0.6 x 0.9 cm) posterior lower pole; 0.8 x 0.7 x 0.7 cm (previously 0.6 x 0.6 x 0.8 cm) mid lower pole; and 1 x 0.9 x 0.9 cm (previously 0.7 x 0.6 x 0.9 cm) caudal lower pole nodules Left thyroid lobe: Size: 4.2 x 1.1 x 1.9 cm (cc by AP by transverse) Nodules: Mildly heterogeneous, vascular nodules include 0.8 x 0.7 x 0.7 cm (previously 0.9 x 0.8 x 0.9 cm) mid pole; and 0.9 x 1.1 x 1 cm (previously reported as separate nodules measuring 0.8 x 1.1 x 0.8 cm in aggregate). Isthmus: Size: 0.2 cm (AP) Nodules: None PAST MEDICAL HISTORY Diagnosis Date - Diabetes mellitus type 2, controlled, without complications (HCC) 08/04/2014 - Hypothyroidism 05/2014 - Major depressive disorder, recurrent episode, moderate (HCC) 10/31/2014 - Obesity 08/04/2014 PAST SURGICAL HISTORY Procedure Laterality Date - COLONOSCOP W/ OR W/O BRSH SPEC N/A 06/04/2016 MAC - EGD W/O OR W/BRUSH/WASH N/A 06/04/2016 MAC - LIGATE FALLOPIAN TUBE 2013 Tubal ligation - PAST SURGICAL HISTORY OF 2013 - PAST SURGICAL HISTORY OF Left tendon surgery on left wrist PAST INJURIES Denies head injuries, had fracture of left ankle in past Current Outpatient Prescriptions: tolnaftate (TINACTIN) 1 % cream Apply 1 application to affected area twice daily. insulin degludec (TRESIBA) 100 unit/mL (3 mL) injection Inject 30 Units subcutaneously every 24 hours. busPIRone (BUSPAR) 5 mg tablet Take 1 tablet by mouth three times daily. As needed for anxiety attack amitriptyline (ELAVIL) 25 mg tablet TAKE ONE TABLET BY MOUTH ONCE DAILY AT BEDTIME FREESTYLE LITE STRIPS test strip USE ONE STRIP TO CHECK GLUCOSE ONCE DAILY DIRECTED liraglutide (VICTOZA 2-DANIELLE) 0.6 mg/0.1 mL (18 mg/3 mL) pnij Inject 1.2 mg subcutaneously once daily. albuterol HFA (PROAIR HFA) 90 mcg/actuation inhaler Inhale 2 Puffs as instructed every 4 hours as needed. dextromethorphan-guaiFENesin (MUCINEX DM) 30-600 mg per tablet Take 1 tablet by mouth twice daily. Insulin Gerald, Disposable, (PEN NEEDLE) 29 gauge x 1/2 ndle Use one needle per dose. 1 per day levothyroxine (LEVOXYL) 50 mcg tablet Take 1 tablet by mouth once daily. Take on empty stomach. For Thyroid metFORMIN ER (GLUCOPHAGE XR) 500 mg 24 hr tablet Take 2 tablets by mouth twice daily before meals. glucose 4 gram chewable tablet Take 4 tablets by mouth as needed. 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 Social History Main Topics Smoking status: Never Smoker Smokeless tobacco: Never Used Alcohol use: No Drug use: No Sexual activity: Yes Partners with: Male control/protection: None FAMILY HISTORY Problem Relation Age of Onset - Diabetes Mother - Thyroid Mother hypothyroid - Stroke Mother - Diabetes Father - Stroke Father - Diabetes Sister - Diabetes Maternal Grandmother - Heart Maternal Grandmother congestive heart failure - Diabetes Maternal Grandfather - Heart Maternal Grandfather - Heart Paternal Grandfather had hole in heart at age 16 - Cancer Paternal Grandfather eye REVIEW OF SYSTEMS: General: The patient NOTES fatigue, denies weight loss, denies weight gain, denies feeling hot, and denies feelings of cold. Eyes: The patient denies glaucoma, denies eye injury/surgery, wears glasses or contacts. Ear/Nose/Throat: The patient NOTES allergies, denies hayfever, denies ear infections, and denies bloody noses. Cardiovascular: The patient denies chest pain, denies heart disease, denies high blood pressure,denies cardiac stent, denies prior heart attack, denies irregular heart beat, denies high cholesterol, denies poor circulation, denies heart failure, other cardiac issues, denies claudication, denies cold feet, denies peripheral arterial stent. Respiratory: The patient denies tuberculosis, denies pneumonia, denies frequent cough, denies pulmonary embolism, denies shortness of breath, and denies coughing up blood. Gastrointestinal: The patient denies difficulty swallowing, denies acid reflux, denies ulcers, denies vomiting, denies jaundice/hepatitis, denies gallbladder problems, denies black or tarry stools, denies hemorrhoids, denies bleeding from rectum, denies diverticulitis, denies constipation, denies diarrhea, denies loss of stool control, and denies hernias. Kidney/Bladder: The patient denies kidney stones, denies urine infections, and denies bloody urine. Skin: The patient denies a history of skin cancer, denies bleeding/changing moles, and denies a history of skin rash. Neurologic: has migraine headaches, denies seizures, denies head/spinal injuries, and denies stroke/TIA. Psychiatric: has depression - feeling down, but denies suicidal ideations, denies substance abuse. Endocrine: The patient NOTES thyroid disorders, NOTES diabetes, and denies hormonal problems. Hematologic: The patient denies a history of bruising, denies bleeding, and denies anemia, denies blood clots. Infections: The patient denies a history of measles and mumps, denies rheumatic fever, and denies sexually transmitted diseases. Musculoskeletal: The patient denies back pain/injury, denies back problems, denies sciatica, denies knee/foot trouble, denies arthritis, or denies gout. PHYSICAL EXAMINATION: General: The patient is 37 year old female, well nourished, well hydrated in no acute distress. The patient is oriented to time, place, and person. VITALS: Blood pressure 140/90, pulse 96, weight 112.9 kg (249 lb). Ht: 5'6 Body mass index is 40.19 kg/m?. Head ? Normocephalic. EOM intact with sclera clear and no icterus noted. Wearing glasses. Mouth with mucus membranes moist. Neck - supple with no jugular venous distention noted. Trachea is midline. No carotid bruits noted. No thyroid enlargement or thyroid nodules detected. No masses noted. Lungs ? clear to auscultation. Normal breath sounds . No rales/rhonchi/wheezing noted. No labored breathing noted, such as retractions. Heart ? normal S1 and S2 auscultated. No rubs/clicks/murmurs noted. Regular rate. Abdomen ? soft and benign. Normal bowel sounds. No abdominal bruits noted. Difficult to determine if any masses or organomegaly due to body habitus. Extremities ? no calf tenderness noted. No pitting edema noted. Skin ? normal skin integrity. Lymph ? no cervical adenopathy detected, no supraclavicular adenopathy detected, no axillary adenopathy detected Neurological ? gait normal, no focal deficits noted Psych ? 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 I have offered US guided FNA biopsies of right and left thyroid nodules. I have explained the procedure to the patient. I have counseled the patient as to the risks of the procedure, including but not limited to: infection, bleeding, injury to any blood vessels/nerves, scar tissue, wound infections, complications of anesthesia, etc. ? the patient understands. She does not want to undergo biopsy. Will follow up with US in 6 months to follow up with me after scan. I have answered all questions to the patient?s satisfaction and the patient has no further questions. . Diagnoses: (E04.2) Multiple thyroid nodules (primary encounter diagnosis) (E66.01) Morbid obesity (HCC) (Z79.899) residential use of drug (thyroid hormone) Return to Clinic: The patient is instructed to follow-up with me if any worsening signs/symptoms. Liliana Ramirez MD L/S SPINE MIN 4 Observed: 08/25/2017 Status: F Source: CHERY VIEWS 10:14 AM [facility] REPOSITORY [facility] Imaging Services [address] [place] [address] L/S Spine Min 4 Views MR#: [id number] Acct: [id number] Name: YAMILA KITCHEN Rep #: [id number] : 1980 F 37 From: Juan Oconnor MD PCP: Padilla Carroll DO Status: REG CLI Study: L/S Spine Min 4 Views Date of Exam: 08/25/17 Exam# [id number] Ordering Dr: Michelle Payne STUDY: X-RAY - LUMBAR SPINE REASON FOR EXAM: Female, 37 years old. Back pain TECHNIQUE: 5 view(s) of the lumbar spine were obtained. COMPARISON: None FINDINGS: There is no evidence of fracture or dislocation in the lumbar spine. The vertebral body heights and disc spaces are well-maintained. There are no significant degenerative changes. RAD/L/S Spine Min 4 Views IMPRESSION: No fracture or dislocation in the lumbar spine. Electronically Signed: Juan Oconnor, at 16:03 EDT Tel , Service support , CC: Michelle Carroll DO Customer Quality Specialist: Signed CNOV Observed: 08/24/2017 Status: COMPLETED Source: [place] 2:50 PM [facility] REPOSITORY Office Visit (GENSWS) YAMILA KITCHEN ([id number]) 1980 F Date Time Provider Department 08/24/17 2:50 PM LILIANA RAMIREZS During your visit today, we recorded the following information about you: Pulse Blood pressure Weight 96/minute 140/90 112.9 kg Heriberto Chino BEN 08/24/2017 3:07 PM Signed REVIEW OF SYSTEMS: General: The patient NOTES fatigue, denies weight loss, denies weight gain, denies feeling hot, and denies feelings of cold. Eyes: The patient denies glaucoma, denies eye injury/surgery, wears glasses or contacts. Ear/Nose/Throat: The patient NOTES allergies, denies hayfever, denies ear infections, and denies bloody noses. Cardiovascular: The patient denies chest pain, denies heart disease, denies high blood pressure,denies cardiac stent, denies prior heart attack, denies irregular heart beat, denies high cholesterol, denies poor circulation, denies heart failure, other cardiac issues, denies claudication, denies cold feet, denies peripheral arterial stent. Respiratory: The patient denies tuberculosis, denies pneumonia, denies frequent cough, denies pulmonary embolism, denies shortness of breath, and denies coughing up blood. Gastrointestinal: The patient denies difficulty swallowing, denies acid reflux, denies ulcers, denies vomiting, denies jaundice/hepatitis, denies gallbladder problems, denies black or tarry stools, denies hemorrhoids, denies bleeding from rectum, denies diverticulitis, denies constipation, denies diarrhea, denies loss of stool control, and denies hernias. Kidney/Bladder: The patient denies kidney stones, denies urine infections, and denies bloody urine. Skin: The patient denies a history of skin cancer, denies bleeding/changing moles, and denies a history of skin rash. Neurologic: The patient denies a history of epilepsy/convulsions, NOTES headaches, denies head/spinal injuries, and denies stroke/TIA. Psychiatric: The patient denies psychiatric medications, NOTES depression, and denies voices, denies substance abuse. Endocrine: The patient NOTES thyroid disorders, NOTES diabetes, and denies hormonal problems. Hematologic: The patient denies a history of bruising, denies bleeding, and denies anemia, denies blood clots. Infections: The patient denies a history of measles and mumps, denies rheumatic fever, and denies sexually transmitted diseases. Musculoskeletal: The patient denies back pain/injury, denies back problems, denies sciatica, denies knee/foot trouble, denies arthritis, or denies gout. When was patient's last Mammogram screening? 07/26/17 Last Colonoscopy: N/A Heriberto Ramirez MD 08/28/2017 9:33 AM Signed Yamila Kitchen 1980 REFERRING PHYSICIAN: Padilla Osborne DO CHIEF COMPLAINT: Consult (thyroid) HPI: The patient is a 37 year old female present with multiple thyroid nodules by US. Has been on thyroid hormones since 2015. Denies any thyroid cancer in the family. Denies swallowing problems. Denies new onset hoarseness. Denies globus symptoms. Denies exposure to radiation. Denies history of thyroiditis. US 08/12/17 Right thyroid lobe: Size: 3.7 x 1.3 x 2 cm (cc by AP by transverse) Nodules: Heterogeneous, minimally vascular nodules include 1.1 x 0.9 x 1 cm (previously 0.9 x 0.6 x 0.6 cm) lateral mid pole; 0.9 x 0.7 x 0.8 cm (previously 0.7 x 0.6 x 0.9 cm) posterior lower pole; 0.8 x 0.7 x 0.7 cm (previously 0.6 x 0.6 x 0.8 cm) mid lower pole; and 1 x 0.9 x 0.9 cm (previously 0.7 x 0.6 x 0.9 cm) caudal lower pole nodules Left thyroid lobe: Size: 4.2 x 1.1 x 1.9 cm (cc by AP by transverse) Nodules: Mildly heterogeneous, vascular nodules include 0.8 x 0.7 x 0.7 cm (previously 0.9 x 0.8 x 0.9 cm) mid pole; and 0.9 x 1.1 x 1 cm (previously reported as separate nodules measuring 0.8 x 1.1 x 0.8 cm in aggregate). Isthmus: Size: 0.2 cm (AP) Nodules: None PAST MEDICAL HISTORY Diagnosis Date - Diabetes mellitus type 2, controlled, without complications (HCC) 08/04/2014 - Hypothyroidism 05/2014 - Major depressive disorder, recurrent episode, moderate (HCC) 10/31/2014 - Obesity 08/04/2014 PAST SURGICAL HISTORY Procedure Laterality Date - COLONOSCOP W/ OR W/O BRSH SPEC N/A 06/04/2016 MAC - EGD W/O OR W/BRUSH/WASH N/A 06/04/2016 MAC - LIGATE FALLOPIAN TUBE 2013 Tubal ligation - PAST SURGICAL HISTORY OF 2013 - PAST SURGICAL HISTORY OF Left tendon surgery on left wrist PAST INJURIES Denies head injuries, had fracture of left ankle in past Current Outpatient Prescriptions: tolnaftate (TINACTIN) 1 % cream Apply 1 application to affected area twice daily. insulin degludec (TRESIBA) 100 unit/mL (3 mL) injection Inject 30 Units subcutaneously every 24 hours. busPIRone (BUSPAR) 5 mg tablet Take 1 tablet by mouth three times daily. As needed for anxiety attack amitriptyline (ELAVIL) 25 mg tablet TAKE ONE TABLET BY MOUTH ONCE DAILY AT BEDTIME FREESTYLE LITE STRIPS test strip USE ONE STRIP TO CHECK GLUCOSE ONCE DAILY DIRECTED liraglutide (VICTOZA 2-DANIELLE) 0.6 mg/0.1 mL (18 mg/3 mL) pnij Inject 1.2 mg subcutaneously once daily. albuterol HFA (PROAIR HFA) 90 mcg/actuation inhaler Inhale 2 Puffs as instructed every 4 hours as needed. dextromethorphan-guaiFENesin (MUCINEX DM) 30-600 mg per tablet Take 1 tablet by mouth twice daily. Insulin Gerald, Disposable, (PEN NEEDLE) 29 gauge x 1/2 ndle Use one needle per dose. 1 per day levothyroxine (LEVOXYL) 50 mcg tablet Take 1 tablet by mouth once daily. Take on empty stomach. For Thyroid metFORMIN ER (GLUCOPHAGE XR) 500 mg 24 hr tablet Take 2 tablets by mouth twice daily before meals. glucose 4 gram chewable tablet Take 4 tablets by mouth as needed. 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 Social History Main Topics Smoking status: Never Smoker Smokeless tobacco: Never Used Alcohol use: No Drug use: No Sexual activity: Yes Partners with: Male control/protection: None FAMILY HISTORY Problem Relation Age of Onset - Diabetes Mother - Thyroid Mother hypothyroid - Stroke Mother - Diabetes Father - Stroke Father - Diabetes Sister - Diabetes Maternal Grandmother - Heart Maternal Grandmother congestive heart failure - Diabetes Maternal Grandfather - Heart Maternal Grandfather - Heart Paternal Grandfather had hole in heart at age 16 - Cancer Paternal Grandfather eye REVIEW OF SYSTEMS: General: The patient NOTES fatigue, denies weight loss, denies weight gain, denies feeling hot, and denies feelings of cold. Eyes: The patient denies glaucoma, denies eye injury/surgery, wears glasses or contacts. Ear/Nose/Throat: The patient NOTES allergies, denies hayfever, denies ear infections, and denies bloody noses. Cardiovascular: The patient denies chest pain, denies heart disease, denies high blood pressure,denies cardiac stent, denies prior heart attack, denies irregular heart beat, denies high cholesterol, denies poor circulation, denies heart failure, other cardiac issues, denies claudication, denies cold feet, denies peripheral arterial stent. Respiratory: The patient denies tuberculosis, denies pneumonia, denies frequent cough, denies pulmonary embolism, denies shortness of breath, and denies coughing up blood. Gastrointestinal: The patient denies difficulty swallowing, denies acid reflux, denies ulcers, denies vomiting, denies jaundice/hepatitis, denies gallbladder problems, denies black or tarry stools, denies hemorrhoids, denies bleeding from rectum, denies diverticulitis, denies constipation, denies diarrhea, denies loss of stool control, and denies hernias. Kidney/Bladder: The patient denies kidney stones, denies urine infections, and denies bloody urine. Skin: The patient denies a history of skin cancer, denies bleeding/changing moles, and denies a history of skin rash. Neurologic: has migraine headaches, denies seizures, denies head/spinal injuries, and denies stroke/TIA. Psychiatric: has depression - feeling down, but denies suicidal ideations, denies substance abuse. Endocrine: The patient NOTES thyroid disorders, NOTES diabetes, and denies hormonal problems. Hematologic: The patient denies a history of bruising, denies bleeding, and denies anemia, denies blood clots. Infections: The patient denies a history of measles and mumps, denies rheumatic fever, and denies sexually transmitted diseases. Musculoskeletal: The patient denies back pain/injury, denies back problems, denies sciatica, denies knee/foot trouble, denies arthritis, or denies gout. PHYSICAL EXAMINATION: General: The patient is 37 year old female, well nourished, well hydrated in no acute distress. The patient is oriented to time, place, and person. VITALS: Blood pressure 140/90, pulse 96, weight 112.9 kg (249 lb). Ht: 5'6 Body mass index is 40.19 kg/m?. Head ? Normocephalic. EOM intact with sclera clear and no icterus noted. Wearing glasses. Mouth with mucus membranes moist. Neck - supple with no jugular venous distention noted. Trachea is midline. No carotid bruits noted. No thyroid enlargement or thyroid nodules detected. No masses noted. Lungs ? clear to auscultation. Normal breath sounds . No rales/rhonchi/wheezing noted. No labored breathing noted, such as retractions. Heart ? normal S1 and S2 auscultated. No rubs/clicks/murmurs noted. Regular rate. Abdomen ? soft and benign. Normal bowel sounds. No abdominal bruits noted. Difficult to determine if any masses or organomegaly due to body habitus. Extremities ? no calf tenderness noted. No pitting edema noted. Skin ? normal skin integrity. Lymph ? no cervical adenopathy detected, no supraclavicular adenopathy detected, no axillary adenopathy detected Neurological ? gait normal, no focal deficits noted Psych ? 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 I have offered US guided FNA biopsies of right and left thyroid nodules. I have explained the procedure to the patient. I have counseled the patient as to the risks of the procedure, including but not limited to: infection, bleeding, injury to any blood vessels/nerves, scar tissue, wound infections, complications of anesthesia, etc. ? the patient understands. She does not want to undergo biopsy. Will follow up with US in 6 months to follow up with me after scan. I have answered all questions to the patient?s satisfaction and the patient has no further questions. . 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 [Z79.899] Order(s):US THYROID/PARATHYROID [[id number]] Order #: [id number] FUTURE Prescriptions as of 08/24/2017 Sig: TOLNAFTATE 1 % TOPICAL CREAM Apply 1 application to affect* INSULIN DEGLUDEC (U-100) 100 * Inject 30 Units subcutaneousl* BUSPIRONE 5 MG TABLET Take 1 tablet by mouth three * AMITRIPTYLINE 25 MG TABLET TAKE ONE TABLET BY MOUTH ONCE* FREESTYLE LITE STRIPS USE ONE STRIP TO CHECK GLUCOS* LIRAGLUTIDE 0.6 MG/0.1 ML (18* Inject 1.2 mg subcutaneously * ALBUTEROL SULFATE HFA 90 MCG/* Inhale 2 Puffs as instructed * DEXTROMETHORPHAN-GUAIFENESIN * Take 1 tablet by mouth twice * PEN NEEDLE, DIABETIC 29 GAUGE* Use one needle per dose. 1 p* LEVOTHYROXINE 50 MCG TABLET Take 1 tablet by mouth once d* METFORMIN ER 500 MG TABLET,EX* Take 2 tablets by mouth twice* GLUCOSE 4 GRAM CHEWABLE TABLET Take 4 tablets by mouth as ne* Problem List As Of Date 08/24/2017 Noted Resolved Left wrist pain [M25.532] INVALID FOR*04/30/2016 Left wrist tendinitis [M77.8] INVALID FOR*04/30/2016 Multinodular goiter [E04.2] INVALID FOR* Hypothyroidism [E03.9] INVALID FOR* Diabetes mellitus type 2, controlled, without c*INVALID FOR*04/30/2016 Obesity, Class III, BMI 40-49.9 (morbid obesity*INVALID FOR* Major depression [F32.9] INVALID FOR*04/30/2016 Major depressive disorder, recurrent episode, m*INVALID FOR* Uncontrolled type 2 diabetes mellitus without c*INVALID FOR* Recurrent major depression in partial remission*INVALID FOR*04/30/2016 Pelvic floor dysfunction [M62.89] INVALID FOR* Pain in left hip [M25.552] INVALID FOR* Visit Notes: >> Heriberto Chino LPN ThuAugust 24, 2017 3:06 PM Status: Signed REVIEW OF SYSTEMS: General: The patient NOTES fatigue, denies weight loss, denies weight gain, denies feeling hot, and denies feelings of cold. Eyes: The patient denies glaucoma, denies eye injury/surgery, wears glasses or contacts. Ear/Nose/Throat: The patient NOTES allergies, denies hayfever, denies ear infections, and denies bloody noses. Cardiovascular: The patient denies chest pain, denies heart disease, denies high blood pressure,denies cardiac stent, denies prior heart attack, denies irregular heart beat, denies high cholesterol, denies poor circulation, denies heart failure, other cardiac issues, denies claudication, denies cold feet, denies peripheral arterial stent. Respiratory: The patient denies tuberculosis, denies pneumonia, denies frequent cough, denies pulmonary embolism, denies shortness of breath, and denies coughing up blood. Gastrointestinal: The patient denies difficulty swallowing, denies acid reflux, denies ulcers, denies vomiting, denies jaundice/hepatitis, denies gallbladder problems, denies black or tarry stools, denies hemorrhoids, denies bleeding from rectum, denies diverticulitis, denies constipation, denies diarrhea, denies loss of stool control, and denies hernias. Kidney/Bladder: The patient denies kidney stones, denies urine infections, and denies bloody urine. Skin: The patient denies a history of skin cancer, denies bleeding/changing moles, and denies a history of skin rash. Neurologic: The patient denies a history of epilepsy/convulsions, NOTES headaches, denies head/spinal injuries, and denies stroke/TIA. Psychiatric: The patient denies psychiatric medications, NOTES depression, and denies voices, denies substance abuse. Endocrine: The patient NOTES thyroid disorders, NOTES diabetes, and denies hormonal problems. Hematologic: The patient denies a history of bruising, denies bleeding, and denies anemia, denies blood clots. Infections: The patient denies a history of measles and mumps, denies rheumatic fever, and denies sexually transmitted diseases. Musculoskeletal: The patient denies back pain/injury, denies back problems, denies sciatica, denies knee/foot trouble, denies arthritis, or denies gout. When was patient's last Mammogram screening? 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 PATIENT GENDER DATA: Female. status: : No status: N/A PATIENT RELEVANT IMPLANT DATA REVIEWED: Not Applicable RADIOLOGY DEPARTMENT: Ultrasound PERIPHERAL IV DATA: Not applicable SIGNED BY: SHYLA PIZARRO RDMS RVEnid August 12, 2017 11:23 AM US THYROID/PARATHYROID Observed: 08/12/2017 Status: F Source: [place] 11:22 AM [facility] REPOSITORY * * *Final Report* * * DATE OF EXAM: Aug 12 2017 11:22AM [facility] 1048 - US THYROID/PARATHYROID / PROCEDURE REASON: Hypothyroidism, unspecified * * * * Physician Interpretation * * * * THYROID ULTRASOUND COMPARISON: 05/23/2014 INDICATION: Nodule follow-up TECHNIQUE: Real-time tolentino scale ultrasound imaging of the thyroid was performed with color Doppler imaging. Images were obtained and stored in a permanent archive. RESULT: Thyroid is homogeneous in echotexture. Symmetric Doppler signal to both thyroid lobes without hyperemia. Right thyroid lobe: Size: 3.7 x 1.3 x 2 cm (cc by AP by transverse) Nodules: Heterogeneous, minimally vascular nodules include 1.1 x 0.9 x 1 cm (previously 0.9 x 0.6 x 0.6 cm) lateral mid pole; 0.9 x 0.7 x 0.8 cm (previously 0.7 x 0.6 x 0.9 cm) posterior lower pole; 0.8 x 0.7 x 0.7 cm (previously 0.6 x 0.6 x 0.8 cm) mid lower pole; and 1 x 0.9 x 0.9 cm (previously 0.7 x 0.6 x 0.9 cm) caudal lower pole nodules Left thyroid lobe: Size: 4.2 x 1.1 x 1.9 cm (cc by AP by transverse) Nodules: Mildly heterogeneous, vascular nodules include 0.8 x 0.7 x 0.7 cm (previously 0.9 x 0.8 x 0.9 cm) mid pole; and 0.9 x 1.1 x 1 cm (previously reported as separate nodules measuring 0.8 x 1.1 x 0.8 cm in aggregate). Isthmus: Size: 0.2 cm (AP) Nodules: None IMPRESSION: Multinodular goiter. Slight interval enlargement of several nodules since 05/23/2014. Customer Quality Specialist: SIMRAN Transcribe Date/Time: Aug 13 2017 9:20A Dictated by : FRANCINE VERONICA MD This examination was interpreted and the report reviewed and electronically signed by: FRANCINE VERONICA MD on Aug 13 2017 9:28AM EST [id number] PROGRESS Observed: 08/07/2017 Status: COMPLETED Source: [place] 11:23 AM [facility] REPOSITORY [place] ID: [id number] Author: Megha (Pt) Rani Service: (none) Author Type: Physical Therapist Type: Progress Notes Filed: 08/07/2017 11:39 AM Note Text: Episode Visit Count: 1 Therapist That Will Oversee The Plan Of Care: Megha Saravia PT (Recommending she see Amie Jarrell PT in [place]) Start of Care Date: 08/04/17 Plan of Care Certification Date: 08/04/17 Patient Identified by Name and Date of : Yes REHABILITATION AND SPORTS THERAPY PHYSICAL THERAPY EVALUATION PLAN OF CARE: Assessment: Yamila Kitchen presents with the chief complaint of sacral pain and L hip pain. She presents with impairments of pain with palpation to Sacrum, L hip pain, difficulty sitting, and pain during sexual intercouse. She has had these symptoms since 2014. Patient would benefit from further evaluation by a pelvic floor therapist as subjectively she seems to have pelvic floor dysfunction. Further evaluation of her pelvic floor by a Pelvic Floor PT would be helpful to rule in/out pelvic floor dysfunction as patient stated that performing Kegal exercises causes pain as does sexual intercourse. Prognosis: Fair Fair due to: chronic nature of impairments;coping skills;decreased motivation Goals for Episode of Care: created on 08/04/17 through 10/02/17 [place] in home exercise program. Perform sitting for 60 without pain. Patient will be able to perform stairs without pain. Demonstrate improvement on functional score: Improve Modified Oswestry Pain Questionnaire (LBP) by 6 points (12%) to indicate a Minimal Clinical Important Difference. (Goal: 24%) Planned Interventions, Frequency, and Duration: Current Frequency: 1x/week Duration: 5 weeks Total Number of Visits Planned: 6 Patient to be see for Planned Treatment Interventions: (Pelvic Floor Therapy) PLAN FOR NEXT VISIT: Patient to be evaluated by a pelvic floor therapist Patient demonstrates fair understanding of plan of care and treatment. The above goals and plan of care were discussed and agreed upon by patient/family. SUBJECTIVE: Yamila Kitchen is a 37 year old female seen today for tailbone pain. Sitting on a donut doesn't help. Sitting 20- 30 minutes fair ups symptoms. Does not have low back pain. Does have issues with her hip. The L hip pops in and out started after had son in 1998. About month ago heard a loud pop coming from L hip and was in pain for 1 month. Now finds can't move her leg out as far as she could. Trieds to avoid stairs, even though lives in an upstair apartment. No issues with going to the bathroom and no numbness/tingling. Kegal exercises causes shooting pain up the tailbone. Had her daughter in 2014 devleoped what sounds like a keloid and is painful during sex. Sexual intercourse started to get painful in 2017. Functional Limitations: sitting (stairs, inclines when walking) Prior Level of Function: (pain in the tailbone region has stayed same since 2014) Patient Goals: to get rid of the pain. Intake Information: Prescription present Pain Score: 7/10 (Sitting for more than 20-30mins 10/10) Pain Location: (Tailbone) Description: Stabbing;Aching Frequency: Continuous Post Treatment Pain Score: No Change OBJECTIVE MEASURES WITH LEVEL OF FUNCTION: Spine Observations Spine Observations: Tenderness to plapation to S1-S5 and tailbone. Painful to palpation over L ASIS. Painful over B PSIS Lumbar Spine AROM Lumbar Flexion: Normal Lumbar Extension: (declined to performed due causing increase in sx) Lumbar R Side-Bend: Normal Lumbar L Side-Bend: Normal Lumbar R Rotation: Normal Lumbar L Rotation: Normal LE AROM R Hip Flexion: 120 Degrees R Hip Internal Rotation: 30 Degrees R Hip External Rotation: 60 Degrees L Hip Flexion: 90 Degrees (sharp on outside of L hip) L Hip ABduction : 15 Degrees (painful) L Hip Internal Rotation: 30 Degrees (very painful in L hip) L Hip External Rotation: 60 Degrees (painful) LE Flexibility Flexibility: Hamstring Flexibility R Hamstring Flexibility: 80 L Hamstring Flexibility: 80 Education: Education Learning Preferences: Explanation Barriers: Desire and Motivation;Emotions Learning/educational needs: Plan of Care Education Provided: Yes, see treatment interventions for education provided Education Provided To: Patient Education Mode/Type: Explanation/Discussion Response to Education/Teach Back: States/Identifies TREATMENT: Evaluation Manual Therapy: 1: Recommended patient see a Pelvic Floor Therapist as it seems that she may have pelvic floor dysfunction. This is something I do not treat. Provided patient with name of Amber Saha PT who works in [employer]. 2: Provided patient education in the anatomy of the sacrum + hips using a spine model. Skilled Intervention: Manual skills to improve joint mobility, ROM, and decrease pain. Utilized anatomy knowledge of the therapist, and assessment of patient's response to intervention. Billing: [facility]: Evaluation - Moderate Complexity (17873) Manual Therapy (14630): 1:1 time: 10 minutes (1 unit: 8-22 mins) Total time: 40 minutes Megha Saravia PT CNTHERAPY Observed: 08/04/2017 Status: COMPLETED Source: [place] 2:45 PM [facility] REPOSITORY OT/PT/Speech Visit (PTWS) YAMILA KITCHEN ([id number]) 1980 F Date Time Provider Department 08/04/17 2:45 PM MEGHA SARAVIA (PT) PTWS Date Time Provider Department Center 08/04/2017 2:45 PM [id number], DIANA (PT)PTWS [facility] Reason for Visit: PT Eval [747] Patient Education [91] Primary Visit Diagnosis:Pelvic floor dysfunction [M62.89] Other Visit Diagnosis:Pain in left hip [M25.552] Allergies As of Date: 08/04/2017 Noted Allergy Reaction ASPIRIN 07/16/2011 12 - Shortness of Breath IBUPROFEN 07/16/2011 12 - Shortness of Breath SIMVASTATIN 2014 2 - Rash 12 - Shortness of Breath TRAMADOL 01/31/2014 14 - Other: See Comments Comments: Dizziness Date Reviewed: 08/03/2017 Reviewed by: Layne Montana LPN - Fully Assessed Prescriptions as of 08/04/2017 Sig: TOLNAFTATE 1 % TOPICAL CREAM Apply 1 application to affect* INSULIN DEGLUDEC (U-100) 100 * Inject 30 Units subcutaneousl* BUSPIRONE 5 MG TABLET Take 1 tablet by mouth three * AMITRIPTYLINE 25 MG TABLET TAKE ONE TABLET BY MOUTH ONCE* FREESTYLE LITE STRIPS USE ONE STRIP TO CHECK GLUCOS* LIRAGLUTIDE 0.6 MG/0.1 ML (18* Inject 1.2 mg subcutaneously * ALBUTEROL SULFATE HFA 90 MCG/* Inhale 2 Puffs as instructed * DEXTROMETHORPHAN-GUAIFENESIN * Take 1 tablet by mouth twice * PEN NEEDLE, DIABETIC 29 GAUGE* Use one needle per dose. 1 p* LEVOTHYROXINE 50 MCG TABLET Take 1 tablet by mouth once d* METFORMIN ER 500 MG TABLET,EX* Take 2 tablets by mouth twice* GLUCOSE 4 GRAM CHEWABLE TABLET Take 4 tablets by mouth as ne* Progress Notes: Megha Saravia, PT 08/07/2017 11:39 AM Signed Episode Visit Count: 1 Therapist That Will Oversee The Plan Of Care: Megha Saravia, PT (Recommending she see Amie Jarrell PT in [place]) Start of Care Date: 08/04/17 Plan of Care Certification Date: 08/04/17 Patient Identified by Name and Date of : Yes REHABILITATION AND SPORTS THERAPY PHYSICAL THERAPY EVALUATION PLAN OF CARE: Assessment: Yamila Kitchen presents with the chief complaint of sacral pain and L hip pain. She presents with impairments of pain with palpation to Sacrum, L hip pain, difficulty sitting, and pain during sexual intercouse. She has had these symptoms since 2014. Patient would benefit from further evaluation by a pelvic floor therapist as subjectively she seems to have pelvic floor dysfunction. Further evaluation of her pelvic floor by a Pelvic Floor PT would be helpful to rule in/out pelvic floor dysfunction as patient stated that performing Kegal exercises causes pain as does sexual intercourse. Prognosis: Fair Fair due to: chronic nature of impairments;coping skills;decreased motivation Goals for Episode of Care: created on 08/04/17 through 10/02/17 [place] in home exercise program. Perform sitting for 60 without pain. Patient will be able to perform stairs without pain. Demonstrate improvement on functional score: Improve Modified Oswestry Pain Questionnaire (LBP) by 6 points (12%) to indicate a Minimal Clinical Important Difference. (Goal: 24%) Planned Interventions, Frequency, and Duration: Current Frequency: 1x/week Duration: 5 weeks Total Number of Visits Planned: 6 Patient to be see for Planned Treatment Interventions: (Pelvic Floor Therapy) PLAN FOR NEXT VISIT: Patient to be evaluated by a pelvic floor therapist Patient demonstrates fair understanding of plan of care and treatment. The above goals and plan of care were discussed and agreed upon by patient/family. SUBJECTIVE: Yamila Kitchen is a 37 year old female seen today for tailbone pain. Sitting on a donut doesn't help. Sitting 20-30 minutes fair ups symptoms. Does not have low back pain. Does have issues with her hip. The L hip pops in and out started after had son in 1998. About month ago heard a loud pop coming from L hip and was in pain for 1 month. Now finds can't move her leg out as far as she could. Trieds to avoid stairs, even though lives in an [place]stair apartment. No issues with going to the bathroom and no numbness/tingling. Kegal exercises causes shooting pain up the tailbone. Had her daughter in 2014 devleoped what sounds like a keloid and is painful during sex. Sexual intercourse started to get painful in 2017. Functional Limitations: sitting (stairs, inclines when walking) Prior Level of Function: (pain in the tailbone region has stayed same since 2014) Patient Goals: to get rid of the pain. Intake Information: Prescription present Pain Score: 7/10 (Sitting for more than 20-30mins 10/10) Pain Location: (Tailbone) Description: Stabbing;Aching Frequency: Continuous Post Treatment Pain Score: No Change OBJECTIVE MEASURES WITH LEVEL OF FUNCTION: Spine Observations Spine Observations: Tenderness to plapation to S1-S5 and tailbone. Painful to palpation over L ASIS. Painful over B PSIS Lumbar Spine AROM Lumbar Flexion: Normal Lumbar Extension: (declined to performed due causing increase in sx) Lumbar R Side-Bend: Normal Lumbar L Side-Bend: Normal Lumbar R Rotation: Normal Lumbar L Rotation: Normal LE AROM R Hip Flexion: 120 Degrees R Hip Internal Rotation: 30 Degrees R Hip External Rotation: 60 Degrees L Hip Flexion: 90 Degrees (sharp on outside of L hip) L Hip ABduction : 15 Degrees (painful) L Hip Internal Rotation: 30 Degrees (very painful in L hip) L Hip External Rotation: 60 Degrees (painful) LE Flexibility Flexibility: Hamstring Flexibility R Hamstring Flexibility: 80 L Hamstring Flexibility: 80 Education: Education Learning Preferences: Explanation Barriers: Desire and Motivation;Emotions Learning/educational needs: Plan of Care Education Provided: Yes, see treatment interventions for education provided Education Provided To: Patient Education Mode/Type: Explanation/Discussion Response to Education/Teach Back: States/Identifies TREATMENT: Evaluation Manual Therapy: 1: Recommended patient see a Pelvic Floor Therapist as it seems that she may have pelvic floor dysfunction. This is something I do not treat. Provided patient with name of Amber Saha PT who works in [employer]. 2: Provided patient education in the anatomy of the sacrum + hips using a spine model. Skilled Intervention: Manual skills to improve joint mobility, ROM, and decrease pain. Utilized anatomy knowledge of the therapist, and assessment of patient's response to intervention. Billing: [facility]: Evaluation - Moderate Complexity ([id number]) Manual Therapy ([id number]): 1:1 time: 10 minutes (1 unit: 8-22 mins) Total time: 40 minutes Megha Saravia PT PROGRESS Observed: 08/03/2017 Status: COMPLETED Source: [place] 9:25 AM [facility] REPOSITORY O ID: [id number] Author: Padilla Osborne Service: (none) Author Type: Physician Type: Progress Notes Filed: 08/03/2017 9:29 AM Note Text: Patient presents with: Follow Up: diabetes HPI: Yamila Kitchen is a 37 year old female who presents to the office today for review of health conditions. Concerns today: Admits to some anxiety recently with a struggling relationship with her boyfriend, denies abuse concerns, is feeling anxious at times, they frequently argue, diagnosed with panic attacks when last seen at the EMERGENCY DEPARTMENT in [place]. Asking for medication she can take during these episodes, trying to get out of this relationship. No SI or HI, denies depression Sleeping well with amitriptyline overall She had stopped taking all her diabetes medications for several months. Blood glucose fasting >200s Ms. Kitchen has past history of diabetes. Since our last visit she denies excessive thirst or increased frequency of urination, chest pain or dyspnea , new or unusual visual symptoms and low sugar/hypoglycemic reactions. Follows a diabetic diet generally not very much. She is not compliant with medication(s) but is tolerating med(s) without any side effects. She reports checking her glucose on a once a day schedule with sugars in the fasting >200 range. Patient's last HgA1C was Hemoglobin A1C (%) Date Value 07/22/2017 10.8 02/27/2017 8.5 ) Last Ophthalmology exam was within the past 3 months Ms. Kitchen reports history of hyperlipidemia. Current therapy includes no current treatment. Denies side effects of muscle weakness or achiness. Her most recent lipid panels are reviewed. Cholesterol, Total (mg/dL) Date Value 02/27/2017 213 HDL Cholesterol (mg/dL) Date Value 02/27/2017 52 LDL Cholesterol (mg/dL) Date Value 02/27/2017 125 Triglyceride (mg/dL) Date Value 02/27/2017 178 Ms. Kitchen indicates a history of hypertension and states that she is feeling well and denies any symptoms referable to elevated blood pressure. Specifically denies headache, chest pain, palpitations, dyspnea and peripheral edema. Patient denies any side effects of her medication(s) and is compliant with their regimen. Last 3 Encounter BP Readings: Date: BP: 08/03/2017 120/80 07/28/2017 110/78 05/25/2017 122/80 She watches her diet for sodium, low fat and low cholesterol some of the time. She does not check BP's generally. Yamila gets minimal exercise. PAST MEDICAL HISTORY Diagnosis Date - Diabetes mellitus type 2, controlled, without complications (HCC) 08/04/2014 - Hypothyroidism 05/2014 - Major depressive disorder, recurrent episode, moderate (HCC) 10/31/2014 - Obesity 08/04/2014 PAST SURGICAL HISTORY Procedure Laterality Date - COLONOSCOP W/ OR W/O BRSH SPEC N/A 06/04/2016 MAC - EGD W/O OR W/BRUSH/WASH N/A 06/04/2016 MAC - LIGATE FALLOPIAN TUBE 2013 Tubal ligation - PAST SURGICAL HISTORY OF 2014 - PAST SURGICAL HISTORY OF Left tendon surgery on left wrist Social History Marital status: Single Spouse name: Years of education: Number of children: 4 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 Social History Main Topics Smoking status: Never Smoker Smokeless status: Never Used Alcohol use: No Drug use: No Sexual activity: Yes Partners with: Male control/protection: None FAMILY HISTORY Problem Relation Age of Onset - Diabetes Mother - Thyroid Mother hypothyroid - Stroke Mother - Diabetes Father - Stroke Father - Diabetes Sister - Diabetes Maternal Grandmother - Heart Maternal Grandmother congestive heart failure - Diabetes Maternal Grandfather - Heart Maternal Grandfather - Heart Paternal Grandfather had hole in heart at age 16 - Cancer Paternal Grandfather eye Allergies: ALLERGIES Allergen Reactions - Aspirin Shortness of Breath - Ibuprofen Shortness of Breath - Simvastatin Rash, Shortness of Breath - Tramadol Other: See Comments Dizziness Current Meds: tolnaftate (TINACTIN) 1 % cream Apply 1 application to affected area twice daily. insulin degludec (TRESIBA) 100 unit/mL (3 mL) injection Inject 30 Units subcutaneously every 24 hours. amitriptyline (ELAVIL) 25 mg tablet TAKE ONE TABLET BY MOUTH ONCE DAILY AT BEDTIME FREESTYLE LITE STRIPS test strip USE ONE STRIP TO CHECK GLUCOSE ONCE DAILY DIRECTED liraglutide (VICTOZA 2-DANIELLE) 0.6 mg/0.1 mL (18 mg/3 mL) pnij Inject 1.2 mg subcutaneously once daily. albuterol HFA (PROAIR HFA) 90 mcg/actuation inhaler Inhale 2 Puffs as instructed every 4 hours as needed. dextromethorphan-guaiFENesin (MUCINEX DM) 30-600 mg per tablet Take 1 tablet by mouth twice daily. Insulin Gerald, Disposable, (PEN NEEDLE) 29 gauge x 1/2 ndle Use one needle per dose. 1 per day levothyroxine (LEVOXYL) 50 mcg tablet Take 1 tablet by mouth once daily. Take on empty stomach. For Thyroid metFORMIN ER (GLUCOPHAGE XR) 500 mg 24 hr tablet Take 2 tablets by mouth twice daily before meals. glucose 4 gram chewable tablet Take 4 tablets by mouth as needed. For low blood sugars busPIRone (BUSPAR) 5 mg tablet Take 1 tablet by mouth three times daily. As needed for anxiety attack Review of Systems: The remainder of the review of systems is negative. PE: 08/03/17 0854 BP: 120/80 Pulse: 80 Resp: 20 Temp: 36.1 ?C (97 ?F) TempSrc: Left Tympanic Weight: 112.9 kg (249 lb) Gen: AANDO, NAD, non-toxic appearing,sullen appearing, cooperative HEENT: NT/AC, PERRLA, EOMs intact b/l, nares clear and patent b/l, pharynx without erythema, exudate or lesions. Uvula midline. Poor dentition, MMM Neck: supple, No cervical LAD, + NT symmetric thyromegaly, no carotid bruits CV: RRR, normal S1 and S2, no murmurs, no gallops, no rubs, Pulses 2+ and symmetric in UE and LE b/l Lungs: normal respiratory effort, CTA b/l, no wheezing or rhonchi or rales Abd: soft, obese, NT, ND, +BS, no hepatosplenomegaly MS: FROM all 4 extremities Neuro: CN II-XII intact b/l, sensation intact. Skin: warm, dry, intact, No rashes or lesions on exposed skin. ASSESSMENT/PLAN: 1. Uncontrolled type 2 diabetes mellitus without complication, without long-term current use of insulin (HCC) - ICD9: 250.02, ICD10: E11.65 (primary diagnosis) uncontrolled - Increase Tresiba - Blood glucose monitoring on a twice a day schedule - Encouraged regular aerobic exercise and weight loss - Follow up in 1 months, sooner should any other issues arise. - Discussed diabetic education issues of penitentiary diabetic complications, diet, medications- side effects and need for compliance and importance of exercise with patient. - BP goal of <130/80 - LDL goal of <100 - INSULIN DEGLUDEC (U-100) 100 UNIT/ML (3 ML) SUBCUTANEOUS PEN 2. Athlete's foot on left - ICD9: 110.4, ICD10: B35.3 - Treat with cream twice a day until rash resolves and then another week - TOLNAFTATE 1 % TOPICAL CREAM 3. Anxiety attack - ICD9: 300.01, ICD10: F41.0 - rx prn as below, f/u in office in 1 month, situational triggered. - BUSPIRONE 5 MG TABLET 4. Acquired hypothyroidism - ICD9: 244.9, ICD10: E03.9 - US THYROID/PARATHYROID Padilla Osborne DO To ER if develops chest pain, shortness of breath, or severe worsening of symptoms. Discussed risks, benefits, alternatives, and potential side effects of medications. Patient expressed understanding and agreed with the plan. Padilla Osborne DO [address] [place] [address] CNOV Observed: 08/03/2017 Status: COMPLETED Source: [place] 8:40 AM [facility] REPOSITORY Office Visit (FAMPWS) FIDELINAYAMILA Michel ([id number]) 1980 F Date Time Provider Department 08/03/17 8:40 AM [facility] During your visit today, we recorded the following information about you: Temperature Pulse Respiration Blood pressure 97 degrees 80/minute 20/minute 120/80 Weight Last Period 112.9 kg 06/28/17 Padilla Osborne DO 08/03/2017 9:10 AM Signed Please call Or my chart message me your fasting morning blood sugar levels in 1-2 weeks after your dose changed of the Tresiba (up to 30 units) Padilla Osborne DO 08/03/2017 9:29 AM Signed Patient presents with: Follow Up: diabetes HPI: Yamila Kitchen is a 37 year old female who presents to the office today for review of health conditions. Concerns today: Admits to some anxiety recently with a struggling relationship with her boyfriend, denies abuse concerns, is feeling anxious at times, they frequently argue, diagnosed with panic attacks when last seen at the EMERGENCY DEPARTMENT in [place]. Asking for medication she can take during these episodes, trying to get out of this relationship. No SI or HI, denies depression Sleeping well with amitriptyline overall She had stopped taking all her diabetes medications for several months. Blood glucose fasting ANDgt;200s Ms. Kitchen has past history of diabetes. Since our last visit she denies excessive thirst or increased frequency of urination, chest pain or dyspnea , new or unusual visual symptoms and low sugar/hypoglycemic reactions. Follows a diabetic diet generally not very much. She is not compliant with medication(s) but is tolerating med(s) without any side effects. She reports checking her glucose on a once a day schedule with sugars in the fasting ANDgt;200 range. Patient's last HgA1C was Hemoglobin A1C (%) Date Value 07/22/2017 10.8 02/27/2017 8.5 ) Last Ophthalmology exam was within the past 3 months Ms. Kitchen reports history of hyperlipidemia. Current therapy includes no current treatment. Denies side effects of muscle weakness or achiness. Her most recent lipid panels are reviewed. Cholesterol, Total (mg/dL) Date Value 02/27/2017 213 HDL Cholesterol (mg/dL) Date Value 02/27/2017 52 LDL Cholesterol (mg/dL) Date Value 02/27/2017 125 Triglyceride (mg/dL) Date Value 02/27/2017 178 Ms. Kitchen indicates a history of hypertension and states that she is feeling well and denies any symptoms referable to elevated blood pressure. Specifically denies headache, chest pain, palpitations, dyspnea and peripheral edema. Patient denies any side effects of her medication(s) and is compliant with their regimen. Last 3 Encounter BP Readings: Date: BP: 08/03/2017 120/80 07/28/2017 110/78 05/25/2017 122/80 She watches her diet for sodium, low fat and low cholesterol some of the time. She does not check BP's generally. Yamila gets minimal exercise. PAST MEDICAL HISTORY Diagnosis Date - Diabetes mellitus type 2, controlled, without complications (HCC) 08/04/2014 - Hypothyroidism 05/2014 - Major depressive disorder, recurrent episode, moderate (HCC) 10/31/2014 - Obesity 08/04/2014 PAST SURGICAL HISTORY Procedure Laterality Date - COLONOSCOP W/ OR W/O BRSH SPEC N/A 06/04/2016 MAC - EGD W/O OR W/BRUSH/WASH N/A 06/04/2016 MAC - LIGATE FALLOPIAN TUBE 2013 Tubal ligation - PAST SURGICAL HISTORY OF 2014 - PAST SURGICAL HISTORY OF Left tendon surgery on left wrist Social History Marital status: Single Spouse name: Years of education: Number of children: 4 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 Social History Main Topics Smoking status: Never Smoker Smokeless status: Never Used Alcohol use: No Drug use: No Sexual activity: Yes Partners with: Male control/protection: None FAMILY HISTORY Problem Relation Age of Onset - Diabetes Mother - Thyroid Mother hypothyroid - Stroke Mother - Diabetes Father - Stroke Father - Diabetes Sister - Diabetes Maternal Grandmother - Heart Maternal Grandmother congestive heart failure - Diabetes Maternal Grandfather - Heart Maternal Grandfather - Heart Paternal Grandfather had hole in heart at age 16 - Cancer Paternal Grandfather eye Allergies: ALLERGIES Allergen Reactions - Aspirin Shortness of Breath - Ibuprofen Shortness of Breath - Simvastatin Rash, Shortness of Breath - Tramadol Other: See Comments Dizziness Current Meds: tolnaftate (TINACTIN) 1 % cream Apply 1 application to affected area twice daily. insulin degludec (TRESIBA) 100 unit/mL (3 mL) injection Inject 30 Units subcutaneously every 24 hours. amitriptyline (ELAVIL) 25 mg tablet TAKE ONE TABLET BY MOUTH ONCE DAILY AT BEDTIME FREESTYLE LITE STRIPS test strip USE ONE STRIP TO CHECK GLUCOSE ONCE DAILY DIRECTED liraglutide (VICTOZA 2-DANIELLE) 0.6 mg/0.1 mL (18 mg/3 mL) pnij Inject 1.2 mg subcutaneously once daily. albuterol HFA (PROAIR HFA) 90 mcg/actuation inhaler Inhale 2 Puffs as instructed every 4 hours as needed. dextromethorphan-guaiFENesin (MUCINEX DM) 30-600 mg per tablet Take 1 tablet by mouth twice daily. Insulin Gerald, Disposable, (PEN NEEDLE) 29 gauge x 1/2ANDquot; ndle Use one needle per dose. 1 per day levothyroxine (LEVOXYL) 50 mcg tablet Take 1 tablet by mouth once daily. Take on empty stomach. For Thyroid metFORMIN ER (GLUCOPHAGE XR) 500 mg 24 hr tablet Take 2 tablets by mouth twice daily before meals. glucose 4 gram chewable tablet Take 4 tablets by mouth as needed. For low blood sugars busPIRone (BUSPAR) 5 mg tablet Take 1 tablet by mouth three times daily. As needed for anxiety attack Review of Systems: The remainder of the review of systems is negative. PE: 08/03/17 0854 BP: 120/80 Pulse: 80 Resp: 20 Temp: 36.1 ?C (97 ?F) TempSrc: Left Tympanic Weight: 112.9 kg (249 lb) Gen: AANDamp;O, NAD, non-toxic appearing,sullen appearing, cooperative HEENT: NT/AC, PERRLA, EOMs intact b/l, nares clear and patent b/l, pharynx without erythema, exudate or lesions. Uvula midline. Poor dentition, MMM Neck: supple, No cervical LAD, + NT symmetric thyromegaly, no carotid bruits CV: RRR, normal S1 and S2, no murmurs, no gallops, no rubs, Pulses 2+ and symmetric in UE and LE b/l Lungs: normal respiratory effort, CTA b/l, no wheezing or rhonchi or rales Abd: soft, obese, NT, ND, +BS, no hepatosplenomegaly MS: FROM all 4 extremities Neuro: CN II-XII intact b/l, sensation intact. Skin: warm, dry, intact, No rashes or lesions on exposed skin. ASSESSMENT/PLAN: 1. Uncontrolled type 2 diabetes mellitus without complication, without long-term current use of insulin (HCC) - ICD9: 250.02, ICD10: E11.65 (primary diagnosis) uncontrolled - Increase Tresiba - Blood glucose monitoring on a twice a day schedule - Encouraged regular aerobic exercise and weight loss - Follow up in 1 months, sooner should any other issues arise. 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 - BP goal of ANDlt;130/80 - LDL goal of ANDlt;100 - INSULIN DEGLUDEC (U-100) 100 UNIT/ML (3 ML) SUBCUTANEOUS PEN 2. Athlete's foot on left - ICD9: 110.4, ICD10: B35.3 - Treat with cream twice a day until rash resolves and then another week - TOLNAFTATE 1 % TOPICAL CREAM 3. Anxiety attack - ICD9: 300.01, ICD10: F41.0 - rx prn as below, f/u in office in 1 month, situational triggered. - BUSPIRONE 5 MG TABLET 4. Acquired hypothyroidism - ICD9: 244.9, ICD10: E03.9 - US THYROID/PARATHYROID Padilla Osborne DO To ER if develops chest pain, shortness of breath, or severe worsening of symptoms. Discussed risks, benefits, alternatives, and potential side effects of medications. Patient expressed understanding and agreed with the plan. Padilla Osborne DO [address] [place] [address] Referring Provider: SELF [[id number]] Allergies As of Date: 08/03/2017 Noted Allergy Reaction ASPIRIN 07/16/2011 12 - Shortness of Breath IBUPROFEN 07/16/2011 12 - Shortness of Breath SIMVASTATIN 2014 2 - Rash 12 - Shortness of Breath TRAMADOL 01/31/2014 14 - Other: See Comments Comments: Dizziness Date Reviewed: 08/03/2017 Reviewed by: Layne Montana LPN - Fully Assessed Reason for Visit: Follow Up [171] Cmt: diabetes Primary Visit Diagnosis:Uncontrolled type 2 diabetes mellitus without complication, without long-term current use of insulin (HCC) [E11.65] Other Visit Diagnoses:Athlete's foot on left [B35.3] Anxiety attack [F41.0] Acquired hypothyroidism [E03.9] Order(s):tolnaftate (TINACTIN) 1 % creamApply 1 application to affected area twice daily.Disp: 35.4 gRfl: 0 insulin degludec (TRESIBA) 100 unit/mL (3 mL) injectionInject 30 Units subcutaneously every 24 hours.Disp: 6 PenRfl: 3 busPIRone (BUSPAR) 5 mg tabletTake 1 tablet by mouth three times daily. As needed for anxiety attackDisp: 30 tabletRfl: 1 US THYROID/PARATHYROID [[id number]] Order #: [id number] FUTURE Prescriptions as of 08/03/2017 Sig: TOLNAFTATE 1 % TOPICAL CREAM Apply 1 application to affect* INSULIN DEGLUDEC (U-100) 100 * Inject 30 Units subcutaneousl* AMITRIPTYLINE 25 MG TABLET TAKE ONE TABLET BY MOUTH ONCE* FREESTYLE LITE STRIPS USE ONE STRIP TO CHECK GLUCOS* LIRAGLUTIDE 0.6 MG/0.1 ML (18* Inject 1.2 mg subcutaneously * ALBUTEROL SULFATE HFA 90 MCG/* Inhale 2 Puffs as instructed * DEXTROMETHORPHAN-GUAIFENESIN * Take 1 tablet by mouth twice * PEN NEEDLE, DIABETIC 29 GAUGE* Use one needle per dose. 1 p* LEVOTHYROXINE 50 MCG TABLET Take 1 tablet by mouth once d* METFORMIN ER 500 MG TABLET,EX* Take 2 tablets by mouth twice* GLUCOSE 4 GRAM CHEWABLE TABLET Take 4 tablets by mouth as ne* BUSPIRONE 5 MG TABLET Take 1 tablet by mouth three * Problem List As Of Date 08/03/2017 Noted Resolved Left wrist pain [M25.532] INVALID FOR*04/30/2016 Left wrist tendinitis [M77.8] INVALID FOR*04/30/2016 Multinodular goiter [E04.2] INVALID FOR* Hypothyroidism [E03.9] INVALID FOR* Diabetes mellitus type 2, controlled, without c*INVALID FOR*04/30/2016 Obesity [E66.9] INVALID FOR* Major depression [F32.9] INVALID FOR*04/30/2016 Major depressive disorder, recurrent episode, m*INVALID FOR* Uncontrolled type 2 diabetes mellitus without c*INVALID FOR* Recurrent major depression in partial remission*INVALID FOR*04/30/2016 Other instructions from your clinician: Please call Or my chart message me your fasting morning blood sugar levels in 1-2 weeks after your dose changed of the Tresiba (up to 30 units) Prescriptions ordered this encounter Disp Refills Start End TOLNAFTATE 1 % TOPICAL CREAM 35.4* 0 08/03/2017 Route: TOPICAL Sig: Apply 1 application to affected area twice daily. INSULIN DEGLUDEC (U-100) 100 UNIT/ML* 6 Pen 3 08/03/2017 Route: SUBCUTANEOUS Sig: Inject 30 Units subcutaneously every 24 hours. BUSPIRONE 5 MG TABLET 30 t* 1 08/03/2017 Route: ORAL Sig: Take 1 tablet by mouth three times daily. As needed for anxiety attack Medications Discontinued During This Encounter predniSONE (DELTASONE) 10 mg tablet 21 t* 0 05/25/2017 08/03/2017 Sig: Take 40 mg x 3 days, 20 mg x 3 days, 10 mg x 3 days. Take with food, once daily Disc: Reason for discontinue is not on file. cyclobenzaprine (FLEXERIL) 10 mg tab* 30 t* 0 01/27/2017 08/03/2017 Route: ORAL Sig: Take 1 tablet by mouth three times daily as needed. Disc: Reason for discontinue is not on file. tolnaftate (TINACTIN) 1 % cream 35.4* 0 10/30/2016 08/03/2017 Route: TOPICAL Sig: Apply 1 application to affected area twice daily. Disc: Reason for discontinue is not on file. insulin degludec (TRESIBA) 100 unit/* 5 Pen 3 05/19/2017 08/03/2017 Route: SUBCUTANEOUS Sig: Inject 26 Units subcutaneously every 24 hours. Disc: Reason for discontinue is not on file. Encounter Status:Closed by PADILLA OSBORNE DO on 08/03/17 PROGRESS Observed: 07/28/2017 Status: COMPLETED Source: [place] 1:21 PM [facility] [place] REPOSITORY HNO ID: [id number] Author: Abdulaziz Lynch (Lauro) [place] Service: (none) Author Type: Nurse Practitioner Type: Progress Notes Filed: 07/28/2017 1:43 PM Note Text: Chief Complaint Patient presents with: Referral Request: for pain management HPI Yamila Kitchen is a 37 year old female who presents here today for referral to pain management, for tailbone pain. Onset was in 2014. No h/o injury or trauma. Last visit with me was 09/2015, as noted below. Pain is described as a constant, stabbing pain around the tailbone. Sitting and standing aggravate the pain. 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 Has been using Tylenol, sitting on either side of her tailbone, right or left buttock. Rating her pain currently 8 out of 10. She has not done any official PHYSICAL THERAPY. 09/27/17: Tailbone pain worse not getting better. Has been cleaning out storage unit and thinks that bending/picking boxes up is making it worse. Has tried donut cushion to sit on states does not notice any improvment. Heat helps slightly. Tylenol helps the most. Continues to deny pain with BM, no fevers or chills. States pain does radiate upward into lower back, pointing to sacral area. Rating pain 8 out of 10 on pain scale. The ROS is otherwise negative. Past medical history, appointments, medications, allergies reviewed. Patient Allergies ALLERGIES Allergen Reactions - Aspirin Shortness of Breath - Ibuprofen Shortness of Breath - Simvastatin Rash, Shortness of Breath - Tramadol Other: See Comments Dizziness Current Medications Current Outpatient Prescriptions on File Prior to Visit: amitriptyline (ELAVIL) 25 mg tablet TAKE ONE TABLET BY MOUTH ONCE DAILY AT BEDTIME FREESTYLE LITE STRIPS test strip USE ONE STRIP TO CHECK GLUCOSE ONCE DAILY DIRECTED insulin degludec (TRESIBA) 100 unit/mL (3 mL) injection Inject 26 Units subcutaneously every 24 hours. liraglutide (VICTOZA 2-DANIELLE) 0.6 mg/0.1 mL (18 mg/3 mL) pnij Inject 1.2 mg subcutaneously once daily. albuterol HFA (PROAIR HFA) 90 mcg/actuation inhaler Inhale 2 Puffs as instructed every 4 hours as needed. dextromethorphan-guaiFENesin (MUCINEX DM) 30-600 mg per tablet Take 1 tablet by mouth twice daily. Insulin Gerald, Disposable, (PEN NEEDLE) 29 gauge x 1/2 ndle Use one needle per dose. 1 per day levothyroxine (LEVOXYL) 50 mcg tablet Take 1 tablet by mouth once daily. Take on empty stomach. For Thyroid metFORMIN ER (GLUCOPHAGE XR) 500 mg 24 hr tablet Take 2 tablets by mouth twice daily before meals. tolnaftate (TINACTIN) 1 % cream Apply 1 application to affected area twice daily. glucose 4 gram chewable tablet Take 4 tablets by mouth as needed. For low blood sugars predniSONE (DELTASONE) 10 mg tablet Take 40 mg x 3 days, 20 mg x 3 days, 10 mg x 3 days. Take with food, once daily cyclobenzaprine (FLEXERIL) 10 mg tablet Take 1 tablet by mouth three times daily as needed. No current facility-administered medications on file prior to visit. Previous Medical History PAST MEDICAL HISTORY Diagnosis Date - Diabetes mellitus type 2, controlled, without complications (HCC) 08/04/2014 - Hypothyroidism 05/2014 - Major depressive disorder, recurrent episode, moderate (HCC) 10/31/2014 - Obesity 08/04/2014 Previous Surgical History PAST SURGICAL HISTORY Procedure Laterality Date - COLONOSCOP W/ OR W/O [facility] SPEC N/A 06/04/2016 MAC - EGD W/O OR W/BRUSH/WASH N/A 06/04/2016 MAC - LIGATE FALLOPIAN TUBE 2013 Tubal ligation - PAST SURGICAL HISTORY OF 2014 - PAST SURGICAL HISTORY OF Left tendon surgery on left wrist Family History FAMILY HISTORY Problem Relation Age of Onset - Diabetes Mother - Thyroid Mother hypothyroid - Stroke Mother - Diabetes Father - Stroke Father - Diabetes Sister - Diabetes Maternal Grandmother - Heart Maternal Grandmother congestive heart failure - Diabetes Maternal Grandfather - Heart Maternal Grandfather - Heart Paternal Grandfather had hole in heart at age 16 - Cancer Paternal Grandfather eye Social History Social History Marital status: Single Spouse name: Years of education: Number of children: 4 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 Neck: Supple, no adenopathy; thyroid symmetric, normal size, no bruits. Back:no pain to palpation of vertebrae, good flexion and extension, good range of motion, no muscle tenderness, reflexes are 2+ and symmetric, motor and sensory appear to be normal, negative SLR test, no evidence of scoliosis Lungs: Lungs clear to auscultation. No wheezing, rhonchi, rales. Heart: RRR without murmur, gallop, or rubs. No ectopy. Neurologic: Gait normal. Reflexes normal and symmetric. Sensation grossly intact.. Rectal: no redness, swelling or induration. Positive: tenderness over coccyx with palpation. ASSESSMENT/PLAN: 1. Coccydynia - ICD9: 724.79, ICD10: M53.3 - She is encouraged to do PHYSICAL THERAPY and to follow up regarding her diabetes. - Patient will schedule her own apt. Meantime she was prescribed by her provider, Amitriptyline to use for chronic pain and anxiety. - CONSULT TO PAIN MGT ANESTHESIA - CONSULT TO PHYSICAL THERAPY Abdulaziz Interiano, MSN WARDROBE SPECIALIST.MARGARINE MAKER CNOV Observed: 07/28/2017 Status: COMPLETED Source: [place] 1:00 PM [facility] REPOSITORY Office Visit (FAMPWS) YAMILA KITCHEN ([id number]) 1980 F Date Time Provider Department 07/28/17 1:00 PM ABDULAZIZ INTERIANO (STONE CARRIAGE OPERATOR) FAMPWS During your visit today, we recorded the following information about you: Temperature Pulse Respiration Blood pressure 97.7 degrees 81/minute 16/minute 110/78 Weight 112 kg Abdulaziz Interiano, MSN WARDROBE SPECIALIST.MARGARINE MAKER 07/28/2017 1:43 PM Signed Chief Complaint Patient presents with: Referral Request: for pain management HPI Yamila Kitchen is a 37 year old female who presents here today for referral to pain management, for tailbone pain. Onset was in 2014. No h/o injury or trauma. Last visit with me was 09/2015, as noted below. Pain is described as a constant, stabbing pain around the tailbone. Sitting and standing aggravate the pain. 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 Has been using Tylenol, sitting on either side of her tailbone, right or left buttock. Rating her pain currently 8 out of 10. She has not done any official PHYSICAL THERAPY. 09/27/17: Tailbone pain worse not getting better. Has been cleaning out storage unit and thinks that bending/picking boxes up is making it worse. Has tried donut cushion to sit on states does not notice any improvment. Heat helps slightly. Tylenol ANDquot;helps the mostANDquot;. Continues to deny pain with BM, no fevers or chills. States pain does radiate upward into lower back, pointing to sacral area. Rating pain 8 out of 10 on pain scale. The ROS is otherwise negative. Past medical history, appointments, medications, allergies reviewed. Patient Allergies ALLERGIES Allergen Reactions - Aspirin Shortness of Breath - Ibuprofen Shortness of Breath - Simvastatin Rash, Shortness of Breath - Tramadol Other: See Comments Dizziness Current Medications Current Outpatient Prescriptions on File Prior to Visit: amitriptyline (ELAVIL) 25 mg tablet TAKE ONE TABLET BY MOUTH ONCE DAILY AT BEDTIME FREESTYLE LITE STRIPS test strip USE ONE STRIP TO CHECK GLUCOSE ONCE DAILY DIRECTED insulin degludec (TRESIBA) 100 unit/mL (3 mL) injection Inject 26 Units subcutaneously every 24 hours. liraglutide (VICTOZA 2-DANIELLE) 0.6 mg/0.1 mL (18 mg/3 mL) pnij Inject 1.2 mg subcutaneously once daily. albuterol HFA (PROAIR HFA) 90 mcg/actuation inhaler Inhale 2 Puffs as instructed every 4 hours as needed. dextromethorphan-guaiFENesin (MUCINEX DM) 30-600 mg per tablet Take 1 tablet by mouth twice daily. Insulin Gerald, Disposable, (PEN NEEDLE) 29 gauge x 1/2ANDquot; ndle Use one needle per dose. 1 per day levothyroxine (LEVOXYL) 50 mcg tablet Take 1 tablet by mouth once daily. Take on empty stomach. For Thyroid metFORMIN ER (GLUCOPHAGE XR) 500 mg 24 hr tablet Take 2 tablets by mouth twice daily before meals. tolnaftate (TINACTIN) 1 % cream Apply 1 application to affected area twice daily. glucose 4 gram chewable tablet Take 4 tablets by mouth as needed. For low blood sugars predniSONE (DELTASONE) 10 mg tablet Take 40 mg x 3 days, 20 mg x 3 days, 10 mg x 3 days. Take with food, once daily cyclobenzaprine (FLEXERIL) 10 mg tablet Take 1 tablet by mouth three times daily as needed. No current facility-administered medications on file prior to visit. Previous Medical History PAST MEDICAL HISTORY Diagnosis Date - Diabetes mellitus type 2, controlled, without complications (HCC) 08/04/2014 - Hypothyroidism 05/2014 - Major depressive disorder, recurrent episode, moderate (HCC) 10/31/2014 - Obesity 08/04/2014 Previous Surgical History PAST SURGICAL HISTORY Procedure Laterality Date - [facility]/04/2016 MAC - EGD W/O OR W/BRUSH/WASH N/A 06/04/2016 MAC - LIGATE FALLOPIAN TUBE 2013 Tubal ligation - PAST SURGICAL HISTORY OF 2014 - PAST SURGICAL HISTORY OF Left tendon surgery on left wrist Family History FAMILY HISTORY Problem Relation Age of Onset - Diabetes Mother - Thyroid Mother hypothyroid - Stroke Mother - Diabetes Father - Stroke Father - Diabetes Sister - Diabetes Maternal Grandmother - Heart Maternal Grandmother congestive heart failure - Diabetes Maternal Grandfather - Heart Maternal Grandfather - Heart Paternal Grandfather had hole in heart at age 16 - Cancer Paternal Grandfather eye Social History Social History Marital status: Single Spouse name: Years of education: Number of children: 4 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 Neck: Supple, no adenopathy; thyroid symmetric, normal size, no bruits. Back:no pain to palpation of vertebrae, good flexion and extension, good range of motion, no muscle tenderness, reflexes are 2+ and symmetric, motor and sensory appear to be normal, negative SLR test, no evidence of scoliosis Lungs: Lungs clear to auscultation. No wheezing, rhonchi, rales. Heart: RRR without murmur, gallop, or rubs. No ectopy. Neurologic: Gait normal. Reflexes normal and symmetric. Sensation grossly intact.. Rectal: no redness, swelling or induration. Positive: tenderness over coccyx with palpation. ASSESSMENT/PLAN: 1. Coccydynia - ICD9: 724.79, ICD10: M53.3 - She is encouraged to do PHYSICAL THERAPY and to follow up regarding her diabetes. - Patient will schedule her own apt. Meantime she was prescribed by her provider, Amitriptyline to use for chronic pain and anxiety. - CONSULT TO PAIN MGT ANESTHESIA - CONSULT TO PHYSICAL THERAPY Abdulaziz Interiano, MSN WARDROBE SPECIALIST.MARGARINE MAKER Referring Provider: ABDULAZIZ INTERIANO (STONE CARRIAGE OPERATOR) [[id number]] Allergies As of Date: 07/28/2017 Noted Allergy Reaction ASPIRIN 07/16/2011 12 - Shortness of Breath IBUPROFEN 07/16/2011 12 - Shortness of Breath SIMVASTATIN 2014 2 - Rash 12 - Shortness of Breath TRAMADOL 01/31/2014 14 - Other: See Comments Comments: Dizziness Date Reviewed: 07/28/2017 Reviewed by: Amira Cullen Internet Assessor - Fully Assessed Reason for Visit: Referral Request [124] Cmt: for pain management Primary Visit Diagnosis:Coccydynia [M53.3] Order(s):CONSULT TO PAIN MGT ANESTHESIA [011600] Order #: [id number]: 1 CONSULT TO PHYSICAL THERAPY [9032] Order #: [id number]: 1 Prescriptions as of 07/28/2017 Sig: AMITRIPTYLINE 25 MG TABLET TAKE ONE TABLET BY MOUTH ONCE* FREESTYLE LITE STRIPS USE ONE STRIP TO CHECK GLUCOS* INSULIN DEGLUDEC (U-100) 100 * Inject 26 Units subcutaneousl* LIRAGLUTIDE 0.6 MG/0.1 ML (18* Inject 1.2 mg subcutaneously * ALBUTEROL SULFATE HFA 90 MCG/* Inhale 2 Puffs as instructed * DEXTROMETHORPHAN-GUAIFENESIN * Take 1 tablet by mouth twice * PEN NEEDLE, DIABETIC 29 GAUGE* Use one needle per dose. 1 p* LEVOTHYROXINE 50 MCG TABLET Take 1 tablet by mouth once d* METFORMIN ER 500 MG TABLET,EX* Take 2 tablets by mouth twice* TOLNAFTATE 1 % TOPICAL CREAM Apply 1 application to affect* GLUCOSE 4 GRAM CHEWABLE TABLET Take 4 tablets by mouth as ne* PREDNISONE 10 MG TABLET Take 40 mg x 3 days, 20 mg x * CYCLOBENZAPRINE 10 MG TABLET Take 1 tablet by mouth three * Problem List As Of Date 07/28/2017 Noted Resolved Left wrist pain [M25.532] INVALID FOR*04/30/2016 Left wrist tendinitis [M77.8] INVALID FOR*04/30/2016 Multinodular goiter [E04.2] INVALID FOR* Hypothyroidism [E03.9] INVALID FOR* Diabetes mellitus type 2, controlled, without c*INVALID FOR*04/30/2016 Obesity [E66.9] INVALID FOR* Major depression [F32.9] INVALID FOR*04/30/2016 Major depressive disorder, recurrent episode, m*INVALID FOR* Uncontrolled type 2 diabetes mellitus without c*INVALID FOR* Recurrent major depression in partial remission*INVALID FOR*04/30/2016 Encounter Status:Closed by ABDULAZIZ INTERIANO MARGARINE MAKER on 07/28/17 ALBUMIN/CREAT RATIO Collected: 07/22/2017 Status: F Source: [place] 9:19 AM [facility] REPOSITORY TYPE CODE TESTS RESULT OUT OF REFERENCE UNITS RANGE LAB UCRR 20-300 mg/dL 91.8 Creatinine,Ur ine,Ran LAB UALBR 0.0-23.0 mg/L <12.0 Albumin Urine Random LAB UALBCR 0-30 mg/g Not Albumin/Creat calculated Ratio Performed By: #### UACR #### [facility] [address], [place] [address] TSH Collected: 07/22/2017 Status: F Source: [place] 9:18 AM [facility] REPOSITORY TYPE CODE TESTS RESULT OUT OF RANGE REFERENCE UNITS LAB TSH 0.400-5.500 uU/mL TSH 2.510 Result Comment: If the patient is , TSH reference range varies by gestational period: First Trimester 0.100-2.500 uU/mL Second Trimester 0.200-3.000 uU/mL Third Trimester 0.300-3.000 uU/mL References: 1. De Rambo L, Nicko M, Santos EK, et al. Management of Thyroid Dysfunction during and : An Endocrine Society Clinical Practice Guideline. J Clin Endocrinol Metab, 2012:97:3032-6882. 2. William PILLAI. Overview of thyroid disease in . UpToDate. 2016. Accessed on September 28, 2015. Performed By: #### TSH, HBA1C #### [facility] [address] [address] HEMOGLOBIN A1C Collected: 07/22/2017 Status: F Source: ALTHE[place] 9:18 AM [facility] REPOSITORY TYPE CODE TESTS RESULT OUT OF REFERENCE UNITS RANGE LAB HGBA1C 4.3-5.6 % High Hemoglobin A1c 10.8 LAB HBA0 mg/dL Est. Average Glucose 263 Result Comment: eAG: (Estimated average glucose) is a calculated value from HgbA1c and is textile machinery sales representative of the average blood glucose level in the last 2-3 month period. Performed By: #### TSH, HBA1C #### [facility] [address], [place] [address] 12 LEAD ELECTROCARDIOGRAM Observed: 07/14/2017 Status: F Source: CHERY 1:40 PM [facility] REPOSITORY [facility] Cardiovascular Services [address] [place] [address] 12 Lead EKG 07/13/17 0511 MR#: [id number] Acct: [id number] Name: YAMILA KITCHEN Rep #: [id number] : 1980 37 From: Denys Swain MD Attending Dr: Deyvi Lopez Status: DIS TRACI Ordering Dr: Adelso Marques MD Date: 07/13/17 Location: [facility] Sex: F C Admitted: 07/13/17 Test Reason : AM EKG Blood Pressure : / mmHG Vent. Rate : 079 BPM Atrial Rate : 079 BPM P-R Int : 186 ms QRS Dur : 102 ms QT Int : 386 ms P-R-T Axes : 057 067 041 degrees QTc Int : 442 ms Normal sinus rhythm Normal ECG When compared with ECG of 12-JUL-2017 23:36, MANUAL COMPARISON REQUIRED, DATA IS UNCONFIRMED Confirmed by DENYS SWAIN MD ([id number]), editor index BRIANNE TOLLIVER ([id number]) on 07/14/2017 1:40:04 PM Referred By: AKANKSHA Confirmed By:DENYS SWAIN MD 07/14/17 1340 Date Denys Swain MD CC: Deyvi Lopez; Padilla Carroll DO; Adelso Marques MD Signed 12 LEAD ELECTROCARDIOGRAM Observed: 07/14/2017 Status: F Source: CHERY 1:25 PM [facility] REPOSITORY [facility] Cardiovascular Services [address] [place] [address] 12 Lead EKG 07/12/17 2336 MR#: [id number] Acct: [id number] Name: YAMILA KITCHEN Rep #: [id number] : 1980 37 From: Denys Swain MD Attending Dr: Deyvi Lopez Status: DIS TRACI Ordering Dr: Agustin Virgen MD Date: 07/12/17 Location: [facility] Sex: F C Admitted: 07/13/17 Test Reason : REPEAT Blood Pressure : / mmHG Vent. Rate : 099 BPM Atrial Rate : 099 BPM P-R Int : 176 ms QRS Dur : 086 ms QT Int : 338 ms P-R-T Axes : 040 033 008 degrees QTc Int : 433 ms Normal sinus rhythm Nonspecific T wave abnormality Abnormal ECG Confirmed by DENYS SWAIN MD ([id number]), editor index BRIANNE TOLLIVER ([id number]) on 07/14/2017 1:25:12 PM Referred By: GIO Confirmed By:DENYS SWAIN MD 07/14/17 1325 Date Denys Swain MD CC: Deyvi Lopez; Padilla Carroll DO; Agustin Virgen MD Signed 12 LEAD ELECTROCARDIOGRAM Observed: 07/14/2017 Status: F Source: [place] 1:25 PM [facility] REPOSITORY [facility] Cardiovascular Services [address] [place] [address] 12 Lead EKG 07/12/172036 MR#: [id number] Acct: [id number] Name: YAMILA KITCHEN Rep #: [id number] : 1980 37 From: Denys Swain MD Attending Dr: Deyvi Lopez Status: DIS TRACI Ordering Dr: Agustin Virgen MD Date: 07/12/17 Location: [facility] Sex: F C Admitted: 07/13/17 Test Reason : CP Blood Pressure : / mmHG Vent. Rate : 097 BPM Atrial Rate : 097 BPM P-R Int : 178 ms QRS Dur : 084 ms QT Int : 346 ms P-R-T Axes : 046 034 022 degrees QTc Int : 439 ms Normal sinus rhythm Normal ECG Confirmed by DENYS SWAIN MD ([id number]), editor index BRIANNE TOLLIVER ([id number]) on 07/14/2017 1:25:26 PM Referred By: GIO/DILIA Confirmed By:DENYS SWAIN MD 07/14/17 1325 Date Denys Swain MD CC: Deyvi Lopez; Padilla Carroll DO; Agustin Virgen MD Signed CNPTOUTREACH Observed: 07/14/2017 Status: COMPLETED Source: [place] 12:00 AM [facility] REPOSITORY Patient Outreach (FAMPST) YAMILA KITCHEN ([id number]) 1980 F Date Time Provider Department 07/14/[address] [facility] During your visit today, we recorded the following information about you: Allergies As of Date: 07/14/2017 Noted Allergy Reaction ASPIRIN 07/16/2011 12 - Shortness of Breath IBUPROFEN 07/16/2011 12 - Shortness of Breath SIMVASTATIN 2014 2 - Rash 12 - Shortness of Breath TRAMADOL 01/31/2014 14 - Other: See Comments Comments: Dizziness Date Reviewed: 05/25/2017 Reviewed by: Luc Blackwood LPN - Fully Assessed Visit Diagnosis:Medication management [Z79.899] Order(s):TSH BLD [SQTSH] Order #: [id number] FUTURE ALBUMIN/CREAT RATIO RND UR [SQUACR] Order #: [id number] FUTURE HGB A1C [TOBOE1Z] Order #: [id number] FUTURE Prescriptions as of 07/14/2017 Sig: FREESTYLE LITE STRIPS USE ONE STRIP TO CHECK GLUCOS* X PREDNISONE 10 MG TABLET Take 40 mg x 3 days, 20 mg x * X INSULIN DEGLUDEC (U-100) 100 * Inject 26 Units subcutaneousl* X LIRAGLUTIDE 0.6 MG/0.1 ML (18* Inject 1.2 mg subcutaneously * ALBUTEROL SULFATE HFA 90 MCG/* Inhale 2 Puffs as instructed * DEXTROMETHORPHAN-GUAIFENESIN * Take 1 tablet by mouth twice * X PEN NEEDLE, DIABETIC 29 GAUGE* Use one needle per dose. 1 p* X AMITRIPTYLINE 25 MG TABLET Take 1 tablet by mouth daily * X LEVOTHYROXINE 50 MCG TABLET Take 1 tablet by mouth once d* X METFORMIN ER 500 MG TABLET,EX* Take 2 tablets by mouth twice* X CYCLOBENZAPRINE 10 MG TABLET Take 1 tablet by mouth three * X TOLNAFTATE 1 % TOPICAL CREAM Apply 1 application to affect* GLUCOSE 4 GRAM CHEWABLE TABLET Take 4 tablets by mouth as ne* Problem List As Of Date 07/14/2017 Noted Resolved Left wrist pain [M25.532] INVALID FOR*04/30/2016 Left wrist tendinitis [M77.8] INVALID FOR*04/30/2016 Multinodular goiter [E04.2] INVALID FOR* Hypothyroidism [E03.9] INVALID FOR* Diabetes mellitus type 2, controlled, without c*INVALID FOR*04/30/2016 Obesity [E66.9] INVALID FOR* Major depression [F32.9] INVALID FOR*04/30/2016 Major depressive disorder, recurrent episode, m*INVALID FOR* Uncontrolled type 2 diabetes mellitus without c*INVALID FOR* Recurrent major depression in partial remission*INVALID FOR*04/30/2016 Encounter Status:Closed by THEE HUMPHRIESUSER on 01/22/18 DISCHARGE SUMMARY Observed: 07/13/2017 Status: F Source: [place] 1:34 PM [facility] REPOSITORY [facility] Medical Records Department [address] [place] [address] Discharge Summary 07/13/17 1113 MR#: [id number] Acct: [id number] Name: YAMILA KITCHEN Rep #: [id number] : 1980 37 From: Shyla Key STONE CARRIAGE OPERATORJeoC PCP: Padilla Carroll, Status: DIS TRACI Y Location: [place] [address]-[address] <Shyla Key - Last Filed: 07/13/17 11:20> Discharge Date and Diagnosis Date of Admission: 07/13/17 Date of Discharge: 07/13/17 - Primary Discharge Diagnosis Active and Suspected Problems 1. Atypical chest pain-ACS ruled out. - Secondary Discharge Diagnosis Chronic Problems Type 2 diabetes mellitus Hypothyroidism Hospital Course and Treatment Imaging Results: Diagnostic Data Chest X-Ray 07/12/17 20:48 IMPRESSION: No radiographic evidence of acute intrathoracic disease. at 2112 Reported and signed by: Brianne Bermeo MD Electronically Signed: Brianne Bermeo MD at 20:10 EDT Tel , Service support , Operations: None Procedures: Stress test Summary of Care Provided: The patient is a 37 year old F admitted 07/13/17 due to chest pain. ACS ruled out. She has a past medical history of type 2 diabetes mellitus, hypothyroidism. Patient stated her pain occurred suddenly while resting at the home. Pain was continuous for a few hours. Pain has since resolved. Troponin negative 3. Patient underwent nuclear stress test which was negative for ischemia. Chest x-ray unremarkable. Lipid panel within normal limits. Patient's type 2 diabetes mellitus is poorly controlled, hemoglobin A1c 10.8%. Recommend further follow-up with primary care physician to adjust diabetic medications. TSH within normal limits. Patient seen and examined prior to discharge. Heart rate regular rate and rhythm. Lungs clear. Abdomen soft, nontender. Neuro grossly intact. Vital signs stable. Patient stable for discharge home with further follow-up with primary care physician. This patient was seen by RAMA Jeffery under the supervision of Dr. Lopez. Discharge Diet: Low fat/ Low Cholesterol, Carb Control Diet Discharge Activity: Return to Normal Activity Call your doctor if you observe: Shortness of breath, Dizziness, Fainting spells, Chest pain, Increased palpitations (irregular heartbeat) Home Medications: Medications to take at Discharge Insulin Degludec [Tresiba Flextouch U-100] 24 units SQ DAILY 12/04/16 Liraglutide [Victoza 2-Danielle] 1 injectable SQ DAILY 12/04/16 Metformin(XR) [Glucophage Xr] 500 mg PO BID 12/04/16 Levothyroxine [Synthroid] 50 mcg PO DAILY 07/12/17 Primary Care Physician: Padilla Osborne DO [Primary Care Provider] - 2 Days Please follow up with your Primary Care Physician in: 1 Week Patient Instructions: ED Chest Pain Atypical Unkn Cause, ED Hyperglycemia Diabetic Disposition: Home Minutes spent on discharge:: 35 Patient Condition:: Stable Medical Necessity - Tobacco Use Smoking Status: Never smoker Meaningful Use Info Meaningful Use Diagnoses (Choose all that apply): None applicable <Meron Lopezmarlene E - Last Filed: 07/13/17 13:34> Discharge Date and Diagnosis - Secondary Discharge Diagnosis Chronic Problems HTN (hypertension) (Chronic) Hospital Course and Treatment Imaging Results: 07/13/17 05:55 Nuclear Stress Test - Chemical [NM] AM (NON MEDS) Summary of Care Provided: Hospitalist note: discharge summary above reviewed as well as physical examination and agree with above discharge plan. Patient was admitted for atypical chest pain for evaluation. She has risk factors for CAD including diabetes and obesity. Her EKG revealed no acute ischemic changes. Troponin was negative 3. A chest x-ray showed no acute findings. She underwent nuclear stress test that was reported as negative without evidence of stress-induced myocardial ischemia. ACS ruled out. Her pain could be due to musculoskeletal pain. Patient discharged home in a stable medical condition, discharged on her home medication without any changes, recommended to follow-up with PCP in 1 week. - Physical Exam General: Alert, Oriented x3, Cooperative, No apparent distress. HEENT: Atraumatic, PERRLA, EOMI. Neck: Supple, No JVD, Negative Carotid Bruits, Trachea Midline, Thyroid Normal. Lungs: Clear to auscultation, Normal air movement, No rhonchi, No wheeze, No rales. Cardiovascular: Regular rate, Regular Rhythm, Normal S1, Normal S2, PMI Normal. Abdomen: Bowel Sounds Present, Soft, Non Tender, Non-Distended, No Hepato-splenomegaly. Extremities: No clubbing, No cyanosis, No edema Skin: No rashes, No breakdown Neurological: Neuro grossly intact Vital Signs are stable. . Minutes spent on discharge:: 25 Code Visit OBSV E AND M: [id number] Observ/hosp same date L1 07/13/17 1120 <Electronically signed by Shyla SARMIENTOC> Date Shyla ONTIVEROS 07/13/17 1334<Electronically signed by Deyvi Lopez MD> Cosigner Signature (if applicable): Date Deyvi Lopez MD CC: STONE CARRIAGE OPERATOR-Hannah Key; Deyvi Lopez; Padilla Carroll DO Signed BEDSIDE GLUCOSE Collected: 07/13/2017 Status: F Source: CH[place] 12:12 PM [facility] REPOSITORY TYPE CODE TESTS RESULT OUT OF REFERENCE UNITS RANGE LAB L501.080 70-110 mg/dL High BEDSIDE GLU 385 Result Comment: MANAGEMENT OF PATIENT CARE PER NURSING PROTOCOL Performed By: #### L501.080 #### [facility] Laboratory Point of Care [address] [facility] [place] [address] DISCHARGE INSTRUCTION Observed: 07/13/2017 Status: F Source: [place] 11:13 AM [facility] REPOSITORY [facility] Medical Records Department [address] [place] [address] Instructions for Home/Discharge Instructions 07/13/17 1111 MR#: [id number] Acct: [id number] Name: YAMILA KITCHEN Rep #: [id number] : 1980 37 From: Shyla ONTIVEROS PCP: Padilla Carroll DO Status: ADM TRACI - Discharge Diagnoses Current Active Problems: Current Active and Chronic Problems Chest pain (Acute) DMII (diabetes mellitus, type 2) (Acute) HTN (hypertension) (Chronic) You will use the following diet at home:: Calorie/Carbohydrate Controlled (specify 1200, 1400, etc) Discharge Activity: Return to Normal Activity Call your doctor if you observe: Shortness of breath, Dizziness, Fainting spells, Chest pain, Increased palpitations (irregular heartbeat) Instructions: ED Chest Pain Atypical Unkn Cause, ED Hyperglycemia Diabetic Allergies/Adverse Reactions: Allergies aspirin Allergy (Verified 12/04/16 18:42) Hives ibuprofen Allergy (Verified 12/04/16 18:42) Hives tramadol Adverse Reaction (Verified 12/04/16 18:42) Other DIZZINESS Medications to take at Discharge Insulin Degludec [Tresiba Flextouch U-100] 24 units SQ DAILY 12/04/16 Liraglutide [Victoza 2-Danielle] 1 injectable SQ DAILY 12/04/16 Metformin(XR) [Glucophage Xr] 500 mg PO BID 12/04/16 Levothyroxine [Synthroid] 50 mcg PO DAILY 07/12/17 Primary Care Physician: Padilla Osborne DO [Primary Care Provider] - 2 Days Please follow up with your Primary Care Physician in: 1 Week Proposed Discharge Date: 07/13/17 07/13/17 1113 <Electronically signed by Shyla ONTIVEROS> Date Shyla ONTIVEROS CC: Padilla Carroll DO STRESS REPORT Observed: 07/13/2017 Status: F Source: LOLITA 10:54 AM [facility] REPOSITORY [facility] Cardiovascular Services [address] [place] [address] MR#: [id number] Acct: [id number] Name: YAMILA KITCHEN Rep #: [id number] : 1980 37 From: Denys Swain MD Primary Care: Padilla Carroll DO Status: ADM TRACI Ordering Dr: Sex: F C Stress Test Report Exercise myocardial perfusion stress test. 37-year-old lady with a history of chest pain. Stress protocol: Resting EKG demonstrates normal sinus rhythm with a rate of 82 bpm normal intervals and noted resting blood pressure is 110/68 mmHg. The patient exercised according to the regular Dani protocol for total duration of 7 minutes and 10 seconds completing 1 minute and 10 seconds to stage III of the Dani protocol. The maximum heart rate attained was 187 bpm which was 102% of maximum predicted heart rate the maximum workload attained was 8.6 metabolic equivalents. At rest there were no ST or T-wave changes noted suggest ischemia at peak exercise upsloping ST changes only were noted with no meet the criteria for ischemia. No clinical angina was noted. The patient did get short of breath. Myocardial perfusion protocol. 14.7 mCi of technetium 99m sestamibi was injected at rest. The patient exercised according to Dani protocol for 4 7 minutes and 10 seconds attaining 102% of maximum predicted heart rate and a workload of 8.6 metabolic equivalents. At peak exercise 44.8 mCi of technetium 99m sestamibi was injected. Stress images were obtained stress and rest images were reconstructed and compared in the short axis vertical long and horizontal long axis. Gated images were also obtained. Perfusion SPECT analysis: Review of the stress images demonstrate normal uptake of tracer noted in all areas of the myocardium. The resting images similarly demonstrate normal uptake of tracer noted in all areas of the myocardium. No areas of reversibility are noted suggest ischemia no previous infarct is noted. Gated SPECT analysis: The gated ejection fraction is 75%. Conclusion: Normal exercise myocardial perfusion stress test at a moderate workload. No angina noted. 07/13/17 1054 <Electronically signed by Denys Swain MD> Date Denys Swain MD CC: Deyvi Lopez; Padilla Carroll, Date Dictated: 07/13/17 1048 Date Transcribed: 07/13/17 104 Customer Quality Specialist: CO Signed TROPONIN-I Collected: 07/13/2017 Status: F Source: CHERY 10:10 AM [facility] REPOSITORY Order Comment: PT IN STRESS TEST FWC WHEN PT RETURNS TO FLOOR. 'TROP' Serial specimen #1, #2, #3, or #4: 4 TYPE CODE TESTS RESULT OUT OF RANGE REFERENCE UNITS LAB L501.4010 <0.06 ng/mL Normal < 0.02 TROPONIN-I Result Comment: TROPONIN-I EXPECTED VALUES <0.05 NEGATIVE 0.06 - 0.59 AT RISK OF KS > OR = 0.60 SUGGEST KS Performed By: #### L501.4010 #### [facility] [address] [place], [place], [address] BEDSIDE GLUCOSE Collected: 07/13/2017 Status: F Source: CHERY 6:50 AM [facility] REPOSITORY TYPE CODE TESTS RESULT OUT OF REFERENCE UNITS RANGE LAB L501.080 70-110 mg/dL High BEDSIDE GLU 253 Result Comment: MANAGEMENT OF PATIENT CARE PER NURSING PROTOCOL Performed By: #### L501.080 #### [facility] Point of Care [address] [facility] [place] [address] PROTHROMBIN TIME W/INR Collected: 07/13/2017 Status: F Source: CHERY 5:20 AM [facility] REPOSITORY TYPE CODE TESTS RESULT OUT OF RANGE REFERENCE UNITS LAB L300.4150 11.7-14.9 SECONDS Normal PROTIME 13.9 LAB L300.4200 Normal INR 1.1 Performed By: #### L300.3900, L300.4310 #### [facility] [address] [place], [address] PARTIAL THROMBOPLAST Collected: 07/13/2017 Status: F Source: LOLITA TIME 5:20 AM [facility] REPOSITORY TYPE CODE TESTS RESULT OUT OF RANGE REFERENCE UNITS LAB L300.4310 24.1-36.2 Seconds Normal PTT 25.5 Performed By: #### L300.3900, L300.4310 #### [facility] [address] [place], [address] CBC W/DIFF, AUTOMATED Collected: 07/13/2017 Status: F Source: LOLITA 3:48 AM [facility] REPOSITORY TYPE CODE TESTS RESULT OUT OF RANGE REFERENCE UNITS LAB L100.1000 4.4-11.0 K/mm3 Normal WBC 6.1 LAB L100.1200 4.2-5.4 M/mm3 Normal RBC 4.76 LAB L100.1300 12.0-15.0 g/dl Normal HGB 13.1 LAB L100.1400 37-47 % Normal HCT 39.6 LAB L100.1500 81-99 fL Normal MCV 83.2 LAB L100.1600 27.0-32.0 pg Normal MCH 27.5 LAB L100.1700 32-36 g/gl Normal MCHC 33.1 LAB L100.1810 11.6-14.6 % Normal RDW CV 13.1 LAB L100.1820 35.1-43.9 fl Normal RDW SD 39.0 LAB L100.1900 150-450 K/mm3 Normal PLT 244 LAB L100.2000 6.2-12.0 fl Normal MPV 10.5 LAB L100.2100 47-70 % Normal NEUT% 50.9 LAB L100.2200 19-41 % Normal LY% 36.5 LAB L100.2300 0-10 % Normal MONO% 6.8 LAB L100.2400 0-5 % High EO% 5.4 LAB L100.2500 0-1 % Normal BASO% 0.2 LAB L100.2550 0.0-0.9 % Normal IM GRAN % 0.200 Result Comment: IG% - Immature Granulocytes (promyelocytes, myelocytes and metamyelocytes) > 1% indicates that a LEFT SHIFT is Present. LAB L100.2620 2.0-7.7 X10 3/uL Normal Absolute Neut 3.1 LAB L100.2720 0.83-4.51 X10 3/ul Normal Absolute Lymph 2.21 Performed By: #### L100.0100 #### [facility] [address] [facility]. [place], [place], [address] TROPONIN-I Collected: 07/13/2017 Status: F Source: LOLITA 3:48 AM [facility] REPOSITORY Order Comment: 'TROP' Serial specimen #1, #2, #3, or #4: 3 TYPE CODE TESTS RESULT OUT OF RANGE REFERENCE UNITS LAB L501.4010 <0.06 ng/mL Normal < 0.02 TROPONIN-I Result Comment: TROPONIN-I EXPECTED VALUES <0.05 NEGATIVE 0.06 - 0.59 AT RISK OF KS > OR = 0.60 SUGGEST KS Performed By: #### L501.4010 #### [facility] [address] [facility]. [place], [place], [address] COMPREHENSIVE METABOLIC Collected: 07/13/2017 Status: F Source: [facility] 3:48 AM [facility] REPOSITORY TYPE CODE TESTS RESULT OUT OF RANGE REFERENCE UNITS LAB L501.0100 74-106 mg/dL High GLU 261 Result Comment: Glucose result greater than or equal to 200 mg/dL suggests DIABETES MELLITUS per A.D.A. criteria. Please note revised GLUCOSE reference range effective 2017. LAB L501.1000 7-18 mg/dL Normal BUN 12 LAB L501.1100 0.55-1.02 mg/dL Normal CREAT,SERUM 0.72 Result Comment: The validity of the calculated GFR AND GFRAA in patients over 70 years has not been determined. Clinical correlation is essential. LAB L501.1110 >60 mL/min Normal EST GFR 97 Result Comment: Non- GFR Calc LAB L501.1115 >60 mL/min Normal EST GFR - AA 117 Result Comment: GFR Calc LAB L501.1255 ml/min Normal Estimated CRCL 99.18 LAB L501.1300 10-20 RATIO Normal BUN/CRE 16.7 LAB L501.1500 6.4-8. g/dL Normal 2 T PROT 6.7 LAB L501.1800 3.2-5. g/dL Low 0 ALB 3.1 LAB L501.1950 2.2-4. g/dL Normal 2 GLOB 3.6 LAB L501.2000 0.9-2. RATIO Normal 4 A/G 0.9 LAB L501.2200 8.5-10 mg/dL Normal .1 CA 8.5 LAB L501.4100 15-37 U/L Low AST 13 LAB L501.4305 45-117 U/L Normal ALK P 72 LAB L501.4405 13-56 U/L Normal ALT 27 Result Comment: Please note revised ALT reference range effective 2017. LAB L501.4600 0.20-1.00 mg/dL Normal T BILI 0.60 LAB L501.5300 136-145 mmol/L Normal NA 137 LAB L501.5600 3.5-5.1 mmol/L Normal K 3.9 LAB L501.5900 98-107 mmol/L Normal CL 103 LAB L501.6100 21.0-32.0 mmol/L Normal CO2 25.0 LAB L501.6200 5-15 Normal GAP 9 Performed By: #### L500.4050, L500.4100, L501.5200, L501.9520 #### [facility] [address] [place], [place], [address] LIPID PROFILE Collected: 07/13/2017 Status: F Source: CHERY 3:48 AM [facility] REPOSITORY TYPE CODE TESTS RESULT OUT OF RANGE REFERENCE UNITS LAB L501.4900 200 mg/dL Normal CHOL 195 Result Comment: <200 mg/dL Desirable 200-240 mg/dL Borderline >240 mg/dL High Risk LAB L501.5000 mg/dL Normal TRIG 156 Result Comment: The drugs N-Acetylcysteine and Metamizole may falsely depress this assay. Serum Triglycerides Reference Interval Normal <150 mg/dL Borderline high 150 - 199 mg/dL High 200 - 499 mg/dL Very High > or = 500 mg/dL LAB L501.6400 mg/dL Normal HDL 40 Result Comment: The drugs N-Acetylcysteine and Metamizole may falsely depress this assay. Reference Range HDL <40 mg/dL Low HDL Cholesterol HDL >or= 60 mg/dL High HDL Cholesterol LAB L501.6500 0-130 mg/dL Normal LDL 124 LAB L501.6600 5-40 mg/dL Normal VLDL 31 Performed By: #### L500.4050, L500.4100, L501.5200, L501.9520 #### [facility] [address] [place], [address] MAGNESIUM Collected: 07/13/2017 Status: F Source: LOLITA 3:48 AM [facility] REPOSITORY TYPE CODE TESTS RESULT OUT OF RANGE REFERENCE UNITS LAB L501.5200 1.6-2.6 mg/dL Normal MG 1.8 Result Comment: Please note revised Magnesium reference range effective 2017. Performed By: #### L500.4050, L500.4100, L501.5200, L501.9520 #### [facility] [address] [place], [place], [id number] THYROID STIM HORMONE Collected: 07/13/2017 Status: F Source: LOLITA (TSH) 3:48 AM [facility] REPOSITORY TYPE CODE TESTS RESULT OUT OF RANGE REFERENCE UNITS LAB L501.9520 0.358-3.74 uIU/mL Normal TSH 2.00 Performed By: #### L500.4050, L500.4100, L501.5200, L501.9520 #### [facility] [address] [place], [address] HEMOGLOBIN A1C Collected: 07/13/2017 Status: F Source: LOLITA 3:48 AM [facility] REPOSITORY TYPE CODE TESTS RESULT OUT OF RANGE REFERENCE UNITS LAB L501.9985 4.2-6.3 % High HGB A1C 10.8 Performed By: #### L501.9985 #### [facility] [address] [place], [address] URINE DRUG SCREEN Collected: 07/13/2017 Status: F Source: CHERY (VISTA) 2:46 AM [facility] REPOSITORY Order Comment: Comments: . List of Drugs Taken or Suspected? . TYPE CODE TESTS RESULT OUT OF RANGE REFERENCE UNITS LAB L505.0075 TO BE Normal CONFIRMED Result Comment: CONFIRMATORY TESTING FOR ALL POSITIVE URINE DRUG SCREEN RESULTS WILL ONLY BE SENT OUT UPON PHYSICIAN ORDER. VISTA Urine Drug Screen methods provide only preliminary analytical test results. A more specific alternate chemical method must be used in order to obtain a confirmed analytical result. Gas chromatography/mass spectrometery (GC/MS) is the preferred confirmatory method. Clinical consideration and professional judgement should be applied to any drug of abuse test result, particularly when preliminary positive results are used. URINE TCA TESTING MUST BE ORDERED SEPARATELY. USE TEST MNEMONIC: [facility] LAB L505.5005 VISTA UDS PH 6 Normal LAB L505.5015 <1000 ng/mL AMPHETAMINES Normal NEGATIVE LAB L505.5025 < 200 ng/mL BARBITIURATES Normal NEGATIVE LAB L505.5035 < 200 ng/mL BENZODIAZIPINE Normal NEGATIVE LAB L505.5045 < 300 ng/mL COCAINE Normal NEGATIVE LAB L505.5055 < 500 ng/mL ECSTACY Normal NEGATIVE LAB L505.5065 < 300 ng/mL METHADONE Normal NEGATIVE LAB L505.5075 < 300 ng/mL OPIATES Normal NEGATIVE LAB L505.5085 < 25 ng/mL PCP Normal NEGATIVE LAB L505.5095 < 50 ng/mL THC Normal NEGATIVE Performed By: #### L505.5000 #### [facility] [address] [place], [address] HISTORY AND PHYSICAL Observed: 07/13/2017 Status: F Source: CHERY EXAM 2:41 AM [facility] REPOSITORY [facility] Medical Records Department [address] [place] [address] History and Physical 07/13/17 0231 MR#: [id number] Acct: [id number] Name: YAMILA KITCHEN Rep #: [id number] : 1980 37 From: Adelso Marques MD PCP: Padilla Carroll, DO Status: ADM TRACI Y Location: [place] [address] Problem List (1) Chest pain Status: Acute (2) DMII (diabetes mellitus, type 2) Status: Acute (3) HTN (hypertension) Status: Chronic History of Present Illness Date of Admission: 07/13/17 Chief Complaint: Chest pain The patient is a 37 year old female w/ h/o DMII and HTN admitted for chest pain. She c/o chest pain around 5:00 PM while resting at home. Pain was in the midepigastric area and radiated to the left shoulder and down the left arm. Pain lasted for hours. Nothing made it better or worse. Pain was not associated with any other symptoms. No diaphoresis. No palpitation. Pain was constant and severe. Pain came on suddenly and slowly improved over the course of a few hours. Both her mother and father has CAD. Her bother has KS at 40 y/o. She came to the ED for further workup. 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 Denies: Palpitations Respiratory: Denies: Cough, Shortness of breath at rest, Sputum production Gastrointestinal: Denies: Abdominal Pain, Nausea, Vomiting Genitourinary: Denies: Dysuria Musculoskeletal: Denies: Joint Pain, Joint Tenderness Skin: Denies: Rash, Wounds Neurological: Denies: Numbness, Tingling, Focal weakness Psychiatric: Denies: Anxiety, Depression, Homicidal Ideations, Suicidal Ideations Hematologic/ Lymphatic: Denies: Easy Bruising, Easy Bleeding VTE Information - Inpt Only VTE Present on Admission: No VTE Mechan Device Prophylaxis: SCD's VTE Pharm Prophylaxis ordered?: Yes Patient Problems: Active and Suspected Problems Chest pain (Acute) DMII (diabetes mellitus, type 2) (Acute) - Physical Exam General: Alert, Oriented x3, Cooperative HEENT: Atraumatic, PERRLA, EOMI, Normocephalic Neck: Supple, No JVD, Negative Carotid Bruits Lungs: Clear to auscultation, Normal air movement Cardiovascular: Regular rate, No murmurs Abdomen: Bowel Sounds Present, Soft, Non Tender Extremities: No edema, Capillary Refill Less than 3 Seconds Skin: No rashes, No breakdown Musculoskeletal: No Tenderness to Palpation of Joints or Extremities Neurological: Cranial nerves II-XII grossly intact Psych/Mental Status: Normal Affect, Appropriate Vital Signs Temp Pulse Resp BP Pulse Ox 98.4 F 93 14 120/80 97 07/13/17 01:30 07/13/17 01:30 07/13/17 01:30 07/13/17 01:30 07/13/17 01:30 Assessment/Plan Active and Suspected Problems Chest pain (Acute) DMII (diabetes mellitus, type 2) (Acute) 37 year old female w/ h/o DMII and HTN admitted for chest pain. 1) Chest pain: Heart score 4 Her brother has KS at 40 y/o. EKG disclosed flattening of T-wave in the inferolateral leads. Chest xray and trop negative. Will get serial trops. ECHO and stress test in AM. Will get lipid panel and A1C. Will start plavix given allergy to ASA. Will also start statin and beta-junaid. Nitro PRN. 2) DMII: Poorly controlled. Resume home meds. Accucheck and sliding scale. Monitor. 3) HTN: SBP 120s. Start beta-junaid. Monitor. 4) Prophylaxis: SCD / heparin. 07/13/17 0241 <Electronically signed by Adelso Marques MD> Date Adelso Marques MD Cosigner Signature: Date (if applicable) CC: Padilla Carroll DO; Adelso Marques MD Signed EMERGENCY DEPARTMENT Observed: 07/13/2017 Status: F Source: CHERY SUMMARY 12:52 AM [facility] REPOSITORY [facility] Medical Records Department [address] [place] [address] Emergency Department Summary 07/12/172056 MR#: [id number] Acct: [id number] Name: YAMILA KITCHEN Rep #: [id number] : 1980 37 From: Agustin Virgen MD PCP: Padilla Carroll DO Status: REG ER ADDENDUM by Melissa Carr DO on 07/13/17 at 0052 Pt had subtle EKG changes with flattening of the T-waves in the inferolateral leads. In light of the strong family history, hx of diabetes, and chest pain radiating to the left upper extremity I called the hospitalist to admit the patient for serial exams and enzymes. Date Melissa Carr DO cc: Padilla Carroll DO * Signed - ER Visit Summary Date of Service: 07/12/17 Chief Complaint: Midsternal/left-sided sharp chest pain that started 3-4 hours ago with radiation to the left shoulder. History of Present Illness: The patient is a 37 F who presents with midsternal/left-sided sharp chest pain with radiation to the left shoulder that started 3-4 hours ago while at rest. She does have history of type 2 diabetes requiring insulin. She was diagnosed with diabetes in 2007. Brother had an KS at the age of 40. Mother and father both had cardiac problems. She denies hypertension, hypercholesterolemia and denies smoking. She denies history of PE or DVT. She denies any leg pain, swelling discoloration. She does not take aspirin because she had an anaphylactic reaction. She denies any ocular, visual or auditory symptoms. She has no constitutional symptoms of fever, chills night sweats. She denies palpitations or rapid heartbeat. She denies shortness of breath, dyspnea, orthopnea or PND. GI review of systems negative. review of systems negative. She denies history of bruising easily or bleeding problems. Physical Examination: Vital signs are marked for slight elevation of blood pressure 132/93. Head is atraumatic normocephalic. Pupils are equal round reactive. Extraocular muscles are intact. TMs are pearly white with landmarks noted. Nares patent with no drainage. Posterior pharynx without erythema or exudate. Uvula is midline. There is no dysphonia or dysphasia. Trachea is midline. There is no stridor with auscultation of the neck. Heart is regular without murmur, gallop or rub. S1 and S2 are normal. Lungs are clear to auscultation with good movement of air bilaterally. Abdomen is soft nontender with no hepatosplenomegaly. Negative Vazquez sign. There is no asymmetry, swelling, discoloration, leg vein distention, palpable cords or tenderness along the distribution of the deep venous system. Test Results: EKG revealed a sinus rhythm rate of 97 and is normal. Portable chest x-ray of nose normal cardiac silhouette, lung parenchyma, mediastinum and musculoskeletal structures. CBC normal. Troponin less than 0.02. BMP is remarkable for glucose of 396. Patient received 10 units of insulin subcu. Emergency Department Course and Treatment: EKG, chest x-ray and blood work was obtained to evaluate patient's complaint of chest pain. Need to rule out cardiac versus pulmonary versus GI cause. She did not receive aspirin because she had an anaphylactic reaction. Treatment Plan: Patient's heart score is 1. A 3 hour delta was ordered. Repeat EKG and blood work at 2335. If repeat EKG and troponin are normal outpatient follow-up would be appropriate. Disposition: Pending 3 hour delta troponin and EKG if repeat troponin and EKG are negative she will be discharged home with appropriate home-going instructions Impression: 1. Mid/left sided chest pain 2. Hyperglycemia and type II diabetic requiring insulin This note was generated with Base79ation software. It may contain incorrect words, spelling, and punctuation that were not noted in review of the chart prior to signing ED Disposition - Plan for ED Patient: Disposition: Home or Assisted Living Chief Complaint: Chest Pain Instructions: ED Chest Pain Atypical Unkn Cause, ED Hyperglycemia Diabetic Referrals: Padilla Osborne DO [Primary Care Provider] - 2 Days What to do if you have Problems For any increased pain, shortness of breath, bleeding, nausea or vomiting, chest pain, or any unexpected problems, contact your Primary Care Provider. Call [facility] ([phone]) or report to the closest Emergency Room. Call 911 if necessary. 07/12/17 7445 <Electronically signed by Agustin Virgen MD> Date Agustin Virgen MD Cosigner Signature (If Indicated): Date CC: Padilla Carroll DO TROPONIN-I Collected: 07/12/2017 Status: F Source: CHERY 11:37 PM [facility] REPOSITORY Order Comment: Comments: Should be drawn 2H after initial Troponin obtained 'TROP' Serial specimen #1, #2, #3, or #4: 2 TYPE CODE TESTS RESULT OUT OF RANGE REFERENCE UNITS LAB L501.4010 <0.06 ng/mL Normal < 0.02 TROPONIN-I Result Comment: TROPONIN-I EXPECTED VALUES <0.05 NEGATIVE 0.06 - 0.59 AT RISK OF KS > OR = 0.60 SUGGEST KS Performed By: #### L501.4010 #### [facility] [address] [place], [place], [address] BEDSIDE GLUCOSE Collected: 07/12/2017 Status: F Source: CHERY 11:06 PM [facility] REPOSITORY TYPE CODE TESTS RESULT OUT OF REFERENCE UNITS RANGE LAB L501.080 70-110 mg/dL High BEDSIDE GLU 309 Result Comment: MANAGEMENT OF PATIENT CARE PER NURSING PROTOCOL Performed By: #### L501.080 #### [facility] Point of Care [address] [place], [place] [address] CHEST 1 VIEW Observed: 07/12/2017 Status: F Source: CHERY (PORTABLE) 8:45 PM [facility] REPOSITORY [facility] Imaging Services [address] [place] [address] Chest 1 View (Portable) MR#: [id number] Acct: [id number] Name: YAMILA KITCHEN Rep #: [id number] : 1980 F 37 From: Brianne Bermeo MD PCP: Padilla Carroll DO Status: PRE ER Study: Chest 1 View (Portable) Date of Exam: 07/12/17 Exam# [id number] Ordering Dr: Agustin Virgen MD XR Chest 1 View INDICATION: PT STATED CHEST PAIN COMPARISON: None FINDINGS: Heart size and pulmonary vascularity are within normal limits. The lungs are clear without evidence of airspace consolidation or pleural effusion. The osseous structures are grossly unremarkable. RAD/Chest 1 View (Portable) IMPRESSION: No radiographic evidence of acute intrathoracic disease. at 2112 Reported and signed by: Brianne Bermeo MD Electronically Signed: Brianne Bermeo MD at 20:10 EDT Tel , Service support , CC: Padilla Carroll DO; Agustin Virgen MD Customer Quality Specialist: Signed CBC W/DIFF, AUTOMATED Collected: 07/12/2017 Status: F Source: LOLITA 8:36 PM [facility] REPOSITORY TYPE CODE TESTS RESULT OUT OF RANGE REFERENCE UNITS LAB L100.1000 4.4-11.0 K/mm3 Normal WBC 7.3 LAB L100.1200 4.2-5.4 M/mm3 Normal RBC 5.03 LAB L100.1300 12.0-15.0 g/dl Normal HGB 13.7 LAB L100.1400 37-47 % Normal HCT 42.4 LAB L100.1500 81-99 fL Normal MCV 84.3 LAB L100.1600 27.0-32.0 pg Normal MCH 27.2 LAB L100.1700 32-36 g/gl Normal MCHC 32.3 LAB L100.1810 11.6-14.6 % Normal RDW CV 13.2 LAB L100.1820 35.1-43.9 fl Normal RDW SD 39.7 LAB L100.1900 150-450 K/mm3 Normal PLT 281 LAB L100.2000 6.2-12.0 fl Normal MPV 10.4 LAB L100.2100 47-70 % Normal NEUT% 61.6 LAB L100.2200 19-41 % Normal LY% 29.2 LAB L100.2300 0-10 % Normal MONO% 4.4 LAB L100.2400 0-5 % Normal EO% 4.6 LAB L100.2500 0-1 % Normal BASO% 0.1 LAB L100.2550 0.0-0.9 % Normal IM GRAN % 0.100 Result Comment: IG% - Immature Granulocytes (promyelocytes, myelocytes and metamyelocytes) > 1% indicates that a LEFT SHIFT is Present. LAB L100.2620 2.0-7.7 X10 3/uL Normal Absolute Neut 4.5 LAB L100.2720 0.83-4.51 X10 3/ul Normal Absolute Lymph 2.14 Performed By: #### L100.0100 #### [facility] [address] [place], [place], [id number] BASIC METABOLIC Collected: 07/12/2017 Status: F Source: CHERY PROFILE (BMP) 8:36 PM [facility] REPOSITORY Order Comment: 'TROP' Serial specimen #1, #2, #3, or #4: 1 TYPE CODE TESTS RESULT OUT OF RANGE REFERENCE UNITS LAB L501.0100 74-106 mg/dL High GLU 396 Result Comment: Glucose result greater than or equal to 200 mg/dL suggests DIABETES MELLITUS per A.D.A. criteria. Please note revised GLUCOSE reference range effective 2017. LAB L501.1000 7-18 mg/dL Normal BUN 13 LAB L501.1100 0.55-1.02 mg/dL Normal CREAT,SERUM 0.91 Result Comment: The validity of the calculated GFR AND GFRAA in patients over 70 years has not been determined. Clinical correlation is essential. LAB L501.1110 >60 mL/min Normal EST GFR 73 Result Comment: Non- GFR Calc LAB L501.1115 >60 mL/min Normal EST GFR - AA 89 Result Comment: GFR Calc LAB L501.1255 ml/min Normal Estimated CRCL 78.47 LAB L501.1300 10-20 RATIO Normal BUN/CRE 14.2 LAB L501.2200 8.5-10 mg/dL Normal .1 CA 9.0 LAB L501.5300 136-14 mmol/L Normal 5 NA 137 LAB L501.5600 3.5-5. mmol/L Normal 1 K 4.3 LAB L501.5900 98-107 mmol/L Normal CL 99 LAB L501.6100 21.0-3 mmol/L Normal 2.0 CO2 28.0 LAB L501.6200 5-15 Normal GAP 10 Performed By: #### L500.2500, L501.4010 #### [facility] [address] [facility] [place], [address] TROPONIN-I Collected: 07/12/2017 Status: F Source: LOLITA 8:36 PM [facility] REPOSITORY Order Comment: 'TROP' Serial specimen #1, #2, #3, or #4: 1 TYPE CODE TESTS RESULT OUT OF RANGE REFERENCE UNITS LAB L501.4010 <0.06 ng/mL Normal < 0.02 TROPONIN-I Result Comment: TROPONIN-I EXPECTED VALUES <0.05 NEGATIVE 0.06 - 0.59 AT RISK OF KS > OR = 0.60 SUGGEST KS Performed By: #### L500.2500, L501.4010 #### [facility] [address] [facility]. [place], [place], [address] PROGRESS Observed: 05/25/2017 Status: COMPLETED Source: ALTHEIMER 9:47 AM [facility] REPOSITORY HNO ID: [id number] Author: Swati Castrejon (Stock Or Delivery Clerk) [employer] Service: (none) Author Type: Nurse Practitioner Type: Progress Notes Filed: 05/25/2017 10:50 AM Note Text: HPI/CC: Yamila Kitchen is a 36 year old female who presents for URI symptoms and left hip pain. Pt was seen at urgent care one week ago for chest discomfort and cough. Pt complains of shortness of breath, chest tightness at the sternal area, cough, upper quadrant abdominal pain, and one episode of vomiting. Pt was prescribed mucinex and albuterol inhaler. Pt was unable to fill medications due to insurance. Pt also states she has left hip pain that has been persistent for 1 week but has been a chronic issue. No trauma or injury related to left hip pain. Pt rates her pain as a 8/10 while resting. Pt states her pain increases with movement. Pt has tried heat at home for pain, without any relief. Flexeril and Tylenol have been used at home for pain. ROS as above, otherwise non-contributory. Reviewed PMHx, PSHx, social Hx, medications and allergies. PHYSICAL EXAMINATION: BP 122/80 Pulse 96 Resp 16 Wt 110.2 kg (243 lb) BMI 39.22 kg/m2 General appearance: Well appearing, alert, in no acute distress, well-hydrated, well nourished., Obese Skin: Skin color, texture, turgor normal, no suspicious rashes or lesions Head: Normocephalic, no masses, lesions, tenderness or abnormalities Eyes: Anicteric sclera. Pupils are equally round and reactive to light. Extraocular movements are intact. Ears: External ears normal, canals clear Nose/Sinuses: Nares normal, septum midline, mucosa normal, no drainage or sinus tenderness Oropharynx: Lips, mucosa, and tongue normal, teeth and gums normal, oropharynx normal Neck: Supple, no adenopathy; thyroid symmetric, normal size, no bruits Back: Normal exam, no pain to palpation Lungs: Lungs clear to auscultation. No wheezing, rhonchi, rales, Percussion normal, good diaphragmatic excursion Heart: RRR without murmur, gallop, or rubs. No ectopy, No carotid bruits Abdomen: Normal abdominal exam, Positive findings: tenderness mild RUQ and LUQ Extremities: No deformities, edema, skin discoloration, clubbing or cyanosis. Good capillary refill. Musculoskeletal: Spine range of motion normal. Muscular strength intact, Positive findings: joint location: on left hip pain, painful movement and stiffness Peripheral pulses: Normal, Capillary refill <2secs, strong peripheral pulses Neuro: Gait normal. Reflexes normal and symmetric. Sensation grossly intact. ASSESSMENT/PLAN: 1. Pain of left hip joint - ICD9: 719.45, ICD10: M25.552 (primary diagnosis) - PREDNISONE 10 MG TABLET - hip exercises provided to patient - consider PT if not improving 2. URI, acute - ICD9: 465.9, ICD10: J06.9 - Discussed viral etiology and rationale for treatment. - Symptomatic treatment with prn analgesia - Supportive care with fluids and rest - The patient may also use OTC cough and cold meds as needed, warm salt water gargles, throat lozenges and/or OTC throat spray as needed and nasal saline gtts and suction prn. - Follow up in one week if symptoms persist or sooner if worsening of symptoms - PREDNISONE 10 MG TABLET Swati Campo CNP PROGRESS Observed: 05/18/2017 Status: COMPLETED Source: ALTHEIMER 11:12 AM [facility] REPOSITORY HNO ID: [id number] Author: Cornelius (Max) Gillian Service: (none) Author Type: Nurse Practitioner Type: Progress Notes Filed: 05/18/2017 1:33 PM Note Text: HPI Patient is a 36 year old female here today for a 4 day history of nasal congestion and cough. States cough is productive. States cough is worse in the morning. Denies fever or muscle aches. Nothing makes it better or worse. No other concerns at this time. Review of Systems Constitutional: Positive for malaise/fatigue. Negative for chills and fever. HENT: Positive for congestion. Negative for ear pain and sore throat. Respiratory: Positive for cough, shortness of breath and wheezing. Negative for sputum production. Cardiovascular: Negative. Gastrointestinal: Negative for nausea and vomiting. Musculoskeletal: Negative for myalgias. Endo/Heme/Allergies: Negative for environmental allergies. All other systems reviewed and are negative. PAST MEDICAL HISTORY Diagnosis Date - Diabetes mellitus type 2, controlled, without complications (HCC) 08/04/2014 - Hypothyroidism 05/2014 - Major depressive disorder, recurrent episode, moderate (HCC) 10/31/2014 - Obesity 08/04/2014 PAST SURGICAL HISTORY Procedure Laterality Date - COLONOSCOP W/ OR W/O BRSH SPEC N/A 06/04/2016 MAC - EGD W/O OR W/BRUSH/WASH N/A 06/04/2016 MAC - LIGATE FALLOPIAN TUBE 2013 Tubal ligation - PAST SURGICAL HISTORY OF 2013 - PAST SURGICAL HISTORY OF Left tendon surgery on left wrist ALLERGIES Aspirin; Ibuprofen; Simvastatin; Tramadol MEDICATIONS Insulin Gerald, Disposable, (PEN NEEDLE) 29 gauge x 1/2 ndle Use one needle per dose. 1 per day amitriptyline (ELAVIL) 25 mg tablet Take 1 tablet by mouth daily at bedtime. levothyroxine (LEVOXYL) 50 mcg tablet Take 1 tablet by mouth once daily. Take on empty stomach. For Thyroid metFORMIN ER (GLUCOPHAGE XR) 500 mg 24 hr tablet Take 2 tablets by mouth twice daily before meals. liraglutide (VICTOZA 2-DANIELLE) 0.6 mg/0.1 mL (18 mg/3 mL) pnij Inject 1.2 mg subcutaneously once daily. cyclobenzaprine (FLEXERIL) 10 mg tablet Take 1 tablet by mouth three times daily as needed. insulin degludec (TRESIBA) 100 unit/mL (3 mL) injection Inject 26 Units subcutaneously every 24 hours. tolnaftate (TINACTIN) 1 % cream Apply 1 application to affected area twice daily. glucose 4 gram chewable tablet Take 4 tablets by mouth as needed. For low blood sugars blood sugar diagnostic (FREESTYLE LITE STRIPS) test strip TEST once daily as directed FAMILY HISTORY Problem Relation Age of Onset - Diabetes Mother - Thyroid Mother hypothyroid - Stroke Mother - Diabetes Father - Stroke Father - Diabetes Sister - Diabetes Maternal Grandmother - Heart Maternal Grandmother congestive heart failure - Diabetes Maternal Grandfather - Heart Maternal Grandfather - Heart Paternal Grandfather had hole in heart at age 16 - Cancer Paternal Grandfather eye Social History Substance Use Topics - Smoking status: Never Smoker - Smokeless tobacco: Never Used - Alcohol use No BP 110/80 Pulse 84 Temp 36.4 ?C (97.5 ?F) (Tympanic) Resp 16 Wt 109.8 kg (242 lb) SpO2 98% BMI 39.06 kg/m2 Physical Exam Constitutional: She is well-developed, well-nourished, and in no distress. Vital signs are normal. Mildly ill. HENT: Head: Normocephalic and atraumatic. Right Ear: Tympanic membrane, external ear and ear canal normal. Left Ear: Tympanic membrane, external ear and ear canal normal. Nose: Mucosal edema and rhinorrhea present. Right sinus exhibits no maxillary sinus tenderness and no frontal sinus tenderness. Left sinus exhibits no maxillary sinus tenderness and no frontal sinus tenderness. Mouth/Throat: Uvula is midline, oropharynx is clear and moist and mucous membranes are normal. No oropharyngeal exudate, posterior oropharyngeal edema or posterior oropharyngeal erythema. Neck: Neck supple. Cardiovascular: Normal rate, regular rhythm and normal heart sounds. Pulmonary/Chest: Effort normal and breath sounds normal. She has no wheezes. She has no rales. Lymphadenopathy: Head (right side): No submental, no submandibular and no tonsillar adenopathy present. Head (left side): No submental, no submandibular and no tonsillar adenopathy present. She has no cervical adenopathy. Submandibular fullness. Neurological: She is alert. Skin: Skin is warm and dry. Nursing note and vitals reviewed. ASSESSMENT/PLAN: 1. Viral URI with cough - ICD9: 465.9, ICD10: J06.9, B97.89 - Discussed viral etiology and rationale for treatment. - Symptomatic treatment with prn analgesia - Supportive care with fluids and rest - The patient may also use warm salt water gargles, throat lozenges and/or OTC throat spray as needed. - Follow up in 3-5 days if symptoms persist or sooner if worsening of symptoms - ALBUTEROL SULFATE HFA 90 MCG/ACTUATION AEROSOL INHALER - DEXTROMETHORPHAN-GUAIFENESIN 30 MG-600 MG TABLET EXTENDED [id number] HR Prescription instructions reviewed with patient as applicable. Patient advised if symptoms do not improve or if symptoms worsen sooner, to contact their primary care physician. Potential red flag symptoms discussed with the patient. Reviewed appropriate action plan to take if red flag symptoms occur. Patient agreeable to treatment plan. Cornelius French CNP ALLERGIES ALLERGIES DATE TYPE / CODE NAME / CODE REACTION SEVERITY SOURCE 10/16/2017 Drug aspirin/[id number] Hives Unknown [place] Allergy/416 (RXNORM) [facility] 353874([facility] ED CT) Repository 10/16/2017 Drug ibuprofen/[id number] Hives Unknown [place] Allergy/416 77(RXNORM) [facility] 749038([facility] ED CT) Repository 10/16/2017 Drug tramadol/[id number] Other Unknown [place] Allergy/416 0(RXNORM) [facility] 537197([facility] ED CT) Repository 2014 DRUG SIMVASTATIN RASH [facility] INGREDI/419 [facility] 048513([facility] Repository ED CT) 01/31/2014 DRUG TRAMADOL OTHER: [facility] [place] 223245(SNOM Repository ED CT) 07/16/2011 DRUG ASPIRIN [facility] INGREDI/[address] [place] 373365(SNOM Repository ED CT) 07/16/2011 DRUG IBUPROFEN SHORTNESS OF [facility] INGREDI/419 [address] [place] 004933(SNOM Repository ED CT) ENCOUNTERS ENCOUNTERS ADMIT/DISCHARGE ACCOUNT ADMITTING ENCOUNTER LOCATION SOURCE NUMBER [facility] 04/23/2018/04/26/19 [id number] Ambulatory [address] [place] Repository 04/21/2018/04/22/19 [id number] Ambulatory [address] [place] Repository 04/01/2018/04/02/20 [id number] Ambulatory [address] [place] Repository 03/26/2018/03/29/20 [id number] Ambulatory [address] [place] Repository 03/23/2018/03/23/20 [id number] Emergency [place] ing:ED Repository 03/19/2018/03/19/20 [id number] Ambulatory [address] [place] Repository 03/11/2018/03/11/20 [id number] Ambulatory [address] [place] Repository 03/11/2018/03/12/20 [id number] Ambulatory [address] [place] Repository 03/02/2018/04/10/20 [id number] Ambulatory [address] [place] Repository 02/26/2018/02/27/20 [id number] Ambulatory [address] [place] Repository 01/22/2018/01/26/20 [id number] Ambulatory [address] [place] Repository 12/02/2017/12/03/19 [id number] Ambulatory [address] [place] Repository 11/05/2017/11/07/19 [id number] Ambulatory [address] [place] Repository 10/16/2017/10/17/19 [id number] Emergency [place] ing:ED Repository 10/06/2017/10/07/19 [id number] Ambulatory [address] [place] Repository 10/06/2017/10/08/19 [id number] Ambulatory [address] [place] Repository 09/02/2017/09/04/19 [id number] Ambulatory [address] [place] Repository 08/25/2017 [id number] Ambulatory [facility] ing:HPRAD Repository 08/24/2017/08/29/19 [id number] Ambulatory [address] Repository 08/12/2017/08/13/19 [id number] Ambulatory [address] Repository 08/04/2017/08/08/19 [id number] Ambulatory [address] Repository 08/03/2017/08/05/19 [id number] Ambulatory [address] Repository 07/28/2017/07/30/19 [id number] Ambulatory [address] Repository 07/22/2017/07/23/19 [id number] Ambulatory [address] Repository 07/13/2017/07/14/19 [id number] Adelso Marques Ambulatory [address] ing:PCURoom: Repository [id number]: 1 07/13/2017 [id number] Adelso Marques Ambulatory BMSBuilding:Sondra Gottlieb MS.[facility] Repository 07/13/2017/07/14/19 [id number] Ambulatory BMSBuilding:Astrid [address] Repository 07/13/2017/07/14/19 [id number] Ambulatory BMSBuilding:W [address] Repository 05/25/2017/05/25/19 [id number] Ambulatory [address] Repository 05/18/2017/05/18/19 [id number] Ambulatory [address] Repository PAYERS PAYERS ENCOUNTER GUARANTOR PAYER SUBSCRIBER SOURCE 03/23/2018 YAMILA Gottlieb [id number] Insurance:MARIESHOAIB DALEYB: [facility] YOVANA amezcua Number: [id number] [id number] Repository [phone]: 330) Date:2018-03-23 O [phone] () [address]ATTN: [place] [address]AQ: 03/23/2018 Secondary NOT GIVENUNK [place] Insurance:SELF PAY [facility] Number: Effective Repository Date:2018-03-23 10/16/2017 YAMILA Skyoster [id number] Insurance:CARESOURCEP KOVALDOB: [facility] Number: [id number] Hospital [address]Pje: [phone] [id number] Repository [phone] () Date:2017-10-16P [address]ATTN: [place] [address]LG: 10/16/2017 Secondary NOT GIVENUNK [place] Insurance:SELF PAY [facility] Number: Effective Repository Date:2017-10-16 08/25/2017 YAMILA Michel Primary YAMILA [id number] Insurance:CARESOURCEP KOVALDOB: [facility] Number: [id number] Hospital [address]Xys: [phone] [id number] Repository [phone] () Date:2017-08-25P [address]ATTN: [place] [address]AF: 08/25/2017 Secondary NOT GIVENUNK [place] Insurance:SELF PAY [facility] Number: Effective Repository Date:2017-08-25 07/13/2017 YAMILA Michel Primary YAMILA [id number] Insurance:CARESOURCEP KOVALDOB: [facility] Number: [id number] Hospital [address]Dwy: [phone]) [id number] Repository [phone] () Date:2017-07-12P [address]ATTN: [place] [address]TB: 07/13/2017 Secondary NOT GIVENUNK [place] Insurance:SELF PAY [facility] Number: Effective Repository Date:2017-07-12 07/13/2017 YAMILA Michel Primary YAMILA [id number] Insurance:CARESOURCEP KOVALDOB: [facility] Number: [id number] Hospital [address]Tqe: [phone] [id number] Repository [phone] (HP) Date:2017-07-12 [address]ATTN: [place] [address]YP: 07/13/2017 Secondary NOT GIVENUNK [place] Insurance:SELF PAY [facility] Number: Effective Repository Date:2017-07-13 07/13/2017 YAMILA Michel Primary YAMILA Gottlieb [id number] Insurance:CARESOURCEP KOVALDOB: [facility] Number: [id number] Hospital [address]Wqp: [phone] [id number] Repository [phone] () Date:2017-07-12 [address]ATTN: [place] [address]JZ: 07/13/2017 Secondary NOT GIVENUNK [place] Insurance:SELF PAY [facility] Number: Effective Repository Date:2017-07-13 07/13/2017 YAMILA Michel Primary YAMILA Gottlieb [id number] Insurance:CARESOURCEP KOVALDOB: [facility] Number: [id number] Hospital [address]Svz: [phone]) [id number] Repository [phone] () Date:2017-07-12 [address]ATTN: [place] [address]AH: 07/13/2017 Secondary NOT GIVENUNK [place] Insurance:SELF PAY [facility] Number: Effective Repository Date:2017-07-13
== END 2018-03-23 21:47 | disposition home or self-care (01) ==
PROVIDERS: Emergency Provider Emergency Medicine; Family Provider Student in an Organized Health Care Education/Training Program; PCP Student in an Organized Health Care Education/Training Program
DX: T23.222A Burn of second degree of single left finger (nail) except thumb, initial encounter (principal); L03.012 Cellulitis of left finger; B96.89 Other specified bacterial agents as the cause of diseases classified elsewhere; X08.8XXA Exposure to other specified smoke, fire and flames, initial encounter; Y93.89 Activity, other specified; E11.9 Type 2 diabetes mellitus without complications; Z79.84 Long term (current) use of oral hypoglycemic drugs
CPT/HCPCS: 10140; 99283

== ENCOUNTER → 2018-08-25 14:26 | Outpatient (CLI) | payer MEDICAID, SELFPAY ==
[2018-08-30 14:24] LABS: HPV Reflexed? NOT INDICATED
== END ==
PROVIDERS: Visit Provider Obstetrics & Gynecology
DX: Z12.4 Encounter for screening for malignant neoplasm of cervix (principal)
CPT/HCPCS: 88175; G0145

== ENCOUNTER 2019-03-02 07:15 | Emergency (ER) | payer MEDICAID, SELFPAY ==
[2019-03-02 07:17] VITALS: BP 123/82; PULSE 85; RESP 17; TEMP 36.5; O2SAT 98; BMI 38.8
--- NOTE | 2019-03-02 07:30 | RAD_ITS ---
STUDY: X-RAY - LEFT KNEE REASON FOR EXAM: Female, 38 years old. Left knee pain following a fall. TECHNIQUE: 4 view(s) of the knee. COMPARISON: None. FINDINGS: Normal visualized distal femur. Normal visualized proximal tibia and fibula. Normal proximal tibiofibular articulation. Normal medial femorotibial compartment. Normal lateral femorotibial compartment. Normal patellofemoral articulation. The soft tissue structures are unremarkable. RAD/Knee 4 or More Views IMPRESSION: Normal x-ray examination of the knee. Electronically Signed: Diego Melvin, at 8:04 EST , Service support ,
--- NOTE | 2019-03-02 07:31 | ED.VIS.INJ ---
History of Present Illness Chief Complaint: Lower Extremity Injury Informant: Patient Onset: Today Mechanism/Context: Blunt Injury, Fall Quality of Pain: Dull, Aching Location: Left hand and left knee Current Severity: Mild Maximum Severity: Severe Worsened by: Movement of left little finger and left knee Relieved by: Nothing Associated Symptoms: Negative for: Parasthesias, Weakness, Loss of function, Inability to ambulate, Loss of consciousness, Amnesia Length of loss of consciousness: No Narrative: Patient is a 38-year-old woman who was walking to work. She states her knee gave out. She states her knee gave out last week. She fell forward. She presents with injury to her left hand and left knee. She states she did hit her face. There was no loss of conscious. She is not on an anticoagulant. She denies neck pain. She denies paresthesia, anesthesia motor especially at the time of the impact. She denies that her teeth do not line up and she states she is able to open close her mouth completely. She denies any auditory symptoms. Last tetanus 2013. Patient does have history of type 2 diabetes requiring insulin. She localizes the pain to the left hand ulnar side over the fifth MCP joint. She states the pain is worse with movement a little finger. She also reports knee pain on the left side that is worse with bending and walking. She denies prior injury. She states she did injure her left ankle, sprain. Prior similar symptoms: Yes Recent Illness/Hospitalization: No - Past Medical History (1) DMII (diabetes mellitus, type 2) Status: Acute (2) HTN (hypertension) Status: Chronic Past Medical History - Allergies and Home Meds Allergies/Adverse Reactions: Allergies aspirin Allergy (Verified 03/02/19 07:16) Hives ibuprofen Allergy (Verified 03/02/19 07:16) Hives simvastatin Adverse Reaction (Verified 03/02/19 07:16) Other PATIENT GETS REALLY HOT AND BLOTCHY tramadol Adverse Reaction (Verified 03/02/19 07:16) Other DIZZINESS Primary Care Physician: Padilla Osborne DO [Primary Care Provider] - Prior records reviewed: Yes Surgical History: no surgical history Lives: With Family Smoking Status: Never smoker Alcohol: None Drugs: None - Family History Paternal Family History: Reports: Heart Disease Review of Systems General: Denies: Chills, Fever, Sweats Eyes: Denies: Visual changes - bilaterally, Blurred Vision - bilaterally, Diplopia ENT: Denies: Bilateral ear pain, Rhinorrhea Cardiovascular: Denies: Chest pain, Palpitations Respiratory: Denies: Dyspnea, Cough, Dyspnea on exertion Gastrointestinal: Denies: Nausea, Vomiting Musculoskeletal: Reports: Extremity Pain. Denies: Myalgias, Arthralgias, Neck pain, Back pain, Swelling Skin: Reports: Wounds. Denies: Rash Neurological: Denies: Weakness, Parasthesia, Numbness Endocrine: Denies: Polyuria, Polydipsia Hematologic: Denies: Easy bruising, Easy bleeding Physical Exam Vital Signs/Narrative: Vital Signs Temp Pulse Resp BP Pulse Ox 03/02/19 07:17 97.7 F L 85 17 123/82 H 98 Inital Vital Signs reviewed: Yes General: Well nourished, Well developed, Obese Head: Normocephalic, Atraumatic, - - No clinical findings of basal skull fracture. Eyes: Perrl, EOMI, - - No subconjunctival hemorrhage.. Negative for: Pale conjunctiva, Scleral icterus ENT: TM's clear, No hemotympanum or drainage, No trauma, - - No trismus. No injury to any teeth.. Negative for: Hemotympanum, Otorrhea, Nasal trauma, Nasal septal hematoma Neck: Nontender, Full ROM. Negative for: Spinal Tenderness, Paraspinal Tenderness Cardiovascular: Regular rate, Regular rhythm, No murmurs, Normal S1, Normal S2 Respiratory: No distress, CTA bilaterally, Chest nontender Extremeties: There is an abrasion ulnar side left hand near the fifth MCP joint. There is no soft tissue swelling or ecchymosis. There is no pain the patient over the proximal phalanx of the left little finger or the fifth metacarpal. The extensor minimize tendon is intact. The flexor digitorum superficialis and flexor digitorum profundus are intact. Capillary refill is normal. Sensation is normal. Median, radial and ulnar function intact. There is no rotational malalignment. There is no subungual hematoma noted. Examination knee reveals soft tissue swelling with abrasion. There is pain palpation of the patella. The patella is not ballotable. There is no obvious effusion. There is no laxity with varus valgus stress testing. Patient is able to extend to 180 degrees and flex to 90 degrees without hesitation. She reports discomfort. Modified Rachid's test and Sandra test are negative. DP and PT pulses are palpable. There is no pain the patient over the fibula head. There is no joint line tenderness. Skin: Normal color, No rash, Trauma - Abrasion ulnar side left hand near the fifth MCP joint and abrasion with soft tissue swelling over the left patella. Neurological: Alert, Oriented x3, Cranial nerves II-XII grossly intact, Normal Strength, Normal Sensation. Negative for: Normal Gait Psychological: Normal affect - Glascow Coma Scale Eye Opening: Spontaneous Motor: Obeys Commands Verbal: Oriented Coma Scale Total: 15 Diagnostic/Tx/Re-eval Chest X-Ray - ED: Read by ED Physician, - - View x-ray of the knee reveals no evidence of fracture, subluxation or dislocation of the patella. There is no effusion. There is no abnormality of the proximal tibia or distal femur. 03/02/19 07:30 Knee 4 or More Views [RAD] Stat - Medical Decision Making Since there is no bony tenderness examination of the hand with no neurovascular findings or soft tissue swelling x-ray was not obtained. Since there is soft tissue swelling with tenderness over the patella will obtain x-ray to evaluate for patella fracture. She was treated for abrasion left hand and abrasion with contusion left knee initial encounter. ED Disposition - Plan for ED Patient: Disposition: Home or Assisted Living Diagnosis: Contusion of left knee, initial encounter, Abrasion, left knee, initial encounter, Abrasion of left hand, initial encounter Instructions: Abrasion, CONTUSION, Lower Extremity Referrals: Padilla Osborne, [Primary Care Provider] - 1 Week if not improving Additional Instructions: Recommend rest, ice and elevation. Take either Tylenol or ibuprofen for pain.
[2019-03-02] MEDS: HYDROcodone Bitartrate/Apap 5/325 Tablet PO (07:48)
== END 2019-03-02 08:02 | disposition home or self-care (01) ==
PROVIDERS: Emergency Provider Emergency Medicine; Family Provider Student in an Organized Health Care Education/Training Program; PCP Student in an Organized Health Care Education/Training Program
DX: S80.02XA Contusion of left knee, initial encounter (principal); S80.212A Abrasion, left knee, initial encounter; S60.512A Abrasion of left hand, initial encounter; X58.XXXA Exposure to other specified factors, initial encounter; Y93.01 Activity, walking, marching and hiking; I10 Essential (primary) hypertension; E11.9 Type 2 diabetes mellitus without complications; E66.9 Obesity, unspecified; Z68.38 Body mass index [BMI] 38.0-38.9, adult; Z79.4 Long term (current) use of insulin; Z79.84 Long term (current) use of oral hypoglycemic drugs
CPT/HCPCS: 73564; 99283

== ENCOUNTER 2019-03-14 09:00 | Emergency (ER) | payer MEDICAID, SELFPAY ==
[2019-03-14 09:02] VITALS: BP 146/88; PULSE 96; RESP 16; TEMP 36.4; O2SAT 98; BMI 37.9
--- NOTE | 2019-03-14 09:10 | CT_ITS ---
STUDY: CT FACIAL BONES WITHOUT CONTRAST REASON FOR EXAM: Female, 38 years old. Right facial swelling following a recent fall. RADIATION DOSAGE (If Supplied By Facility): CTDIvol = ( 29.38 ) mGy, DLP = ( 657.65 ) mGycm TECHNIQUE: The patient was scanned in a multi detector CT scanner. Sagittal and coronal images were reconstructed. Individualized dose optimization techniques were used for this CT. COMPARISON: None. FINDINGS: Normal soft tissue structures. Normal orbital murphy and orbital contents. Normal nasal bones and anterior nasal spine. Normal facial bones. There is no demonstrated fracture. Normal visualized paranasal sinuses. CT/Sinus/Facial Bone IMPRESSION: Normal unenhanced CT of the facial bones. Electronically Signed: Diego Melvin, at 9:53 EST , Service support ,
--- NOTE | 2019-03-14 09:13 | ED.DCSUM_ITS ---
- ER Visit Summary Date of Service: 03/14/19 Chief Complaint: Fall History of Present Illness: The patient is a 38 F presenting after fall with facial pain. Patient states she fell approximately 1 week ago. States she landed on her face. She did not lose consciousness. No amnesia to the event. She presented to the ED at that time. No imaging was performed of her face at that time. She complains of persistent pain right face. Denies neck pain. She states she initially fell due to knee pain. Her knee pain has resolved. Denies other complaints. Physical Examination: Vitals are stable. Patient is afebrile. Alert no acute distress. HEENT exam right maxillary tenderness. No intraoral lacerations. No pain with extraocular movements. Neck is nontender Lungs are clear and equal bilaterally. Heart is regular rate and rhythm. Extremities are unremarkable. Skin is warm and dry. No focal neurologic deficit. Remainder of exam is unremarkable. Emergency Department Course and Treatment: CT facial bones shows normal unenhanced CT of the facial bones. Patient states she is allergic to NSAIDs. She is advised to take Tylenol for pain. Advised to follow-up with primary care physician. Advised return to ED for worsening complaints. Disposition: Discharge home Impression: Facial contusion This note was generated with [employer] dictation software. It may contain incorrect words, spelling, and punctuation that were not noted in review of the chart prior to signing ED Disposition - Plan for ED Patient: Instructions: FACIAL CONTUSION, No Wakeup Referrals: Padilla Osborne DO [Primary Care Provider] -
--- NOTE | 2019-03-14 10:30 | ED.DEP ---
ED Disposition - Plan for ED Patient: Instructions: FACIAL CONTUSION, No Wakeup Referrals: Padilla Osborne DO [Primary Care Provider] -
[2019-03-14 10:32] VITALS: BP 126/90; PULSE 70; RESP 16; O2SAT 98
== END 2019-03-14 10:45 | disposition home or self-care (01) ==
LOC: ED 09:20
PROVIDERS: Emergency Provider Emergency Medicine; Family Provider Student in an Organized Health Care Education/Training Program; PCP Student in an Organized Health Care Education/Training Program
DX: S00.83XA Contusion of other part of head, initial encounter (principal); W19.XXXA Unspecified fall, initial encounter; Y93.9 Activity, unspecified; E07.9 Disorder of thyroid, unspecified; E11.9 Type 2 diabetes mellitus without complications; Z79.84 Long term (current) use of oral hypoglycemic drugs; Z79.899 Other long term (current) drug therapy
CPT/HCPCS: 70486; 99282

== ENCOUNTER → 2019-08-31 17:01 | Outpatient (CLI) | payer MEDICAID, SELFPAY ==
[2019-09-04 01:03] LABS: HPV Reflexed? NOT INDICATED
--- OUTSIDE RECORDS SUMMARY | 2020-01-24 14:57 | XMS RPT_ITS | CCD ---
:1980 External Reference #:[id number] Author Organization [facility] Care Team Providers Name Role Phone Cash Jean Primary Care Provider Allergies Reported Allergen Reaction(s) Severity Date of Onset Location Aspirin Shortness of Breath High 07-16-2011 - [facility] ([id number]) Ibuprofen Shortness of Breath High 07-16-2011 - [facility] (69789) Pravastatin GI Upset 06-08-2018 - [facility] (57632) Simvastatin Rash, Shortness of 2014 - [facility] Breath (09096) traMADol Other: See Comments 01-31-2014 - [facility] ([id number]) Medications Medication Name Sig Date Prescriber Location atorvastatin atorvastatin 06-08-2018 - Padilla Castrejon Jean [facility] (LIPITOR) 20 mg 11-24-2019 ([id number]) tablet Indications: Dyslipidemia Take 1 tablet by mouth once daily. 30 tablet 0 11/25/2019 Active Comment: Take 1 tablet by mouth once daily. Blood-Glucose Meter Blood-Glucose Meter 09-25-2017 Lizbeth Castrejon ([facility]) [facility] monitoring kit monitoring kit [place] (47498) Glucose Meter of Choice - Kit - Dx: Type 2 DM - Uncontrolled E11.65 1 Each 0 09/25/2017 Active Blood-Glucose Meter 09-25-2017 Lizbeth L ([facility]) [facility] inic monitoring kit Glucose Meter [place] (44 195) of Choice - Kit - Dx: Type 2 DM - Uncontrolled E11.65 1 Each 0 09/25/2017 Active Blood-Glucose Meter 09-25-2017 Lizbeth L ([facility]) [facility] inic monitoring kit Glucose Meter [place] (44 195) of Choice - Kit - Dx: Type 2 DM - Uncontrolled E11.65 1 Each 0 09/25/2017 Active Comment: Glucose Meter of Choice - Ki t - Dx: Type 2 DM - Uncontrolled E11.65 busPIRone busPIRone (BUSPAR) 5 mg 03-16-2019 Loly ([facility]) [facility] tablet Indications: Soheila (72263) Anxiety attack Take 1 tablet by mouth three times daily as needed. As needed for anxiety attack 0 03/16/2019 Active Comment: Take 1 tablet by mouth three times daily as needed. As needed for anxiety attack fexofenadine fexofenadine (JULIANN) 05-14-2019 Padilla Jean [facility] 60 mg tablet (96930) Indications: Allergic sinusitis Take 1 tablet by mouth once daily. 90 tablet 3 05/14/2019 Active Comment: Take 1 tablet by mouth once daily. FLUoxetine FLUoxetine (PROZAC) 40 04-15-2019 Rama ([facility]) [facility] mg capsule Indications: Bertin Ontiveros (4 [id number]) Anxiety with depression ([facility]) Haagen Take 1 capsule by mouth once daily. 30 capsule 1 04/15/2019 Active Comment: Take 1 capsule by mouth once daily. Glucose glucose 4 gram chewable 09-01-2019 [facility] Podlo gar [facility] tablet Take 4 tablets (30099 ) by mouth as needed. For low blood sugars 30 tablet 3 09/01/2019 Active Comment: Take 4 tablets by mouth as n eeded. For low blood sugars insulin degludec insulin degludec 09-01-2019 [facility] ([facility]) 100 unit/mL Podlogar (33470 ) (3 mL) injection Indications: Type 2 diabetes mellitus without complication, with long-term current use of insulin (HCC) Inject 44 Units subcutaneously every 24 hours. 6 Pen 3 09/01/2019 Active Comment: Inject 44 Units subcutaneous ly every 24 hours. levothyroxine levothyroxine (LEVOXYL) 03-16-[address] [facility] 50 mcg tablet (68929) Indications: Acquired hypothyroidism Take 1 tablet by mouth once daily. Take on empty stomach. For Thyroid 30 tablet 5 03/16/2019 Active Comment: Take 1 tablet by mouth once daily. Take on empty stomach. For Thyroid liraglutide liraglutide (VICTOZA) 0.6 03-16-[address] [facility] mg/ 0.1 ml subcutaneous (441 95) pen injector Indications: Type 2 diabetes mellitus without complication, without long-term current use of insulin ([facility]) Inject 1.2 mg subcutaneously once daily. 2 Pen 3 03/16/2019 Active Comment: Inject 1.2 mg subcutaneously once daily. metFORMIN metFORMIN ER 10-18-2018 - Padilla Castrejon [facility] (GLUCOPHAGE XR) 500 mg 11-24-2019 (4419 5) 24 hr tablet Indications: Type 2 diabetes mellitus without complication, with long-term current use of insulin ([facility]) Take 2 tablets by mouth twice daily before meals. 120 tablet 0 11/25/2019 Active Comment: Take 2 tablets by mouth twic e daily before meals. predniSONE predniSONE (DELTASONE) 03-16-2019 Loly ([facility]) [facility] 10 mg tablet Soheila (49314) Indications: Pain of left hip joint , Knee injury, left, subsequent encounter Take 40 mg x 3 days, 20 mg x 3 days, 10 mg x 3 days. Take with food, once daily 21 tablet 0 03/16/2019 Active Comment: Take 40 mg x 3 days, 20 mg x 3 days, 10 mg x 3 days. Take with food, once daily tiZANidine tiZANidine (ZANAFLEX) 2 06-08-[address] [facility] mg tablet Indications: (4419 5) Strain of neck muscle, initial encounter , Cervical paraspinal muscle spasm Take 1 tablet by mouth every 8 hours as needed (neck pain, muscle spasm). 20 tablet 1 06/08/2018 Active Comment: Take 1 tablet by mouth every 8 hours as needed (neck pain, muscle spasm). Problems Active Problems Category Problem Name Status Date Location Anxiety disorders Mixed anxiety and Active [facility] depressive disorder (07214) Diabetes mellitus Type 2 diabetes Active 09-28-2015 - [facility] without complication mellitus without (44 195) complication Disorders of lipid Dyslipidemia Active 06-08-2018 - [facility] metabolism (88661) Mood disorders Recurrent major Active 10-31-2014 [facility] depressive episodes, (36029) moderate Other nutritional; Morbid obesity Active 08-04-2014 - [facility] endocrine; and (78325) metabolic disorders Thyroid disorders Multinodular goiter Active 05-24-2014 - [facility] (29338) Past or Other Problems Category Problem Name Status Date Location Other connective Spasm of cervical Completed 06-08-2018 - Luana perea [facility] tissue disease paraspinous muscle (65465) Other connective Pelvic floor Completed 08-07-2017 - [facility]inic tissue disease dysfunction (10551) Other non-traumatic Knee pain [facility] joint disorders (32850) Other non-traumatic Hip pain Completed 08-07-2017 - [facility] luz [facility] joint disorders (49525) Sprains and strains Strain of neck muscle Completed 06-08-2018 - [facility] (09107) Results Result Name Value Range Unit Interpretation Flag Date Location obsolete on 2019-11 OBSOLETE Refill (FAMPWS) Normal 11-24-2019 [facility] NEYMAR HERNADEZ ([id number]) 1980 [facility] Time Provider Department ([id number]) 11/24/19 LIZBETH CAMPO (CHRISTI) FAMPWS During your visit today, we recorded the following informati on about you: Vikki Landrum Ma 11/25/2019 8:38 AM Signed Patient has been identified by name and date of : Yes Pending Prescriptions Disp Refills PEN NEEDLE, DIABETIC 31 GAUGE X 5/16 100 Each 5 Sig: USE ONE NEEDLE PER DOSE (ONCE DAILY) CHRISTINA: No RX INSTRUCTIONS: Patient aware RX will be sent to pharmacy. No need to notify patient. Vikki Landrum Ma Last ov: 09/2019 Last refill; 11/2018 Nov: 12/2019 Loly Parnell APRN.CNP 11/25/2019 10:22 AM Signed The following approved medic ation requests have been transmitted electronically. Pending Prescriptions Disp Refills PEN NEEDLE, DIABETIC 31 GAUGE X 5/16 100 Each 5 Sig: USE ONE NEEDLE PER DOSE (ONCE DAILY) CHRISTINA: No Loly Parnell APRN.CNP Allergies As of Date: 11/24/2019 Noted Allergy Reaction ASPIRIN 07/16/2011 12 - Shortness of Breath IBUPROFEN 07/16/2011 12 - Shortness of Breath PRAVASTATIN 06/08/2018 8 - GI Upset Comments: vomiting SIMVASTATIN 2014 2 - Rash 12 - Shortness of Breath TRAMADOL 01/31/2014 14 - Other: See Comments Comments: Dizziness Date Reviewed: 04/15/2019 Reviewed by: Luc Blackwood LPN - Fully Assessed Reason for Visit: Refill Request [94] Order(s):insulin needles, DISPOSABLE, 31 gauge x /16USE ONE NEEDLE PER DOSE (ONCE DAILY)Disp: 100 EachRfl: 5 Prescriptions as of 11/24/2019 Sig: PEN NEEDLE, DIABETIC 31 GAUGE* USE ONE NEEDLE PER DOSE (ONCE * GLUCOSE 4 GRAM CHEWABLE TABLET Take 4 tablets by mouth as ne * INSULIN DEGLUDEC (U-100) 100 * Inject 44 Units subcutaneousl * FEXOFENADINE 60 MG TABLET Take 1 tablet by mouth once d* LEVOTHYROXINE 50 MCG TABLET Take 1 tablet by mouth once d* LIRAGLUTIDE 0.6 MG/0.1 ML (18* Inject 1.2 mg subcutaneously * BUSPIRONE 5 MG TABLET Take 1 tablet by mouth three * PREDNISONE 10 MG TABLET Take 40 mg x 3 days, 20 mg x * METFORMIN ER 500 MG TABLET,EX* Take 2 tablets by mouth twice * TIZANIDINE 2 MG TABLET Take 1 tablet by mouth every * ATORVASTATIN 20 MG TABLET Take 1 tablet by mouth once d* BLOOD-GLUCOSE METER KIT Glucose Meter of Choice - Kit* BLOOD SUGAR DIAGNOSTIC STRIPS Test blood sugar(s) 1 times d* LANCETS Test blood sugar(s) 1 times d* Problem List As Of Date 11/24/2019 Noted Resolved Left wrist pain [M25.532] 01/31/2014 04/30/2016 Left wrist tendinitis [M77.8] 01/31/2014 04/30/2016 Multinodular goiter [E04.2] 05/24/2014 Hypothyroidism [E03.9] 05/24/2014 Diabetes mellitus type 2, controlled, without c*08/04/2014 0 04/30/2016 Obesity, Class III, BMI 40-49.9 (morbid obesity*08/04/2014 Major depression [F32.9] 09/05/2014 04/30/2016 Major depressive disorder, recurrent episode, m*10/31/2014 Uncontrolled type 2 diabetes mellitus without c*09/28/2015 Recurrent major depression in partial remission*09/28/2015 0 04/30/2016 Pelvic floor dysfunction [M62.89] 08/07/2017 Pain in left hip [M25.552] 08/07/2017 Chronic pain of both knees [M25.561, M25.562, G*04/01/2018 Cervical paraspinal muscle spasm [M62.838] 06/08/2018 Cervical strain [S16.1XXA] 06/08/2018 Dyslipidemia [E78.5] 06/08/2018 Hypothyroidism, acquired [E03.9] 06/08/2018 Type 2 diabetes mellitus without complication, *06/08/2018 Prescriptions ordered this encounter Disp Refills Start End PEN NEEDLE, DIABETIC 31 GAUGE X 5 100 * 5 11/25/2019 Sig: USE ONE NEEDLE PER DOSE (ONCE DAILY) Medications Discontinued During This Encounter Prescriptions - insulin needles, DISPOSABLE, 31 gauge x 516 ndle (Discon tinued) USE ONE NEEDLE PER DOSE (ONCE DAILY) Encounter Status:Closed by LOLY PARNELL on 11/25/19 OBSOLETE Refill (FAMPWS) Normal 11-24-2019 [facility] NEYMAR HERNADEZ ([id number]) 1980 [facility] Date Time Provider Department ([id number]) 11/24/19 PADILLA JEAN FAMPWS During your visit today, we recorded the following informati on about you: Vikki Landrum Ma 11/25/2019 8:39 AM Signed Patient has been identified by name and date of : Yes Pending Prescriptions Disp Refills ATORVASTATIN 20 MG TABLET 30 tablet 5 Sig: Take 1 tablet by mouth once daily. CHRISTINA: No METFORMIN ER 500 MG TABLET,EXTENDED RELEASE 24 HR 120 tablet 3 Sig: Take 2 tablets by mouth twice daily before meals. CHRISTINA: No RX INSTRUCTIONS: Patient aware RX will be sent to pharmacy. No need to notify patient. Vikki Landrum Supa Last ov: 09/2019 Last refill: 10/2018 Nov: 12/2019 Loly Parnell APRN.CNP 11/25/2019 10:26 AM Signed Please notify patient that this is a 1-time refill on her me dications. She needs to stop in the office and have her lab work comp leted so we can assure she is on the correct dose of her medications. Loly Parnell APRN.CHRISTI The following approved medic ation requests have been transmitted electronically. Signed Prescriptions Disp Refills atorvastatin (LIPITOR) 20 mg tablet 30 tablet 0 Sig: Take 1 tablet by mouth once daily. CHRISTINA: No Authorizing Provider: PADILLA JEAN Ordering User: LOLY PARNELL metFORMIN ER (GLUCOPHAGE XR) 500 mg 24 hr tablet 120 tablet 0 Sig: Take 2 tablets by mouth twice daily before meals. CHRISTINA: No Authorizing Provider: PADILLA JEAN Ordering User: LOLY PARNELL APRN.CNP Makayla Gantz MA 11/25/2019 11:39 AM Signed Pt has follow up appt today, will address at that time. Narciso Haines MA Allergies As of Date: 11/24/2019 Noted Allergy Reaction ASPIRIN 07/16/2011 12 - Shortness of Breath IBUPROFEN 07/16/2011 12 - Shortness of Breath PRAVASTATIN 06/08/2018 8 - GI Upset Comments: vomiting SIMVASTATIN 2014 2 - Rash 12 - Shortness of Breath TRAMADOL 01/31/2014 14 - Other: See Comments Comments: Dizziness Date Reviewed: 04/15/2019 Reviewed by: Luc Blackwood LPN - Fully Assessed Reason for Visit: Refill Request [94] Primary Visit Diagnosis:Type 2 diabetes mellitus without c omplication, with long-term current use of insulin (HCC) [E11.9, Z79.4] Other Visit Diagnoses:Dyslipidemia [E78.5] Uncontrolled type 2 diabetes mellitus without complication, without long-term current use of insulin [[id number]] Anxiety with depression [F41.8] Acquired hypothyroidism [E03.9] Order(s):atorvastatin (LIPITOR) 20 mg tabletTake 1 tablet by mouth once daily.Disp: 30 tabletRfl: 0 metFORMIN ER (GLUCOPHAGE XR) 500 mg 24 hr tabletTake 2 table ts by mouth twice daily before meals.Disp: 120 tabletRfl: 0 HGB A1C [HLSAR1N] Order #: [id number] FUTURE CBC + DIFF [SQCBCDIF] Order #: [id number] FUTURE ALBUMIN/CREAT RATIO RND UR [SQUACR] Order #: [id number] FUTU RE T3 BLD [SQT3] Order #: [id number] FUTURE T4 FREE/FREE THYROX [SQFT4] Order #: [id number] FUTURE LIPID PANEL BASIC [SQLIPB] Order #: [id number] FUTURE Prescriptions as of 11/24/2019 Sig: ATORVASTATIN 20 MG TABLET Take 1 tablet by mouth once d* METFORMIN ER 500 MG TABLET,EX* Take 2 tablets by mouth twice * GLUCOSE 4 GRAM CHEWABLE TABLET Take 4 tablets by mouth as ne * INSULIN DEGLUDEC (U-100) 100 * Inject 44 Units subcutaneousl * FEXOFENADINE 60 MG TABLET Take 1 tablet by mouth once d* LEVOTHYROXINE 50 MCG TABLET Take 1 tablet by mouth once d* LIRAGLUTIDE 0.6 MG/0.1 ML (18* Inject 1.2 mg subcutaneously * BUSPIRONE 5 MG TABLET Take 1 tablet by mouth three * PREDNISONE 10 MG TABLET Take 40 mg x 3 days, 20 mg x * X PEN NEEDLE, DIABETIC 31 GAUGE* USE ONE NEEDLE PER DOSE (ON CE* TIZANIDINE 2 MG TABLET Take 1 tablet by mouth every * BLOOD-GLUCOSE METER KIT Glucose Meter of Choice - Kit* BLOOD SUGAR DIAGNOSTIC STRIPS Test blood sugar(s) 1 times d* LANCETS Test blood sugar(s) 1 times d* Problem List As Of Date 11/24/2019 Noted Resolved Left wrist pain [M25.532] 01/31/2014 04/30/2016 Left wrist tendinitis [M77.8] 01/31/2014 04/30/2016 Multinodular goiter [E04.2] 05/24/2014 Hypothyroidism [E03.9] 05/24/2014 Diabetes mellitus type 2, controlled, without c*08/04/2014 0 04/30/2016 Obesity, Class III, BMI 40-49.9 (morbid obesity*08/04/2014 Major depression [F32.9] 09/05/2014 04/30/2016 Major depressive disorder, recurrent episode, m*10/31/2014 Uncontrolled type 2 diabetes mellitus without c*09/28/2015 Recurrent major depression in partial remission*09/28/2015 0 04/30/2016 Pelvic floor dysfunction [M62.89] 08/07/2017 Pain in left hip [M25.552] 08/07/2017 Chronic pain of both knees [M25.561, M25.562, G*04/01/2018 Cervical paraspinal muscle spasm [M62.838] 06/08/2018 Cervical strain [S16.1XXA] 06/08/2018 Dyslipidemia [E78.5] 06/08/2018 Hypothyroidism, acquired [E03.9] 06/08/2018 Type 2 diabetes mellitus without complication, *06/08/2018 Prescriptions ordered this encounter Disp Refills Start End ATORVASTATIN 20 MG TABLET 30 t* 0 11/25/2019 Route: ORAL Sig: Take 1 tablet by mouth once daily. METFORMIN ER 500 MG TABLET,EXTENDED * 120 * 0 11/25/2019 Route: ORAL Sig: Take 2 tablets by mouth twice daily before meals. Medications Discontinued During This Encounter Prescriptions - atorvastatin (LIPITOR) 20 mg tablet (Discontinued) Take 1 tablet by mouth once daily. - metFORMIN ER (GLUCOPHAGE XR) 500 mg 24 hr tablet (Disconti nued) Take 2 tablets by mouth twice daily before meals. Encounter Status:Closed by NARCISO HAINES MA on 11/25/19 progress on 2019-09 PROGRESS HNO ID: [id number] Normal 09-14-2019 [facility] Author: Padilla Jean ([id number]) Service: ? Author Type: Physician Type: Progress Notes Filed: 09/14/2019 3:23 PM Note Text: Attempted to call patient, number listed for mobile and home phone is incorrect. Patient didn't answer call for appointment so will need to r eschedule this visit. Padilla Jean, obsolete on 2019-08 OBSOLETE Refill (FAMPWS) Normal 08-31-2019 [facility] NEYMAR HERNADEZ ([id number]) 1980 [facility] Time Provider Department ([id number]) 08/31/19 PADILLA JEAN During your visit today, we recorded the following informati on about you: Narciso Haines MA 09/01/2019 7:31 AM Signed Patient has been identified by name and date of : Yes Pending Prescriptions Disp Refills INSULIN DEGLUDEC (U-100) 100 UNIT/ML (3 ML) SUBCUTANEOUS PEN 6 Pen 0 Sig: Inject 44 Units subcutaneously every 24 hours. CHRISTINA: No RX INSTRUCTIONS: MC renewal request LAM: 04/15/19 NOV: No future OV scheduled, please advise Last Refill: 07/05/19 6 pens with no refills Narciso Haines MA Allergies As of Date: 08/31/2019 Noted Allergy Reaction ASPIRIN 07/16/2011 12 - Shortness of Breath IBUPROFEN 07/16/2011 12 - Shortness of Breath PRAVASTATIN 06/08/2018 8 - GI Upset Comments: vomiting SIMVASTATIN 2014 2 - Rash 12 - Shortness of Breath TRAMADOL 01/31/2014 14 - Other: See Comments Comments: Dizziness Date Reviewed: 04/15/2019 Reviewed by: Luc Blackwood LPN - Fully Assessed Reason for Visit: Refill Request [94] Visit Diagnosis:Type 2 diabetes mellitus without complication, with long-term current use of insulin (HCC) [E11.9, Z79.4] Order(s):insulin degludec (TRESIBA) 100 unit/mL (3 mL) injec tionInject 44 Units subcutaneously every 24 hours.Disp: 6 PenRfl: 3 Prescriptions as of 08/31/2019 Sig: INSULIN DEGLUDEC (U-100) 100 * Inject 44 Units subcutaneousl * FEXOFENADINE 60 MG TABLET Take 1 tablet by mouth once d* LEVOTHYROXINE 50 MCG TABLET Take 1 tablet by mouth once d* LIRAGLUTIDE 0.6 MG/0.1 ML (18* Inject 1.2 mg subcutaneously * BUSPIRONE 5 MG TABLET Take 1 tablet by mouth three * PREDNISONE 10 MG TABLET Take 40 mg x 3 days, 20 mg x * PEN NEEDLE, DIABETIC 31 GAUGE* USE ONE NEEDLE PER DOSE (ONCE * METFORMIN ER 500 MG TABLET,EX* Take 2 tablets by mouth twice * TIZANIDINE 2 MG TABLET Take 1 tablet by mouth every * ATORVASTATIN 20 MG TABLET Take 1 tablet by mouth once d* BLOOD-GLUCOSE METER KIT Glucose Meter of Choice - Kit* BLOOD SUGAR DIAGNOSTIC STRIPS Test blood sugar(s) 1 times d* LANCETS Test blood sugar(s) 1 times d* X GLUCOSE 4 GRAM CHEWABLE TABLET Take 4 tablets by mouth as ne* Problem List As Of Date 08/31/2019 Noted Resolved Left wrist pain [M25.532] 01/31/2014 04/30/2016 Left wrist tendinitis [M77.8] 01/31/2014 04/30/2016 Multinodular goiter [E04.2] 05/24/2014 Hypothyroidism [E03.9] 05/24/2014 Diabetes mellitus type 2, controlled, without c*08/04/2014 0 04/30/2016 Obesity, Class III, BMI 40-49.9 (morbid obesity*08/04/2014 Major depression [F32.9] 09/05/2014 04/30/2016 Major depressive disorder, recurrent episode, m*10/31/2014 Uncontrolled type 2 diabetes mellitus without c*09/28/2015 Recurrent major depression in partial remission*09/28/2015 0 04/30/2016 Pelvic floor dysfunction [M62.89] 08/07/2017 Pain in left hip [M25.552] 08/07/2017 Chronic pain of both knees [M25.561, M25.562, G*04/01/2018 Cervical paraspinal muscle spasm [M62.838] 06/08/2018 Cervical strain [S16.1XXA] 06/08/2018 Dyslipidemia [E78.5] 06/08/2018 Hypothyroidism, acquired [E03.9] 06/08/2018 Type 2 diabetes mellitus without complication, *06/08/2018 Prescriptions ordered this encounter Disp Refills Start End INSULIN DEGLUDEC (U-100) 100 UNIT/ML* 6 Pen 3 09/01/2019 Route: SUBCUTANEOUS Sig: Inject 44 Units subcutaneously every 24 hours. Medications Discontinued During This Encounter insulin degludec (TRESIBA) 100 unit/* 6 Pen 0 07/05/201908/31 Route: SUBCUTANEOUS Sig: Inject 44 Units subcutaneously every 24 hours. Disc: Reason for discontinue is not on file. Encounter Status:Closed by PODLOGYAJAIRA CENTENO CNP on 09/01/19 OBSOLETE Refill (PHMEWO) Normal 08-31-2019 Maximiliano jones [facility] NEYMAR HERNADEZ ([id number]) 1980 [facility] Time Provider Department ([id number]) 08/31/19 LIZBETH CAMPO (CHRISTI) PHMEWO During your visit today, we recorded the following informati on about you: Narciso Haines MA 09/01/2019 7:32 AM Signed Patient has been identified by name and date of : Yes Pending Prescriptions Disp Refills GLUCOSE 4 GRAM CHEWABLE TABLET 30 tablet 3 Sig: Take 4 tablets by mouth as needed. For low blood sugars CHRISTINA: No RX INSTRUCTIONS: MC renewal request LAM: 04/15/19 NOV: No future OV scheduled, please advise Last Refill: 10/09/16 30 tabs with 3 refills Narciso Haines MA Allergies As of Date: 08/31/2019 Noted Allergy Reaction ASPIRIN 07/16/2011 12 - Shortness of Breath IBUPROFEN 07/16/2011 12 - Shortness of Breath PRAVASTATIN 06/08/2018 8 - GI Upset Comments: vomiting SIMVASTATIN 2014 2 - Rash 12 - Shortness of Breath TRAMADOL 01/31/2014 14 - Other: See Comments Comments: Dizziness Date Reviewed: 04/15/2019 Reviewed by: Luc Blackwood LPN - Fully Assessed Reason for Visit: Refill Request [94] Order(s):glucose 4 gram chewable tabletTake 4 ta blets by mouth as needed. For low blood sugarsDisp: 30 tabletRfl: 3 Prescriptions as of 08/31/2019 Sig: GLUCOSE 4 GRAM CHEWABLE TABLET Take 4 tablets by mouth as ne * INSULIN DEGLUDEC (U-100) 100 * Inject 44 Units subcutaneousl * FEXOFENADINE 60 MG TABLET Take 1 tablet by mouth once d* LEVOTHYROXINE 50 MCG TABLET Take 1 tablet by mouth once d* LIRAGLUTIDE 0.6 MG/0.1 ML (18* Inject 1.2 mg subcutaneously * BUSPIRONE 5 MG TABLET Take 1 tablet by mouth three * PREDNISONE 10 MG TABLET Take 40 mg x 3 days, 20 mg x * PEN NEEDLE, DIABETIC 31 GAUGE* USE ONE NEEDLE PER DOSE (ONCE * METFORMIN ER 500 MG TABLET,EX* Take 2 tablets by mouth twice * TIZANIDINE 2 MG TABLET Take 1 tablet by mouth every * ATORVASTATIN 20 MG TABLET Take 1 tablet by mouth once d* BLOOD-GLUCOSE METER KIT Glucose Meter of Choice - Kit* BLOOD SUGAR DIAGNOSTIC STRIPS Test blood sugar(s) 1 times d* LANCETS Test blood sugar(s) 1 times d* Problem List As Of Date 08/31/2019 Noted Resolved Left wrist pain [M25.532] 01/31/2014 04/30/2016 Left wrist tendinitis [M77.8] 01/31/2014 04/30/2016 Multinodular goiter [E04.2] 05/24/2014 Hypothyroidism [E03.9] 05/24/2014 Diabetes mellitus type 2, controlled, without c*08/04/2014 0 04/30/2016 Obesity, Class III, BMI 40-49.9 (morbid obesity*08/04/2014 Major depression [F32.9] 09/05/2014 04/30/2016 Major depressive disorder, recurrent episode, m*10/31/2014 Uncontrolled type 2 diabetes mellitus without c*09/28/2015 Recurrent major depression in partial remission*09/28/2015 0 04/30/2016 Pelvic floor dysfunction [M62.89] 08/07/2017 Pain in left hip [M25.552] 08/07/2017 Chronic pain of both knees [M25.561, M25.562, G*04/01/2018 Cervical paraspinal muscle spasm [M62.838] 06/08/2018 Cervical strain [S16.1XXA] 06/08/2018 Dyslipidemia [E78.5] 06/08/2018 Hypothyroidism, acquired [E03.9] 06/08/2018 Type 2 diabetes mellitus without complication, *06/08/2018 Prescriptions ordered this encounter Disp Refills Start End GLUCOSE 4 GRAM CHEWABLE TABLET 30 t* 3 09/01/2019 Route: ORAL Sig: Take 4 tablets by mouth as needed. For low blood sugars Medications Discontinued During This Encounter glucose 4 gram chewable tablet 30 t* 3 10/09/2016 09/01/2019 Route: ORAL Sig: Take 4 tablets by mouth as needed. For low blood sugars Disc: Reason for discontinue is not on file. Cosign accepted by LIZBETH CAMPO CNP[[id number]] on 2016 5:10 PM Encounter Status:Closed by YAJAIRA OWENS CNP on 09/01/19 obsolete on 2019-06 OBSOLETE Refill (FAMPWS) Normal 07-05-2019 Maximiliano jones [facility] NEYMAR HERNADEZ ([id number]) 1980 [facility] Time Provider Department ([id number]) 07/05/19 PADILLA JEAN FAMPWS During your visit today, we recorded the following informati on about you: Jeanne Traylor LPN 07/05/2019 1:49 PM Signed Upcoming appointment: none, last appt 04/15/19 Medication request: Pending Prescriptions Disp Refills INSULIN DEGLUDEC (U-100) 100 UNIT/ML (3 ML) SUBCUTANEOUS PEN 6 Pen 0 Sig: Inject 44 Units subcutaneously every 24 hours. CHRISTINA: No Please review and advise. Allergies As of Date: 07/05/2019 Noted Allergy Reaction ASPIRIN 07/16/2011 12 - Shortness of Breath IBUPROFEN 07/16/2011 12 - Shortness of Breath PRAVASTATIN 06/08/2018 8 - GI Upset Comments: vomiting SIMVASTATIN 2014 2 - Rash 12 - Shortness of Breath TRAMADOL 01/31/2014 14 - Other: See Comments Comments: Dizziness Date Reviewed: 04/15/2019 Reviewed by: Luc Blackwood LPN - Fully Assessed Reason for Visit: Refill Request [94] Visit Diagnosis:Type 2 diabetes mellitus without complication, with long-term current use of insulin (HCC) [E11.9, Z79.4] Order(s):insulin degludec (TRESIBA) 100 unit/mL (3 mL) injec tionInject 44 Units subcutaneously every 24 hours.Disp: 6 PenRfl: 0 Prescriptions as of 07/05/2019 Sig: INSULIN DEGLUDEC (U-100) 100 * Inject 44 Units subcutaneousl * FEXOFENADINE 60 MG TABLET Take 1 tablet by mouth once d* FLUOXETINE 40 MG CAPSULE Take 1 capsule by mouth once * LEVOTHYROXINE 50 MCG TABLET Take 1 tablet by mouth once d* LIRAGLUTIDE 0.6 MG/0.1 ML (18* Inject 1.2 mg subcutaneously * BUSPIRONE 5 MG TABLET Take 1 tablet by mouth three * PREDNISONE 10 MG TABLET Take 40 mg x 3 days, 20 mg x * PEN NEEDLE, DIABETIC 31 GAUGE* USE ONE NEEDLE PER DOSE (ONCE * METFORMIN ER 500 MG TABLET,EX* Take 2 tablets by mouth twice * TIZANIDINE 2 MG TABLET Take 1 tablet by mouth every * ATORVASTATIN 20 MG TABLET Take 1 tablet by mouth once d* BLOOD-GLUCOSE METER KIT Glucose Meter of Choice - Kit* BLOOD SUGAR DIAGNOSTIC STRIPS Test blood sugar(s) 1 times d* LANCETS Test blood sugar(s) 1 times d* GLUCOSE 4 GRAM CHEWABLE TABLET Take 4 tablets by mouth as ne * Problem List As Of Date 07/05/2019 Noted Resolved Left wrist pain [M25.532] 01/31/2014 04/30/2016 Left wrist tendinitis [M77.8] 01/31/2014 04/30/2016 Multinodular goiter [E04.2] 05/24/2014 Hypothyroidism [E03.9] 05/24/2014 Diabetes mellitus type 2, controlled, without c*08/04/2014 0 04/30/2016 Obesity, Class III, BMI 40-49.9 (morbid obesity*08/04/2014 Major depression [F32.9] 09/05/2014 04/30/2016 Major depressive disorder, recurrent episode, m*10/31/2014 Uncontrolled type 2 diabetes mellitus without c*09/28/2015 Recurrent major depression in partial remission*09/28/2015 0 04/30/2016 Pelvic floor dysfunction [M62.89] 08/07/2017 Pain in left hip [M25.552] 08/07/2017 Chronic pain of both knees [M25.561, M25.562, G*04/01/2018 Cervical paraspinal muscle spasm [M62.838] 06/08/2018 Cervical strain [S16.1XXA] 06/08/2018 Dyslipidemia [E78.5] 06/08/2018 Hypothyroidism, acquired [E03.9] 06/08/2018 Type 2 diabetes mellitus without complication, *06/08/2018 Prescriptions ordered this encounter Disp Refills Start End INSULIN DEGLUDEC (U-100) 100 UNIT/ML* 6 Pen 0 07/05/2019 Route: SUBCUTANEOUS Sig: Inject 44 Units subcutaneously every 24 hours. Medications Discontinued During This Encounter insulin degludec (TRESIBA) 100 unit/* 6 Pen 0 03/16/201907/04 Class: Med Update Route: SUBCUTANEOUS Sig: Inject 44 Units subcutaneously every 24 hours. Disc: Reason for discontinue is not on file. Encounter Status:Closed by PADILLA JEAN DO on 07/05/19 obsolete on 2019-04 OBSOLETE Refill (FAMPWS) Normal 05-13-2019 [facility] NEYMAR HERNADEZ ([id number]) 1980 [facility] Time Provider Department ([id number]) 05/13/19 LIZBETH CAMPO ([facility]) FAMPWS During your visit today, we recorded the following informati on about you: Ellie Landry Ma 05/13/2019 3:41 PM Signed Patient last visit PCP 04/15/19 Follow up appointment scheduled 05/18/19 Ellie Landry Ma Allergies As of Date: 05/13/2019 Noted Allergy Reaction ASPIRIN 07/16/2011 12 - Shortness of Breath IBUPROFEN 07/16/2011 12 - Shortness of Breath PRAVASTATIN 06/08/2018 8 - GI Upset Comments: vomiting SIMVASTATIN 2014 2 - Rash 12 - Shortness of Breath TRAMADOL 01/31/2014 14 - Other: See Comments Comments: Dizziness Date Reviewed: 04/15/2019 Reviewed by: Luc Blackwood LPN - Fully Assessed Reason for Visit: Refill Request [94] Visit Diagnosis:Allergic sinusitis [J30.9] Order(s):fexofenadine (JULIANN) 60 mg tabletTake 1 tablet by mouth once daily.Disp: 90 tabletRfl: 3 Prescriptions as of 05/13/2019 Sig: FEXOFENADINE 60 MG TABLET Take 1 tablet by mouth once d* FLUOXETINE 40 MG CAPSULE Take 1 capsule by mouth once * LEVOTHYROXINE 50 MCG TABLET Take 1 tablet by mouth once d* LIRAGLUTIDE 0.6 MG/0.1 ML (18* Inject 1.2 mg subcutaneously * BUSPIRONE 5 MG TABLET Take 1 tablet by mouth three * INSULIN DEGLUDEC (U-100) 100 * Inject 44 Units subcutaneousl * PREDNISONE 10 MG TABLET Take 40 mg x 3 days, 20 mg x * PEN NEEDLE, DIABETIC 31 GAUGE* USE ONE NEEDLE PER DOSE (ONCE * METFORMIN ER 500 MG TABLET,EX* Take 2 tablets by mouth twice * TIZANIDINE 2 MG TABLET Take 1 tablet by mouth every * ATORVASTATIN 20 MG TABLET Take 1 tablet by mouth once d* BLOOD-GLUCOSE METER KIT Glucose Meter of Choice - Kit* BLOOD SUGAR DIAGNOSTIC STRIPS Test blood sugar(s) 1 times d* LANCETS Test blood sugar(s) 1 times d* GLUCOSE 4 GRAM CHEWABLE TABLET Take 4 tablets by mouth as ne * Problem List As Of Date 05/13/2019 Noted Resolved Left wrist pain [M25.532] 01/31/2014 04/30/2016 Left wrist tendinitis [M77.8] 01/31/2014 04/30/2016 Multinodular goiter [E04.2] 05/24/2014 Hypothyroidism [E03.9] 05/24/2014 Diabetes mellitus type 2, controlled, without c*08/04/2014 0 04/30/2016 Obesity, Class III, BMI 40-49.9 (morbid obesity*08/04/2014 Major depression [F32.9] 09/05/2014 04/30/2016 Major depressive disorder, recurrent episode, m*10/31/2014 Uncontrolled type 2 diabetes mellitus without c*09/28/2015 Recurrent major depression in partial remission*09/28/2015 0 04/30/2016 Pelvic floor dysfunction [M62.89] 08/07/2017 Pain in left hip [M25.552] 08/07/2017 Chronic pain of both knees [M25.561, M25.562, G*04/01/2018 Cervical paraspinal muscle spasm [M62.838] 06/08/2018 Cervical strain [S16.1XXA] 06/08/2018 Dyslipidemia [E78.5] 06/08/2018 Hypothyroidism, acquired [E03.9] 06/08/2018 Type 2 diabetes mellitus without complication, *06/08/2018 Prescriptions ordered this encounter Disp Refills Start End FEXOFENADINE 60 MG TABLET 90 t* 3 05/14/2019 Route: ORAL Sig: Take 1 tablet by mouth once daily. Medications Discontinued During This Encounter fexofenadine (JULIANN) 60 mg tablet 90 t* 3 10/06/2017 05/14/19 Route: ORAL Sig: Take 1 tablet by mouth once daily. Disc: Reason for discontinue is not on file. Encounter Status:Closed by PADILLA JEAN DO on 05/14/19 progress on 2019-04 PROGRESS HNO ID: [id number] Normal 04-15-2019 [place] Author: Rama Light) [facility] Service: ? [place] Author Type: Nurse Practitioner ([id number]) Type: Progress Notes Filed: 04/15/2019 5:15 PM Note Text: This Team Access Model visit is a walk in encounter. It requ ired patient-provider interaction for the medical decision making as documented below. This is a 38 year old female who presents today with: Patient presents with: Recheck: 1 month follow up HISTORY OF PRESENT ILLNESS: Neymar Hernadez is a 38 year old female. Patient presents wit h: Recheck: 1 month follow up Pt presents today for one month recheck. At last visit, had problems with jaw pain. Refers that is improved. Refers, though that she has right maxillary pain and it make s the top teeth hurt. Runny nose. Once in awhile yellow drainage from nose. Refers some changes in hearing. Refers that she was restarted on prozac at last visit. Interested in having this increased. Refers that all she does is cry. Refers cost her her relatio nship. She was on prozac in the past and it worked well for her, bu t caused migraines. So far, no worsening of headaches. Depression evaluation: Sadness: a lot of sadness. Sleep: somewhat Interests/Hobbies: same as it has been. Guilt: no Energy Levels: the same. Concentration: About the same Appetite: I don't have one Physical: headaches, but nothing more than her normal. Suicidal/homicidal ideation: Denies. PAST MEDICAL HISTORY: PAST MEDICAL HISTORY Diagnosis Date - Diabetes mellitus type 2, controlled, without complication s (HCC) 08/04/2014 - Hypothyroidism 05/2014 - Major depressive disorder, recurrent episode, moderate (HC C) 10/31/2014 - Obesity 08/04/2014 PAST SURGICAL HISTORY Procedure Laterality Date - COLONOSCOP W/ OR W/O BRSH SPEC N/A 06/04/2016 MAC - EGD W/O OR W/BRUSH/WASH N/A 06/04/2016 MAC - LIGATE FALLOPIAN TUBE 2013 Tubal ligation - PAST SURGICAL HISTORY OF 2014 - PAST SURGICAL HISTORY OF Left tendon surgery on left wrist ALLERGIES Aspirin; Ibuprofen; Pravastatin; Simvastatin; Tram adol MEDICATIONS Current Outpatient Medications Medication Sig - FLUoxetine (PROZAC) 20 mg capsule take 1 capsule by mouth once daily - levothyroxine (LEVOXYL) 50 mcg tablet Take 1 tablet by arben th once daily. Take on empty stomach. For Thyroid - liraglutide (VICTOZA) 0.6 mg/ 0.1 ml subcutaneous pen inje ctor Inject 1.2 mg subcutaneously once daily. - busPIRone (BUSPAR) 5 mg tablet Take 1 tablet by mouth thre e times daily as needed. As needed for anxiety attack - insulin degludec (TRESIBA) 100 unit/mL (3 mL) injection In ject 44 Units subcutaneously every 24 hours. - predniSONE (DELTASONE) 10 mg tablet Take 40 mg x 3 days, 2 0 mg x 3 days, 10 mg x 3 days. Take with food, once daily - insulin needles, DISPOSABLE, 31 gauge x 5/16 ndle USE ONE NEEDLE PER DOSE (ONCE DAILY) - metFORMIN ER (GLUCOPHAGE XR) 500 mg 24 hr tablet Take 2 ta blets by mouth twice daily before meals. - tiZANidine (ZANAFLEX) 2 mg tablet Take 1 tablet by mouth e very 8 hours as needed (neck pain, muscle spasm). - atorvastatin (LIPITOR) 20 mg tablet Take 1 tablet by mouth once daily. - fexofenadine (JULIANN) 60 mg tablet Take 1 tablet by mouth once daily. - Blood-Glucose Meter monitoring kit Glucose Meter of Choice - Kit - Dx: Type 2 DM - Uncontrolled E11. - blood sugar diagnostic (BLOOD GLUCOSE TEST) test strip Brandie t blood sugar(s) 1 times daily. Dx: Type 2 DM - Uncontrolled . Insulin: Yes - Lancets lancets Test blood sugar(s) 1 times daily. Dx: Typ e 2 DM - Uncontrolled . Insulin: Yes - glucose 4 gram chewable tablet Take 4 tablets by mouth as needed. For low blood sugars No current facility-administered medications for this visit. FAMILY HISTORY Problem Relation Age of Onset - Diabetes Mother - Thyroid Mother hypothyroid - Stroke Mother - Diabetes Father - Stroke Father - Diabetes Sister - Diabetes Maternal Grandmother - Heart Maternal Grandmother congestive heart failure - Diabetes Maternal Grandfather - Heart Maternal Grandfather - Heart Paternal Grandfather had hole in heart at age 16 - Cancer Paternal Grandfather eye Social History Tobacco Use - Smoking status: Never Smoker - Smokeless tobacco: Never Used Substance Use Topics - Alcohol use: No Frequency: Never Drinks per session: Patient refused Binge frequency: Never - Drug use: No EXAM: BP 126/82 Pulse 100 Resp 14 Wt 107 kg (236 lb) BMI 3 8.09 kg/m? PHYSICAL EXAM: General Appearance: Well appearing, alert, in no acute distr ess, well-hydrated, well nourished.. Skin: Skin color, texture, turgor normal, no suspicious rash es or lesions. Head: Normocephalic, no masses, lesions, tenderness or abnor malities. Eyes: Anicteric sclera. Pupils are equally round and reactiv e to light. Extraocular movements are intact. . Ears: External ears normal, canals clear, Positive findings: R TM: bulging, L TM: retracted. Nose/Sinuses: Nares normal, septum midline, mucosa normal, n o drainage. + right maxillary sinus tenderness. Oropharynx: Lips, mucosa, and tongue normal, teeth and gums normal, oropharynx normal. Neck: Supple, no adenopathy Lungs: lungs clear to auscultation. No wheezing, rhonchi, ra les. Heart: RRR without murmur, gallop, or rubs. No ectopy. Abdomen: Abdomen soft, non-tender. Bowel sounds normal. No m asses, organomegaly. Extremities: No deformities, edema, skin discoloration, club anselmo or cyanosis. Good capillary refill. . Neurologic: Gait normal. ASSESSMENT/PLAN: 1. Anxiety with depression - ICD9: 300.4, ICD10: F41.8 (prim rossana diagnosis) Will increase fluoxetine. No worsening of headaches yet. - FLUOXETINE 40 MG CAPSULE Recheck in a month. 2. Acute non-recurrent maxillary sinusitis - ICD9: 461.0, IC D10: J01.00 - Will begin treatment with Augmentin 875 mg PO BID for 10 d ays - AMOXICILLIN 875 MG-POTASSIUM CLAVULANATE 125 MG TABLET - DQTDCULZGHGPHIV-LLSXELLLDIHPIYE-EA 2 MG-30 MG-10 MG/5 ML O RAL SYRUP Increase fluids. Discussed treatment plan and patient voices understanding. Patient's questions answered appropriately. Medications and potential side effects were discussed and oliverio rubi voices understanding. Return to the office as scheduled or as needed for worsening /no improvement. MANNY Navas on 2019-04-15 CNOV Office Visit (FAMPWS) Normal 04-15-[address] [place] [address] [facility] NEYMAR HERNADEZ ([id number]) 1980 [facility] Date Time Provider Department ([id number]) 04/15/19 1:20 PM RAMA DENTON (CHRISTI) RONWS During your visit today, we recorded the following informati on about you: Pulse Respiration Blood pressure Weight 100/minute 14/minute 126/82 107 kg Rama Denton APRN.CNP 04/15/2019 5:15 PM Signed This Team Access Model visit is a walk in encounter. It requ ired patient-provider interaction for the medical decision making as documented below. This is a 38 year old female who presents today with: Patient presents with: Recheck: 1 month follow up HISTORY OF PRESENT ILLNESS: Neymar Hernadez is a 38 year old female. Patient presents wit h: Recheck: 1 month follow up Pt presents today for one month recheck. At last visit, had problems with jaw pain. Refers that is improved. Refers, though that she has right maxillary pain and it ma kes the top teeth hurt. Runny nose. Once in awhile yellow drainage from nose. Refers some changes in hearing. Refers that she was restarted on prozac at last visit. Interested in having this increased. Refers that all she does is cry. Refers cost her her relatio nship. She was on prozac in the pas t and it worked well for her, but caused migraines. So far, no worsening of headaches. Depression evaluation: Sadness: a lot of sadness. Sleep: somewhat Interests/Hobbies: same as it has been. Guilt: no Energy Levels: the same. Concentration: About the same Appetite: I don't have one Physical: headaches, but nothing more than her normal. Suicidal/homicidal ideation: Denies. PAST MEDICAL HISTORY: PAST MEDICAL HISTORY Diagnosis Date - Diabetes mellitus type 2, controlled, without complications (HCC) 08/04/2014 - Hypothyroidism 05/2014 - Major depressive disorder, recurrent episode, moderate (HC C) 10/31/2014 - Obesity 08/04/2014 PAST SURGICAL HISTORY Procedure Laterality Date - COLONOSCOP W/ OR W/O BRSH SPEC N/A 06/04/2016 MAC - EGD W/O OR W/BRUSH/WASH N/A 06/04/2016 MAC - LIGATE FALLOPIAN TUBE 2013 Tubal ligation - PAST SURGICAL HISTORY OF 2013 - PAST SURGICAL HISTORY OF Left tendon surgery on left wrist ALLERGIES Aspirin; Ibuprofen; Pravastatin; Simvastatin; Tram adol MEDICATIONS Current Outpatient Medications Medication Sig - FLUoxetine (PROZAC) 20 mg capsule take 1 capsule by mouth once daily - levothyroxine (LEVOXYL) 50 mcg tablet Take 1 tablet by mouth once daily. Take on empty stomach. For Thyroid - liraglutide (VICTOZA) 0.6 mg/ 0.1 ml s ubcutaneous pen injector Inject 1.2 mg subcutaneously once daily. - busPIRone (BUSPAR) 5 mg tablet Take 1 tablet by mout h three times daily as needed. As needed for anxiety attack - insulin degludec (TRESIBA) 100 unit/mL (3 mL) injection In ject 44 Units subcutaneously every 24 hours. - predniSONE (DELTASONE) 10 mg tablet Take 40 mg x 3 days, 20 mg x 3 days, 10 mg x 3 days. Take with food, once daily - insulin needles, DISPOSABLE, 31 gauge x 5/16 ndle U SE ONE NEEDLE PER DOSE (ONCE DAILY) - metFORMIN ER (GLUCOPHAGE XR) 500 mg 24 hr tablet Take 2 ta blets by mouth twice daily before meals. - tiZANidine (ZANAFLEX) 2 mg tablet Take 1 tablet by mouth every 8 hours as needed (neck pain, muscle spasm). - atorvastatin (LIPITOR) 20 mg tablet Take 1 tablet by mouth once daily. - fexofenadine (JULIANN) 60 mg tablet Take 1 tablet by mouth once daily. - Blood-Glucose Meter monitoring kit Glucose Met er of Choice - Kit - Dx: Type 2 DM - Uncontrolled E11.65 - blood sugar diagnostic (BLOOD GLUCOSE TEST) test strip Test blood sugar(s) 1 times daily. Dx: Type 2 DM - Uncontrolled E11.65 Insulin: Ye s - Lancets lancets Test blood sugar(s) 1 times daily. Dx: Typ e 2 DM - Uncontrolled E11.65 Insulin: Yes - glucose 4 gram chewable tablet Take 4 tablets by mouth a s needed. For low blood sugars No current facility-administered medications for this visit. FAMILY HISTORY Problem Relation Age of Onset - Diabetes Mother - Thyroid Mother hypothyroid - Stroke Mother - Diabetes Father - Stroke Father - Diabetes Sister - Diabetes Maternal Grandmother - Heart Maternal Grandmother congestive heart failure - Diabetes Maternal Grandfather - Heart Maternal Grandfather - Heart Paternal Grandfather had hole in heart at age 16 - Cancer Paternal Grandfather eye Social History Tobacco Use - Smoking status: Never Smoker - Smokeless tobacco: Never Used Substance Use Topics - Alcohol use: No Frequency: Never Drinks per session: Patient refused Binge frequency: Never - Drug use: No EXAM: BP 126/82 Pulse 100 Resp 14 Wt 107 kg (236 lb) BMI 3 8.09 kg/m? PHYSICAL EXAM: General Appearance: Well anoop earing, alert, in no acute distress, well-hydrated, well nourished.. Skin: Skin color, texture, turgor normal, no suspicious rash es or lesions. Head: Normocephalic, no masses, lesions, tenderness or abnor malities. Eyes: Anicteric sclera. Pupils are equally round and reactiv e to light. Extraocular movements are intact. . Ears: External ears normal, canals clear, Positi ve findings: R TM: bulging, L TM: retracted. Nose/Sinuses: Nares normal, septum midline, mucosa normal, no drainage. + right maxillary sinus tenderness. Oropharynx: Lips, mucosa, and tongue nor mal, teeth and gums normal, oropharynx normal. Neck: Supple, no adenopathy Lungs: lungs clear to auscultation. No wheezing, rhonchi, ra les. Heart: RRR without murmur, gallop, or rubs. No ectopy. Abdomen: Abdomen soft, non-t quincy. Bowel sounds normal. No masses, organomegaly. Extremities: No deformities, edema, skin discolo ration, clubbing or cyanosis. Good capillary refill. . Neurologic: Gait normal. ASSESSMENT/PLAN: 1. Anxiety with depression - ICD9: 300.4, ICD10: F41.8 (prim rossana diagnosis) Will increase fluoxetine. No worsening of headaches yet. - FLUOXETINE 40 MG CAPSULE Recheck in a month. 2. Acute non-recurrent maxillary sinusitis - ICD9: 461.0, IC D10: J01.00 - Will begin treatment with Augmentin 875 mg PO BID for 10 d ays - AMOXICILLIN 875 MG-POTASSIUM CLAVULANATE 125 MG TABLET - MOSZNWUFSESCGAR-GRFSHYIMRAJJKUX-OR 2 MG-30 MG-10 MG/5 ML O RAL SYRUP Increase fluids. Discussed treatment plan and patient voices understanding. Patient's questions answered appropriately. Medications and potential side effects were discussed and oliverio rubi voices understanding. Return to the office as scheduled or as needed for wor sening/no improvement. Rama Denton APRN.CHRISTI Denton APRN.CHRISTI 04/15/2019 12:52 PM Addendum 1. Start the augmentin -- one pill twice daily X 10 days. 2. Start the brom-phed -- one teaspoon 4 times daily. 3. Increase the prozac to 40 mg daily. 4. Recheck in a month. Referring Provider: SELF [[id number]] Allergies As of Date: 04/15/2019 Noted Allergy Reaction ASPIRIN 07/16/2011 12 - Shortness of Breath IBUPROFEN 07/16/2011 12 - Shortness of Breath PRAVASTATIN 06/08/2018 8 - GI Upset Comments: vomiting SIMVASTATIN 2014 2 - Rash 12 - Shortness of Breath TRAMADOL 01/31/2014 14 - Other: See Comments Comments: Dizziness Date Reviewed: 04/15/2019 Reviewed by: Luc Blackwood LPN - Fully Assessed Reason for Visit: Recheck [92] Cmt: 1 month follow up Primary Visit Diagnosis:Anxiety with depression [F41.8] Other Visit Diagnosis:Acute non-recurrent maxillary sinusiti s [J01.00] Order(s):amoxicillin-clavulanic acid (AUGMENTIN) 875-1 25 mg per tabletTake 1 tablet by mouth twice daily for 10 days.Disp: 20 tabletRfl: 0 FLUoxetine (PROZAC) 40 mg capsuleTake 1 capsule by mouth onc e daily.Disp: 30 capsuleRfl: 1 Kvwblpphuxpwgwz-Vxaadimxw-JF (BROMFED DM) 2-30-10 mg/5 mL sy rupTake 5 mL by mouth four times daily as needed for up to 10 days.Dis p: 473 mLRfl: 0 Prescriptions as of 04/15/2019 Sig: AMOXICILLIN 875 MG-POTASSIUM * Take 1 tablet by mouth twice * FLUOXETINE 40 MG CAPSULE Take 1 capsule by mouth once * BROMPHENIRAMINE-PSEUDOEPHEDRI* Take 5 mL by mouth four times * LEVOTHYROXINE 50 MCG TABLET Take 1 tablet by mouth once d* LIRAGLUTIDE 0.6 MG/0.1 ML (18* Inject 1.2 mg subcutaneously * BUSPIRONE 5 MG TABLET Take 1 tablet by mouth three * INSULIN DEGLUDEC (U-100) 100 * Inject 44 Units subcutaneousl * PREDNISONE 10 MG TABLET Take 40 mg x 3 days, 20 mg x * PEN NEEDLE, DIABETIC 31 GAUGE* USE ONE NEEDLE PER DOSE (ONCE * METFORMIN ER 500 MG TABLET,EX* Take 2 tablets by mouth twice * TIZANIDINE 2 MG TABLET Take 1 tablet by mouth every * ATORVASTATIN 20 MG TABLET Take 1 tablet by mouth once d* FEXOFENADINE 60 MG TABLET Take 1 tablet by mouth once d* BLOOD-GLUCOSE METER KIT Glucose Meter of Choice - Kit* BLOOD SUGAR DIAGNOSTIC STRIPS Test blood sugar(s) 1 times d* LANCETS Test blood sugar(s) 1 times d* GLUCOSE 4 GRAM CHEWABLE TABLET Take 4 tablets by mouth as ne * Problem List As Of Date 04/15/2019 Noted Resolved Left wrist pain [M25.532] 01/31/2014 04/30/2016 Left wrist tendinitis [M77.8] 01/31/2014 04/30/2016 Multinodular goiter [E04.2] 05/24/2014 Hypothyroidism [E03.9] 05/24/2014 Diabetes mellitus type 2, controlled, without c*08/04/2014 0 04/30/2016 Obesity, Class III, BMI 40-49.9 (morbid obesity*08/04/2014 Major depression [F32.9] 09/05/2014 04/30/2016 Major depressive disorder, recurrent episode, m*10/31/2014 Uncontrolled type 2 diabetes mellitus without c*09/28/2015 Recurrent major depression in partial remission*09/28/2015 0 04/30/2016 Pelvic floor dysfunction [M62.89] 08/07/2017 Pain in left hip [M25.552] 08/07/2017 Chronic pain of both knees [M25.561, M25.562, G*04/01/2018 Cervical paraspinal muscle spasm [M62.838] 06/08/2018 Cervical strain [S16.1XXA] 06/08/2018 Dyslipidemia [E78.5] 06/08/2018 Hypothyroidism, acquired [E03.9] 06/08/2018 Type 2 diabetes mellitus without complication, *06/08/2018 Other instructions from your clinician: 1. Start the augmentin -- one pill twice daily X 10 days. 2. Start the brom-phed -- one teaspoon 4 times daily. 3. Increase the prozac to 40 mg daily. 4. Recheck in a month. Prescriptions ordered this encounter Disp Refills Start End AMOXICILLIN 875 MG-POTASSIUM CLAVULA* 20 t* 0 04/15/2019 Route: ORAL Sig: Take 1 tablet by mouth twice daily for 10 days. FLUOXETINE 40 MG CAPSULE 30 c* 1 04/15/2019 05/15/2019 Route: ORAL Sig: Take 1 capsule by mouth once daily. ZZAGZLTADWMQWGV-GKEAJACRXIYZIQR-SS 2* 473 * 0 04/15/2019 Route: ORAL Sig: Take 5 mL by mouth four times daily as needed for up to 10 days. Medications Discontinued During This Encounter FLUoxetine (PROZAC) 20 mg capsule 30 c* 0 04/07/2019 0 Route: ORAL Sig: take 1 capsule by mouth once daily Disc: Reason for discontinue is not on file. Encounter Status:Closed by RAMA DENTON CNP on 04/15/19 obsolete on 2019-03 OBSOLETE Refill (FAMPWS) Normal 04-07-2019 [facility] NEYMAR HERNADEZ ([id number]) 1980 [facility] Time Provider Department ([id number]) 04/07/19 LOLY PARNELL (CHRISTI) FAMPWS During your visit today, we recorded the following informati on about you: Juanita Adams LPN 04/07/2019 10:36 AM Signed Pharmacy requesting refills as follows: Pending Prescriptions Disp Refills FLUOXETINE 20 MG CAPSULE 30 capsule 0 Sig: take 1 capsule by mouth once daily CHRISTINA: Yes LAM: 03/16/19 NOV: 04/14/19 Last Refill: 03/16/19 #30 0 refills Juanita Adams LPN Allergies As of Date: 04/07/2019 Noted Allergy Reaction ASPIRIN 07/16/2011 12 - Shortness of Breath IBUPROFEN 07/16/2011 12 - Shortness of Breath PRAVASTATIN 06/08/2018 8 - GI Upset Comments: vomiting SIMVASTATIN 2014 2 - Rash 12 - Shortness of Breath TRAMADOL 01/31/2014 14 - Other: See Comments Comments: Dizziness Date Reviewed: 03/16/2019 Reviewed by: Loly Light) Soheila - Fully Assessed Reason for Visit: Refill Request [94] Visit Diagnosis:Anxiety with depression [F41.8] Order(s):FLUoxetine (PROZAC) 20 mg capsuletake 1 capsule by mouth once dailyDisp: 30 capsuleRfl: 0 Prescriptions as of 04/07/2019 Sig: FLUOXETINE 20 MG CAPSULE take 1 capsule by mouth once * LEVOTHYROXINE 50 MCG TABLET Take 1 tablet by mouth once d* LIRAGLUTIDE 0.6 MG/0.1 ML (18* Inject 1.2 mg subcutaneously * BUSPIRONE 5 MG TABLET Take 1 tablet by mouth three * INSULIN DEGLUDEC (U-100) 100 * Inject 44 Units subcutaneousl * PREDNISONE 10 MG TABLET Take 40 mg x 3 days, 20 mg x * PEN NEEDLE, DIABETIC 31 GAUGE* USE ONE NEEDLE PER DOSE (ONCE * METFORMIN ER 500 MG TABLET,EX* Take 2 tablets by mouth twice * TIZANIDINE 2 MG TABLET Take 1 tablet by mouth every * ATORVASTATIN 20 MG TABLET Take 1 tablet by mouth once d* FEXOFENADINE 60 MG TABLET Take 1 tablet by mouth once d* BLOOD-GLUCOSE METER KIT Glucose Meter of Choice - Kit* BLOOD SUGAR DIAGNOSTIC STRIPS Test blood sugar(s) 1 times d* LANCETS Test blood sugar(s) 1 times d* GLUCOSE 4 GRAM CHEWABLE TABLET Take 4 tablets by mouth as ne * Problem List As Of Date 04/07/2019 Noted Resolved Left wrist pain [M25.532] 01/31/2014 04/30/2016 Left wrist tendinitis [M77.8] 01/31/2014 04/30/2016 Multinodular goiter [E04.2] 05/24/2014 Hypothyroidism [E03.9] 05/24/2014 Diabetes mellitus type 2, controlled, without c*08/04/2014 0 04/30/2016 Obesity, Class III, BMI 40-49.9 (morbid obesity*08/04/2014 Major depression [F32.9] 09/05/2014 04/30/2016 Major depressive disorder, recurrent episode, m*10/31/2014 Uncontrolled type 2 diabetes mellitus without c*09/28/2015 Recurrent major depression in partial remission*09/28/2015 0 04/30/2016 Pelvic floor dysfunction [M62.89] 08/07/2017 Pain in left hip [M25.552] 08/07/2017 Chronic pain of both knees [M25.561, M25.562, G*04/01/2018 Cervical paraspinal muscle spasm [M62.838] 06/08/2018 Cervical strain [S16.1XXA] 06/08/2018 Dyslipidemia [E78.5] 06/08/2018 Hypothyroidism, acquired [E03.9] 06/08/2018 Type 2 diabetes mellitus without complication, *06/08/2018 Prescriptions ordered this encounter Disp Refills Start End FLUOXETINE 20 MG CAPSULE 30 c* 0 04/07/2019 05/07/2019 Route: ORAL Sig: take 1 capsule by mouth once daily Medications Discontinued During This Encounter FLUoxetine (PROZAC) 20 mg capsule 30 c* 0 03/16/2019 04/07/20 Route: ORAL Sig: Take 1 capsule by mouth once daily. Disc: Reason for discontinue is not on file. Encounter Status:Closed by MARY VEGA MD on 04/07/19 [facility]16 [facility] Patient Outreach ([facility]) Normal 1 05-30-2018 [place] [facility] NEYMAR HERNADEZ ([id number]) 1980 [facility] Time Provider Department ([id number]) 03/29/19 PADILLA JEAN ON LICENSE OF [facility] During your visit today, we recorded the following informati on about you: Allergies As of Date: 03/29/2019 Noted Allergy Reaction ASPIRIN 07/16/2011 12 - Shortness of Breath IBUPROFEN 07/16/2011 12 - Shortness of Breath PRAVASTATIN 06/08/2018 8 - GI Upset Comments: vomiting SIMVASTATIN 2014 2 - Rash 12 - Shortness of Breath TRAMADOL 01/31/2014 14 - Other: See Comments Comments: Dizziness Date Reviewed: 03/16/2019 Reviewed by: Loly [facility]Pam [facility] StoughtonSaba Parnell - Fully Assessed Visit Diagnoses:Type 2 diabetes mellitus without complication, with long-term current use of insulin (HCC) [E11.9, Z79.4] Hypothyroidism, acquired [E03.9] Order(s):BASIC METABOLIC PNL [SQBMP] Order #: [id number] FUT URE TSH BLD [SQTSH] Order #: [id number] FUTURE Prescriptions as of 03/29/2019 Sig: LEVOTHYROXINE 50 MCG TABLET Take 1 tablet by mouth once d* LIRAGLUTIDE 0.6 MG/0.1 ML (18* Inject 1.2 mg subcutaneously * BUSPIRONE 5 MG TABLET Take 1 tablet by mouth three * INSULIN DEGLUDEC (U-100) 100 * Inject 44 Units subcutaneousl * PREDNISONE 10 MG TABLET Take 40 mg x 3 days, 20 mg x * X FLUOXETINE 20 MG CAPSULE Take 1 capsule by mouth once * PEN NEEDLE, DIABETIC 31 GAUGE* USE ONE NEEDLE PER DOSE (ONCE * METFORMIN ER 500 MG TABLET,EX* Take 2 tablets by mouth twice * TIZANIDINE 2 MG TABLET Take 1 tablet by mouth every * ATORVASTATIN 20 MG TABLET Take 1 tablet by mouth once d* FEXOFENADINE 60 MG TABLET Take 1 tablet by mouth once d* BLOOD-GLUCOSE METER KIT Glucose Meter of Choice - Kit* BLOOD SUGAR DIAGNOSTIC STRIPS Test blood sugar(s) 1 times d* LANCETS Test blood sugar(s) 1 times d* GLUCOSE 4 GRAM CHEWABLE TABLET Take 4 tablets by mouth as ne * Problem List As Of Date 03/29/2019 Noted Resolved Left wrist pain [M25.532] 01/31/2014 04/30/2016 Left wrist tendinitis [M77.8] 01/31/2014 04/30/2016 Multinodular goiter [E04.2] 05/24/2014 Hypothyroidism [E03.9] 05/24/2014 Diabetes mellitus type 2, controlled, without c*08/04/2014 0 04/30/2016 Obesity, Class III, BMI 40-49.9 (morbid obesity*08/04/2014 Major depression [F32.9] 09/05/2014 04/30/2016 Major depressive disorder, recurrent episode, m*10/31/2014 Uncontrolled type 2 diabetes mellitus without c*09/28/2015 Recurrent major depression in partial remission*09/28/2015 0 04/30/2016 Pelvic floor dysfunction [M62.89] 08/07/2017 Pain in left hip [M25.552] 08/07/2017 Chronic pain of both knees [M25.561, M25.562, G*04/01/2018 Cervical paraspinal muscle spasm [M62.838] 06/08/2018 Cervical strain [S16.1XXA] 06/08/2018 Dyslipidemia [E78.5] 06/08/2018 Hypothyroidism, acquired [E03.9] 06/08/2018 Type 2 diabetes mellitus without complication, *06/08/2018 Encounter Status:Closed by EPIC, PRODUSER on 04/13/19 progress on 2019-03 PROGRESS HNO ID: [id number] Normal 03-16-[address] [facility] Author: Loly Light) [facility] ([id number]) Service: ? Author Type: Nurse Practitioner Type: Progress Notes Filed: 03/18/2019 12:36 PM Note Text: Patient presents with: Follow Up HPI: Neymar Hernadez is a 38 year old female who presents to the [facility] today for review of health conditions. She is an established patie nt of Dr. Jean and new to me today. Concerns today: 2 weeks ago fell because her knee gave out, she hurt knee, hand, and face. Face hurts on both sides, worse right now on left side of jaw that radiates down toward the bottom of her mouth. Was x rayed in ED, no fractures noted. Heat and ice both make her face hurt. Ty lenol is not helping the pain. Hand is feeling better. Left knee is still hurting. ED took xrays of this as well and told her it was fine. Gave a [place] in the ED and sent her home with instructions for Tylenol and i ce. 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 She is supposed to go to [facility] therapy for this, but she has not had transportation. States her depression is not at its normal level. States she had suicidal thoughts the other day, but not today. Home situation is not good. Her kids' father is living with her but they are not together-he is having other women in the house after breaking up with her 2 months ago. Her dad in May. Her [employer] [place] runs out the day after [place] and she can't find a new place that is close for h er and the 3 kids. Last 3 Encounter BP Readings: Date: BP: 03/16/2019 108/72 02/24/2019 116/86 10/12/2018 112/68 PAST MEDICAL HISTORY Diagnosis Date - Diabetes mellitus type 2, controlled, without complication s (HCC) 08/04/2014 - Hypothyroidism 05/2014 - Major depressive disorder, recurrent episode, moderate (HC C) 10/31/2014 - Obesity 08/04/2014 PAST SURGICAL HISTORY Procedure Laterality Date - COLONOSCOP W/ OR W/O BRSH SPEC N/A 06/04/2016 MAC - EGD W/O OR W/BRUSH/WASH N/A 06/04/2016 MAC - LIGATE FALLOPIAN TUBE 2013 Tubal ligation - PAST SURGICAL HISTORY OF 2013 - PAST SURGICAL HISTORY OF Left tendon surgery on left wrist Social History Tobacco Use - Smoking status: Never Smoker - Smokeless tobacco: Never Used Substance Use Topics - Alcohol use: No Frequency: Never Drinks per session: Patient refused Binge frequency: Never - Drug use: No FAMILY HISTORY Problem Relation Age of Onset [...] Breath - Ibuprofen Shortness of Breath - Pravastatin GI Upset vomiting - Simvastatin Rash, Shortness of Breath - Tramadol Other: See Comments Dizziness Current Meds: levothyroxine (LEVOXYL) 50 mcg tablet Take 1 tablet by mouth once daily. Take on empty stomach. For Thyroid liraglutide (VICTOZA) 0.6 mg/ 0.1 ml subcutaneous pen inject or Inject 1.2 mg subcutaneously once daily. insulin degludec (TRESIBA) 100 unit/mL (3 mL) injection Inje ct 40 Units subcutaneously every 24 hours. busPIRone (BUSPAR) 5 mg tablet Take 1 tablet by mouth three times daily. As needed for anxiety attack metFORMIN ER (GLUCOPHAGE XR) 500 mg 24 hr tablet Take 2 tabl ets by mouth twice daily before meals. tiZANidine (ZANAFLEX) 2 mg tablet Take 1 tablet by mouth papo ry 8 hours as needed (neck pain, muscle spasm). atorvastatin (LIPITOR) 20 mg tablet Take 1 tablet by mouth o nce daily. fluticasone (FLONASE) 50 mcg/actuation nasal spray Use 2 Spr ays in each nostril once daily. Rinse mouth after use. fexofenadine (JULIANN) 60 mg tablet Take 1 tablet by mouth o nce daily. albuterol HFA (PROAIR HFA) 90 mcg/actuation inhaler Inhale 2 Puffs as instructed every 4 hours as needed. insulin needles, DISPOSABLE, 31 gauge x 5/16 ndle USE ONE N EEDLE PER DOSE (ONCE DAILY) propranolol (INDERAL) 60 mg tablet Take 1 tablet by mouth on ce daily. meloxicam (MOBIC) 15 mg tablet Take 1 tablet by mouth once d aily. Blood-Glucose Meter monitoring kit Glucose Meter of Choice - Kit - Dx: Type 2 DM - Uncontrolled E11.65 blood sugar diagnostic (BLOOD GLUCOSE TEST) test strip Test blood sugar(s) 1 times daily. Dx: Type 2 DM - Uncontrolled E11.65 Insulin: Yes Lancets lancets Test blood sugar(s) 1 times daily. Dx: Type 2 DM - Uncontrolled E11.65 Insulin: Yes FREESTYLE LITE STRIPS test strip USE ONE STRIP TO CHECK GLUC OSE ONCE DAILY DIRECTED glucose 4 gram chewable tablet Take 4 tablets by mouth as ne eded. For low blood sugars Review of Systems Constitutional: Positive for fatigue. HENT: Negative. Facial pain Respiratory: Negative. Cardiovascular: Negative. Gastrointestinal: Negative. Genitourinary: Negative. Musculoskeletal: Left knee pain, left hip pain Skin: Negative. Neurological: Negative. Psychiatric/Behavioral: Depressed PE: 03/16/19 1510 BP: 108/72 Pulse: 84 Resp: 14 Temp: 36.6 ?C (97.8 ?F) TempSrc: Left Tympanic Weight: 108 kg (238 lb) Physical Exam Constitutional: Appearance: Normal appearance. HENT: Head: Normocephalic and atraumatic. Jaw: Tenderness and pain on movement present. Comments: Positive for TMJ click and pain bilaterally with p alpation Right Ear: Tympanic membrane, ear canal and external ear nor mal. Left Ear: Tympanic membrane, ear canal and external ear norm al. Mouth/Throat: Mouth: Mucous membranes are moist. Pharynx: Oropharynx is clear. Eyes: Extraocular Movements: Extraocular movements intact. Conjunctiva/sclera: Conjunctivae normal. Pupils: Pupils are equal, round, and reactive to light. Neck: Musculoskeletal: Normal range of motion and neck supple. Cardiovascular: Rate and Rhythm: Normal rate and regular rhythm. Pulses: Normal pulses. Heart sounds: Normal heart sounds. Pulmonary: Effort: Pulmonary effort is normal. Breath sounds: Normal breath sounds. Abdominal: General: Bowel sounds are normal. Palpations: Abdomen is soft. Musculoskeletal: Normal range of motion. General: Tenderness present. Comments: To left knee Skin: General: Skin is warm and dry. Capillary Refill: Capillary refill takes less than 2 seconds . Neurological: General: No focal deficit present. Mental Status: She is alert and oriented to person, place, a nd time. Psychiatric: Attention and Perception: Attention and perception normal. Mood and Affect: Mood is depressed. Affect is flat and tearf ul. Speech: Speech normal. Behavior: Behavior normal. Behavior is cooperative. Thought Content: Thought content normal. Cognition and Memory: Cognition and memory normal. Judgment: Judgment normal. ASSESSMENT/PLAN: 1. Anxiety with depression - ICD9: 300.4, ICD10: F41.8 (prim rossana diagnosis) Patient has multiple stressors currently, including her ex-b oyfriend as well as no longer having a vehicle, and possibly losing her housing the day after [place]. She was utilized Prozac in the past and this has worked for her. She would like to try it again. - FLUOXETINE 20 MG CAPSULE 2. Anxiety attack - ICD9: 300.01, ICD10: F41.0 Will utilize buspirone when necessary for situational anxiet y. - BUSPIRONE 5 MG TABLET 3. Type 2 diabetes mellitus without complication, with long- term current use of insulin ([facility]) - ICD9: 250.00, V58.67, ICD10: E11.9, Z 79.4 A1c was 7.5 on February 24, which has significantly improved from June 06 when the result was 10.1. Refill sent for her - INSULIN DEGLUDEC (U-100) 100 UNIT/ML (3 ML) SUBCUTANEOUS P EN 4. Pain of left hip joint - ICD9: 719.45, ICD10: M25.552 Likely related to previous fall. X-rays were reportedly norm al, but she continues to complain of pain and some minimal swelling. We' ll treat her with prednisone, which will likely help her hip, knee, and p ossibly TMJ dysfunction as well. - PREDNISONE 10 MG TABLET 5. Knee injury, left, subsequent encounter - ICD9: V58.89, 9 59.7, ICD10: S89.92XD As above. - PREDNISONE 10 MG TABLET 6. 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 7. Headache, unspecified headache type - ICD9: 784.0, ICD10: R51 Tension versus related to TMJ dysfunction, or a combination of both. Loly Parnell APRN.CNP Greater than 50% of visit spent face to face with patient in counseling and education. This note was completed with [employer] dictation software. Note was reviewed for accuracy. There may be minor misspellings or gr ammar miscues with [employer] Dictation. To ER if develops chest pain, shortness of breath, or severe worsening of symptoms. Discussed risks, benefits, alternatives, and potential side effects of medications. Patient expressed understanding and agreed with the plan. Loly Parnell APRN.CNP [id number] [place] [address] cnov on 2019-03-16 CNOV Office Visit ([facility]) Normal 03-16-20 19 [place] NEYMAR Snyder ([id number]) 1980 [facility] Date Time Provider Department ([id number]) 03/16/19 3:40 PM LOLY PARNELL (CHRISTI) [facility] During your visit today, we recorded the following informati on about you: Temperature Pulse Respiration Blood pressure 97.8 degrees 84/minute 14/minute 108/72 Weight 108 kg Loly Parnell APRN.CNP 03/18/2019 12:36 PM Signed Patient presents with: Follow Up HPI: Neymar Hernadez is a 38 year old female who presents to the office today for review of health conditions. She is an e stablished patient of Dr. Jean and new to me today. Concerns today: 2 weeks ago fell because her knee gave out, she hurt knee, hand, and face. Face hurts on both sides, worse right now on left side of jaw that radiates down toward the bottom of her mouth. Was xraye d in ED, no fractures noted. Heat and ice both make her face hurt. Tylenol is not helping the pain. Hand is feeling better. Left knee is still hurti ng. ED took xrays of this as well and told her it was fine. Gave a [place] in the ED and sent her home with instructions for Tylenol and ice. 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 She is supposed to go to physical therapy for thi s, but she has not had transportation. States her depression is not at its normal level. States she had suicidal thoughts the other day, but not today. Home situation is not good. Her kids' father is living with her bu t they are not together-he is having other women in the house after breaking up with her 2 months ago. Her dad p assed away in May. Her [employer] housing runs out the day after [place] and she can't find a new place that is close for her and the 3 kids. Last 3 Encounter BP Readings: Date: BP: 03/16/2019 108/72 02/24/2019 116/86 10/12/2018 112/68 PAST MEDICAL HISTORY Diagnosis Date - Diabetes mellitus type 2, controlled, without complications (HCC) 08/04/2014 - Hypothyroidism 05/2014 - Major depressive disorder, recurrent episode, moderate (HC C) 10/31/2014 - Obesity 08/04/2014 PAST SURGICAL HISTORY Procedure Laterality Date - COLONOSCOP W/ OR W/O BRSH SPEC N/A 06/04/2016 MAC - EGD W/O OR W/BRUSH/WASH N/A 06/04/2016 MAC - LIGATE FALLOPIAN TUBE 2013 Tubal ligation - PAST SURGICAL HISTORY OF 2013 - PAST SURGICAL HISTORY OF Left tendon surgery on left wrist Social History Tobacco Use - Smoking status: Never Smoker - Smokeless tobacco: Never Used Substance Use Topics - Alcohol use: No Frequency: Never Drinks per session: Patient refused Binge frequency: Never - Drug use: No FAMILY HISTORY Problem Relation Age of Onset [...] Breath - Ibuprofen Shortness of Breath - Pravastatin GI Upset vomiting - Simvastatin Rash, Shortness of Breath - Tramadol Other: See Comments Dizziness Current Meds: levothyroxine (LEVOXYL) 50 mcg tablet Take 1 tab let by mouth once daily. Take on empty stomach. For Thyroid liraglutide (VICTOZA) 0.6 mg/ 0.1 ml subcutaneous pen injector Inject 1.2 mg subcutaneously once daily. insulin degludec (TRESIBA) 100 unit/mL (3 mL) injection Inje ct 40 Units subcutaneously every 24 hours. busPIRone (BUSPAR) 5 mg tablet Take 1 tablet by mouth thre e times daily. As needed for anxiety attack metFORMIN ER (GLUCOPHAGE XR) 500 mg 24 h r tablet Take 2 tablets by mouth twice daily before meals. tiZANidine (ZANAFLEX) 2 mg tablet Take 1 tablet by mouth papo ry 8 hours as needed (neck pain, muscle spasm). atorvastatin (LIPITOR) 20 mg tablet Take 1 tablet by mouth o nce daily. fluticasone (FLONASE) 50 mcg /actuation nasal spray Use 2 Sprays in each nostril once daily. Rinse mouth after use. fexofenadine (JULIANN) 60 mg tablet Take 1 tablet by mouth o nce daily. albuterol HFA (PROAIR HFA) 90 mcg/actuation inhaler Inhale 2 Puffs as instructed every 4 hours as needed. insulin needles, DISPOSABLE, 31 gauge x 5/16 ndle USE ONE N EEDLE PER DOSE (ONCE DAILY) propranolol (INDERAL) 60 mg tablet Take 1 tablet by mouth on ce daily. meloxicam (MOBIC) 15 mg tablet Take 1 tablet by mouth once d aily. Blood-Glucose Meter monitoring kit Glucose Meter of Choice - Kit - Dx: Type 2 DM - Uncontrolled E11.65 blood sugar diagnostic (BLOOD GLUCOSE TEST) test strip Test blood sugar(s) 1 times daily. Dx: Type 2 DM - Uncontrolled E11.65 Insulin: Ye s Lancets lancets Test blood sugar(s) 1 times daily. Dx: Type 2 DM - Uncontrolled E11.65 Insulin: Yes FREESTYLE LITE STRIPS test strip USE ONE STRIP T O CHECK GLUCOSE ONCE DAILY DIRECTED glucose 4 gram chewable tabl et Take 4 tablets by mouth as needed. For low blood sugars Review of Systems Constitutional: Positive for fatigue. HENT: Negative. Facial pain Respiratory: Negative. Cardiovascular: Negative. Gastrointestinal: Negative. Genitourinary: Negative. Musculoskeletal: Left knee pain, left hip pain Skin: Negative. Neurological: Negative. Psychiatric/Behavioral: Depressed PE: 03/16/19 1510 BP: 108/72 Pulse: 84 Resp: 14 Temp: 36.6 ?C (97.8 ?F) TempSrc: Left Tympanic Weight: 108 kg (238 lb) Physical Exam Constitutional: Appearance: Normal appearance. HENT: Head: Normocephalic and atraumatic. Jaw: Tenderness and pain on movement present. Comments: Positive for TMJ click and pain bilaterally with p alpation Right Ear: Tympanic membrane, ear canal and external ear nor mal. Left Ear: Tympanic membrane, ear canal and external ear norm al. Mouth/Throat: Mouth: Mucous membranes are moist. Pharynx: Oropharynx is clear. Eyes: Extraocular Movements: Extraocular movements intact. Conjunctiva/sclera: Conjunctivae normal. Pupils: Pupils are equal, round, and reactive to light. Neck: Musculoskeletal: Normal range of motion and neck supple. Cardiovascular: Rate and Rhythm: Normal rate and regular rhythm. Pulses: Normal pulses. Heart sounds: Normal heart sounds. Pulmonary: Effort: Pulmonary effort is normal. Breath sounds: Normal breath sounds. Abdominal: General: Bowel sounds are normal. Palpations: Abdomen is soft. Musculoskeletal: Normal range of motion. General: Tenderness present. Comments: To left knee Skin: General: Skin is warm and dry. Capillary Refill: Capillary refill takes less than 2 seconds . Neurological: General: No focal deficit present. Mental Status: She is alert and oriented to person, place, a nd time. Psychiatric: Attention and Perception: Attention and perception normal. Mood and Affect: Mood is depressed. Affect is flat and tearf ul. Speech: Speech normal. Behavior: Behavior normal. Behavior is cooperative. Thought Content: Thought content normal. Cognition and Memory: Cognition and memory normal. Judgment: Judgment normal. ASSESSMENT/PLAN: 1. Anxiety with depression - ICD9: 300.4, ICD10: F41.8 (prim rossana diagnosis) Patient has multiple stresso rs currently, including her ex-boyfriend as well as no longer having a vehicle, and possibly losing her housing the day after [place]. She was utilized Prozac in the past and this baugh s worked for her. She would like to try it again. - FLUOXETINE 20 MG CAPSULE 2. Anxiety attack - ICD9: 300.01, ICD10: F41.0 Will utilize buspirone when necessary for situational anxiet y. - BUSPIRONE 5 MG TABLET 3. Type 2 diabetes mellitus without complication, with long-term current use of insulin ([facility]) - ICD9: 250.00, V58.67, ICD10: E11.9, Z79.4 A1c was 7.5 on February 24, which has significan tly improved from June 06 when the result was 10.1. Refill sent for her - INSULIN DEGLUDEC (U-100) 100 UNIT/ML (3 ML) SUBCUTANEOUS P EN 4. Pain of left hip joint - ICD9: 719.45, ICD10: M25.552 Likely related to previous fall. X-rays were reportedly norm al, but she continues to complain of pain and some minimal s welling. We'll treat her with prednisone, which will likely help her h ip, knee, and possibly TMJ dysfunction as well. - PREDNISONE 10 MG TABLET 5. Knee injury, left, subsequent encounter - ICD9: V58.89, 9 59.7, ICD10: S89.92XD As above. - PREDNISONE 10 MG TABLET 6. 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 7. Headache, unspecified headache type - ICD9: 784.0, ICD10: R51 Tension versus related to TMJ dysfunction, or a combination of both. Loly Parnell, GIL.ENGINEERING CLERK Greater than 50% of visit spent face to face with patient in counseling and education. This note was completed with [employer] software. Note was reviewed for accuracy. There may be minor misspellings or gramm ar miscues with [employer] Dictation. To ER if develops chest pain, shortness of breath, or severe worsening of symptoms. Discussed risks, benefits, alternatives, and potential side effects of medications. Patient expressed understanding and agreed with the plan. Loly Parnell APRN.CHRISTI [id number] [place] [address] Loly Parnell APRN.CNP 03/16/2019 3:45 PM Signed Start Prozac once daily. Start Prednisone taper (should help your face and your knee) Try the jaw exercises. Referring Provider: SELF [[id number]] Allergies As of Date: 03/16/2019 Noted Allergy Reaction ASPIRIN 07/16/2011 12 - Shortness of Breath IBUPROFEN 07/16/2011 12 - Shortness of Breath PRAVASTATIN 06/08/2018 8 - GI Upset Comments: vomiting SIMVASTATIN 2014 2 - Rash 12 - Shortness of Breath TRAMADOL 01/31/2014 14 - Other: See Comments Comments: Dizziness Date Reviewed: 03/16/2019 Reviewed by: Loly (Christi) Soheila - Fully Assessed Reason for Visit: Follow Up [171] Primary Visit Diagnosis:Anxiety with depression [F41.8] Other Visit Diagnoses:Anxiety attack [F41.0] Type 2 diabetes mellitus without complication, with long-term current use of insulin (HCC) [E11.9, Z79.4] Pain of left hip joint [M25.552] Knee injury, left, subsequent encounter [S89.92XD] TMJ dysfunction [M26.609] Headache, unspecified headache type [R51] Order(s):busPIRone (BUSPAR) 5 mg tabletTake 1 tablet by mout h three times daily as needed. As needed for anxiety attackDisp: Rfl: insulin degludec (TRESIBA) 100 unit/mL (3 mL) injectionInjec t 44 Units subcutaneously every 24 hours.Disp: 6 PenRfl: 0 FLUoxetine (PROZAC) 20 mg capsuleTake 1 capsule by mouth onc e daily.Disp: 30 capsuleRfl: 0 predniSONE (DELTASONE) 10 mg tabletTake 40 mg x 3 days, 20 m g x 3 days, 10 mg x 3 days. Take with food, once dailyDisp: 21 tab letRfl: 0 Prescriptions as of 03/16/2019 Sig: LEVOTHYROXINE 50 MCG TABLET Take 1 tablet by mouth once d* LIRAGLUTIDE 0.6 MG/0.1 ML (18* Inject 1.2 mg subcutaneously * BUSPIRONE 5 MG TABLET Take 1 tablet by mouth three * INSULIN DEGLUDEC (U-100) 100 * Inject 44 Units subcutaneousl * METFORMIN ER 500 MG TABLET,EX* Take 2 tablets by mouth twice * TIZANIDINE 2 MG TABLET Take 1 tablet by mouth every * ATORVASTATIN 20 MG TABLET Take 1 tablet by mouth once d* FEXOFENADINE 60 MG TABLET Take 1 tablet by mouth once d* FLUOXETINE 20 MG CAPSULE Take 1 capsule by mouth once * PREDNISONE 10 MG TABLET Take 40 mg x 3 days, 20 mg x * PEN NEEDLE, DIABETIC 31 GAUGE* USE ONE NEEDLE PER DOSE (ONCE * BLOOD-GLUCOSE METER KIT Glucose Meter of Choice - Kit* BLOOD SUGAR DIAGNOSTIC STRIPS Test blood sugar(s) 1 times d* LANCETS Test blood sugar(s) 1 times d* GLUCOSE 4 GRAM CHEWABLE TABLET Take 4 tablets by mouth as ne * Problem List As Of Date 03/16/2019 Noted Resolved Left wrist pain [M25.532] 01/31/2014 04/30/2016 Left wrist tendinitis [M77.8] 01/31/2014 04/30/2016 Multinodular goiter [E04.2] 05/24/2014 Hypothyroidism [E03.9] 05/24/2014 Diabetes mellitus type 2, controlled, without c*08/04/2014 0 04/30/2016 Obesity, Class III, BMI 40-49.9 (morbid obesity*08/04/2014 Major depression [F32.9] 09/05/2014 04/30/2016 Major depressive disorder, recurrent episode, m*10/31/2014 Uncontrolled type 2 diabetes mellitus without c*09/28/2015 Recurrent major depression in partial remission*09/28/2015 0 04/30/2016 Pelvic floor dysfunction [M62.89] 08/07/2017 Pain in left hip [M25.552] 08/07/2017 Chronic pain of both knees [M25.561, M25.562, G*04/01/2018 Cervical paraspinal muscle spasm [M62.838] 06/08/2018 Cervical strain [S16.1XXA] 06/08/2018 Dyslipidemia [E78.5] 06/08/2018 Hypothyroidism, acquired [E03.9] 06/08/2018 Type 2 diabetes mellitus without complication, *06/08/2018 Other instructions from your clinician: Start Prozac once daily. Start Prednisone taper (should help your face and your knee) Try the jaw exercises. Prescriptions ordered this encounter Disp Refills Start End BUSPIRONE 5 MG TABLET 03/16/2019 Class: Med Update Route: ORAL Sig: Take 1 tablet by mouth three times daily as needed. As needed for anxiety attack INSULIN DEGLUDEC (U-100) 100 UNIT/ML* 6 Pen 0 03/16/2019 Class: Med Update Route: SUBCUTANEOUS Sig: Inject 44 Units subcutaneously every 24 hours. PROPRANOLOL 60 MG TABLET 03/16/2019 03/16/2019 Class: Med Update Route: ORAL Sig: Take 1 tablet by mouth as needed. Disc: Course of therapy completed FLUOXETINE 20 MG CAPSULE 30 c* 0 03/16/2019 04/15/2019 Route: ORAL Sig: Take 1 capsule by mouth once daily. PREDNISONE 10 MG TABLET 21 t* 0 03/16/2019 Sig: Take 40 mg x 3 days, 20 mg x 3 days, 10 mg x 3 days. Ta ke with food, once daily Medications Discontinued During This Encounter albuterol HFA (PROAIR HFA) 90 mcg/ac* 1 In* 0 05/18/20172018 Route: INHALATION Sig: Inhale 2 Puffs as instructed every 4 hours as needed. Disc: Course of therapy completed busPIRone (BUSPAR) 5 mg tablet 30 t* 1 03/07/2019 03/16/2019 Route: ORAL Sig: Take 1 tablet by mouth three times daily. As needed f or anxiety attack Disc: Adjust Sig - Block E-Cancel fluticasone (FLONASE) 50 mcg/actuati* 1 John* 11 10/06/201703/16/2019 Route: EACH NOSTRIL Sig: Use 2 Sprays in each nostril once daily. Rinse mouth af ter use. Disc: Course of therapy completed FREESTYLE LITE STRIPS test strip 100 * 11 06/01/2017 9 Cmt: Please consider 90 day supplies to promote better adher ence Sig: USE ONE STRIP TO CHECK GLUCOSE ONCE DAILY DIRECTED Disc: Course of therapy completed insulin degludec (TRESIBA) 100 unit/* 6 Pen 0 03/07/201903/16/2019 Route: SUBCUTANEOUS Sig: Inject 40 Units subcutaneously every 24 hours. Disc: Adjust Sig - Block E-Cancel meloxicam (MOBIC) 15 mg tablet 30 t* 0 03/19/2018 03/16/2019 Route: ORAL Sig: Take 1 tablet by mouth once daily. Patient not taking: Reported on 02/24/2019 Disc: Course of therapy completed propranolol (INDERAL) 60 mg tablet 90 t* 0 04/21/2018 9 Route: ORAL Sig: Take 1 tablet by mouth once daily. Patient taking differently: Take 60 mg by mouth as needed. Disc: Adjust Sig - Block E-Cancel propranolol (INDERAL) 60 mg tablet 03/16/2019 03/16/2019 Class: Med Update Route: ORAL Sig: Take 1 tablet by mouth as needed. Disc: Course of therapy completed Disposition: Return in about 1 month (around 04/16/2019) for m ood/jaw AND knee pain f/u. Follow-up and Disposition History Recorded Encounter Status:Closed by LOLY PARNELL on 03/18/19 obsolete on 2019-03 OBSOLETE Refill (FAMPWS) Normal 03-15-2019 [facility] NEYMAR HERNADEZ ([id number]) 1980 [facility] Date Time Provider Department ([id number]) 03/15/19 PADILLA JEAN FAMPWS During your visit today, we recorded the following informati on about you: Luc Blackwood LPN 03/16/2019 8:16 AM Signed Patient phones requesting refills as follows: Pending Prescriptions Disp Refills LEVOTHYROXINE 50 MCG TABLET 30 tablet 5 Sig: Take 1 tablet by mouth once daily. Take on empty stomac h. For Thyroid CHRISTINA: No LIRAGLUTIDE 0.6 MG/0.1 ML (18 MG/3 ML) SUBCUTANEOUS PEN INJE CTOR 2 Pen 3 CHRISTINA: No Please review and advise. Luc Denton APRN.CNP 03/16/2019 10:23 AM Signed Script sent. Rama Denton APRN.CNP Allergies As of Date: 03/15/2019 Noted Allergy Reaction ASPIRIN 07/16/2011 12 - Shortness of Breath IBUPROFEN 07/16/2011 12 - Shortness of Breath PRAVASTATIN 06/08/2018 8 - GI Upset Comments: vomiting SIMVASTATIN 2014 2 - Rash 12 - Shortness of Breath TRAMADOL 01/31/2014 14 - Other: See Comments Comments: Dizziness Date Reviewed: 02/24/2019 Reviewed by: Juanita Adams LPN - Fully Assessed Reason for Visit: Refill Request [94] Visit Diagnoses:Acquired hypothyroidism [E03.9] Type 2 diabetes mellitus without complication, without long-term current use of insulin (HCC) [E11.9] Order(s):levothyroxine (LEVOXYL) 50 mcg tabletTake 1 tablet by mouth once daily. Take on empty stomach. For ThyroidDisp: 30 tabletRfl: 5 liraglutide (VICTOZA) 0.6 mg/ 0.1 ml subcutaneous pen inject orInject 1.2 mg subcutaneously once daily.Disp: 2 PenRfl: 3 Prescriptions as of 03/15/2019 Sig: LEVOTHYROXINE 50 MCG TABLET Take 1 tablet by mouth once d* LIRAGLUTIDE 0.6 MG/0.1 ML (18* Inject 1.2 mg subcutaneously * INSULIN DEGLUDEC (U-100) 100 * Inject 40 Units subcutaneousl * BUSPIRONE 5 MG TABLET Take 1 tablet by mouth three * PEN NEEDLE, DIABETIC 31 GAUGE* USE ONE NEEDLE PER DOSE (ONCE * METFORMIN ER 500 MG TABLET,EX* Take 2 tablets by mouth twice * TIZANIDINE 2 MG TABLET Take 1 tablet by mouth every * ATORVASTATIN 20 MG TABLET Take 1 tablet by mouth once d* PROPRANOLOL 60 MG TABLET Take 1 tablet by mouth once d* Patient taking differently: Take 60 mg by mouth as needed* MELOXICAM 15 MG TABLET Take 1 tablet by mouth once d* Patient not taking: Reported on 02/24/2019 FLUTICASONE PROPIONATE 50 MCG* Use 2 Sprays in each nostril * FEXOFENADINE 60 MG TABLET Take 1 tablet by mouth once d* BLOOD-GLUCOSE METER KIT Glucose Meter of Choice - Kit* BLOOD SUGAR DIAGNOSTIC STRIPS Test blood sugar(s) 1 times d* LANCETS Test blood sugar(s) 1 times d* FREESTYLE LITE STRIPS USE ONE STRIP TO CHECK GLUCOS* ALBUTEROL SULFATE HFA 90 MCG/* Inhale 2 Puffs as instructed * GLUCOSE 4 GRAM CHEWABLE TABLET Take 4 tablets by mouth as ne * Problem List As Of Date 03/15/2019 Noted Resolved Left wrist pain [M25.532] 01/31/2014 04/30/2016 Left wrist tendinitis [M77.8] 01/31/2014 04/30/2016 Multinodular goiter [E04.2] 05/24/2014 Hypothyroidism [E03.9] 05/24/2014 Diabetes mellitus type 2, controlled, without c*08/04/2014 0 04/30/2016 Obesity, Class III, BMI 40-49.9 (morbid obesity*08/04/2014 Major depression [F32.9] 09/05/2014 04/30/2016 Major depressive disorder, recurrent episode, m*10/31/2014 Uncontrolled type 2 diabetes mellitus without c*09/28/2015 Recurrent major depression in partial remission*09/28/2015 0 04/30/2016 Pelvic floor dysfunction [M62.89] 08/07/2017 Pain in left hip [M25.552] 08/07/2017 Chronic pain of both knees [M25.561, M25.562, G*04/01/2018 Cervical paraspinal muscle spasm [M62.838] 06/08/2018 Cervical strain [S16.1XXA] 06/08/2018 Dyslipidemia [E78.5] 06/08/2018 Hypothyroidism, acquired [E03.9] 06/08/2018 Type 2 diabetes mellitus without complication, *06/08/2018 Prescriptions ordered this encounter Disp Refills Start End LEVOTHYROXINE 50 MCG TABLET 30 t* 5 03/16/2019 Route: ORAL Sig: Take 1 tablet by mouth once daily. Take on empty stomac h. For Thyroid LIRAGLUTIDE 0.6 MG/0.1 ML (18 MG/3 M* 2 Pen 3 03/16/2019 Route: SUBCUTANEOUS Sig: Inject 1.2 mg subcutaneously once daily. Medications Discontinued During This Encounter levothyroxine (LEVOXYL) 50 mcg tablet 30 t* 5 10/18/20182018 Route: ORAL Sig: Take 1 tablet by mouth once daily. Take on empty stomac h. For Thyroid Disc: Reason for discontinue is not on file. VICTOZA 2-DANIELLE 0.6 mg/0.1 mL (18 mg/3* 2 Pen 3 11/15/20182018 Cmt: Please consider 90 day supplies to promote better adher ence Sig: INJECT 1.2MG SUBCUTANEOUSLY ONCE DAILY Disc: Reason for discontinue is not on file. Encounter Status:Closed by RAMA DENTON CNP on 03/16/19 progress on 2019-02 PROGRESS HNO ID: [id number] Normal 03-12-[address] [facility] Author: Ellie Garcia [place] ([id number]) Service: ? Author Type: Nurse Practitioner Type: Progress Notes Filed: 03/12/2019 1:46 PM Note Text: Triage Note: Pt presents with c/o teeth/mouth/face pain after falling and hitting face on curb. Thinks several teeth are loose. There were no vitals taken for this visit. .No chief complaint on file. PAST MEDICAL HISTORY Diagnosis Date - Diabetes mellitus type 2, controlled, without complication s (HCC) 08/04/2014 - Hypothyroidism 05/2014 - Major depressive disorder, recurrent episode, moderate (HC C) 10/31/2014 - Obesity 08/04/2014 PAST SURGICAL HISTORY Procedure Laterality Date - COLONOSCOP W/ OR W/O BRSH SPEC N/A 06/04/2016 MAC - EGD W/O OR W/BRUSH/WASH N/A 06/04/2016 MAC - LIGATE FALLOPIAN TUBE 2013 Tubal ligation - PAST SURGICAL HISTORY OF 2014 - PAST SURGICAL HISTORY OF Left tendon surgery on left wrist ALLERGIES Aspirin; Ibuprofen; Pravastatin; Simvastatin; Tram adol MEDICATIONS insulin degludec (TRESIBA) 100 unit/mL (3 mL) injection Inje ct 40 Units subcutaneously every 24 hours. busPIRone (BUSPAR) 5 mg tablet Take 1 tablet by mouth three times daily. As needed for anxiety attack VICTOZA 2-DANIELLE 0.6 mg/0.1 mL (18 mg/3 mL) pnij INJECT 1.2MG S UBCUTANEOUSLY ONCE DAILY insulin needles, DISPOSABLE, 31 gauge x 5/16 ndle USE ONE N EEDLE PER DOSE (ONCE DAILY) levothyroxine (LEVOXYL) 50 mcg tablet Take 1 tablet by mouth once daily. Take on empty stomach. For Thyroid metFORMIN ER (GLUCOPHAGE XR) 500 mg 24 hr tablet Take 2 tabl ets by mouth twice daily before meals. tiZANidine (ZANAFLEX) 2 mg tablet Take 1 tablet by mouth papo ry 8 hours as needed (neck pain, muscle spasm). atorvastatin (LIPITOR) 20 mg tablet Take 1 tablet by mouth o nce daily. propranolol (INDERAL) 60 mg tablet Take 1 tablet by mouth on ce daily. meloxicam (MOBIC) 15 mg tablet Take 1 tablet by mouth once d aily. fluticasone (FLONASE) 50 mcg/actuation nasal spray Use 2 Spr ays in each nostril once daily. Rinse mouth after use. fexofenadine (JULIANN) 60 mg tablet Take 1 tablet by mouth o nce daily. Blood-Glucose Meter monitoring kit Glucose Meter of Choice - Kit - Dx: Type 2 DM - Uncontrolled E11.65 blood sugar diagnostic (BLOOD GLUCOSE TEST) test strip Test blood sugar(s) 1 times daily. Dx: Type 2 DM - Uncontrolled E11.65 Insulin: Yes Lancets lancets Test blood sugar(s) 1 times daily. Dx: Type 2 DM - Uncontrolled E11.65 Insulin: Yes FREESTYLE LITE STRIPS test strip USE ONE STRIP TO CHECK GLUC OSE ONCE DAILY DIRECTED albuterol HFA (PROAIR HFA) 90 mcg/actuation inhaler Inhale 2 Puffs as instructed every 4 hours as needed. glucose 4 gram chewable tablet Take 4 tablets by mouth as ne eded. For low blood sugars FAMILY HISTORY Problem Relation Age of Onset - Diabetes Mother - Thyroid Mother hypothyroid - Stroke Mother - Diabetes Father - Stroke Father - Diabetes Sister - Diabetes Maternal Grandmother - Heart Maternal Grandmother congestive heart failure - Diabetes Maternal Grandfather - Heart Maternal Grandfather - Heart Paternal Grandfather had hole in heart at age 16 - Cancer Paternal Grandfather eye Social History Tobacco Use - Smoking status: Never Smoker - Smokeless tobacco: Never Used Substance Use Topics - Alcohol use: No - Drug use: No ASSESSMENT/PLAN: 1. Blunt trauma of face, initial encounter - ICD9: 959.09, I CD10: S09.93XA (primary diagnosis) 2. Fall, initial encounter - ICD9: E888.9, ICD10: W19.XXXA Referred to ED for further evaluation of facial trauma. Ellie Garcia APRN.ENGINEERING CLERK cnov on 2019-03-12 CNOV Office Visit (UCWSTR) Normal 03-12-20 [place] [facility] FIDELINANEYMAR Michel ([id number]) 1980 [place] Date Time Provider Department ([id number]) 03/12/19 12:30 PM ELLIE GARCIA [facility] During your visit today, we recorded the following informati on about you: Ellie Garcia APRN.ENGINEERING CLERK 03/12/2019 1:46 PM Signed Triage Note: Pt presents with c/o teeth/mouth/face pain after falli ng and hitting face on curb. Thinks several teeth are loose. There were no vitals taken for this visit. .No chief complaint on file. PAST MEDICAL HISTORY Diagnosis Date - Diabetes mellitus type 2, controlled, without complications (HCC) 08/04/2014 - Hypothyroidism 05/2014 - Major depressive disorder, recurrent episode, moderate (HC C) 10/31/2014 - Obesity 08/04/2014 PAST SURGICAL HISTORY Procedure Laterality Date - COLONOSCOP W/ OR W/O BRSH SPEC N/A 06/04/2016 MAC - EGD W/O OR W/BRUSH/WASH N/A 06/04/2016 MAC - LIGATE FALLOPIAN TUBE 2013 Tubal ligation - PAST SURGICAL HISTORY OF 2013 - PAST SURGICAL HISTORY OF Left tendon surgery on left wrist ALLERGIES Aspirin; Ibuprofen; Pravastatin; Simvastatin; Tram adol MEDICATIONS insulin degludec (TRESIBA) 100 unit/mL (3 mL) injection Inje ct 40 Units subcutaneously every 24 hours. busPIRone (BUSPAR) 5 mg tablet Take 1 tablet by mouth thre e times daily. As needed for anxiety attack VICTOZA 2-DANIELLE 0.6 mg/0.1 mL (18 mg/3 mL) pnij INJECT 1.2MG SUBCUTANEOUSLY ONCE DAILY insulin needles, DISPOSABLE, 31 gauge x 5/16 ndle USE ONE N EEDLE PER DOSE (ONCE DAILY) levothyroxine (LEVOXYL) 50 mcg tablet Take 1 tab let by mouth once daily. Take on empty stomach. For Thyroid metFORMIN ER (GLUCOPHAGE XR) 500 mg 24 h r tablet Take 2 tablets by mouth twice daily before meals. tiZANidine (ZANAFLEX) 2 mg tablet Take 1 tablet by mouth papo ry 8 hours as needed (neck pain, muscle spasm). atorvastatin (LIPITOR) 20 mg tablet Take 1 tablet by mouth o nce daily. propranolol (INDERAL) 60 mg tablet Take 1 tablet by mouth on ce daily. meloxicam (MOBIC) 15 mg tablet Take 1 tablet by mouth once d aily. fluticasone (FLONASE) 50 mcg /actuation nasal spray Use 2 Sprays in each nostril once daily. Rinse mouth after use. fexofenadine (JULIANN) 60 mg tablet Take 1 tablet by mouth o nce daily. Blood-Glucose Meter monitoring kit Glucose Meter of Choice - Kit - Dx: Type 2 DM - Uncontrolled E11.65 blood sugar diagnostic (BLOOD GLUCOSE TEST) test strip Test blood sugar(s) 1 times daily. Dx: Type 2 DM - Uncontrolled E11.65 Insulin: Ye s Lancets lancets Test blood sugar(s) 1 times daily. Dx: Type 2 DM - Uncontrolled E11.65 Insulin: Yes FREESTYLE LITE STRIPS test strip USE ONE STRIP T O CHECK GLUCOSE ONCE DAILY DIRECTED albuterol HFA (PROAIR HFA) 90 mcg/actuation inhaler Inhale 2 Puffs as instructed every 4 hours as needed. glucose 4 gram chewable tabl et Take 4 tablets by mouth as needed. For low blood sugars FAMILY HISTORY Problem Relation Age of Onset - Diabetes Mother - Thyroid Mother hypothyroid - Stroke Mother - Diabetes Father - Stroke Father - Diabetes Sister - Diabetes Maternal Grandmother - Heart Maternal Grandmother congestive heart failure - Diabetes Maternal Grandfather - Heart Maternal Grandfather - Heart Paternal Grandfather had hole in heart at age 16 - Cancer Paternal Grandfather eye Social History Tobacco Use - Smoking status: Never Smoker - Smokeless tobacco: Never Used Substance Use Topics - Alcohol use: No - Drug use: No ASSESSMENT/PLAN: 1. Blunt trauma of face, initial encounter - ICD9: 959.09, I CD10: S09.93XA (primary diagnosis) 2. Fall, initial encounter - ICD9: E888.9, ICD10: W19.XXXA Referred to ED for further evaluation of facial trauma. Ellie Garcia APRN.ENGINEERING CLERK Referring Provider: SELF [[id number]] Allergies As of Date: 03/12/2019 Noted Allergy Reaction ASPIRIN 07/16/2011 12 - Shortness of Breath IBUPROFEN 07/16/2011 12 - Shortness of Breath PRAVASTATIN 06/08/2018 8 - GI Upset Comments: vomiting SIMVASTATIN 2014 2 - Rash 12 - Shortness of Breath TRAMADOL 01/31/2014 14 - Other: See Comments Comments: Dizziness Date Reviewed: 02/24/2019 Reviewed by: Juanita Adams LPN - Fully Assessed Primary Visit Diagnosis:Blunt trauma of face, initial encoun ter [S09.93XA] Other Visit Diagnosis:Fall, initial encounter [W19.XXXA] Order(s):CONSULT TO EMERGENCY MEDICINE [] Order #: [id number]: 1 Prescriptions as of 03/12/2019 Sig: INSULIN DEGLUDEC (U-100) 100 * Inject 40 Units subcutaneousl * BUSPIRONE 5 MG TABLET Take 1 tablet by mouth three * VICTOZA 2-DANIELLE 0.6 MG/0.1 ML (* INJECT 1.2MG SUBCUTANEOUSLY O * PEN NEEDLE, DIABETIC 31 GAUGE* USE ONE NEEDLE PER DOSE (ONCE * LEVOTHYROXINE 50 MCG TABLET Take 1 tablet by mouth once d* METFORMIN ER 500 MG TABLET,EX* Take 2 tablets by mouth twice * TIZANIDINE 2 MG TABLET Take 1 tablet by mouth every * ATORVASTATIN 20 MG TABLET Take 1 tablet by mouth once d* PROPRANOLOL 60 MG TABLET Take 1 tablet by mouth once d* Patient taking differently: Take 60 mg by mouth as needed* MELOXICAM 15 MG TABLET Take 1 tablet by mouth once d* Patient not taking: Reported on 02/24/2019 FLUTICASONE PROPIONATE 50 MCG* Use 2 Sprays in each nostril * FEXOFENADINE 60 MG TABLET Take 1 tablet by mouth once d* BLOOD-GLUCOSE METER KIT Glucose Meter of Choice - Kit* BLOOD SUGAR DIAGNOSTIC STRIPS Test blood sugar(s) 1 times d* LANCETS Test blood sugar(s) 1 times d* FREESTYLE LITE STRIPS USE ONE STRIP TO CHECK GLUCOS* ALBUTEROL SULFATE HFA 90 MCG/* Inhale 2 Puffs as instructed * GLUCOSE 4 GRAM CHEWABLE TABLET Take 4 tablets by mouth as ne * Problem List As Of Date 03/12/2019 Noted Resolved Left wrist pain [M25.532] 01/31/2014 04/30/2016 Left wrist tendinitis [M77.8] 01/31/2014 04/30/2016 Multinodular goiter [E04.2] 05/24/2014 Hypothyroidism [E03.9] 05/24/2014 Diabetes mellitus type 2, controlled, without c*08/04/2014 0 04/30/2016 Obesity, Class III, BMI 40-49.9 (morbid obesity*08/04/2014 Major depression [F32.9] 09/05/2014 04/30/2016 Major depressive disorder, recurrent episode, m*10/31/2014 Uncontrolled type 2 diabetes mellitus without c*09/28/2015 Recurrent major depression in partial remission*09/28/2015 0 04/30/2016 Pelvic floor dysfunction [M62.89] 08/07/2017 Pain in left hip [M25.552] 08/07/2017 Chronic pain of both knees [M25.561, M25.562, G*04/01/2018 Cervical paraspinal muscle spasm [M62.838] 06/08/2018 Cervical strain [S16.1XXA] 06/08/2018 Dyslipidemia [E78.5] 06/08/2018 Hypothyroidism, acquired [E03.9] 06/08/2018 Type 2 diabetes mellitus without complication, *06/08/2018 Encounter Status:Closed by ELLIE GARCIA CNP on 03/12 progress on 2019-02 PROGRESS HNO ID: [id number] Normal 03-09-[address] [facility] Author: Elroy (Pt) Abdulaziz Cherry ([id number]) Service: ? Author Type: Physical Therapist Type: Progress Notes Filed: 03/09/2019 9:59 AM Note Text: 03/09/2019 [facility] PHYSICAL THERAPY DISCONTINUANCE OF CARE Plan of Care Period: Start of Care Date: 04/01/18 Last Visit Date: 04/23/2018 Therapy Program: The following is a summary of the intervent ions provided for this episode of care; Therapeutic exercise and Manual th erapy Assessment: Based on most recent visit, patient was progressing slower t alcantar expected toward functional goals based on pain levels. Unable to form ally assess goal achievement due to non-compliance with therapy plan of care. Reason for Discontinuation of Care: Patient has not returned to therapy or scheduled additional follow-up appointments. Elroy Cintron, PT obsolete on 2019-02 OBSOLETE Refill (FAMPWS) Normal 03-05-2019 [facility] NEYMAR HERNADEZ ([id number]) 1980 [facility] Time Provider Department ([id number]) 03/05/19 LIZBETH CAMPO (CHRISTI) FAMPWS During your visit today, we recorded the following informati on about you: Layne Montana LPN 03/07/2019 4:38 PM Signed Appt. 03/16. Layne Denton APRN.CNP 03/07/2019 5:42 PM Signed Script sent. Rama Denton APRN.CNP Allergies As of Date: 03/05/2019 Noted Allergy Reaction ASPIRIN 07/16/2011 12 - Shortness of Breath IBUPROFEN 07/16/2011 12 - Shortness of Breath PRAVASTATIN 06/08/2018 8 - GI Upset Comments: vomiting SIMVASTATIN 2014 2 - Rash 12 - Shortness of Breath TRAMADOL 01/31/2014 14 - Other: See Comments Comments: Dizziness Date Reviewed: 02/24/2019 Reviewed by: Juanita Adams LPN - Fully Assessed Reason for Visit: Refill Request [94] Primary Visit Diagnosis:Type 2 diabetes mellitus without c omplication, with long-term current use of insulin (HCC) [E11.9, Z79.4] Other Visit Diagnosis:Uncontrolled type 2 diabetes mellitus without complication, without long-term current use of insulin [[id number]] Order(s):insulin degludec (TRESIBA) 100 unit/mL (3 mL) injec tionInject 40 Units subcutaneously every 24 hours.Disp: 6 PenRfl: 0 Prescriptions as of 03/05/2019 Sig: INSULIN DEGLUDEC (U-100) 100 * Inject 40 Units subcutaneousl * VICTOZA 2-DANIELLE 0.6 MG/0.1 ML (* INJECT 1.2MG SUBCUTANEOUSLY O * PEN NEEDLE, DIABETIC 31 GAUGE* USE ONE NEEDLE PER DOSE (ONCE * LEVOTHYROXINE 50 MCG TABLET Take 1 tablet by mouth once d* METFORMIN ER 500 MG TABLET,EX* Take 2 tablets by mouth twice * TIZANIDINE 2 MG TABLET Take 1 tablet by mouth every * ATORVASTATIN 20 MG TABLET Take 1 tablet by mouth once d* PROPRANOLOL 60 MG TABLET Take 1 tablet by mouth once d* Patient taking differently: Take 60 mg by mouth as needed* MELOXICAM 15 MG TABLET Take 1 tablet by mouth once d* Patient not taking: Reported on 02/24/2019 FLUTICASONE PROPIONATE 50 MCG* Use 2 Sprays in each nostril * FEXOFENADINE 60 MG TABLET Take 1 tablet by mouth once d* BLOOD-GLUCOSE METER KIT Glucose Meter of Choice - Kit* BLOOD SUGAR DIAGNOSTIC STRIPS Test blood sugar(s) 1 times d* LANCETS Test blood sugar(s) 1 times d* X BUSPIRONE 5 MG TABLET Take 1 tablet by mouth three * Patient not taking: Reported on 02/24/2019 FREESTYLE LITE STRIPS USE ONE STRIP TO CHECK GLUCOS* ALBUTEROL SULFATE HFA 90 MCG/* Inhale 2 Puffs as instructed * GLUCOSE 4 GRAM CHEWABLE TABLET Take 4 tablets by mouth as ne * Problem List As Of Date 03/05/2019 Noted Resolved Left wrist pain [M25.532] 01/31/2014 04/30/2016 Left wrist tendinitis [M77.8] 01/31/2014 04/30/2016 Multinodular goiter [E04.2] 05/24/2014 Hypothyroidism [E03.9] 05/24/2014 Diabetes mellitus type 2, controlled, without c*08/04/2014 0 04/30/2016 Obesity, Class III, BMI 40-49.9 (morbid obesity*08/04/2014 Major depression [F32.9] 09/05/2014 04/30/2016 Major depressive disorder, recurrent episode, m*10/31/2014 Uncontrolled type 2 diabetes mellitus without c*09/28/2015 Recurrent major depression in partial remission*09/28/2015 0 04/30/2016 Pelvic floor dysfunction [M62.89] 08/07/2017 Pain in left hip [M25.552] 08/07/2017 Chronic pain of both knees [M25.561, M25.562, G*04/01/2018 Cervical paraspinal muscle spasm [M62.838] 06/08/2018 Cervical strain [S16.1XXA] 06/08/2018 Dyslipidemia [E78.5] 06/08/2018 Hypothyroidism, acquired [E03.9] 06/08/2018 Type 2 diabetes mellitus without complication, *06/08/2018 Prescriptions ordered this encounter Disp Refills Start End INSULIN DEGLUDEC (U-100) 100 UNIT/ML* 6 Pen 0 03/07/2019 Route: SUBCUTANEOUS Sig: Inject 40 Units subcutaneously every 24 hours. Medications Discontinued During This Encounter insulin degludec (TRESIBA) 100 unit/* 6 Pen 3 06/09/201802/12 Route: SUBCUTANEOUS Sig: Inject 40 Units subcutaneously every 24 hours. Disc: Reason for discontinue is not on file. Encounter Status:Closed by RAMA DENTON CNP on 03/07/19 OBSOLETE Refill (FAMPWS) Normal 03-05-2019 [facility] NEYMAR HERNADEZ ([id number]) 1980 [facility] Time Provider Department ([id number]) 03/05/19 PADILLA JEAN FAMPWS During your visit today, we recorded the following informati on about you: Layne Montana LPN 03/07/2019 4:36 PM Signed Has Appt. Scheduled 03/16/19. Layne Montana LPN ' Rama Denton APRN.CNP 03/07/2019 5:39 PM Signed Script sent. Rama Denton APRN.CNP Allergies As of Date: 03/05/2019 Noted Allergy Reaction ASPIRIN 07/16/2011 12 - Shortness of Breath IBUPROFEN 07/16/2011 12 - Shortness of Breath PRAVASTATIN 06/08/2018 8 - GI Upset Comments: vomiting SIMVASTATIN 2014 2 - Rash 12 - Shortness of Breath TRAMADOL 01/31/2014 14 - Other: See Comments Comments: Dizziness Date Reviewed: 02/24/2019 Reviewed by: Juanita Adams LPN - Fully Assessed Reason for Visit: Refill Request [94] Visit Diagnosis:Anxiety attack [F41.0] Order(s):busPIRone (BUSPAR) 5 mg tabletTake 1 tablet by mout h three times daily. As needed for anxiety attackDisp: 30 tabletRfl: 1 Prescriptions as of 03/05/2019 Sig: BUSPIRONE 5 MG TABLET Take 1 tablet by mouth three * VICTOZA 2-DANIELLE 0.6 MG/0.1 ML (* INJECT 1.2MG SUBCUTANEOUSLY O * PEN NEEDLE, DIABETIC 31 GAUGE* USE ONE NEEDLE PER DOSE (ONCE * LEVOTHYROXINE 50 MCG TABLET Take 1 tablet by mouth once d* METFORMIN ER 500 MG TABLET,EX* Take 2 tablets by mouth twice * INSULIN DEGLUDEC (U-100) 100 * Inject 40 Units subcutaneousl * TIZANIDINE 2 MG TABLET Take 1 tablet by mouth every * ATORVASTATIN 20 MG TABLET Take 1 tablet by mouth once d* PROPRANOLOL 60 MG TABLET Take 1 tablet by mouth once d* Patient taking differently: Take 60 mg by mouth as needed* MELOXICAM 15 MG TABLET Take 1 tablet by mouth once d* Patient not taking: Reported on 02/24/2019 FLUTICASONE PROPIONATE 50 MCG* Use 2 Sprays in each nostril * FEXOFENADINE 60 MG TABLET Take 1 tablet by mouth once d* BLOOD-GLUCOSE METER KIT Glucose Meter of Choice - Kit* BLOOD SUGAR DIAGNOSTIC STRIPS Test blood sugar(s) 1 times d* LANCETS Test blood sugar(s) 1 times d* FREESTYLE LITE STRIPS USE ONE STRIP TO CHECK GLUCOS* ALBUTEROL SULFATE HFA 90 MCG/* Inhale 2 Puffs as instructed * GLUCOSE 4 GRAM CHEWABLE TABLET Take 4 tablets by mouth as ne * Problem List As Of Date 03/05/2019 Noted Resolved Left wrist pain [M25.532] 01/31/2014 04/30/2016 Left wrist tendinitis [M77.8] 01/31/2014 04/30/2016 Multinodular goiter [E04.2] 05/24/2014 Hypothyroidism [E03.9] 05/24/2014 Diabetes mellitus type 2, controlled, without c*08/04/2014 0 04/30/2016 Obesity, Class III, BMI 40-49.9 (morbid obesity*08/04/2014 Major depression [F32.9] 09/05/2014 04/30/2016 Major depressive disorder, recurrent episode, m*10/31/2014 Uncontrolled type 2 diabetes mellitus without c*09/28/2015 Recurrent major depression in partial remission*09/28/2015 0 04/30/2016 Pelvic floor dysfunction [M62.89] 08/07/2017 Pain in left hip [M25.552] 08/07/2017 Chronic pain of both knees [M25.561, M25.562, G*04/01/2018 Cervical paraspinal muscle spasm [M62.838] 06/08/2018 Cervical strain [S16.1XXA] 06/08/2018 Dyslipidemia [E78.5] 06/08/2018 Hypothyroidism, acquired [E03.9] 06/08/2018 Type 2 diabetes mellitus without complication, *06/08/2018 Prescriptions ordered this encounter Disp Refills Start End BUSPIRONE 5 MG TABLET 30 t* 1 03/07/2019 Route: ORAL Sig: Take 1 tablet by mouth three times daily. As needed f or anxiety attack Medications Discontinued During This Encounter busPIRone (BUSPAR) 5 mg tablet 30 t* 1 08/03/2017 03/07/2019 Route: ORAL Sig: Take 1 tablet by mouth three times daily. As needed f or anxiety attack Patient not taking: Reported on 02/24/2019 Disc: Reason for discontinue is not on file. Encounter Status:Closed by RAMA DENTON CNP on 03/07/19 xr ankle 3v ap/lat/obl lt on 2019-02-24 XR ANKLE 3V * * *Final Report* * * Normal 02-[address] [facility] AP/LAT/OBL LT DATE OF EXAM: Feb 24 2019 11:32AM [place] WOX 5298 - XR ANKLE 3V AP/LAT/OBL LT / ([id number]) PROCEDURE REASON: Injury of left ankle, initial encounter * * * * Physician Interpretation * * * * EXAMINATION: XR ANKLE 3V AP/LAT/OBL LT PATIENT/TECHNOLOGIST PROVIDED HISTORY: Left lateral ankle pa in after a fall down stairs yesterday CLINICAL INFORMATION: 38 years old Female with Injury of lef t ankle, initial encounter TECHNIQUE: XR ANKLE 3V AP/LAT/OBL LT Laterality: LEFT Number of different views (projections): 3 COMPARISON: None RESULT: Well-corticated ossicle at the medial malleolus from remote injury. No acute fracture. Mild degenerative changes with osteophytes a t the medial and lateral malleoli. Ankle mortise is otherwise maintained. Posterior and plantar calcaneal spurs. IMPRESSION: No acute osseous abnormality. Channeler Outsole: PSCB Transcribe Date/Time: Feb 24 2019 11:44A Dictated by : AUBREY REYNOSO DO This examination was interpreted and the report reviewed and electronically signed by: AUBREY REYNOSO DO on Feb 24 2019 11:46AM EST [id number] progress on 2019-02 PROGRESS HNO ID: [id number] Normal 02-24-[address] [facility] Author: Mandeep (Lasting Room Machine Operator) [facility] ([id number]) Service: ? Author Type: Nurse Practitioner Type: Progress Notes Filed: 02/24/2019 12:21 PM Note Text: Subjective HPI HPI Neymar Hernadez is a 38 [facility], having pain in left ankle and both calve se. Has tried nothing for relief. Symptoms are worsened by rom/walking. De nies history of surgery or injury to left ankle. Denies . .Patient presents with: Ankle Pain: fell yesterday, pain in left ankle PAST MEDICAL HISTORY Diagnosis Date - Diabetes mellitus type 2, controlled, without complication s (HCC) 08/04/2014 - Hypothyroidism 05/2014 - Major depressive disorder, recurrent episode, moderate (HC C) 10/31/2014 - Obesity 08/04/2014 PAST SURGICAL HISTORY Procedure Laterality Date - COLONOSCOP W/ OR W/O BRSH SPEC N/A 06/04/2016 MAC - EGD W/O OR W/BRUSH/WASH N/A 06/04/2016 MAC - LIGATE FALLOPIAN TUBE 2013 Tubal ligation - PAST SURGICAL HISTORY OF 2014 - PAST SURGICAL HISTORY OF Left tendon surgery on left wrist ALLERGIES Aspirin; Ibuprofen; Pravastatin; Simvastatin; Tram adol MEDICATIONS VICTOZA 2-DANIELLE 0.6 mg/0.1 mL (18 mg/3 mL) pnij INJECT 1.2MG S UBCUTANEOUSLY ONCE DAILY insulin needles, DISPOSABLE, 31 gauge x 5/16 ndle USE ONE N EEDLE PER DOSE (ONCE DAILY) levothyroxine (LEVOXYL) 50 mcg tablet Take 1 tablet by mouth once daily. Take on empty stomach. For Thyroid metFORMIN ER (GLUCOPHAGE XR) 500 mg 24 hr tablet Take 2 tabl ets by mouth twice daily before meals. insulin degludec (TRESIBA) 100 unit/mL (3 mL) injection Inje ct 40 Units subcutaneously every 24 hours. tiZANidine (ZANAFLEX) 2 mg tablet Take 1 tablet by mouth papo ry 8 hours as needed (neck pain, muscle spasm). atorvastatin (LIPITOR) 20 mg tablet Take 1 tablet by mouth o nce daily. propranolol (INDERAL) 60 mg tablet Take 1 tablet by mouth on ce daily. fluticasone (FLONASE) 50 mcg/actuation nasal spray Use 2 Spr ays in each nostril once daily. Rinse mouth after use. fexofenadine (JULIANN) 60 mg tablet Take 1 tablet by mouth o nce daily. Blood-Glucose Meter monitoring kit Glucose Meter of Choice - Kit - Dx: Type 2 DM - Uncontrolled E11.65 blood sugar diagnostic (BLOOD GLUCOSE TEST) test strip Test blood sugar(s) 1 times daily. Dx: Type 2 DM - Uncontrolled E11.65 Insulin: Yes Lancets lancets Test blood sugar(s) 1 times daily. Dx: Type 2 DM - Uncontrolled E11.65 Insulin: Yes albuterol HFA (PROAIR HFA) 90 mcg/actuation inhaler Inhale 2 Puffs as instructed every 4 hours as needed. glucose 4 gram chewable tablet Take 4 tablets by mouth as ne eded. For low blood sugars meloxicam (MOBIC) 15 mg tablet Take 1 tablet by mouth once d aily. busPIRone (BUSPAR) 5 mg tablet Take 1 tablet by mouth three times daily. As needed for anxiety attack FREESTYLE LITE STRIPS test strip USE ONE STRIP TO CHECK GLUC OSE ONCE DAILY DIRECTED FAMILY HISTORY Problem Relation Age of Onset - Diabetes Mother - Thyroid Mother hypothyroid - Stroke Mother - Diabetes Father - Stroke Father - Diabetes Sister - Diabetes Maternal Grandmother - Heart Maternal Grandmother congestive heart failure - Diabetes Maternal Grandfather - Heart Maternal Grandfather - Heart Paternal Grandfather had hole in heart at age 16 - Cancer Paternal Grandfather eye Social History Tobacco Use - Smoking status: Never Smoker - Smokeless tobacco: Never Used Substance Use Topics - Alcohol use: No - Drug use: No Review of Systems Skin: Negative for itching and rash. Objective Blood pressure 116/86, pulse 72, resp. rate 18, weight 107 k g (236 lb). Physical Exam Constitutional: She is oriented to person, place, and time a nd well-developed, well-nourished, and in no distress. Non-toxi c appearance. She does not have a sickly appearance. No distress. HENT: Head: Normocephalic and atraumatic. Pulmonary/Chest: Effort normal. No accessory muscle usage. N o respiratory distress. Musculoskeletal: Left ankle: She exhibits decreased range of motion and swell ing. She exhibits no ecchymosis, no deformity, no laceration and norm al pulse. Tenderness. Lateral malleolus tenderness found. No medial ma lleolus tenderness found. Achilles tendon exhibits no pain and no de fect. Neurological: She is alert and oriented to person, place, an d time. Skin: She is not diaphoretic. ASSESSMENT/PLAN: 1. Injury of left ankle, initial encounter - ICD9: 959.7, IC D10: S99.912A -no bony abnormality noted on xray -given stretches/exercises -Rest, Ice, Compression, Elevation discussed -follow up with primary care if symptoms persist/worsen in 1 0-14 days -ankle splint supplied. - XR ANKLE GENERAL 3V AP/LAT/OBL LT IMPRESSION: ? No acute osseous abnormality. ? Dictated by : AUBREY REYNOSO, DO Agrees to plan Mandeep Gomez APRN.ENGINEERING CLERK lipid panel, nonfast on 2019-02-24 Cholesterol [Mass/Vol] 208 <200 mg/dL High 02-24-2 019 [facility] ([id number]) Comment: Result Comment: <200 mg/dL, Desirable 200-239 mg/dL, Borderline hi gh >239 mg/dL, High Performed By: #### LIPNF, HB A1C #### [facility] [address] [place], [place] [address] Cholesterol in 3.04 <2.54 mg/dL High 02-24-2019 [facility] LDL/Cholesterol in HDL [Mass [place] (64[address]) ratio] Comment: Result Comment: Reference: 1. National Cholesterol Educ ation Program ATP III Guideline At-A-Glance Quick Desk Reference: National Heart, Lung, and Blood [place]. National Institutes of Health. 2001: NIH Publication No. 01-3305. 2. An International Atherosc lerosis Society position paper: global recommendations for the management of dyslipidemia: executive summary, Atherosclerosis. 2014: 232(2):410-413. Performed By: #### LIPNF, HB A1C #### [facility] [address] [place], [place] [address] Cholesterol.total/Cholesterol in 4.62 <5.10 mg/dL Normal 02-24-2019 [place] HDL [Mass ratio] Cli zachery [place] ([id number]) Comment: Performed By: #### LIPNF, HB A1C #### [facility] [address] [place], [place] [address] HDL Cholesterol, NF 45 >39 mg/dL Normal 02-24-2019 [facility] ([id number]) Comment: Result Comment: 40-59 mg/dL, Acceptable >59 mg/dL, High: Negative ri sk factor for coronary heart disease <40 mg/dL, Low: Positive ris k factor for coronary heart disease Performed By: #### LIPNF, HB A1C #### [facility] [address] [place], [place] [address] LDL Cholesterol, NF 137 <100 mg/dL High 02-24-2019 [facility] ([id number]) Comment: Result Comment: <100 mg/dL, Optimal 100-129 mg/dL, Near optimal/ above optimal 130-159 mg/dL, Borderline hi gh 160-189 mg/dL, High >189 mg/dL, Very high Secondary prevention optimal LDL Cholesterol levels are recommended to be < 70 mg/dL Performed By: #### LIPNF, HB A1C #### [facility] [address] [place], [place] [address] Non HDL Chol, NF 163 <130 mg/dL High 02-24-2019 [facility] ([id number]) Comment: Result Comment: <130 mg/dL, Optimal 130-159 mg/dL, Near optimal/ above optimal 160-189 mg/dL, Borderline hi gh 190-219 mg/dL, High >219 mg/dL, Very high Secondary prevention optimal non HDL Cholesterol levels are recommended to be < 100 mg/dL Performed By: #### LIPNF, HB A1C #### [facility] [address] [place], [place] [address] Triglycerides, NF 128 <150 mg/dL Normal 02-24-2019 [facility] ([id number]) Comment: Result Comment: <150 mg/dL, Normal 150-199 mg/dL, Borderline hi gh 200-499 mg/dL, High >499 mg/dL, Very high Performed By: #### LIPNF, HB A1C #### [facility] [address] [place] [address] VLDL Cholesterol, NF 26 <30 mg/dL Normal 9 [facility] ([id number]) Comment: Performed By: #### LIPNF, HB A1C #### [address] [place], [place] [address] hemoglobin a1c on 2 HbA1c (Bld) [Mass fraction] 7.5 4.3-5.6 % High [facility] ([id number]) Comment: Result Comment: [place] [employer] Association guidelines indicate that patients with HgbA1c in the range 5.7-6.4% are at increased risk for development of diabetes, and intervention by lifestyle modification may be beneficial. HgbA1c greater o r equal to 6.5% is considered diagnostic of diabetes. Performed By: #### LIPNF, HB A1C #### [facility] [address] [place], [place] [address] HbA1c (Bld) [Mass fraction] 169 mg/dL Normal [facility] ([id number]) Comment: Result Comment: eAG: (Homera stefanie average glucose) is a calculated value from HgbA1c and is nutrition representative of the average blood glucose level in the last 2-3 month period. Performed By: #### LIPNF, HB A1C #### [facility] [address] [place], [place] [address] cnov on 2019-02-24 CNOV Office Visit (WSTR) Normal 02-25-20 [place] [facility] NEYMAR HERNADEZ ([id number]) 1980 [facility] Time Provider Department ([id number]) 02/24/19 10:45 AM MANDEEP GOMEZ (CHRISTI) [facility] During your visit today, we recorded the following informati on about you: Pulse Respiration Blood pressure Weight 72/minute 18/minute 116/86 107 kg Mandeep Gomez APRN.CNP 02/24/2019 12:21 PM Signed Subjective HPI HPI Neymarghazal Hernadez is a 38 year old fema le who presents today for CC of fall X 2 yesterday, having pain in left ankle a nd both calvese. Has tried nothing for relief. Symptoms are worsened by rom/walking. Denies history of surgery or injury to left ankle. Denies . .Patient presents with: Ankle Pain: fell yesterday, pain in left ankle PAST MEDICAL HISTORY Diagnosis Date - Diabetes mellitus type 2, controlled, without complications (HCC) 08/04/2014 - Hypothyroidism 05/2014 - Major depressive disorder, recurrent episode, moderate (HC C) 10/31/2014 - Obesity 08/04/2014 PAST SURGICAL HISTORY Procedure Laterality Date - COLONOSCOP W/ OR W/O BRSH SPEC N/A 06/04/2016 MAC - EGD W/O OR W/BRUSH/WASH N/A 06/04/2016 MAC - LIGATE FALLOPIAN TUBE 2013 Tubal ligation - PAST SURGICAL HISTORY OF 2013 - PAST SURGICAL HISTORY OF Left tendon surgery on left wrist ALLERGIES Aspirin; Ibuprofen; Pravastatin; Simvastatin; Tram adol MEDICATIONS VICTOZA 2-DANIELLE 0.6 mg/0.1 mL (18 mg/3 mL) pnij INJECT 1.2MG SUBCUTANEOUSLY ONCE DAILY insulin needles, DISPOSABLE, 31 gauge x 5/16 ndle USE ONE N EEDLE PER DOSE (ONCE DAILY) levothyroxine (LEVOXYL) 50 mcg tablet Take 1 tab let by mouth once daily. Take on empty stomach. For Thyroid metFORMIN ER (GLUCOPHAGE XR) 500 mg 24 h r tablet Take 2 tablets by mouth twice daily before meals. insulin degludec (TRESIBA) 100 unit/mL (3 mL) injection Inje ct 40 Units subcutaneously every 24 hours. tiZANidine (ZANAFLEX) 2 mg tablet Take 1 tablet by mouth papo ry 8 hours as needed (neck pain, muscle spasm). atorvastatin (LIPITOR) 20 mg tablet Take 1 tablet by mouth o nce daily. propranolol (INDERAL) 60 mg tablet Take 1 tablet by mouth on ce daily. fluticasone (FLONASE) 50 mcg /actuation nasal spray Use 2 Sprays in each nostril once daily. Rinse mouth after use. fexofenadine (JULIANN) 60 mg tablet Take 1 tablet by mouth o nce daily. Blood-Glucose Meter monitoring kit Glucose Meter of Choice - Kit - Dx: Type 2 DM - Uncontrolled E11.65 blood sugar diagnostic (BLOOD GLUCOSE TEST) test strip Test blood sugar(s) 1 times daily. Dx: Type 2 DM - Uncontrolled E11.65 Insulin: Ye s Lancets lancets Test blood sugar(s) 1 times daily. Dx: Type 2 DM - Uncontrolled E11.65 Insulin: Yes albuterol HFA (PROAIR HFA) 90 mcg/actuation inhaler Inhale 2 Puffs as instructed every 4 hours as needed. glucose 4 gram chewable tabl et Take 4 tablets by mouth as needed. For low blood sugars meloxicam (MOBIC) 15 mg tablet Take 1 tablet by mouth once d aily. busPIRone (BUSPAR) 5 mg tablet Take 1 tablet by mouth thre e times daily. As needed for anxiety attack FREESTYLE LITE STRIPS test strip USE ONE STRIP T O CHECK GLUCOSE ONCE DAILY DIRECTED FAMILY HISTORY Problem Relation Age of Onset - Diabetes Mother - Thyroid Mother hypothyroid - Stroke Mother - Diabetes Father - Stroke Father - Diabetes Sister - Diabetes Maternal Grandmother - Heart Maternal Grandmother congestive heart failure - Diabetes Maternal Grandfather - Heart Maternal Grandfather - Heart Paternal Grandfather had hole in heart at age 16 - Cancer Paternal Grandfather eye Social History Tobacco Use - Smoking status: Never Smoker - Smokeless tobacco: Never Used Substance Use Topics - Alcohol use: No - Drug use: No Review of Systems Skin: Negative for itching and rash. Objective Blood pressure 116/86, pulse 72, resp. rate 18, weight 107 k g (236 lb). Physical Exam Constitutional: She is oriented to perso n, place, and time and well-developed, well-nourished, and in no distress. Non-toxic ap pearance. She does not have a sickly appearance. No distress. HENT: Head: Normocephalic and atraumatic. Pulmonary/Chest: Effort normal. No accessory muscle usage. N o respiratory distress. Musculoskeletal: Left ankle: She exhibits decreased range of motion and swell ing. She exhibits no ecchymosis, no deformity, no laceration and norm al pulse. Tenderness. Lateral malleolus tenderness found. No medial malleolus tenderness found. Achilles tendon exhibits no pain and no defect. Neurological: She is alert and oriented to person, place, an d time. Skin: She is not diaphoretic. ASSESSMENT/PLAN: 1. Injury of left ankle, initial encounter - ICD9: 959.7, IC D10: S99.912A -no bony abnormality noted on xray -given stretches/exercises -Rest, Ice, Compression, Elevation discussed -follow up with primary care if symptoms persist/worsen in 1 0-14 days -ankle splint supplied. - XR ANKLE GENERAL 3V AP/LAT/OBL LT IMPRESSION: ? No acute osseous abnormality. ? Dictated by : AUBREY REYNOSO DO Agrees to plan Mandeep Gomez APRN.ENGINEERING CLERK Referring Provider: SELF [[id number]] Allergies As of Date: 02/24/2019 Noted Allergy Reaction ASPIRIN 07/16/2011 12 - Shortness of Breath IBUPROFEN 07/16/2011 12 - Shortness of Breath PRAVASTATIN 06/08/2018 8 - GI Upset Comments: vomiting SIMVASTATIN 2014 2 - Rash 12 - Shortness of Breath TRAMADOL 01/31/2014 14 - Other: See Comments Comments: Dizziness Date Reviewed: 02/24/2019 Reviewed by: Juanita Adams LPN - Fully Assessed Reason for Visit: Ankle Pain [1036] Cmt: fell yesterday, pain in left ankle Primary Visit Diagnosis:Injury of left ankle, initial encoun ter [S99.912A] Order(s):XR ANKLE GENERAL 3V AP/LAT/OBL LT [1271 584] Order #: [id number] #:[id number] Prescriptions as of 02/24/2019 Sig: VICTOZA 2-DANIELLE 0.6 MG/0.1 ML (* INJECT 1.2MG SUBCUTANEOUSLY O * PEN NEEDLE, DIABETIC 31 GAUGE* USE ONE NEEDLE PER DOSE (ONCE * LEVOTHYROXINE 50 MCG TABLET Take 1 tablet by mouth once d* METFORMIN ER 500 MG TABLET,EX* Take 2 tablets by mouth twice * INSULIN DEGLUDEC (U-100) 100 * Inject 40 Units subcutaneousl * TIZANIDINE 2 MG TABLET Take 1 tablet by mouth every * ATORVASTATIN 20 MG TABLET Take 1 tablet by mouth once d* PROPRANOLOL 60 MG TABLET Take 1 tablet by mouth once d* Patient taking differently: Take 60 mg by mouth as needed* FLUTICASONE PROPIONATE 50 MCG* Use 2 Sprays in each nostril * FEXOFENADINE 60 MG TABLET Take 1 tablet by mouth once d* BLOOD-GLUCOSE METER KIT Glucose Meter of Choice - Kit* BLOOD SUGAR DIAGNOSTIC STRIPS Test blood sugar(s) 1 times d* LANCETS Test blood sugar(s) 1 times d* ALBUTEROL SULFATE HFA 90 MCG/* Inhale 2 Puffs as instructed * GLUCOSE 4 GRAM CHEWABLE TABLET Take 4 tablets by mouth as ne * MELOXICAM 15 MG TABLET Take 1 tablet by mouth once d* Patient not taking: Reported on 02/24/2019 BUSPIRONE 5 MG TABLET Take 1 tablet by mouth three * Patient not taking: Reported on 02/24/2019 FREESTYLE LITE STRIPS USE ONE STRIP TO CHECK GLUCOS* Problem List As Of Date 02/24/2019 Noted Resolved Left wrist pain [M25.532] 01/31/2014 04/30/2016 Left wrist tendinitis [M77.8] 01/31/2014 04/30/2016 Multinodular goiter [E04.2] 05/24/2014 Hypothyroidism [E03.9] 05/24/2014 Diabetes mellitus type 2, controlled, without c*08/04/2014 0 04/30/2016 Obesity, Class III, BMI 40-49.9 (morbid obesity*08/04/2014 Major depression [F32.9] 09/05/2014 04/30/2016 Major depressive disorder, recurrent episode, m*10/31/2014 Uncontrolled type 2 diabetes mellitus without c*09/28/2015 Recurrent major depression in partial remission*09/28/2015 0 04/30/2016 Pelvic floor dysfunction [M62.89] 08/07/2017 Pain in left hip [M25.552] 08/07/2017 Chronic pain of both knees [M25.561, M25.562, G*04/01/2018 Cervical paraspinal muscle spasm [M62.838] 06/08/2018 Cervical strain [S16.1XXA] 06/08/2018 Dyslipidemia [E78.5] 06/08/2018 Hypothyroidism, acquired [E03.9] 06/08/2018 Type 2 diabetes mellitus without complication, *06/08/2018 Letter Text Encounter Status:Closed by MANDEEP GOMEZ CNP on 02/24/19 albumin/creat ratio on 2019-02-24 Albumin Urine Random <12.0 Normal 9 [facility] ([id number]) Comment: Performed By: #### UACR #### [facility] [address] [place], [place] [address] Albumin/Creat Ratio Not calculated <30 Normal 02-24 [facility] ([id number]) Comment: Performed By: #### UACR #### [facility] [address] [place], [place] [address] Creatinine,Urine,Ran 133.3 20-300 mg/dL Normal 9 [facility] ([id number]) Comment: Performed By: #### UACR #### [facility] [address] [place], [place] [address] progress on 2018-11 PROGRESS HNO ID: [id number] Normal 12-03-2018 [facility] Author: Jemima Luke ([id number]) Service: ? 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 Patient identified by name and . Jemima Luke MA PROGRESS HNO ID: [id number] Normal 12-03-2018 [facility] Author: Jemima Luke ([id number]) Service: ? Author Type: Development Intern Type: Progress Notes Filed: 12/03/2018 9:13 AM Note Text: POPULATION [facility] ORNAMENTAL IRONWORKER HELPER QUICKNOTE Provider Action/FYI: Unable to contact by phone. I will send a MYCHART message. Patient identified by name and . Jemima Luke MA Encounters Date Type Reason Provider Location 11-25-2019 - Letter encounter [facility] ([facility] [place]) [facility] 11-25-2019 Soheila Chery 11-24-2019 - Refill Dyslipidemia Lizbeth [place]) [facility] ne 11-24-2019 Cornielken Castrejon Chery Jean Padilla Jean Comment: Refill Request Plan of Treatment Plan Description Date Location DTAP,TDAP,TD (2 - Td) DTAP,TDAP,TD (2 - Td) 10-26-2023 - [facility] 10-26-2023 ([id number]) ANNUAL PCP TEAM CHRONIC ANNUAL PCP TEAM CHRONIC 09-13-2020 - [facility] DISEASE VISIT DISEASE VISIT 09-13-2020 ([id number]) URINE ALBUMIN:CREATININE URINE ALBUMIN:CREATININE 02-25-2020 - [facility] RATIO RATIO 02-25-2020 ([id number]) LDL CHOLESTEROL LDL CHOLESTEROL 02-25-2020 - [facility] 02-25-2020 ([id number]) INFLUENZA (#1) INFLUENZA (#1) 2019 - [facility] 12-13-2019 ([id number]) HBA1C HBA1C 08-25-2019 - [facility] 08-25-2019 ([id number]) DIABETIC FOOT EXAM DIABETIC FOOT EXAM 06-08-2019 - [facility] 06-08-2019 ([id number]) MAMMOGRAM MAMMOGRAM 2019 - [facility] 2019 ([id number]) HPV TESTING HPV TESTING 01-16-2019 - [facility] 01-16-2019 ([id number]) PAP TESTING PAP TESTING 01-16-2019 - [facility] 01-16-2019 ([id number]) DILATED RETINAL EXAM DILATED RETINAL EXAM 07-31-2018 - [facility] 07-31-2018 ([id number]) HEPATITIS C SCREENING HEPATITIS C SCREENING 1997 - [facility] 1997 ([id number]) HIV SCREENING HIV SCREENING 1997 - [facility] 1997 ([id number]) ALBUMIN/CREAT RATIO RND ALBUMIN/CREAT RATIO RND 11-24-[address] [facility] UR UR Lab Routine Type 2 ([id number]) diabetes mellitus without complication, with long-term current use of insulin ([facility]) 1 Occurrences starting 11/25/2019 until 11/24/2020 Comment: 1 Occurrences starting 11/24 until 11/24/2020 CBC + DIFF CBC + DIFF Lab Routine Type [address] [facility] ([id number]) mellitus without complication, with long-term current use of insulin ([facility]) Anxiety with depression 1 Occurrences starting 11/25/2019 until 11/24/2020 Comment: 1 Occurrences starting 11/24 until 11/24/2020 HGB A1C HGB A1C Lab Routine Type 2 diabetes 11-24-[address] [facility] ([id number]) mellitus without complication, with long-term current use of insulin (HCC) 1 Occurrences starting 11/25/2019 until 11/24/2020 Comment: 1 Occurrences starting 11/24 until 11/24/2020 LIPID PANEL BASIC LIPID PANEL BASIC Lab Routine 11-24-[address] [facility] ([id number]) Dyslipidemia 1 Occurrences starting 11/25/2019 until 11/24/2020 Comment: 1 Occurrences starting 11/24 until 11/24/2020 T3 BLD T3 BLD Lab Routine Acquired hypothyroidism 11-[address] [facility] ([id number]) 1 Occurrences starting 11/25/2019 until 11/24/2020 Comment: 1 Occurrences starting 11/24 until 11/24/2020 T4 FREE/FREE THYROX T4 FREE/FREE THYROX Lab 11-24-2020 [facility] ([id number]) Routine Acquired hypothyroidism 1 Occurrences starting 11/25/2019 until 11/24/2020 Comment: 1 Occurrences starting 11/24 until 11/24/2020 no information [facility] ([id number]) Immunizations Vaccine Notes Status Date Location Influenza Seasonal influenza, (completed) 01-27-2017 - [facility] Inj Quadrivalent Age injectable, 01-27-2017 ([id number]) 3+ quadrivalent, contains preservative Influenza Seasonal influenza, (completed) 02-13-2015 - [facility] Inj Quadrivalent Age injectable, 02-13-2015 ([id number]) 3+ quadrivalent, contains preservative Influenza Seasonal influenza, seasonal, (completed) 01-22-2018 - [facility] Inj Age 3+ injectable 01-22-2018 ([id number]) Influenza Seasonal influenza, seasonal, (completed) 02-15-2014 - [facility] Inj Age 3+ injectable 02-15-2014 ([id number]) Tetanus/Diphtheria tetanus and (completed) 09-12-2003 - [facility] Unspec diphtheria toxoids, 09-12-2003 ([id number]) not adsorbed, for adult use Tdap (Age 7+) tetanus toxoid, (completed) 10-25-2013 - [facility] linic reduced diphtheria 10-25-2013 ([id number]) toxoid, and acellular pertussis vaccine, adsorbed Payers Payer Name Policy Number Location [employer] [id number] [facility] (44 195) The following information is from the original human readable contentNo Payer Records Found Social History Type Social History Date Location Description Tobacco use and exposure Never used 04-15-2019 - [facility] 04-15-2019 ([id number]) History SDOH Social 5 03-15-2019 - [facility] 03-15-2019 ([id number]) Alcohol intake Current non-drinker of 04-15-2019 [facility] alcohol (finding) 04-15-2019 ([id number]) History SDOH Alcohol 1 03-15-2019 - [facility] l[facility] Frequency 03-15-2019 ([id number]) History SDOH Alcohol Std 98 03-15-2019 - [facility] Drinks 03-15-2019 ([id number]) History SDOH Social 2 03-15-2019 - [facility] 03-15-2019 ([id number]) Tobacco smoking status Never smoker 04-15-2019 - [facility] NHIS 04-15-2019 ([id number]) History SDOH Physical 7 03-15-2019 - [facility] Activity DPW 03-15-2019 ([id number]) History SDOH Physical 3 03-15-2019 - [facility] Activity MPS 03-15-2019 ([id number]) History SDOH Education 14 03-15-2019 - [facility] 03-15-2019 ([id number]) Sex Assigned At Female [facility] ([id number]) Exposure to SARS-CoV-2 Not sure [facility] (event) ([id number]) The following information is from the original human readable contentNo Social History Records Found Medical Equipment Equipment Code (if Equipment Original Equipment Procedure Code D ates provided) Text (if provided) Identifier (if (if provided) provided) Test blood sugar(s) 1 2017 times daily. Dx: Type 2 DM - Uncontrolled E11.65 Insulin: Yes USE ONE NEEDLE PER 0 DOSE (ONCE DAILY) Test blood sugar(s) 1 2017 times daily. Dx: Type 2 DM - Uncontrolled E11.65 Insulin: Yes USE ONE NEEDLE PER 9 DOSE (ONCE DAILY) Test blood sugar(s) 1 2017 times daily. Dx: Type 2 DM - Uncontrolled E11.65 Insulin: Yes Test blood sugar(s) 1 2017 times daily. Dx: Type 2 DM - Uncontrolled E11.65 Insulin: Yes USE ONE NEEDLE PER 201 9 DOSE (ONCE DAILY) Test blood sugar(s) 1 2017 times daily. Dx: Type 2 DM - Uncontrolled E11.65 Insulin: Yes USE ONE NEEDLE PER 0 DOSE (ONCE DAILY) Test blood sugar(s) 1 2017 times daily. Dx: Type 2 DM - Uncontrolled E11.65 Insulin: Yes History of Past Illness Problem Noted Date Resolved Date Recurrent major depression in partial remission 09/28/2015 04/30/2016 Major depression 09/05/2014 04/30/2016 Diabetes mellitus type 2, controlled, without complications 08/04/2014 04/30/2016 Left wrist pain 01/31/2014 04/30/2016 Left wrist tendinitis 01/31/2014 04/30/2016 Problem Noted Date Resolved Date Recurrent major depression in partial remission 09/28/2015 04/30/2016 Major depression 09/05/2014 04/30/2016 Diabetes mellitus type 2, controlled, without complications 08/04/2014 04/30/2016 Left wrist pain 01/31/2014 04/30/2016 Left wrist tendinitis 01/31/2014 04/30/2016 Problem Noted Date Resolved Date Recurrent major depression in partial remission 09/28/2015 04/30/2016 Major depression 09/05/2014 04/30/2016 Diabetes mellitus type 2, controlled, without complications 08/04/2014 04/30/2016 Left wrist pain 01/31/2014 04/30/2016 Left wrist tendinitis 01/31/2014 04/30/2016 Advance Directives No Advanced Directives Records Found Documents on File Type Date Recorded 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 Advance Directive(s) 05/28/2016 3:29 PM Advance Directive(s) 06/04/2016 3:22 PM Assessments Diagnosis Type 2 diabetes mellitus without complic ation, with long-term current use of insulin (HCC) - Primary Dyslipidemia Other and unspecified hyperlipidemia Uncontrolled type 2 diabetes mellitus wi thout complication, without long-term current use of insulin Anxiety with depression Acquired hypothyroidism Unspecified hypothyroidism Summary Purpose Family History No Family History Records Found Additional Source Comments FOR RECORDS PERTAINING TO PATIENTS WHO ARE OR HAVE BEEN ENROLLED IN A CHEMICAL DEPENDENCY/SUBSTANCE ABUSE PROGRAM, SOME INFORMATION MAY BE OMITTED. This clinical summary was aggregated from multiple sources. Caution should be exercised in using it in the provision of clinical care. This summary normalizes information from multiple sources, and as a consequence, information in this document may materially changethe coding, format and clinical context of patient data. In addition, data may be omittedin some cases. CLINICAL DECISIONS SHOULD BE BASED ON THE PRIMARY CLINICAL RECORDS. [facility] provides no warranty or guarantee of the accuracy or completeness of information in this document. UNRECOGNIZED CONTENT PROVIDED BELOW FOR UNRECOGNIZED SECTION Source Comments In the event this information is protected by the Federal Confidentiality of Alcohol and Drug Abuse Patient Records regulations: The Federal rules restrict any use of the information to criminally investigate or prosecute any alcohol or drug abuse patient.[facility] the event this information is protected by the Federal Confidentiality of Alcohol and Drug Abuse Patient Records regulations: The Federal rules restrict any use of the information to criminally investigate or prosecute any alcohol or drug abuse patient.[facility] the event this information is protected by the Federal Confidentiality of Alcohol and Drug Abuse Patient Records regulations: The Federal rules restrict any use of the information to criminally investigate or prosecute any alcohol or drug abuse patient.[facility] UNRECOGNIZED CONTENT PROVIDED BELOW FOR UNRECOGNIZED SECTION Reason for Visit Reason Onset Date Comments Refill Request 11/24/2019 UNRECOGNIZED CONTENT PROVIDED BELOW FOR UNRECOGNIZED SECTION Miscellaneous Notes Telephone Encounter - Loly Parnell) - 11/25/2019 10:22 AM EDT The following approved medication requests have been transmitted electronically. Pending Prescriptions Disp Refills PEN NEEDLE, DIABETIC 31 GAUGE X 5/16 100 Each 5 Sig: USE ONE NEEDLE PER DOSE (ONCE DAILY) CHRISTINA: No Loly Parnell APRN.CNP Telephone Encounter - Vikki Landrum Ma - 11/25/2019 8:37 AM EDT Patient has been identified by name and date of : Yes Pending Prescriptions Disp Refills PEN NEEDLE, DIABETIC 31 GAUGE X 5/16 100 Each 5 Sig: USE ONE NEEDLE PER DOSE (ONCE DAILY) CHRISTINA: No RX INSTRUCTIONS: Patient aware RX will be sent to pharmacy. No need to notify patient. Vikki Landrum Ma Last ov: 09/2019 Last refill; 11/2018 Nov: 12/2019 documented in this encounterTelephone Encounter - Zaki Narciso OROZCO - 11/25/2019 11:39 AM EDT Pt has follow up appt today, will address at that time. Narciso Haines MA elephone Encounter - Loly Parnell) - 11/25/2019 10:25 AM EDT Please notify patient that this is a 1-time refill on her medications. She needs to stop in the office and have her lab work completed so we can assure she is on the correct dose of her medications. Loly Parnell APRN.CNP The following approved medication requests have been transmitted electronically. Signed Prescriptions Disp Refills atorvastatin (LIPITOR) 20 mg tablet 30 tablet 0 Sig: Take 1 tablet by mouth once daily. CHRISTINA: No Authorizing Provider: PADILLA JEAN Ordering User: LOLY PARNELL metFORMIN ER (GLUCOPHAGE XR) 500 mg 24 hr tablet 120 tablet 0 Sig: Take 2 tablets by mouth twice daily before meals. CHRISTINA: No Authorizing Provider: PADILLA JEAN Ordering User: LOLY PARNELL APRN.CNP Telephone Encounter - Vikki Landrum Ma - 11/25/2019 8:38 AM EDT Patient has been identified by name and date of : Yes Pending Prescriptions Disp Refills ATORVASTATIN 20 MG TABLET 30 tablet 5 Sig: Take 1 tablet by mouth once daily. CHRISTINA: No METFORMIN ER 500 MG TABLET,EXTENDED RELEASE 24 HR 120 tablet 3 Sig: Take 2 tablets by mouth twice daily before meals. CHRISTINA: No RX INSTRUCTIONS: Patient aware RX will be sent to pharmacy. No need to notify patient. Vikki Landrum Ma Last ov: 09/2019 Last refill: 10/2018 Nov: 12/2019 documented in this encounter UNRECOGNIZED CONTENT PROVIDED BELOW FOR UNRECOGNIZED SECTION INFORMATION SOURCE DATE CREATED AUTHOR AUTHOR'S ORGANIZATIO N 11/26/[address] [facility] Maximiliano jones
== END ==
PROVIDERS: Referring Provider Obstetrics & Gynecology; Visit Provider Obstetrics & Gynecology
DX: Z12.4 Encounter for screening for malignant neoplasm of cervix (principal)
CPT/HCPCS: 88175; G0145

== ENCOUNTER 2020-03-12 17:26 | Emergency (ER) | payer MEDICAID, SELFPAY ==
[2020-03-12 17:28] VITALS: BP 144/94; PULSE 101; RESP 18; TEMP 35.4; O2SAT 97; BMI 37.9
[2020-03-12 19:02] VITALS: PULSE 99; RESP 14
--- NOTE | 2020-03-12 19:03 | ED.VISSUMM ---
- ER Visit Summary Date of Service: 03/12/20 Chief Complaint: Facial pain History of Present Illness: The patient is a [address] Osborne. She reports that she has pain to the right side of her face that began 2 days ago. She still points to both the maxilla and the mandible as a source of the pain. She describes it as stabbing pain is 10 of 10 severity. Is worsened by eating or warm tea. She is use Tylenol and heat without relief. She denies any dental pain. She reports that she does have right ear pain as well. She reports has had similar symptoms previously with ear infections. Physical Examination: Vitals: Stable. Afebrile. Mouth: No trismus. No edema of the floor of the mouth. Obvious caries to her right mandibular first and second molars laterally. She has mild tenderness palpation to her face just lateral to this. However, there is no soft tissue swelling or evidence of a focal abscess. HEENT: External auditory canals are normal bilaterally. TMs are normal bilaterally. General: A&O x 3. NAD. Cardiovascular exam: Regular rate and rhythm, no murmur, rub or gallop. Respiratory exam: Clear to auscultation bilaterally. No wheezes or stridor. Abdominal exam: Soft, nontender, nondistended, normal bowel sounds. No peritoneal signs. Extremity: No clubbing, cyanosis, or edema. Emergency Department Course and Treatment: An OARRS report was obtained which was negative. She was treated with amoxicillin. Treatment Plan: Discussed with the patient I suspect this is dental in origin. She will be instructed to follow-up with her dentist as planned soon as possible. She will be discharged with amoxicillin and 10 Dolphin. Follow-up her primary care physician in 3 to 5 days not improving. Return to the emergency department for any worsening symptoms. Disposition: To home in improved and stable condition. Impression: 1. Facial pain. This note was generated with [employer] dictation software. It may contain incorrect words, spelling, and punctuation that were not noted in review of the chart prior to signing ED Disposition - Plan for ED Patient: Instructions: ED Dental Pain Prescriptions: Amoxicillin 500 mg PO TID #30 tab Prescription Printed Hydrocodone Bitart/Apap 5-325 [Dolphin 5MG-325MG] 1 tab PO Q4H PRN PRN 2 Days #10 tab PRN Reason: Pain Prescription Printed Referrals: Padilla Osborne, DO [Primary Care Provider] - 3-5 Days if not improving Dentist,Your [STAFF PHYSICIAN] - As soon as possible
[2020-03-12] MEDS: AMOXICILLIN 500 MG CAPSULE PO (19:08)
== END 2020-03-12 19:49 | disposition home or self-care (01) ==
LOC: ED 19:45
PROVIDERS: Emergency Provider Emergency Medicine; PCP Student in an Organized Health Care Education/Training Program
DX: R51.9 Headache, unspecified (principal)
CPT/HCPCS: 99282

== ENCOUNTER 2020-08-22 17:01 | Emergency (ER) | payer MEDICAID, SELFPAY ==
[2020-08-22 17:02] VITALS: BP 124/79; PULSE 109; RESP 15; TEMP 36.8; O2SAT 99; BMI 37.7
--- NOTE | 2020-08-22 17:32 | EDS_ITS ---
HPI History of Present Illness Chief Complaint: Rash Informant: patient Onset/Context/Timing Onset: Today Quality: Redness and burning Location: Left upper arm Worsened by: Bite cream Relieved by: Nothing Narrative Narrative: Patient presents with left arm redness that began today. Patient states she woke up with redness to her left arm. Patient denies any trauma or injury. Patient states she was not sure if it was a bite so she put bite cream on it. Patient states this made it worse. Patient denies any fevers or chills. Patient denies any discharge or drainage. Patient states the area feels warm. [facility] Medical History (Updated 08/22/20 @ 17:[address] Tomás Schroeder DO) Diabetes Hypothyroidism Home Medications metformin 1,000 mg PO BID 12/04/16 [History Last Taken 07/12/17 08:00] levothyroxine 50 mcg PO DAILY 03/14/19 [History Last Taken Unknown] cephalexin 500 mg PO Q6 #40 capsule 08/22/20 [Rx Last Taken Unknown] empagliflozin [Jardiance] 25 mg PO DAILY 08/22/20 [History Last Taken Unknown] Allergy/AdvReac Type Severity Reaction Status Date / Time aspirin Allergy Hives Verified 08/22/20 17:02 ibuprofen Allergy Hives Verified 08/22/20 17:02 simvastatin AdvReac Other Verified 08/22/20 17:02 tramadol AdvReac Other Verified 08/22/20 17:02 Surgical History (Updated 08/22/20 @ 17:[address] Tomás Schroeder DO) H/O section History of tubal ligation Social History household members: other housing: homeless number of children: 4 Smoking Status: Never smoker ROS ROS ED Constitutional Constitutional ED: Denies chills or fever(s) Eyes Eyes: Denies blurry vision or change in vision ENT ENT ED: Denies rhinorrhea or sore throat Cardiovascular Cardiovascular: Denies chest pain or palpitations Respiratory/Chest Respiratory/Chest: Denies cough or dyspnea Gastrointestinal Gastrointestinal: Denies nausea or vomiting Genitourinary Genitourinary ED: Denies dysuria or hematuria Musculoskeletal Musculoskeletal: Denies back pain or neck pain Integumentary Reports rash; Denies abscess Neurologic Neurologic: Reports headache(s); Denies weakness Allergic/Immunologic Allergic/Immunologic ED: Denies mouth swelling or urticaria EXAM Physical Exam Const Vital Signs: 08/22/20 17:02 Temperature 98.3 F Temperature Source Temporal Pulse Rate 109 H Respiratory Rate 15 Blood Pressure 124/79 H Blood Pressure Mean 94 Pulse Ox 99 Oxygen Delivery Method Room Air Positive well nourished, well developed and obese General Appearance ED: well developed Nutritional Appearance: obese Neuro oriented x3, CN's II-XII intact bilaterally and no sensory deficits noted Sensorium / Orientation: alert Motor Exam: strength 5/5 throughout Skin Skin Narrative: There is erythema and warmth over the lateral aspect of the left upper arm in the midportion. There is no abscess formation. There is no discharge or drainage. There is no induration. There is no tenderness medially. There is no axillary lymphadenopathy. Sensation was intact to light touch in the radial, median, and ulnar areas. Radial pulses are equal bilaterally. There is good range of motion. MDM MDM MDM Narrative Medical decision making narrative: Patient was given a dose of Keflex here. Patient was given a prescription for Keflex. Patient was instructed to follow- up with her primary care physician in 5 to 7 days. Patient understood and was agreeable with the plan. All questions were answered. Discharge Plan Triage Chief Complaint: Rash ED Provider: Tomás Schroeder Dx/Rx/DC Orders Clinical Impression: Cellulitis of left arm Instructions: ED Cellulitis Prescriptions: New cephalexin [cephalexin] 500 MG capsule 500 mg PO Q6 Qty: 40 RF: 0 No Action metformin 500 MG tablet 1,000 mg PO BID RF: 0 levothyroxine 50 MCG tablet 50 mcg PO DAILY RF: 0 Jardiance 25 mg tablet 25 mg PO DAILY RF: 0 Primary Care Provider: Padilla Osborne Referrals: Padilla Osborne DO [Primary Care Provider] - 5-7 Days Disposition Disposition: Home, self care
[2020-08-22] MEDS: Cephalexin 500 MG Capsule PO (17:46)
== END 2020-08-22 17:49 | disposition home or self-care (01) ==
PROVIDERS: Emergency Provider Emergency Medicine; PCP Student in an Organized Health Care Education/Training Program
DX: L03.114 Cellulitis of left upper limb (principal); E66.9 Obesity, unspecified; Z68.37 Body mass index [BMI] 37.0-37.9, adult; E11.9 Type 2 diabetes mellitus without complications; E03.9 Hypothyroidism, unspecified; Z79.84 Long term (current) use of oral hypoglycemic drugs; Z79.899 Other long term (current) drug therapy
CPT/HCPCS: 99283

== ENCOUNTER 2021-05-24 09:29 | Emergency (ER) | payer MEDICAID, SELFPAY ==
[2021-05-24 09:31] VITALS: BP 145/101; PULSE 60; RESP 17; TEMP 35.6; O2SAT 98; BMI 36.3
--- NOTE | 2021-05-24 10:12 | ED.VIS.DENTA ---
HPI History of Present Illness Chief Complaint: Dental Narrative Narrative: 40-year-old female presenting with dental pain for the last couple of days. She states it is getting worse. Patient admits to right-sided facial tenderness around the angle of the mandible which radiates to the ear and into the lateral proximal neck. Patient states she believes she has a wisdom tooth that is erupting on the right. She denies any trauma. Patient is able to swallow. She is tolerating her own secretions. She denies fever or chills. Patient is allergic NSAIDs. Patient also relates that she has an allergy to tramadol. She has had Gaines in the past. Patient states that she does not have a dentist. [facility] Medical History Diabetes Hypothyroidism Home Medications metformin 1,000 mg PO BID 12/04/16 [History Last Taken 07/12/17 08:00] levothyroxine 50 mcg PO DAILY 03/14/19 [History Last Taken Unknown] empagliflozin [Jardiance] 25 mg PO DAILY 08/22/20 [History Last Taken Unknown] amoxicillin-pot clavulanate 1 tab PO BID #20 tab 05/24/21 [Rx Last Taken Unknown] dulaglutide [Trulicity] 1.5 mg SUBCUT TH 05/24/21 [History Last Taken Unknown] fluoxetine [Prozac] 20 mg PO DAILY 05/24/21 [History Last Taken Unknown] hydrocodone-acetaminophen 1 tab PO Q6H PRN 3 Days #10 tab 05/24/21 [Rx Last Taken Unknown] Allergy/AdvReac Type Severity Reaction Status Date / Time aspirin Allergy Hives Verified 05/24/21 09:30 ibuprofen Allergy Hives Verified 05/24/21 09:30 simvastatin AdvReac Other Verified 05/24/21 09:30 tramadol AdvReac Other Verified 05/24/21 09:30 Surgical History H/O section History of tubal ligation Social History household members: other housing: homeless number of children: 4 Smoking Status: Never smoker ROS ROS ED Constitutional Constitutional ED: Denies chills or fever(s) Eyes Eyes: Denies blurry vision or change in vision ENT ENT ED: Reports dental pain; Denies rhinorrhea or sore throat Cardiovascular Cardiovascular: Denies chest pain or palpitations Respiratory/Chest Respiratory/Chest: Denies cough or dyspnea Gastrointestinal Gastrointestinal: Denies abdominal pain or nausea Genitourinary Genitourinary ED: Denies dysuria or hematuria Musculoskeletal Musculoskeletal: Denies arthralgias or myalgias Integumentary Denies abscess or rash Neurologic Neurologic: Denies headache(s) Psychiatric Psychiatric: Denies anxiety or depression EXAM Physical Exam Const Vital Signs: 05/24/21 09:31 Temperature 96.0 F L Temperature Source Temporal Pulse Rate 60 Respiratory Rate 17 Blood Pressure 145/101 H Blood Pressure Mean 115 Pulse Ox 98 Oxygen Delivery Method Room Air Positive well nourished General Appearance ED: NAD HEENT Reports TM's clear HEENT Narrative: [place] tooth on the right appears to be erupting through the gumline. It does appear to be inflamed. There is no fluctuance. There is tenderness at the angle of the mandible externally. Right TM and external auditory canal are normal. Face is symmetric without any significant swelling Negative for trauma Tympanic Membrane ED: Yes TM's clear Mouth ED: Yes lips normal, Yes tongue normal and Yes salivary gland normal Mouth: lips normal, tongue normal and salivary gland normal Teeth and Gingiva: Negative for caries Throat: posterior oropharynx normal Eyes PERRL and EOMs intact bilaterally Neck supple Resp normal respiratory effort and clear to auscultation bilaterally Cardio regular rate and regular rhythm Neuro oriented x3, CN's II-XII intact bilaterally and moves all extremities Sensorium / Orientation: alert Psych mental status grossly normal Skin no rashes or lesions noted MDM MDM MDM Narrative Medical decision making narrative: Patient has a wisdom tooth erupting. This does appear to be inflamed. I do not appreciate any fluctuance. She has pain externally at the angle of the mandible. The right TM is normal. She has no sublingual edema. The tongue is normal without swelling. Posterior oropharynx is normal. Given that the patient is having increasing swelling in this area I will start her on Augmentin. She is allergic to NSAIDs and tramadol and states that Tylenol is not helping. It does appear that she has had Gaines in the past and I will give her a short supply of this. Patient is given information for Ashley Valenzuela and a dental referral sheet. She can return precautions. Impression: 1. Dental pain Discharge Plan Triage Chief Complaint: Dental ED Provider: Zaid Mattson Dx/Rx/DC Orders Instructions: ED Dental Pain Prescriptions: New amoxicillin-pot clavulanate 875-125 mg tablet 1 tab PO BID Qty: 20 RF: 0 hydrocodone-acetaminophen 5-325 mg tablet 1 tab PO Q6H PRN (Reason: pain) 3 Days Qty: 10 RF: 0 No Action metformin 500 MG tablet 1,000 mg PO BID RF: 0 levothyroxine 50 MCG tablet 50 mcg PO DAILY RF: 0 Jardiance 25 mg tablet 25 mg PO DAILY RF: 0 fluoxetine [Prozac] 20 mg Capsule 20 mg PO DAILY RF: 0 Trulicity 1.5 mg/0.5 mL Pen Injector 1.5 mg SUBCUT TH RF: 0 Primary Care Provider: Padilla Osborne Referrals: Padilla Osborne DO [Primary Care Provider] - Ashley Valenzuela [NON-STAFF] - As soon as possible Disposition Disposition: Home, Self Care
[2021-05-24] MEDS: HYDROcodone Bitartrate/Apap 5/325 Tablet PO (10:16)
[2021-05-24] MEDS: Amox/Clavulanate 875 MG Tablet PO (10:16)
== END 2021-05-24 10:24 | disposition home or self-care (01) ==
PROVIDERS: Emergency Provider Student in an Organized Health Care Education/Training Program; PCP Student in an Organized Health Care Education/Training Program; Visit Provider Student in an Organized Health Care Education/Training Program
DX: K08.89 Other specified disorders of teeth and supporting structures (principal); E11.9 Type 2 diabetes mellitus without complications; E03.9 Hypothyroidism, unspecified; Z59.00 Homelessness unspecified; Z79.82 Long term (current) use of aspirin; Z79.899 Other long term (current) drug therapy
CPT/HCPCS: 99281; 99283

== ENCOUNTER → 2021-10-01 | Outpatient (CLI) | payer MEDICAID, SELFPAY | END | disposition home or self-care (01) | LOC: SL 20:15 | PROVIDERS: PCP Student in an Organized Health Care Education/Training Program; Visit Provider Nurse Practitioner | DX: R51.9 Headache, unspecified (principal); R53.83 Other fatigue; G47.33 Obstructive sleep apnea (adult) (pediatric) | CPT/HCPCS: 95810 ==

== ENCOUNTER 2021-10-11 13:00 | Outpatient (RCR) | payer MEDICAID, SELFPAY ==
--- NOTE | 2021-09-26 15:43 | HP.PTEVAL_ITS ---
Patient's Visit Information NEYMAR KITCHEN is a 41 year old F referred to Physical Therapy by SAMANTA MARTINO with a diagnosis of vertigo, dizzyness.. Date of Evaluation: 09/26/21 Physical Therapist: Tomás Chavez, TITAT, OCS, CSCS - Visit Plan Frequency: 1x/Week Duration: 4-6 Weeks Plan: weekly x 4-6 for positional monitor or adaptation progression. Next session check positional and instruct in VOR, may need MSQ - Subjective I have vertigo. I have dizzy spells for a little over a year. insidous onset. Lasting up to twenty minutes. 1-2x/month. Chronic migraine PENA on top of that. Those have been around for 3 years. usually lying down or sleeping. no history of this. No meds or testing for this. Had MRI and catscan of head and neck due to PENA but they were normal. On meds for PENA for a month. Sleep is interrupted as it wakes her up. 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 Basic ADLs are done at home , Can't bend over too much or may get dizzy. No falls. No dizzyness in a month. - Pain PENA Pain Intensity (Out of 10): 0 Pain Intensity Range: 0, 10 - Objective Posture is Fw head and protracted scap. cervical aROM WFL and without pain. - c/s compression test. Good scapular ROM. Good balance. UE AROM limited and stiff into flexion at 110. - L HD. - roll test. - R HD but funny feeling in head and treated with anthony. Oculomotor: no nystagmus with head shake or gaze. - ocular tilt. - skew eye deviation. - head thrust. Pursuit and saccades appear normal. VOR makes her dizzy 7/10 for 30 seconds. Only thing that reproduces her dizzyness today. - Balance/Special Test Scores Functional Gait Assessment Score: 29 % Disability: 3.3400 Dizziness Score: 34 - Goals Goal 1:: Abolish vertigo for 5 weeks Goal Time Frame: 4-6 Weeks Goal 2:: pt sleep without waking at night due to dizzyness Goal Time Frame: 4-6 Weeks Goal 3:: DHI score 15 or less Goal Time Frame: 4-6 Weeks - Rehabilitation Potential Physical Therapy Diagnosis: possible vestibualr vertiog effecting sleepa t times. Rehabilitation Potential: Fair - Anticipated Interventions Patient/Client Instruction: Educate patient on: Condition, Plan of Care For the Purpose of:: To increase tolerance to activity/condition/position Comment: positional and adaptation/habituation as helpful. For the Purpose of:: To increase tolerance to activity/condition/position Thank you for the opportunity to evaluate your patient. For Medicare and Medicare HMO plans, please review the plan of care and approve it. It will need to be FAXED BACK to us at [phone] for Medicare purposes. For Medicare only, by signing this I certify the plan of care. Please let me know if there are questions or concerns regarding this plan of care. Physician Signature: Date:
--- NOTE | 2021-11-15 07:37 | HP.PT.NRP ---
NEYMAR KITCHEN was seen in my office for initial evaluation on 09/26/21. The following Plan of Care was established for this patient: Initial Frequency: 1x/Week Initial Duration: 4-6 Weeks Patient/Client Instruction: Educate patient on: Condition, Plan of Care For the Purpose of:: To increase tolerance to activity/condition/position For the Purpose of:: To increase tolerance to activity/condition/position This patient was last seen in our office 10/11/21. Pertinent comments regarding their Physical therapy will appear below: Pt seen two visits of POC and was 50% better. She did not show up for the last two visits. At this point, it has been over a month and I will discontinue her from my care due to nonattendance. At this point I will be discontinuing this patient from physical therapy. I would be happy to see this patient again in the future if found appropriate by the physician. Thank you! Tomás Chavez, DPT, OCS, CSCS Balance/Gait/Functional tests - Balance/Special Test Scores Functional Gait Assessment Score: 29 % Disability: 3.3400 Dizziness Score: 34
== END 2021-10-11 19:00 | disposition home or self-care (01) ==
LOC: PT 13:00
PROVIDERS: PCP Student in an Organized Health Care Education/Training Program; Referring Provider Nurse Practitioner; Visit Provider Nurse Practitioner
DX: R42 Dizziness and giddiness (principal)
CPT/HCPCS: 97161; 97530

== ENCOUNTER 2021-11-29 19:53 | Emergency (ER) | payer MEDICAID, SELFPAY ==
[2021-11-29 19:54] VITALS: BP 121/85; PULSE 91; RESP 15; TEMP 36.6; O2SAT 96; BMI 34.2
--- NOTE | 2021-11-29 22:08 | CT_ITS ---
EXAM: CT ABDOMEN AND PELVIS WITH INTRAVENOUS CONTRAST CLINICAL INDICATION: Lower quadrant abdominal pain. TECHNIQUE: Helically acquired images were obtained of the abdomen and pelvis with intravenous contrast. This CT exam was performed using one or more of the following dose reduction techniques: automated exposure control, adjustment of the mA and/or kV according to patient size, and/or use of iterative reconstruction technique. This report was created using mobile mum report generation technology. CONTRAST: 100 cc of Isovue-300 IV. RADIATION DOSE: CTDIvol = 22.8 mGy, DLP = 1244.73 mGy-cm. COMPARISON: None. FINDINGS: LOWER THORAX: Unremarkable. Lung bases are clear. No cardiomegaly. No significant pericardial effusion. ABDOMEN: LIVER: Unremarkable. Homogeneous. No focal mass. GALLBLADDER AND BILE DUCTS: Dense material layering in the gallbladder may be due to stones or sludge. No gallbladder distention or wall edema. No intra- or extrahepatic biliary ductal dilation. PANCREAS: Unremarkable. No focal cystic or solid mass. SPLEEN: Unremarkable. Normal size without focal cystic or solid mass. ADRENALS: Unremarkable. No nodules. KIDNEYS AND URETERS: Unremarkable. Normal renal size and position. No hydronephrosis. STOMACH AND BOWEL: Unremarkable. No stomach or bowel distention. No focal inflammatory change. PELVIS: APPENDIX: Normal appendix. BLADDER: Unremarkable. REPRODUCTIVE: Unremarkable as visualized. No mass. ABDOMEN and PELVIS: INTRAPERITONEAL SPACE: Unremarkable. No ascites or other fluid collection. No free air. BONES/JOINTS: Unremarkable. No suspicious lytic or blastic abnormality. SOFT TISSUES: Unremarkable. No discrete abdominal or pelvic wall hernia. VASCULATURE: Unremarkable. Abdominal aorta is non-dilated. LYMPH NODES: Unremarkable. No enlarged lymph nodes. CT/Abdomen/Pelvis W IV Cont ONLY IMPRESSION: Dense material layering in the gallbladder may be due to stones or sludge. Consider ultrasound. Electronically Signed: Yamil Conde MD at 0:25 EDT ,
--- NOTE | 2021-11-29 22:08 | EDS_ITS ---
HPI HPI - GI History of Present Illness Chief Complaint: Back Narrative Narrative: 41-year-old female presenting with left lower quadrant abdominal pain/flank pain. She is describes it as aching. Patient states its been present most of the day and has progressively become worse. She describes it as 9 of 10 pain. Patient has intermittent waves of nausea but is not currently nauseous. She states that she had a couple episodes of diarrhea but no black or bloody stools. She is not had a fever but does admit to chills. The patient does admit to dizziness but states this is a chronic issue when she is on meclizine for this. It is unchanged. She has not had any falls. She denies headache or visual complaints. Patient has no history of kidney stones or diverticulitis. She denies urinary complaints. She denies vaginal complaints. [facility] Medical History Diabetes Hypothyroidism Home Medications metformin 500 mg tablet,extended release 24 hr 1,000 mg PO BID 12/04/16 [History Last Taken 07/12/17 08:00] levothyroxine 50 mcg tablet 50 mcg PO DAILY 03/14/19 [History Last Taken Unknown] empagliflozin 25 mg tablet (Jardiance) 25 mg PO DAILY 08/22/20 [History Last Taken Unknown] amoxicillin 875 mg-potassium clavulanate 125 mg tablet 1 tab PO BID #20 tabs 05/24/21 [Rx Last Taken Unknown] dulaglutide 1.5 mg/0.5 mL subcutaneous pen injector (Trulicity) 1.5 mg subcut TH 05/24/21 [History Last Taken Unknown] fluoxetine 20 mg capsule (Prozac) 20 mg PO DAILY 05/24/21 [History Last Taken Unknown] hydrocodone-acetaminophen 5-325mg 5mg-325mg 1 tab PO Q6H PRN pain 3 days #10 tabs 05/24/21 [Rx Last Taken Unknown] Allergy/AdvReac Type Severity Reaction Status Date / Time aspirin Allergy Hives Verified 11/29/21 19:57 ibuprofen Allergy Hives Verified 11/29/21 19:57 simvastatin AdvReac Other Verified 11/29/21 19:57 tramadol AdvReac Other Verified 11/29/21 19:57 Surgical History H/O section History of tubal ligation Social History household members: other housing: homeless number of children: 4 Smoking Status: Current every day smoker tobacco type: cigarettes ROS ROS ED Constitutional Constitutional ED: Reports chills; Denies fever(s) ENT ENT ED: Denies rhinorrhea or sore throat Cardiovascular Cardiovascular: Denies chest pain or palpitations Respiratory/Chest Respiratory/Chest: Denies cough or dyspnea Gastrointestinal Gastrointestinal: Reports abdominal pain, diarrhea and nausea; Denies melena or vomiting Genitourinary Genitourinary ED: Denies dysuria or hematuria Musculoskeletal Musculoskeletal: Denies arthralgias or back pain Integumentary Denies abscess Neurologic Neurologic: Denies headache(s) or paresthesias Psychiatric Psychiatric: Denies anxiety or depression EXAM Physical Exam Const Vital Signs: 11/29/21 19:54 11/29/21 22:14 Temperature 97.8 F Temperature Source Temporal Pulse Rate 91 74 Respiratory Rate 15 17 Blood Pressure 121/85 H 126/80 H Blood Pressure Mean 97 95 Pulse Ox 96 97 Oxygen Delivery Method Room Air Room Air Positive well nourished General Appearance ED: NAD; Negative for pallor HEENT Reports TM's clear and moist mucous membranes Tympanic Membrane ED: Yes TM's clear Eyes PERRL and EOMs intact bilaterally Neck no lymphadenopathy Resp normal respiratory effort Auscultation: Negative for rales, rhonchi or wheezes Cardio regular rate and regular rhythm GI GI Narrative: Mild tenderness to the left lower quadrant/flank. Abdomen is benign. No rebound or guarding. Back/Spine no CVA tenderness Neuro CN's II-XII intact bilaterally, moves all extremities and no sensory deficits noted Sensorium / Orientation: alert Motor Exam: strength 5/5 throughout Psych mental status grossly normal Skin General Skin Exam: Negative for jaundice or pallor MDM MDM MDM Narrative Medical decision making narrative: Patient presenting with left lower quadrant abdominal pain and diarrhea. She does admit to chills. She has intermittent nausea. She be tested for COVID-19. I will obtain blood work and if needed imaging. Patient given a liter of IV fluids, morphine, Zofran. Lab work is obtained. CBC and CMP are normal with with exception of an isolated elevated bilirubin of 1.9. The other LFTs are normal. Urinalysis slightly contaminated but not consistent with infection. She does have [address] of the abdomen pelvis with IV contrast is obtained which shows some possible sludge in the gallbladder but again she is not tender here. She has left lower abdominal/flank pain. No kidney stones were found. I counseled the patient on the findings and she was amenable to discharge home. I counseled her this is likely musculoskeletal to alternate Tylenol and ibuprofen. All questions were answered. Patient stable for discharge. Impression: 1. Abdominal pain 2. Left flank pain 3. Chills 4. Chronic dizzy Lab Data Attestation: I reviewed the patient's lab results. Labs: Laboratory Results - last 24 hr 11/29/21 11/29/21 11/29/21 21:30 21:30 23:50 WBC 8.6 RBC 4.62 Hgb 13.0 Hct 40.3 MCV 87.2 MCH 28.1 MCHC 32.3 RDW Std Deviation 40.7 RDW Coeff of Obed 12.9 Plt Count 279 MPV 10.5 Immature Gran % (Auto) 0.200 Neut % (Auto) 55.8 Lymph % (Auto) 32.9 [place] % (Auto) 5.3 Eos % (Auto) 5.3 H Baso % (Auto) 0.5 Absolute Neuts (auto) 4.8 Absolute Lymphs (auto) 2.83 Nucleated RBC % 0 Sodium 141 Potassium 3.6 Chloride 106 Carbon Dioxide 29.0 Anion Gap 6 BUN 13 Creatinine 0.76 Estim Creat Clear Calc 90.27 Est GFR (MDRD) Af Amer 107 Est GFR (MDRD) Non-Af 88 BUN/Creatinine Ratio 17.1 Glucose 137 H Calcium 9.6 Total Bilirubin 1.90 H AST 15 ALT 21 Alkaline Phosphatase 66 Total Protein 7.1 Albumin 3.7 Globulin 3.4 Albumin/Globulin Ratio 1.1 Lipase 96 Urine Color Yellow Urine Clarity Clear Urine pH 6.0 Ur Specific [place] 1.015 Urine Protein 15 H Urine Glucose (UA) 1000 H Urine Ketones Negative Urine Occult Blood 10 H Urine Nitrite Negative Urine Bilirubin 1 H Urine Urobilinogen Normal Ur Leukocyte Esterase 25 H Urine RBC 0-5 SEEN Urine WBC 0-5 SEEN Ur Squamous Epith Cells 5-10 SEEN Urine Bacteria 3+ Urine Mucus 0 SEEN Radiography Diagnostic Testing: Clinical Impression(s) from Imaging Studies Abdomen/Pelvis CT 11/29/21 22:08 IMPRESSION: Dense material layering in the gallbladder may be due to stones or sludge. Consider ultrasound. Electronically Signed: Yamil Conde MD at 0:25 EDT , Discharge Plan Triage Chief Complaint: Back ED Provider: Zaid Mattson Dx/Rx/DC Orders Prescriptions: No Action metformin 500 MG tablet 1,000 mg PO BID levothyroxine 50 MCG tablet 50 mcg PO DAILY Jardiance 25 mg tablet 25 mg PO DAILY Label Comments: TAKE 1 TABLET BY MOUTH ONCE DAILY IN THE MORNING fluoxetine [Prozac] 20 mg Capsule 20 mg PO DAILY Trulicity 1.5 mg/0.5 mL Pen Injector 1.5 mg SUBCUT TH amoxicillin-pot clavulanate 875-125 mg tablet 1 tab PO BID Qty: 20 0RF hydrocodone-acetaminophen 5-325 mg tablet 1 tab PO Q6H PRN (Reason: pain) 3 Days Qty: 10 0RF Primary Care Provider: Padilla Osborne Referrals: Padilla Osborne, DO [Primary Care Provider] -
[2021-11-29 22:14] VITALS: BP 126/80; PULSE 74; RESP 17; O2SAT 97
[2021-11-29 22:18] LABS: Absolute Lymphocyte Count 2.83 X10^3/uL (0.83-4.51); Absolute Neutrophil Count 4.8 X10^3/uL (2.0-7.7); Basophil# 0.04 X10^3/uL; Basophil% 0.5 % (0-1); Eosinophil# 0.46 X10^3/uL; Eosinophils% 5.3 % (0-5); Hematocrit 40.3 % (37-47); Lymphocyte # 2.83 X10^3/ul (0.83-4.51); Lymphocyte % 32.9 % (19-41); Mean Corp Hgb Conc 32.3 g/dL (32-36); Mean Corpuscular Hgb 28.1 pg (27.0-32.0); Mean Corpuscular Volume 87.2 fL (81-99); Mean Platelet Vol. 10.5 fl (6.2-12.0); Monocyte# 0.46 X10^3/uL; Monocyte% 5.3 % (0-10); NRBC Flagged by Analyzer 0 % (0-5); Neutrophil # 4.79 X10^3/uL (2.7-7.7); Neutrophil % 55.8 % (47-70); Platelet Count 279 K/mm3 (150-450); RBC Distribution Width CV 12.9 % (11.6-14.6); RBC Distribution Width SD 40.7 fl (35.1-43.9); Red Blood Count 4.62 M/mm3 (4.2-5.4); White Blood Count 8.6 K/mm3 (4.4-11.0)
[2021-11-29] MEDS: 0.9% Normal Saline 1,000 ML 1000 ML IV (22:26)
[2021-11-29] MEDS: Morphine 4 MG/ML Syringe IV (22:26)
[2021-11-29] MEDS: Ondansetron 4 MG/2 ML Vial IV (22:27)
[2021-11-29 22:46] LABS: ALB/GLOB Ratio 1.1 RATIO (0.9-2.4); AST(SGOT) 15 U/L (15-37); Alanine Aminotransfer ALT/SGPT 21 U/L (13-56); Albumin, Serum 3.7 g/dL (3.2-5.0); Alkaline Phosphatase 66 U/L (45-117); Anion Gap 6 (5-15); BUN 13 mg/dL (7-18); BUN/Creat Ratio 17.1 RATIO (10-20); Calcium,Total 9.6 mg/dL (8.5-10.1); Chloride 106 mmol/L (98-107); Creatinine, Serum 0.76 mg/dL (0.55-1.02); EST Glomerular Filtration Rate 88 mL/min (>60); Est Glom Filt Rate - Afr Amer 107 mL/min (>60); Estimated Creatinine Clearance 90.27 ml/min; Globulin 3.4 g/dL (2.2-4.2); Glucose 137 mg/dL (74-106); Lipase 96 U/L (73-393); Potassium 3.6 mmol/L (3.5-5.1); Protein, Total 7.1 g/dL (6.4-8.2); Sodium Level 141 mmol/L (136-145)
[2021-11-30 00:06] LABS: Mucous, Urine 0 SEEN /hpf (<or=2+)
[2021-11-30 00:34] LABS: Color, Urine Yellow (Yellow); Glucose, Dipstick 1000 mg/dl (Normal); Ketone-Dipstick Negative (Negative); Leukocyte Esterase-Dipstick 25 /ul (Negative); Nitrite-Dipstick Negative (Negative); Occult Blood-Urine 10 /ul (Negative); Protein-Dipstick 15 mg/dl (Negative); Specific Gravity, Urine 1.015 (1.002-1.030); Urine Clarity Clear (Clear); Urine Urobilinogen Normal (Normal)
[2021-11-30 00:35] LABS: Urine Bilirubin Dipstick 1 mg/dL (Negative)
[2021-11-30 00:51] LABS: Bacteria 3+ /hpf (None Seen); Red Blood Cells-Urine 0-5 SEEN /hpf (0-5); Squamous Epithelial Cells - UA 5-10 SEEN /hpf (5-10); White Blood Cells 0-5 SEEN /hpf (0-5)
[2021-11-30 01:11] VITALS: BP 132/74; PULSE 78; RESP 16; O2SAT 99
== END 2021-11-30 01:11 | disposition home or self-care (01) ==
PROVIDERS: Emergency Provider Student in an Organized Health Care Education/Training Program; PCP Student in an Organized Health Care Education/Training Program; Visit Provider Student in an Organized Health Care Education/Training Program
DX: R10.32 Left lower quadrant pain (principal); E11.9 Type 2 diabetes mellitus without complications; R42 Dizziness and giddiness; F17.210 Nicotine dependence, cigarettes, uncomplicated; R19.7 Diarrhea, unspecified; Z59.00 Homelessness unspecified; R11.0 Nausea; R68.83 Chills (without fever); E03.9 Hypothyroidism, unspecified; Z79.899 Other long term (current) drug therapy; Z79.890 Hormone replacement therapy; Z79.84 Long term (current) use of oral hypoglycemic drugs
CPT/HCPCS: 74177; 80053; 81001; 83690; 85025; 87811; 96361; 96374; 96375; 99281; 99283; J7030; Q9967; A4216; J2405

== ENCOUNTER 2022-02-01 01:42 | Emergency (ER) | payer OTHER, MEDICAID, SELFPAY ==
[2022-02-01 01:45] VITALS: BP 129/88; PULSE 104; RESP 17; TEMP 36.8; O2SAT 98; BMI 35.2
--- NOTE | 2022-02-01 02:08 | EX.ED.UPPERE ---
HPI History of Present Illness HPI Narrative: Patient presents with right thumb laceration that occurred today while she was at work. 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 Patient is left-hand dominant. Patient states the bleeding stopped after several minutes of pressure. Patient denies any paresthesias or weakness. Patient denies any pain at the present time. Patient denies any other injuries. Chief Complaint: Laceration Informant: patient Occured/Mechanism Comment: Cut with a wash box operator Onset/Context/Timing Onset: Today Context: Sudden Onset Timing: Continuous Quality of Pain: Dull Location: Right thumb Worsened by: Nothing Relieved by: Nothing Associated Symptoms Associated Symptoms: Negative for Parasthesia, Weakness or Loss of Funtion Narrative Tetanus Immunization: 5-10 years [facility] Medical History Diabetes Hypothyroidism Home Medications metformin 500 mg tablet,extended release 24 hr 1,000 mg PO BID 12/04/16 [History Last Taken 07/12/17 08:00] levothyroxine 50 mcg tablet 50 mcg PO DAILY 03/14/19 [History Last Taken Unknown] empagliflozin 25 mg tablet (Jardiance) 25 mg PO DAILY 08/22/20 [History Last Taken Unknown] amoxicillin 875 mg-potassium clavulanate 125 mg tablet 1 tab PO BID #20 tabs 05/24/21 [Rx Last Taken Unknown] dulaglutide 1.5 mg/0.5 mL subcutaneous pen injector (Trulicity) 1.5 mg subcut TH 05/24/21 [History Last Taken Unknown] fluoxetine 20 mg capsule (Prozac) 20 mg PO DAILY 05/24/21 [History Last Taken Unknown] hydrocodone-acetaminophen 5-325mg 5mg-325mg 1 tab PO Q6H PRN pain 3 days #10 tabs 05/24/21 [Rx Last Taken Unknown] Allergy/AdvReac Type Severity Reaction Status Date / Time aspirin Allergy Hives Verified 02/01/22 01:49 ibuprofen Allergy Hives Verified 02/01/22 01:49 simvastatin AdvReac Other Verified 02/01/22 01:49 tramadol AdvReac Other Verified 02/01/22 01:49 Surgical History H/O section History of tubal ligation Social History household members: other housing: homeless number of children: 4 Smoking Status: Current every day smoker tobacco type: cigarettes ROS ROS ED Constitutional Constitutional ED: Denies chills or fever(s) Eyes Eyes: Denies blurry vision or change in vision ENT ENT ED: Denies rhinorrhea or sore throat Cardiovascular Cardiovascular: Denies chest pain or palpitations Respiratory/Chest Respiratory/Chest: Denies cough or dyspnea Gastrointestinal Gastrointestinal: Reports nausea; Denies vomiting Genitourinary Genitourinary ED: Denies dysuria or hematuria Musculoskeletal Musculoskeletal: Denies back pain or neck pain Integumentary Denies abscess or rash Neurologic Neurologic: Denies headache(s) or weakness Allergic/Immunologic Allergic/Immunologic ED: Denies mouth swelling or urticaria EXAM Physical Exam Const Vital Signs: 02/01/22 01:45 Temperature 98.2 F Temperature Source Temporal Pulse Rate 104 H Respiratory Rate 17 Blood Pressure 129/88 H Blood Pressure Mean 101 Pulse Ox 98 Oxygen Delivery Method Room Air Positive well nourished and well developed General Appearance ED: well developed and NAD HEENT Reports moist mucous membranes Neck full ROM and supple Extremity Extremity Narrative: There is a 2 cm superficial linear laceration of the dorsal aspect of the proximal phalanx of the right thumb. There is no gapping of the wound margins. There is no active bleeding noted. There is no surrounding erythema. There are no tendon lacerations. Strength is 5/5 in flexion and extension of the MP and IP joints of the right thumb. Sensation was intact to light touch in all digits. Capillary refill was less than 2 seconds in all digits. Neuro oriented x3, CN's II-XII intact bilaterally, moves all extremities, no focal motor deficits and no sensory deficits noted Sensorium / Orientation: alert Motor Exam: strength 5/5 throughout Psych mental status grossly normal MDM MDM MDM Narrative Medical decision making narrative: The wound was cleaned and dressed with a bacitracin dressing. Patient was instructed to keep the wound clean and dry. Patient was instructed to follow-up with her primary care physician or the [facility] in 5 to 7 days. Patient was instructed return if worse in any way. Patient understood and was agreeable with the plan. All questions were answered. Discharge Plan Triage Chief Complaint: Laceration ED Provider: Tomás Schroeedr Dx/Rx/DC Orders Clinical Impression: Laceration of right thumb without complication Instructions: ED Laceration Small or ... Prescriptions: No Action metformin 500 MG tablet 1,000 mg PO BID levothyroxine 50 MCG tablet 50 mcg PO DAILY Jardiance 25 mg tablet 25 mg PO DAILY Label Comments: TAKE 1 TABLET BY MOUTH ONCE DAILY IN THE MORNING fluoxetine [Prozac] 20 mg Capsule 20 mg PO DAILY Trulicity 1.5 mg/0.5 mL Pen Injector 1.5 mg SUBCUT TH amoxicillin-pot clavulanate 875-125 mg tablet 1 tab PO BID Qty: 20 0RF hydrocodone-acetaminophen 5-325 mg tablet 1 tab PO Q6H PRN (Reason: pain) 3 Days Qty: 10 0RF Primary Care Provider: Padilla Osborne Referrals: Padilla Osborne DO [Primary Care Provider] - 5-7 Days [facility] [Non-Staff] - 5-7 Days Disposition Disposition: Home, Self Care
[2022-02-01 02:20] VITALS: BP 123/84
== END 2022-02-01 02:24 | disposition home or self-care (01) ==
PROVIDERS: Emergency Provider Emergency Medicine; PCP Student in an Organized Health Care Education/Training Program; Visit Provider Emergency Medicine
DX: S61.011A Laceration without foreign body of right thumb without damage to nail, initial encounter (principal); F17.210 Nicotine dependence, cigarettes, uncomplicated; Z59.00 Homelessness unspecified; W26.9XXA Contact with unspecified sharp object(s), initial encounter
CPT/HCPCS: 99282

== ENCOUNTER 2022-03-14 09:08 | Emergency (ER) | payer MEDICAID, SELFPAY ==
[2022-03-14 09:09] VITALS: BP 125/84; PULSE 88; RESP 14; TEMP 36.6; O2SAT 98; BMI 36.1
--- NOTE | 2022-03-14 09:43 | RAD_ITS ---
STUDY: X-RAY - LEFT ANKLE REASON FOR EXAM: Female, 41 years old. Pain. History of arthritis. TECHNIQUE: 3 view(s) of the ankle. COMPARISON: None. FINDINGS: Normal visualized distal tibia and fibula. Old avulsion fracture of the medial malleolus. Normal tibiotalar articulation and ankle mortise. Small calcaneal spurs. The visualized subtalar, talonavicular, calcaneocuboid and tarsal articulations are normal. The soft tissue structures are unremarkable. RAD/Ankle min 3 Views IMPRESSION: Small calcaneal spurs. Old avulsion fracture of the medial malleolus. Electronically Signed: Diego Melvin MD at 10:27 EST ,
--- NOTE | 2022-03-14 10:35 | EDS_ITS ---
HPI History of Present Illness Chief Complaint: Lower Extremity Injury Narrative Narrative: 41-year-old female presenting with left ankle pain. She states this is a chronic issue. She broke her left ankle when she was 15 and intermittently it gives her pain. She takes Tylenol because she is allergic to aspirin and ibuprofen. She denies any new trauma but states she has been working long shifts on her feet. She expresses to me that the pain is in the left lateral malleolus. She is ambulatory but it does hurt to walk. No numbness or tingling. No swelling. She states it feels a lot better currently because she put ice on it in the emergency room. [facility] Medical History Diabetes Hypothyroidism Home Medications metformin 500 mg tablet,extended release 24 hr 1,000 mg PO BID 12/04/16 [History Last Taken 07/12/17 08:00] levothyroxine 50 mcg tablet 50 mcg PO DAILY 03/14/19 [History Last Taken Unknown] empagliflozin 25 mg tablet (Jardiance) 25 mg PO DAILY 08/22/20 [History Last Taken Unknown] amoxicillin 875 mg-potassium clavulanate 125 mg tablet 1 tab PO BID #20 tabs 05/24/21 [Rx Last Taken Unknown] dulaglutide 1.5 mg/0.5 mL subcutaneous pen injector (Trulicity) 1.5 mg subcut TH 05/24/21 [History Last Taken Unknown] fluoxetine 20 mg capsule (Prozac) 20 mg PO DAILY 05/24/21 [History Last Taken Unknown] Allergy/AdvReac Type Severity Reaction Status Date / Time aspirin Allergy Hives Verified 03/14/22 09:09 ibuprofen Allergy Hives Verified 03/14/22 09:09 simvastatin AdvReac Other Verified 03/14/22 09:09 tramadol AdvReac Other Verified 03/14/22 09:09 Surgical History H/O section History of tubal ligation Social History household members: other housing: homeless number of children: 4 Smoking Status: Never smoker ROS ROS ED Constitutional Constitutional ED: Denies chills, fever(s) or sweats Eyes Eyes: Denies blurry vision or change in vision ENT ENT ED: Denies ear pain or sore throat Cardiovascular Cardiovascular: Denies chest pain, palpitations or racing heartbeat Respiratory/Chest Respiratory/Chest: Denies cough, dyspnea or sputum Gastrointestinal Gastrointestinal: Denies abdominal pain, constipation, diarrhea, nausea or vomiting Genitourinary Genitourinary ED: Denies dysuria, hematuria or urinary frequency Musculoskeletal Musculoskeletal: Reports other Details: Left ankle pain ; Denies myalgias or neck pain Integumentary Denies abscess, Abrasions or rash Neurologic Neurologic: Denies headache(s), paresthesias or weakness Psychiatric Psychiatric: Denies anxiety, depression, suicidal ideation or suicidal thoughts Endocrine Endocrinology: Denies polydipsia or polyuria EXAM Physical Exam Const Vital Signs: 03/14/22 09:09 Temperature 98 F Temperature Source Temporal Pulse Rate 88 Respiratory Rate 14 Blood Pressure 125/84 H Blood Pressure Mean 97 Pulse Ox 98 Oxygen Delivery Method Room Air General Appearance ED: Negative for pallor HEENT Reports normocephalic and moist mucous membranes Eyes PERRL and EOMs intact bilaterally Neck no lymphadenopathy and supple Chest Wall inspection of chest normal and palpation of chest normal Resp normal respiratory effort Cardio regular rate and regular rhythm Narrative: Deferred Extremity normal to inspection Extremity Narrative: Mild tenderness over the left lateral malleolus. No edema, erythema. Left foot neurovascular intact with brisk cap refill to all 5 toes. General Extremety ED: Negative for edema General Extremity: Negative for edema Neuro oriented x3 and CN's II-XII intact bilaterally Sensorium / Orientation: alert Motor Exam: strength 5/5 throughout Psych mental status grossly normal Attitude: No agitated Skin no rashes or lesions noted and no wounds General Skin Exam: Negative for jaundice or pallor MDM MDM MDM Narrative Medical decision making narrative: Patient presenting with chronic left ankle pain. She states that she has not had any new injury and has not twisted the ankle. She states she took Tylenol and this did not make the pain go away. She does state that the ice pack on her ankle has helped her a lot. On examination there is a little bit of tenderness to the lateral malleolus but there is no swelling, erythema. Her left foot is neurovascular intact. I did obtain an x-ray of the left ankle which on my interpretation shows no acute fracture. There is evidence of an old avulsion fracture on the medial malleolus. Radiologist read this is agrees. Patient will be placed in Nelson wrap and Aircast. She is counseled to ice, elevate at home. I encouraged her to continue using Tylenol. I do not think she needs narcotic pain medication for this. I suspect this is more of a tendinitis. Patient will be given podiatry follow-up. Impression: 1. Tendinitis 2. Acute on chronic ankle pain Radiography Diagnostic Testing: Clinical Impression(s) from Imaging Studies Ankle X-Ray 03/14/22 09:43 IMPRESSION: Small calcaneal spurs. Old avulsion fracture of the medial malleolus. Electronically Signed: Diego Melvin MD at 10:27 EST , Discharge Plan Triage Chief Complaint: Lower Extremity Injury ED Provider: Zaid Mattson Dx/Rx/DC Orders Instructions: ED Tendonitis Prescriptions: No Action metformin 500 MG tablet 1,000 mg PO BID levothyroxine 50 MCG tablet 50 mcg PO DAILY Jardiance 25 mg tablet 25 mg PO DAILY Label Comments: TAKE 1 TABLET BY MOUTH ONCE DAILY IN THE MORNING fluoxetine [Prozac] 20 mg Capsule 20 mg PO DAILY Trulicity 1.5 mg/0.5 mL Pen Injector 1.5 mg SUBCUT TH amoxicillin-pot clavulanate 875-125 mg tablet 1 tab PO BID Qty: 20 0RF Primary Care Provider: Padilla Osborne Referrals: Padilla Osborne DO [Primary Care Provider] - Wes Stevens DPM [Med Staff - Active Staff] - As soon as possible Disposition Disposition: Home, Self Care
[2022-03-14 10:47] VITALS: BP 123/89; PULSE 80; RESP 16; O2SAT 100
== END 2022-03-14 10:56 | disposition home or self-care (01) ==
LOC: ED 10:43
PROVIDERS: Emergency Provider Student in an Organized Health Care Education/Training Program; PCP Student in an Organized Health Care Education/Training Program; Visit Provider Student in an Organized Health Care Education/Training Program
DX: M77.9 Enthesopathy, unspecified (principal); E11.9 Type 2 diabetes mellitus without complications; G89.29 Other chronic pain; Z59.00 Homelessness unspecified; M25.579 Pain in unspecified ankle and joints of unspecified foot; E03.9 Hypothyroidism, unspecified
CPT/HCPCS: 73610; 99283

== ENCOUNTER 2022-08-07 15:47 | Emergency (ER) | payer MEDICAID, SELFPAY ==
[2022-08-07 15:47] VITALS: BP 134/87; PULSE 100; RESP 18; TEMP 36.3; O2SAT 98; BMI 36.9
[2022-08-07 16:49] VITALS: BP 128/74; PULSE 80; RESP 18; TEMP 36.6; O2SAT 97
--- NOTE | 2022-08-07 17:13 | EX.ED.DYSGE1 ---
HPI History of Present Illness Chief Complaint: Wound Check Onset/Context/Timing Onset: Days (4) Context: Gradual Onset Timing: Continuous Quality: Aching Location: Periumbilical Worsened by: Nothing Relieved by: Nothing Narrative Narrative: Patient presents with redness and swelling over her lower abdomen. Patient states she gives herself injections of Trulicity once a week. Patient states that the area where she gives herself the injection has been getting red and swollen over the past 4 days. Patient admits to some mild discharge. Patient denies any fevers or chills. Patient states nothing makes it worse and nothing makes it better. Patient denies any nausea or vomiting. Patient denies any urinary complaints. [facility] Medical History Diabetes Hypothyroidism Home Medications metformin 500 mg tablet,extended release 24 hr 1,000 mg PO BID 12/04/16 [History Last Taken 07/12/17 08:00] levothyroxine 50 mcg tablet 50 mcg PO DAILY 03/14/19 [History Last Taken Unknown] empagliflozin 25 mg tablet (Jardiance) 25 mg PO DAILY 08/22/20 [History Last Taken Unknown] amoxicillin 875 mg-potassium clavulanate 125 mg tablet 1 tab PO BID #20 tabs 05/24/21 [Rx Last Taken Unknown] dulaglutide 1.5 mg/0.5 mL subcutaneous pen injector (Trulicity) 1.5 mg subcut TH 05/24/21 [History Last Taken Unknown] fluoxetine 20 mg capsule (Prozac) 20 mg PO DAILY 05/24/21 [History Last Taken Unknown] cephalexin 500 mg capsule 500 mg PO Q6 #40 CAPSULES 08/07/22 [Rx Last Taken Unknown] Allergy/AdvReac Type Severity Reaction Status Date / Time aspirin Allergy Hives Verified 08/07/22 15:49 ibuprofen Allergy Hives Verified 08/07/22 15:49 simvastatin AdvReac Other Verified 08/07/22 15:49 tramadol AdvReac Other Verified 08/07/22 15:49 Surgical History H/O section History of tubal ligation Social History household members: other housing: homeless number of children: 4 Smoking Status: Never smoker ROS ROS ED Constitutional Constitutional ED: Denies chills or fever(s) Eyes Eyes: Denies blurry vision or change in vision ENT ENT ED: Denies rhinorrhea or sore throat Cardiovascular Cardiovascular: Denies chest pain or palpitations Respiratory/Chest Respiratory/Chest: Denies cough or dyspnea Gastrointestinal Gastrointestinal: Denies nausea or vomiting Genitourinary Genitourinary ED: Denies dysuria or hematuria Musculoskeletal Musculoskeletal: Denies back pain or neck pain Integumentary Reports rash; Denies abscess Neurologic Neurologic: Reports headache(s); Denies weakness Allergic/Immunologic Allergic/Immunologic ED: Denies mouth swelling or urticaria EXAM Physical Exam Const Vital Signs: 08/07/22 15:47 Temperature 97.4 F L Temperature Source Temporal Pulse Rate 100 Respiratory Rate 18 Blood Pressure 134/87 H Blood Pressure Mean 102 Pulse Ox 98 Oxygen Delivery Method Room Air Positive well nourished, well developed and obese General Appearance ED: well developed and NAD Nutritional Appearance: obese HEENT Reports moist mucous membranes Neck supple and no JVD Resp normal respiratory effort and clear to auscultation bilaterally Cardio regular rate and regular rhythm GI non-distended Auscultation: normoactive bowel sounds Palpation: soft and tender periumbilical; Negative for guarding or rebound tenderness present Neuro oriented x3, CN's II-XII intact bilaterally and no sensory deficits noted Sensorium / Orientation: alert Motor Exam: strength 5/5 throughout Psych mental status grossly normal Skin Skin Narrative: There is erythema and warmth over the periumbilical area inferior to the umbilicus. There is some induration noted. There is no fluctuance. There is some mild purulent discharge. There are no petechia noted. There are no vesicles or pustules noted. MDM MDM MDM Narrative Medical decision making narrative: Patient was advised that this is most likely a cellulitis due to her injection. Patient was given a dose of Keflex here. Patient was given a prescription for Keflex. Patient was instructed to follow-up with her primary care physician in 5 to 7 days. Patient was instructed to use warm compresses to the area. Patient understands and is agreeable with the plan. All questions were answered. Discharge Plan Triage Chief Complaint: Wound Check ED Provider: Tomás Schroeder Dx/Rx/DC Orders Clinical Impression: Cellulitis of abdominal wall, DMII (diabetes mellitus, type 2) Instructions: ED Cellulitis Prescriptions: New cephalexin [cephalexin] 500 mg capsule 500 mg PO Q6 Qty: 40 0RF No Action metformin 500 MG tablet 1,000 mg PO BID levothyroxine 50 MCG tablet 50 mcg PO DAILY Jardiance 25 mg tablet 25 mg PO DAILY Label Comments: TAKE 1 TABLET BY MOUTH ONCE DAILY IN THE MORNING fluoxetine [Prozac] 20 mg Capsule 20 mg PO DAILY Trulicity 1.5 mg/0.5 mL Pen Injector 1.5 mg SUBCUT TH amoxicillin-pot clavulanate 875-125 mg tablet 1 tab PO BID Qty: 20 0RF Primary Care Provider: Padilla Osborne Referrals: Padilla Osborne DO [Primary Care Provider] - 5-7 Days Disposition Disposition: Home, Self Care
== END 2022-08-07 17:37 | disposition home or self-care (01) ==
PROVIDERS: Emergency Provider Emergency Medicine; PCP Student in an Organized Health Care Education/Training Program; Visit Provider Emergency Medicine
DX: L03.311 Cellulitis of abdominal wall (principal); E11.9 Type 2 diabetes mellitus without complications; E66.9 Obesity, unspecified
CPT/HCPCS: 99282

== ENCOUNTER 2022-10-18 10:20 | Emergency (ER) | payer MEDICAID, SELFPAY ==
[2022-10-18 10:21] VITALS: BP 120/87; PULSE 86; RESP 16; TEMP 36.1; O2SAT 98; BMI 34.7
--- NOTE | 2022-10-18 10:39 | ED.VIS.DENTA ---
HPI History of Present Illness Chief Complaint: Dental Informant: patient Narrative Narrative: Patient presents with right lower dental pain. Patient states she has had problems with her wisdom teeth off and on. She had the same problem on the left side finally resolved when they pulled it. She states that the right side has been intermittently causing problems but the last week its been more painful and getting red. No drainage. She states her wisdom tooth is actually coming in an angle and breaking the tooth in front of it. She has an appointment with a dentist to have this pulled but they cannot get her in for extraction for 3 months. She states the last week is really increased pain and hurts to chew. No fevers or chills. She is diabetic but her sugars been running about 100 fasting and 120 after eating so it still well controlled. She does have allergies to aspirin and ibuprofen. With aspirin she has trouble breathing and tongue swelling and she gets diffuse hives with ibuprofen. She denied tramadol allergy although that is listed there. She has no allergies to antibiotics. [facility] Medical History Diabetes Hypothyroidism Home Medications metformin 500 mg tablet,extended release 24 hr 1,000 mg PO BID 12/04/16 [History Last Taken 07/12/17 08:00] levothyroxine 50 mcg tablet 50 mcg PO DAILY 03/14/19 [History Last Taken Unknown] empagliflozin 25 mg tablet (Jardiance) 25 mg PO DAILY 08/22/20 [History Last Taken Unknown] amoxicillin 875 mg-potassium clavulanate 125 mg tablet 1 tab PO BID #20 tabs 05/24/21 [Rx Last Taken Unknown] dulaglutide 1.5 mg/0.5 mL subcutaneous pen injector (Trulicity) 1.5 mg subcut TH 05/24/21 [History Last Taken Unknown] fluoxetine 20 mg capsule (Prozac) 20 mg PO DAILY 05/24/21 [History Last Taken Unknown] cephalexin 500 mg capsule 500 mg PO Q6 #40 CAPSULES 08/07/22 [Rx Last Taken Unknown] hydrocodone-acetaminophen 5-325mg 5mg-325mg 1 tab PO Q6H PRN PRN Pain 3 days #10 TABLETS 10/18/22 [Rx Last Taken Unknown] penicillin V potassium 500 mg tablet 500 mg PO 4X/DAY #40 tabs 10/18/22 [Rx Last Taken Unknown] Allergy/AdvReac Type Severity Reaction Status Date / Time aspirin Allergy Hives Verified 10/18/22 10:21 ibuprofen Allergy Hives Verified 10/18/22 10:21 simvastatin AdvReac Other Verified 10/18/22 10:21 tramadol AdvReac Other Verified 10/18/22 10:21 Surgical History H/O section History of tubal ligation Social History household members: other housing: homeless number of children: 4 Smoking Status: Never smoker ROS ROS ED Constitutional Constitutional ED: Denies chills, fever(s), subjective or sweats Eyes Eyes: Denies change in vision ENT ENT ED: Reports other Details: See history of present illness. ; Denies ear pain, rhinorrhea or sore throat Cardiovascular Cardiovascular: Denies chest pain Respiratory/Chest Respiratory/Chest: Denies cough Gastrointestinal Gastrointestinal: Denies nausea or vomiting Musculoskeletal Musculoskeletal: Denies neck pain Integumentary Denies rash Neurologic Neurologic: Denies headache(s) Endocrine Endocrinology: Denies polydipsia or polyuria Hematologic/Lymphatic Hematologic/Lymphatic: Denies easy bleeding or easy bruising Allergic/Immunologic Allergic/Immunologic ED: Denies tongue swelling EXAM Physical Exam Narrative Exam Narrative: Patient is awake alert sitting comfortably in bed no acute distress carries on normal conversation. HEENT: No external signs of swelling or erythema. Mucous membranes are moist. But she does have on the lower right her wisdom tooth coming in at a significant angle and the molar just in front of that has posterior portion broke off. There is some swelling of the gums around it and erythema. Mild pericoronitis. But floor the mouth is soft and no pain with motion of her tongue. No indication whatsoever of Ludewig's angina. Voice and handling secretions are normal. Neck shows no lymphadenopathy. Heart is regular without murmur Lungs are clear saturations are normal at 98% on room air showing no hypoxia. Skin shows no diffuse rash. Extremities shows no area of swelling or limitation of motion. Const Vital Signs: 10/18/22 10:21 Temperature 97.0 F L Temperature Source Temporal Pulse Rate 86 Respiratory Rate 16 Blood Pressure 120/87 H Blood Pressure Mean 98 Pulse Ox 98 Oxygen Delivery Method Room Air MDM MDM MDM Narrative Medical decision making narrative: Patient will be treated with antibiotics. I will give her a few pills of hydrocodone which she has been prescribed a single time before when I review her online prescribing report. She had 1 prescription over a year ago. We discussed reasons to return and need for follow-up. Discharge Plan Triage Chief Complaint: Dental ED Provider: Ivan Mendoza Dx/Rx/DC Orders Clinical Impression: Pain, dental, Pericoronitis Instructions: ED Dental Abscess Prescriptions: New hydrocodone-acetaminophen [hydrocodone-acetaminophen] 5-325 mg tablet 1 tab PO Q6H PRN PRN (Reason: Pain) 3 Days Qty: 10 0RF penicillin V potassium 500 mg tablet 500 mg PO 4X/DAY Qty: 40 0RF No Action metformin 500 MG tablet 1,000 mg PO BID levothyroxine 50 MCG tablet 50 mcg PO DAILY Jardiance 25 mg tablet 25 mg PO DAILY Patient Comments: TAKE 1 TABLET BY MOUTH ONCE DAILY IN THE MORNING fluoxetine [Prozac] 20 mg Capsule 20 mg PO DAILY Trulicity 1.5 mg/0.5 mL Pen Injector 1.5 mg SUBCUT TH amoxicillin-pot clavulanate 875-125 mg tablet 1 tab PO BID Qty: 20 0RF cephalexin [cephalexin] 500 mg capsule 500 mg PO Q6 Qty: 40 0RF Primary Care Provider: Padilla Osborne Referrals: Padilla Osborne DO [Primary Care Provider] - Activity Restrictions/Additional Instructions: Follow-up with your dentist as soon as possible. Disposition Disposition: Home, Self Care
== END 2022-10-18 11:08 | disposition home or self-care (01) ==
LOC: ED 11:02
PROVIDERS: Emergency Provider Emergency Medicine; PCP Student in an Organized Health Care Education/Training Program; Visit Provider Emergency Medicine
DX: E11.638 Type 2 diabetes mellitus with other oral complications (principal); Z59.00 Homelessness unspecified
CPT/HCPCS: 99282

== ENCOUNTER → 2022-11-06 | Outpatient (CLI) | payer MEDICAID, SELFPAY ==
[2022-11-12 09:09] LABS: HPV APTIMA, High Risk Negative (Negative)
== END | disposition home or self-care (01) ==
LOC: LABSPEC 14:21
PROVIDERS: PCP Student in an Organized Health Care Education/Training Program; Referring Provider Obstetrics & Gynecology; Visit Provider Obstetrics & Gynecology
DX: Z12.4 Encounter for screening for malignant neoplasm of cervix (principal)
CPT/HCPCS: 87624; 88175; G0145

== ENCOUNTER 2022-11-17 17:48 | Emergency (ER) | payer MEDICAID, SELFPAY ==
[2022-11-17 17:49] VITALS: BP 126/90; PULSE 106; RESP 16; TEMP 35.8; O2SAT 97; BMI 34.4
--- NOTE | 2022-11-17 18:03 | EX.ED.DYSGE1 ---
HPI History of Present Illness Chief Complaint: Nausea/Vomiting Informant: patient Narrative Narrative: 42-year-old female presented to the emergency room with a chief complaint of nausea vomiting in addition to ear pain. Patient states that she felt fine last . This previous Thursday (4 days ago) around noon she began to experience nausea and vomiting. She states that her nausea and vomiting has persisted and she vomits whenever she eats or drinks something. She has had some home Zofran which she has been using last dose was this morning. She notes that her urine has been dark. She has had normal bowel movements with the last bowel movement yesterday. She is a diabetic and has not been able to take her medications or check her blood sugars because she does not know where her Accu-Chek is at. She notes that she has not had any fever cough or rhinorrhea. No sore throat. She notes a sharp stabbing right ear pain. No drainage from the ear canal. She notes a prior history of section and tubal ligation. She denies history of pancreatitis or known gallbladder disease. She does not have early satiety and notes that over the past 4 days she has not felt hungry. She does not feel bloated or distended. Normal flatus. No sick contacts or bad food exposures [facility] Medical History Diabetes Hypothyroidism Home Medications metformin 500 mg tablet,extended release 24 hr 1,000 mg PO BID 12/04/16 [History Last Taken 07/12/17 08:00] levothyroxine 50 mcg tablet 50 mcg PO DAILY 03/14/19 [History Last Taken Unknown] empagliflozin 25 mg tablet (Jardiance) 25 mg PO DAILY 08/22/20 [History Last Taken Unknown] amoxicillin 875 mg-potassium clavulanate 125 mg tablet 1 tab PO BID #20 tabs 05/24/21 [Rx Last Taken Unknown] dulaglutide 1.5 mg/0.5 mL subcutaneous pen injector (Trulicity) 1.5 mg subcut TH 05/24/21 [History Last Taken Unknown] fluoxetine 20 mg capsule (Prozac) 20 mg PO DAILY 05/24/21 [History Last Taken Unknown] cephalexin 500 mg capsule 500 mg PO Q6 #40 CAPSULES 08/07/22 [Rx Last Taken Unknown] hydrocodone-acetaminophen 5-325mg 5mg-325mg 1 tab PO Q6H PRN PRN Pain 3 days #10 TABLETS 10/18/22 [Rx Last Taken Unknown] penicillin V potassium 500 mg tablet 500 mg PO 4X/DAY #40 tabs 10/18/22 [Rx Last Taken Unknown] promethazine 25 mg tablet 25 mg PO TID PRN nausea and vomiting 3 days #9 tabs 11/17/22 [Rx Last Taken Unknown] Allergy/AdvReac Type Severity Reaction Status Date / Time aspirin Allergy Hives Verified 11/17/22 17:49 ibuprofen Allergy Hives Verified 11/17/22 17:49 simvastatin AdvReac Other Verified 11/17/22 17:49 tramadol AdvReac Other Verified 11/17/22 17:49 Surgical History H/O section History of tubal ligation Social History household members: other housing: homeless number of children: 4 Smoking Status: Never smoker ROS ROS ED Constitutional Constitutional ED: Denies chills or weight loss Eyes Eyes: Denies change in vision or diplopia ENT ENT ED: Reports ear pain; Denies rhinorrhea or sore throat Cardiovascular Cardiovascular: Denies chest pain, orthopnea, palpitations or racing heartbeat Respiratory/Chest Respiratory/Chest: Denies cough, dyspnea or orthopnea Gastrointestinal Gastrointestinal: Reports nausea and vomiting; Denies abdominal pain or diarrhea Genitourinary Genitourinary ED: Denies dysuria, hematuria or urinary frequency Musculoskeletal Musculoskeletal: Denies arthralgias, back pain or myalgias Integumentary Denies abscess or rash Neurologic Neurologic: Denies headache(s) or weakness Psychiatric Psychiatric: Denies anxiety, depression, suicidal ideation or suicidal thoughts Endocrine Endocrinology: Denies polydipsia, polyphagia or polyuria Allergic/Immunologic Allergic/Immunologic ED: Denies mouth swelling, tongue swelling or urticaria EXAM Physical Exam Const Vital Signs: 11/17/22 17:49 Temperature 96.5 F L Temperature Source Temporal Pulse Rate 106 H Respiratory Rate 16 Blood Pressure 126/90 H Blood Pressure Mean 102 Pulse Ox 97 Oxygen Delivery Method Room Air Positive well nourished, well developed and obese General Appearance ED: well developed Nutritional Appearance: obese HEENT Reports normocephalic, head/scalp atraumatic and moist mucous membranes Eyes PERRL and EOMs intact bilaterally Neck no lymphadenopathy, supple and no JVD Resp normal respiratory effort and clear to auscultation bilaterally Cardio regular rate, regular rhythm and no murmurs Rate: tachycardic GI normal to inspection, nondistended, normoactive bowel sounds and non-tender Palpation: soft Back/Spine no CVA tenderness and normal ROM Extremity normal to inspection General Extremety ED: Negative for edema General Extremity: Negative for edema Neuro oriented x3 and CN's II-XII intact bilaterally Sensorium / Orientation: alert Motor Exam: strength 5/5 throughout Psych mental status grossly normal Mood & Affect: Negative for depressed or tearful Skin no rashes or lesions noted and no wounds MDM MDM MDM Narrative Medical decision making narrative: Interventions\MDM: Differential diagnosis including but not limited to: Viral syndrome diabetic gastroparesis DKA hyperosmolar nonketotic syndrome My EKG interpretation: N/A Imaging independently reviewed and interpreted by myself: N/A External documents reviewed: N/A ED course: Patient's blood work was obtained and reviewed by myself and interpreted as hemoconcentration. Hemoglobin elevated at 15.8 off of its baseline. Accu-Chek at 189. She does have an elevated BUN. Blood sugar is elevated at 185. There is slight amount of ketones in the urine. test is negative. No overt urinary tract infection. Sodium potassium within normal limits. Normal creatinine. Patient received IV Zofran as well as 2 L of normal saline. Her heart rate is down at 83 on my evaluation. I do not think at this point the patient has gastroparesis. She does not appear to be significantly hyperosmolar or acidotic. Patient does have Zofran at home on the right for some Phenergan as well. We talked about her differential and short-term follow-up. Patient will do her best to drink plenty of fluids and advance diet as tolerated. Return if worsening or concerns Reevaluation: Stable. Improved. Disposition discussed with patient/family/significant other: Discussed with patient and her daughter at the bedside who notes understanding. Care discussed with consulting clinician: N/A This note was generated with [employer] software. It may contain incorrect words, spelling, punctuation that were not intended while checking the note before signing. Lab Data Attestation: I reviewed the patient's lab results. Labs: Laboratory Results - last 24 hr 11/17/22 11/17/22 18:13 18:15 WBC 8.0 RBC 5.55 H Hgb 15.8 H Hct 47.3 H MCV 85.2 MCH 28.5 MCHC 33.4 RDW Std Deviation 39.8 RDW Coeff of Obed 12.8 Plt Count 340 MPV 10.1 Immature Gran % (Auto) 0.300 Neut % (Auto) 57.7 Lymph % (Auto) 29.6 [place] % (Auto) 5.8 Eos % (Auto) 6.1 H Baso % (Auto) 0.5 Absolute Neuts (auto) 4.6 Absolute Lymphs (auto) 2.37 Nucleated RBC % 0 Sodium 136 Potassium 3.7 Chloride 99 Carbon Dioxide 27.0 Anion Gap 10 BUN 19 H Creatinine 0.86 Estim Creat Clear Calc 78.96 Est GFR (MDRD) Af Amer 92 Est GFR (MDRD) Non-Af 76 BUN/Creatinine Ratio 22.0 H Glucose 185 H Calcium 9.9 Total Bilirubin 1.60 H Direct Bilirubin 0.26 AST 21 ALT 39 Alkaline Phosphatase 78 Total Protein 8.7 H Albumin 4.3 Globulin 4.4 H Lipase 39 Urine Color Yellow Urine Clarity Clear Urine pH 5.0 Ur Specific [place]son 1.025 Urine Protein 30 H Urine Glucose (UA) 1000 H Urine Ketones 5 H Urine Occult Blood 10 H Urine Nitrite Negative Urine Bilirubin 1 H Urine Urobilinogen Normal Ur Leukocyte Esterase Negative Urine RBC 0 SEEN Urine WBC 0 SEEN Ur Squamous Epith Cells 0-5 SEEN Urine Bacteria 0 SEEN Urine Mucus 0 SEEN Urine Test Negative POC Glucose 189 H Discharge Plan Triage Chief Complaint: Nausea/Vomiting ED Provider: Esteban Robledo Dx/Rx/DC Orders Clinical Impression: Acute dehydration, DMII (diabetes mellitus, type 2), Vomiting Instructions: ED Vomiting (Adult), ED Diabetic Gastroparesis Prescriptions: New promethazine 25 mg tablet 25 mg PO TID PRN (Reason: nausea and vomiting) 3 Days Qty: 9 0RF No Action metformin 500 MG tablet 1,000 mg PO BID levothyroxine 50 MCG tablet 50 mcg PO DAILY Jardiance 25 mg tablet 25 mg PO DAILY Patient Comments: TAKE 1 TABLET BY MOUTH ONCE DAILY IN THE MORNING fluoxetine [Prozac] 20 mg Capsule 20 mg PO DAILY Trulicity 1.5 mg/0.5 mL Pen Injector 1.5 mg SUBCUT TH amoxicillin-pot clavulanate 875-125 mg tablet 1 tab PO BID Qty: 20 0RF cephalexin [cephalexin] 500 mg capsule 500 mg PO Q6 Qty: 40 0RF hydrocodone-acetaminophen [hydrocodone-acetaminophen] 5-325 mg tablet 1 tab PO Q6H PRN PRN (Reason: Pain) 3 Days Qty: 10 0RF penicillin V potassium 500 mg tablet 500 mg PO 4X/DAY Qty: 40 0RF Primary Care Provider: Padilla Osborne Referrals: Padilla Osborne DO [Primary Care Provider] - 3-5 Days if not improving Disposition Disposition: Home, Self Care Discharge Date/Time: 11/17/22 20:38
[2022-11-17] MEDS: Ondansetron 4 MG/2 ML Vial IV (18:14)
[2022-11-17] MEDS: 0.9% Normal Saline 1,000 ML 1000 ML IV ×2 (18:19→19:33)
[2022-11-17 18:27] LABS: Bacteria 0 SEEN /hpf (None Seen); Mucous, Urine 0 SEEN /hpf (<or=2+); Red Blood Cells-Urine 0 SEEN /hpf (0-5); White Blood Cells 0 SEEN /hpf (0-5)
[2022-11-17 18:30] LABS: Absolute Lymphocyte Count 2.37 X10^3/uL (0.83-4.51); Absolute Neutrophil Count 4.6 X10^3/uL (2.0-7.7); Basophil# 0.04 X10^3/uL; Basophil% 0.5 % (0-1); Eosinophil# 0.49 X10^3/uL; Eosinophils% 6.1 % (0-5); Hematocrit 47.3 % (37-47); Hemoglobin 15.8 g/dL (12.0-15.0); Lymphocyte # 2.37 X10^3/ul (0.83-4.51); Lymphocyte % 29.6 % (19-41); Mean Corp Hgb Conc 33.4 g/dL (32-36); Mean Corpuscular Hgb 28.5 pg (27.0-32.0); Mean Corpuscular Volume 85.2 fL (81-99); Mean Platelet Vol. 10.1 fl (6.2-12.0); Monocyte# 0.46 X10^3/uL; Monocyte% 5.8 % (0-10); NRBC Flagged by Analyzer 0 % (0-5); Neutrophil # 4.62 X10^3/uL (2.7-7.7); Neutrophil % 57.7 % (47-70); Platelet Count 340 K/mm3 (150-450); RBC Distribution Width CV 12.8 % (11.6-14.6); RBC Distribution Width SD 39.8 fl (35.1-43.9); Red Blood Count 5.55 M/mm3 (4.2-5.4)
[2022-11-17 18:37] LABS: Bedside Glucose 189 mg/dL (74-106)
[2022-11-17 18:43] LABS: Color, Urine Yellow (Yellow); Glucose, Dipstick 1000 mg/dl (Normal); Ketone-Dipstick 5 mg/dl (Negative); Leukocyte Esterase-Dipstick Negative /ul (Negative); Nitrite-Dipstick Negative (Negative); Occult Blood-Urine 10 /ul (Negative); Protein-Dipstick 30 mg/dl (Negative); Specific Gravity, Urine 1.025 (1.002-1.030); Urine Clarity Clear (Clear); Urine Urobilinogen Normal (Normal)
[2022-11-17 18:47] LABS: AST(SGOT) 21 U/L (15-37); Alanine Aminotransfer ALT/SGPT 39 U/L (13-56); Albumin, Serum 4.3 g/dL (3.2-5.0); Alkaline Phosphatase 78 U/L (45-117); Anion Gap 10 (5-15); BUN 19 mg/dL (7-18); Bilirubin, Direct 0.26 mg/dL (0.00-0.30); Calcium,Total 9.9 mg/dL (8.5-10.1); Chloride 99 mmol/L (98-107); Creatinine, Serum 0.86 mg/dL (0.55-1.02); EST Glomerular Filtration Rate 76 mL/min (>60); Est Glom Filt Rate - Afr Amer 92 mL/min (>60); Estimated Creatinine Clearance 78.96 ml/min; Globulin 4.4 g/dL (2.2-4.2); Glucose 185 mg/dL (74-106); Lipase 39 U/L (13-75); Potassium 3.7 mmol/L (3.5-5.1); Protein, Total 8.7 g/dL (6.4-8.2); Sodium Level 136 mmol/L (136-145)
[2022-11-17 18:52] LABS: Internal QC Validated? YES +Cl - CLEAR BKGD; Pregnancy, Urine Negative Negative; Squamous Epithelial Cells - UA 0-5 SEEN /hpf (5-10); Urine Bilirubin Dipstick 1 mg/dL (Negative)
== END 2022-11-17 20:38 | disposition home or self-care (01) ==
PROVIDERS: Emergency Provider Emergency Medicine; PCP Student in an Organized Health Care Education/Training Program; Visit Provider Emergency Medicine
DX: E86.0 Dehydration (principal); E11.65 Type 2 diabetes mellitus with hyperglycemia; H92.01 Otalgia, right ear; E03.9 Hypothyroidism, unspecified; E66.9 Obesity, unspecified; Z79.84 Long term (current) use of oral hypoglycemic drugs; Z79.890 Hormone replacement therapy; Z79.899 Other long term (current) drug therapy
CPT/HCPCS: 80048; 80076; 81001; 81025; 82962; 83690; 85025; 96361; 96374; 99285; J7030; A4216; J2405

== ENCOUNTER 2023-02-09 21:06 | Emergency (ER) | payer MEDICAID, SELFPAY ==
[2023-02-09 21:07] VITALS: BP 128/94; PULSE 105; RESP 16; TEMP 36; O2SAT 97; BMI 34.8
--- NOTE | 2023-02-09 21:36 | EDS_ITS ---
HPI History of Present Illness Chief Complaint: Wound Informant: patient Onset/Context/Timing Onset: Days Context: Gradual Onset Narrative Narrative: Patient presents with a wound to the back of her neck. She noted a wound along the base of her hairline about 4 days ago. It is progressively gotten worse. She is not sure if it is a clogged gland or potentially her kitten scratched her. No fevers or chills. She has not had any drainage out of the wound. [facility] Medical History Diabetes Hypothyroidism Home Medications metformin 500 mg tablet,extended release 24 hr 1,000 mg PO BID 12/04/16 [History Last Taken 07/12/17 08:00] levothyroxine 50 mcg tablet 50 mcg PO DAILY 03/14/19 [History Last Taken Unknown] empagliflozin 25 mg tablet (Jardiance) 25 mg PO DAILY 08/22/20 [History Last Taken Unknown] dulaglutide 1.5 mg/0.5 mL subcutaneous pen injector (Trulicity) 1.5 mg subcut TH 05/24/21 [History Last Taken Unknown] fluoxetine 20 mg capsule (Prozac) 20 mg PO DAILY 05/24/21 [History Last Taken Unknown] promethazine 25 mg tablet 25 mg PO TID PRN nausea and vomiting 3 days #9 tabs 11/17/22 [Rx Last Taken Unknown] buspirone 1 tab PO DAILY 02/09/23 [History Last Taken Unknown] cephalexin 500 mg capsule 500 mg PO Q6 #40 CAPSULES 02/09/23 [Rx Last Taken Unknown] sulfamethoxazole 800 mg-trimethoprim 160 mg tablet (Bactrim DS) 1 tab PO BID #20 tabs 02/09/23 [Rx Last Taken Unknown] Allergy/AdvReac Type Severity Reaction Status Date / Time aspirin Allergy Hives Verified 11/17/22 17:49 ibuprofen Allergy Hives Verified 11/17/22 17:49 simvastatin AdvReac Other Verified 11/17/22 17:49 tramadol AdvReac Other Verified 11/17/22 17:49 Surgical History H/O section History of tubal ligation Social History household members: other housing: homeless number of children: 4 Smoking Status: Never smoker ROS ROS ED Constitutional Constitutional ED: Denies chills or fever(s) Eyes Eyes: Denies discharge from eye(s) ENT ENT ED: Denies discharge from eye(s), rhinorrhea or sore throat Cardiovascular Cardiovascular: Denies chest pain or palpitations Respiratory/Chest Respiratory/Chest: Denies dyspnea Gastrointestinal Gastrointestinal: Denies abdominal pain, nausea or vomiting Musculoskeletal Musculoskeletal: Reports neck pain; Denies back pain or extremity pain Integumentary Reports abscess; Denies Abrasions or rash Neurologic Neurologic: Denies headache(s) or weakness Psychiatric Psychiatric: Denies anxiety or depression Allergic/Immunologic Allergic/Immunologic ED: Denies lip swelling or urticaria EXAM Physical Exam Const Vital Signs: 02/09/23 21:07 Temperature 96.8 F L Temperature Source Temporal Pulse Rate 105 H Respiratory Rate 16 Blood Pressure 128/94 H Blood Pressure Mean 105 Pulse Ox 97 Positive well nourished and well developed General Appearance ED: well developed HEENT Reports normocephalic and head/scalp atraumatic HEENT Narrative: Cutaneous abscess measuring approximate 2 cm in diameter at the base of the hairline of the occiput. No surrounding cellulitis. No fluctuance. Eyes PERRL and EOMs intact bilaterally Neck supple Chest Wall inspection of chest normal and palpation of chest normal Resp normal respiratory effort and clear to auscultation bilaterally Cardio regular rate and regular rhythm GI non-tender Palpation: soft Extremity normal to inspection Neuro oriented x3 and no sensory deficits noted Sensorium / Orientation: alert Motor Exam: strength 5/5 throughout Psych mental status grossly normal Skin no rashes or lesions noted MDM MDM MDM Narrative Medical decision making narrative: Patient's exam findings are consistent with a cutaneous abscess. She is diabetic but states her blood sugars have been doing well. She will be treated with Bactrim and Keflex, first dose is given here. She states her doctor just took her off of Tylenol and she has an allergy to ibuprofen and aspirin. She can take Naprosyn intermittently I advised her to try this at least once a day. I also encouraged her to use warm compresses 4-5 times a day to the area. We did discuss that if the area becomes more fluctuant she may need an I&D. She voices understanding and agreement. Discharge Plan Triage Chief Complaint: Wound ED Provider: Dee Dee Cha Dx/Rx/DC Orders Clinical Impression: Cutaneous abscess Instructions: ED Abscess Antibiotic Treatment Only Prescriptions: New sulfamethoxazole-trimethoprim [Bactrim DS] 800-160 mg tablet 1 tab PO BID Qty: 20 0RF cephalexin 500 mg capsule 500 mg PO Q6 Qty: 40 0RF No Action metformin 500 MG tablet 1,000 mg PO BID levothyroxine 50 MCG tablet 50 mcg PO DAILY Jardiance 25 mg tablet 25 mg PO DAILY Patient Comments: TAKE 1 TABLET BY MOUTH ONCE DAILY IN THE MORNING fluoxetine [Prozac] 20 mg Capsule 20 mg PO DAILY Trulicity 1.5 mg/0.5 mL Pen Injector 1.5 mg SUBCUT TH buspirone 1 tab PO DAILY promethazine 25 mg tablet 25 mg PO TID PRN (Reason: nausea and vomiting) 3 Days Qty: 9 0RF Primary Care Provider: Padilla Osborne Referrals: Padilla Osborne DO [Primary Care Provider] - 1 Week Disposition Disposition: Home, Self Care
[2023-02-09] MEDS: Cephalexin 250 MG Capsule 500 MG PO (21:52)
[2023-02-09] MEDS: Smz/Tmp Ds Tablet 1 TABLET PO (21:52)
== END 2023-02-09 21:53 | disposition home or self-care (01) ==
LOC: ED 21:43
PROVIDERS: Emergency Provider Emergency Medicine; PCP Student in an Organized Health Care Education/Training Program; Visit Provider Emergency Medicine
DX: L02.11 Cutaneous abscess of neck (principal); E11.9 Type 2 diabetes mellitus without complications; E03.9 Hypothyroidism, unspecified; Z59.00 Homelessness unspecified; Z79.84 Long term (current) use of oral hypoglycemic drugs; Z79.899 Other long term (current) drug therapy
CPT/HCPCS: 99283

== ENCOUNTER 2023-04-05 10:52 | Emergency (ER) | payer MEDICAID, SELFPAY ==
[2023-04-05 10:53] VITALS: BP 153/102; PULSE 115; RESP 18; TEMP 35.8; O2SAT 98; BMI 36.1
--- NOTE | 2023-04-05 11:04 | EDS_ITS ---
HPI History of Present Illness Chief Complaint: General Illness [facility] Medical History Diabetes Hypothyroidism Home Medications metformin 500 mg tablet,extended release 24 hr 1,000 mg PO BID 12/04/16 [History Last Taken 07/12/17 08:00] levothyroxine 50 mcg tablet 50 mcg PO DAILY 03/14/19 [History Last Taken Unknown] empagliflozin 25 mg tablet (Jardiance) 25 mg PO DAILY 08/22/20 [History Last Taken Unknown] dulaglutide 1.5 mg/0.5 mL subcutaneous pen injector (Trulicity) 1.5 mg subcut TH 05/24/21 [History Last Taken Unknown] fluoxetine 20 mg capsule (Prozac) 20 mg PO DAILY 05/24/21 [History Last Taken Unknown] promethazine 25 mg tablet 25 mg PO TID PRN nausea and vomiting 3 days #9 tabs 11/17/22 [Rx Last Taken Unknown] buspirone 1 tab PO DAILY 02/09/23 [History Last Taken Unknown] cephalexin 500 mg capsule 500 mg PO Q6 #40 CAPSULES 02/09/23 [Rx Last Taken Unknown] sulfamethoxazole 800 mg-trimethoprim 160 mg tablet (Bactrim DS) 1 tab PO BID #20 tabs 02/09/23 [Rx Last Taken Unknown] Allergy/AdvReac Type Severity Reaction Status Date / Time aspirin Allergy Hives Verified 04/05/23 10:55 ibuprofen Allergy Hives Verified 04/05/23 10:55 simvastatin AdvReac Other Verified 04/05/23 10:55 tramadol AdvReac Other Verified 04/05/23 10:55 Surgical History H/O section History of tubal ligation Social History household members: other housing: homeless number of children: 4 Smoking Status: Never smoker EXAM Physical Exam Const Vital Signs: 04/05/23 10:53 04/05/23 11:50 Temperature 96.5 F L Temperature Source Temporal Pulse Rate 115 H Respiratory Rate 18 Respiratory Effort Normal Non-Labored Respiratory Pattern Normal Blood Pressure 153/102 H Blood Pressure Mean 119 Pulse Ox 98 Oxygen Delivery Method Room Air MDM MDM MDM Narrative Medical decision making narrative: HISTORY OF PRESENT ILLNESS: 42-year-old female here with concern for multiple complaints including redness to her neck, left shoulder pain. She notes associated weakness secondary to pain in left shoulder pain. She notes when the pain is severe if she moves her shoulder she becomes short of breath. Denies shortness of breath at rest or with exertion to me. Notes that started yesterday. She notes he has a history of adhesive capsulitis and aggravated by increasing her activities of daily living including cooking and reaching overhead. She notes she was told by her family that she had posterior redness to the back of her neck and that she should get this evaluated. Patient denies any saddle anesthesia, urinary retention, bowel or bladder incontinence, lower extremity weakness, fever or IV drug use, no recent spinal manipulation or surgery, no recent urinary catheterization. States pain started over the last several days, notes increased movement of her left shoulder with cooking. No falls. Also notes redness to back of her neck. Denies fever. Does note some shortness of breath associated pain. The patient denies recent surgery in the last 4 weeks or immobilization in the last 3 days, denies previous diagnosis of DVT or PE, hemoptysis, unilateral leg swelling or malignancy with treatment the last 6 months or palliative. No estrogen use noted. No cough or fever. REVIEW OF SYSTEMS: Pertinent positives: shoulder pain, SOB Pertinent negatives: CP PHYSICAL EXAM: Nursing triage notes reviewed, Vital signs reviewed Constitutional: please see mdm HENT: MMM Eyes: Pupils equal round and reactive to light, Extraocular muscles intact Neck: No stridor, no JVD, full neck ROM no midline step-offs or deformities Lungs: Clear to auscultation, No wheezing or rales. No increased work of breathing, no conversational dyspnea, no accessory muscle use, no nasal flaring. No respiratory distress noted Heart: Regular rate and rhythm, No murmurs, No rubs and No gallops, 2+ distal pulses (radial, femoral, posterior tibial) in all extremities Abdomen: Soft, there is no tenderness, rigidity, rebound or guarding, no obvious peritoneal signs, no palpable pulsatile abdominal masses, no auscultated abdominal bruit : No CVAT Extremities: No edema, full but painful range of motion left upper extremity, positive to can test obvious step-offs or deformities, no clavicular tenderness Neuro: No focal neurological deficits, cranial nerves II through XII intact, 5/5 strength in all extremities. Intact sensation to light touch in all extremities, 2+ reflexes bilateral patella tendons. Normal gait. No ataxia. Intact 5/5 strength with ok sign (median), intact finger abduction (ulnar) intact wrist extension (radial n). Intact sensation in the radial, ulnar, and median nerve distributions. Skin: Erythema noted to the posterior occiput, this is consistent with folliculitis, there is no fluctuance, induration, crepitus or bullae. MEDICAL DECISION MAKING: Chief Complaint: External records reviewed: Prior ED records reviewed: Seen in the ED in January 2023 diagnosed with abscess prescribed Keflex and Bactrim Factors affecting care: type 2 diabetes, hypertension Social determinants of health: Undomiciled History obtained from others: none Consults: none MDM Narrative: The patient was initially hemodynamically stable, tachycardic, but afebrile and nontoxic-appearing. Exam with evidence of folliculitis, I considered the following differential diagnosis: Folliculitis, abscess, necrotizing fasciitis, left shoulder sprain, fracture dislocation ALL IMAGES (IF OBTAINED) HAVE BEEN PERSONALLY REVIEWED AND INTERPRETED BY MYSELF. X-ray of the left shoulder was read and reviewed by myself shows evidence of acute fracture dislocation EKG with sinus tachycardia, normal axis, intervals, no STEMI no arrhythmia The synthesis of the patient's history, physical exam, EKG and x-ray suggest no acute life or limb threatening etiology. Likely patient suffering from rotator cuff strain and exacerbation of underlying adhesive capsulitis. She was given anti-inflammatory naproxen. In terms of her folliculitis she was given Keflex and Bactrim given history of diabetes. She is given first dose here in the emergency department. The patient and/or family, caregivers express understanding. The patient and/or family, caregivers agrees with the plan. Shared decision making: I will have a discussion with the patient and or visitors regarding risk/benefits of further testing or admission. They will be made aware of of the risk/benefits inherent in this decision they will be given the opportunity to voice understanding. Total critical care time today provided was at least 0 minutes. This excludes separately billable procedures. Critical care time (if documented) is secondary to the patient having high probability of clinically significant/life threa tening deterioration in the patient's condition which required my urgent intervention. Impression: 1. Left shoulder strain 2. Folliculitis Dispo: Discharge home Radiography Diagnostic Testing: Clinical Impression(s) from Imaging Studies Shoulder X-Ray 04/05/23 11:45 IMPRESSION: Normal x-ray examination of the shoulder. Electronically Signed: Anjel Estrada MD at 12:20 EST , Discharge Plan Triage Chief Complaint: General Illness ED Provider: Ata Awad Dx/Rx/DC Orders Prescriptions: No Action metformin 500 MG tablet 1,000 mg PO BID levothyroxine 50 MCG tablet 50 mcg PO DAILY Jardiance 25 mg tablet 25 mg PO DAILY Patient Comments: TAKE 1 TABLET BY MOUTH ONCE DAILY IN THE MORNING fluoxetine [Prozac] 20 mg Capsule 20 mg PO DAILY Trulicity 1.5 mg/0.5 mL Pen Injector 1.5 mg SUBCUT TH buspirone 1 tab PO DAILY sulfamethoxazole-trimethoprim [Bactrim DS] 800-160 mg tablet 1 tab PO BID Qty: 20 0RF cephalexin 500 mg capsule 500 mg PO Q6 Qty: 40 0RF promethazine 25 mg tablet 25 mg PO TID PRN (Reason: nausea and vomiting) 3 Days Qty: 9 0RF Primary Care Provider: Padilla Osborne Referrals: Padilla Osborne DO [Primary Care Provider] -
--- NOTE | 2023-04-05 11:33 | EKG12_ITS ---
Test Reason : GENERAL Blood Pressure : / mmHG Vent. Rate : 103 BPM Atrial Rate : 103 BPM P-R Int : 170 ms QRS Dur : 086 ms QT Int : 348 ms P-R-T Axes : 044 052 016 degrees QTc Int : 455 ms Sinus tachycardia Otherwise normal ECG Confirmed by MIKAEL HENRIQUEZ, AISHA ([id number]), city editor VICTORINA ROCHE ([id number]) on 04/14/2023 9:15:14 AM Referred By: Confirmed By:AISHA YOUSSEF MD
--- NOTE | 2023-04-05 11:45 | RAD_ITS ---
STUDY: X-RAY - LEFT SHOULDER REASON FOR EXAM: Female, 42 years old. pain TECHNIQUE: 2 view(s) of the shoulder. COMPARISON: None. FINDINGS: Normal glenohumeral articulation. Normal acromioclavicular joint. Normal acromion. Normal humeral head and visualized proximal humerus. The soft tissue structures are unremarkable. Normal visualized pulmonary apex. RAD/Shoulder min 2 Views IMPRESSION: Normal x-ray examination of the shoulder. Electronically Signed: Anjel Estrada MD at 12:20 EST ,
[2023-04-05] MEDS: Naproxen 250 MG Tablet PO (11:48)
[2023-04-05] MEDS: Smz/Tmp Ds Tablet 1 TABLET PO (12:41)
[2023-04-05] MEDS: Cephalexin 250 MG Capsule 500 MG PO (12:41)
[2023-04-05 12:43] VITALS: BP 129/88; PULSE 67; RESP 15; O2SAT 98
== END 2023-04-05 12:45 | disposition home or self-care (01) ==
PROVIDERS: Emergency Provider Emergency Medicine; PCP Student in an Organized Health Care Education/Training Program; Visit Provider Emergency Medicine
DX: S46.912A Strain of unspecified muscle, fascia and tendon at shoulder and upper arm level, left arm, initial encounter (principal); E11.9 Type 2 diabetes mellitus without complications; L73.9 Follicular disorder, unspecified; E03.9 Hypothyroidism, unspecified; Z79.899 Other long term (current) drug therapy; Z79.84 Long term (current) use of oral hypoglycemic drugs; X58.XXXA Exposure to other specified factors, initial encounter
CPT/HCPCS: 73030; 93005; 99283

== ENCOUNTER 2023-07-24 17:07 | Emergency (ER) | payer MEDICAID, SELFPAY ==
[2023-07-24 17:07] VITALS: BP 136/94; PULSE 117; RESP 18; TEMP 36.7
[2023-07-24 17:08] VITALS: BP 136/94; TEMP 36.7; BMI 36.5
--- NOTE | 2023-07-24 17:21 | EX.ED.DYSGE1 ---
HPI History of Present Illness Chief Complaint: Abscess Detail of Chief Complaint: Concern for abscess left upper back Informant: patient Narrative Narrative: Patient presents to the emergency department with an area of pain and redness and swelling to the left upper back. Initially the area started off much smaller 1 week ago. Patient went to urgent care and was started on Keflex 3 days ago. She continues to have pain and discomfort. She has had some chills but no fever. [facility] Medical History Diabetes Hypothyroidism Home Medications metformin 500 mg tablet,extended release 24 hr 1,000 mg PO BID 12/04/16 [History Last Taken 07/12/17 08:00] levothyroxine 50 mcg tablet 50 mcg PO DAILY 03/14/19 [History Last Taken Unknown] empagliflozin 25 mg tablet (Jardiance) 25 mg PO DAILY 08/22/20 [History Last Taken Unknown] dulaglutide 1.5 mg/0.5 mL subcutaneous pen injector (Trulicity) 1.5 mg subcut 05/24/21 [History Last Taken Unknown] fluoxetine 20 mg capsule (Prozac) 20 mg PO DAILY 05/24/21 [History Last Taken Unknown] promethazine 25 mg tablet 25 mg PO TID PRN nausea and vomiting 3 days #9 tabs 11/17/22 [Rx Last Taken Unknown] buspirone 1 tab PO DAILY 02/09/23 [History Last Taken Unknown] cephalexin 500 mg capsule 500 mg PO TID 7 days #21 caps 04/05/23 [Rx Last Taken Unknown] sulfamethoxazole 800 mg-trimethoprim 160 mg tablet (Bactrim DS) 1 tab PO BID #14 tabs 04/05/23 [Rx Last Taken Unknown] clindamycin HCl 300 mg capsule (Cleocin HCl) 300 mg PO Q6H #40 CAPSULES 07/24/23 [Rx Last Taken Unknown] ondansetron 4 mg disintegrating tablet 4 mg PO Q8H PRN PRN Nausea #10 tabs 07/24/23 [Rx Last Taken Unknown] Allergy/AdvReac Type Severity Reaction Status Date / Time aspirin Allergy Hives Verified 07/24/23 17:08 ibuprofen Allergy Hives Verified 07/24/23 17:08 simvastatin AdvReac Other Verified 07/24/23 17:08 tramadol AdvReac Other Verified 07/24/23 17:08 Surgical History H/O section History of tubal ligation Social History household members: other housing: homeless number of children: 4 Smoking Status: Never smoker ROS ROS ED Review of Systems ROS Unobtainable: other Constitutional Constitutional ED: Reports lethargy; Denies chills, fever(s), sweats or weight loss Eyes Eyes: Denies blurry vision, change in vision or diplopia ENT ENT ED: Denies rhinorrhea or sore throat Cardiovascular Cardiovascular: Denies chest pain, orthopnea or racing heartbeat Respiratory/Chest Respiratory/Chest: Denies cough, dyspnea, dyspnea on exertion, orthopnea or sputum Gastrointestinal Gastrointestinal: Denies abdominal pain, diarrhea, nausea or vomiting Genitourinary Genitourinary ED: Denies dysuria, hematuria or urinary frequency Musculoskeletal Musculoskeletal: Denies arthralgias, back pain, myalgias or neck pain Integumentary Reports abscess and other Details: Soft tissue swelling/abscess left upper back ; Denies Abrasions or rash Neurologic Neurologic: Denies headache(s) or weakness Psychiatric Psychiatric: Denies anxiety, depression or suicidal thoughts Endocrine Endocrinology: Denies polydipsia, polyphagia or polyuria Hematologic/Lymphatic Hematologic/Lymphatic: Denies easy bleeding, easy bruising or lymphadenopathy Allergic/Immunologic Allergic/Immunologic ED: Denies mouth swelling, tongue swelling or urticaria EXAM Physical Exam Const Vital Signs: 07/24/23 17:08 07/24/23 17:07 Temperature 98.1 F 98.1 F Temperature Source Oral Oral Pulse Rate 117 H Respiratory Rate 18 Blood Pressure 136/94 H 136/94 H Blood Pressure Mean 108 108 Positive well nourished and well developed General Appearance ED: well developed and NAD HEENT Reports TM's clear and moist mucous membranes normocephalic and atraumatic; Negative for trauma or tenderness Tympanic Membrane ED: Yes TM's clear Eyes PERRL and EOMs intact bilaterally General Eye ED: Negative for pale conjunctiva or scleral icterus Neck no lymphadenopathy, supple and no JVD General: Negative for tenderness Chest Wall inspection of chest normal and palpation of chest normal Chest: Negative for tenderness Resp normal respiratory effort and clear to auscultation bilaterally Effort and Inspection: Negative for respiratory distress or pain with movement Auscultation: Negative for rhonchi, wheezes or diminished lung sounds Cardio regular rate, regular rhythm, S1 normal heart sound, S2 normal heart sound and no murmurs Peripheral Pulses: pulses 2+ throughout GI normal to inspection, nondistended, normoactive bowel sounds, soft to palpation, non-tender, non-distended and no masses Back/Spine no CVA tenderness and no thoracic nor lumbar tenderness Back/Spine Narrative: Patient with an abscess to the left upper back with erythema and induration. Area of erythema measures approximately 4 x 3 cm. There is a small central pustule noted. Extremity normal to inspection General Extremety ED: Negative for edema General Extremity: Negative for edema Neuro oriented x3, CN's II-XII intact bilaterally, no sensory deficits noted and gait normal Sensorium / Orientation: awake, alert, oriented to person, oriented to place and oriented to time Motor Exam: strength 5/5 throughout and strength abnormal Psych mental status grossly normal Skin no rashes or lesions noted and no wounds MDM MDM MDM Narrative Medical decision making narrative: Patient presents with suspected abscess to the left upper back which I suspect may be an infected sebaceous cyst. Offered incision and drainage which he agreed. Please see procedure note. Clean dressing applied. She will be started on clindamycin because she thinks the Keflex is making her vomit. Patient also be given a prescription for Zofran. Advised to follow-up with her primary care physician and also will refer to general surgery if increasing pain, redness, swelling, or condition worsening way. Procedures Other Procedures Procedure(s): Patient was offered incision and drainage of suspected abscess. Patient in agreement. Area of the skin left upper back sterilely draped and prepped in was cleansed with Shur-Clens. Anesthetized locally with 1% lidocaine total of 10 cc. Using an 11 blade a 2.5 cm incision was made with large amount of free-flowing purulent debris expressed. Area irrigated with saline. Clean dressing applied. Discharge Plan Triage Chief Complaint: Abscess ED Provider: Leticia Seth Dx/Rx/DC Orders Clinical Impression: Abscess Instructions: ED Abscess Incision And Drainage Prescriptions: New clindamycin HCl [Cleocin HCl] 300 mg capsule 300 mg PO Q6H Qty: 40 0RF ondansetron [ondansetron] 4 mg tablet,disintegrating 4 mg PO Q8H PRN PRN (Reason: Nausea) Qty: 10 0RF No Action metformin 500 MG tablet 1,000 mg PO BID levothyroxine 50 MCG tablet 50 mcg PO DAILY Jardiance 25 mg tablet 25 mg PO DAILY Patient Comments: TAKE 1 TABLET BY MOUTH ONCE DAILY IN THE MORNING fluoxetine [Prozac] 20 mg Capsule 20 mg PO DAILY Trulicity 1.5 mg/0.5 mL Pen Injector 1.5 mg SUBCUT TH buspirone 1 tab PO DAILY sulfamethoxazole-trimethoprim [Bactrim DS] 800-160 mg tablet 1 tab PO BID Qty: 14 0RF cephalexin 500 mg capsule 500 mg PO TID 7 Days Qty: 21 0RF promethazine 25 mg tablet 25 mg PO TID PRN (Reason: nausea and vomiting) 3 Days Qty: 9 0RF Primary Care Provider: Padilla Osborne Referrals: Jamie Partida MD [Med Staff - Active Staff] - As Needed Padilla Osborne DO [Primary Care Provider] - 3-5 Days Disposition Disposition: Home, Self Care
[2023-07-24] MEDS: Clindamycin HCl 150 MG Capsule 300 MG PO (17:57)
[2023-07-24] MEDS: Lidocaine 1% (20 ml mdv) 20 ML Vial 10 ML INFILT (17:57)
== END 2023-07-24 18:07 | disposition home or self-care (01) ==
LOC: ED 18:03
PROVIDERS: Emergency Provider Emergency Medicine; PCP Student in an Organized Health Care Education/Training Program; Visit Provider Emergency Medicine
DX: L02.212 Cutaneous abscess of back [any part, except buttock and flank] (principal); E11.9 Type 2 diabetes mellitus without complications; Z59.00 Homelessness unspecified
CPT/HCPCS: 10060; 99283

== ENCOUNTER 2023-09-15 10:46 | Observation (INO) | payer MEDICAID, SELFPAY ==
[2023-09-15 10:47] VITALS: BP 125/85; PULSE 99; RESP 20; TEMP 36.5; O2SAT 97
--- NOTE | 2023-09-15 10:56 | CT_ITS ---
STUDY: CT ABDOMEN AND PELVIS WITHOUT CONTRAST REASON FOR EXAM: Female, 43 years old. Dysuria. Right flank pain. RADIATION DOSAGE (If Supplied By Facility): CTDIvol = ( 18.2 ) mGy, DLP = ( 1027.79 ) mGycm TECHNIQUE: Transaxial images were obtained from the dome of the diaphragm to the symphysis pubis without oral contrast, and without intravenous contrast. Sagittal and coronal images were reconstructed. Individualized dose optimization techniques were used for this CT. COMPARISON: Comparison is made with prior study November 29, 2021. FINDINGS: The visualized lung bases are unremarkable. The visualized portions of the heart are within normal limits. Normal liver. Findings suggestive of sludge and/or small layering gallstones along the dependent portion of the gallbladder lumen. Normal spleen. Normal pancreas. Normal bilateral adrenal glands. Mild degree of right hydronephrosis and right hydroureter with a perinephric stranding. Findings suggest a very punctate calculus at the right ureterovesical junction. Normal left kidney. Normal visualized stomach. Normal small intestine. Normal colon. The appendix is visualized and appears normal. Normal abdominal aorta. Normal inferior vena cava. Normal retroperitoneum. Normal urinary bladder. Normal abdominal wall. Normal osseous structures. CT/Abdomen/Pelvis without Cont IMPRESSION: Findings suggestive of a punctate calculus at the right ureterovesical junction causing a mild degree of a right hydronephrosis and right hydroureter. Electronically Signed: Diego Melvin MD at 12:06 EDT ,
--- NOTE | 2023-09-15 10:57 | EX.ED.DYSGE1 ---
HPI History of Present Illness Chief Complaint: Flank Pain Detail of Chief Complaint: Right flank pain Informant: patient Narrative Narrative: Patient presents with right flank pain that started 3 days ago. Currently rates her pain a 9 out of 10. She states the pain wraps around to the front of the right lower abdomen. She has had nausea but no vomiting. She denies fevers or chills or sweats. She has had some mild dysuria at the end of urination. Patient has not had a UTI or kidney stone in over 15 years. [facility] Medical History Diabetes Hypothyroidism Home Medications ?Medication ?Instructions ?Recorded ?Last Taken ?Type metformin 500 mg tablet,extended 1,000 mg PO BID 12/04/16 07/12/17 08:00 History release 24 hr levothyroxine 50 mcg tablet 50 mcg PO DAILY 03/14/19 Unknown History empagliflozin 25 mg tablet 25 mg PO DAILY 08/22/20 Unknown History (Jardiance) dulaglutide 1.5 mg/0.5 mL 1.5 mg subcut TH 05/24/21 Unknown History subcutaneous pen injector (Trulicity) fluoxetine 20 mg capsule (Prozac) 20 mg PO DAILY 05/24/21 Unknown History buspirone 1 tab PO DAILY 02/09/23 Unknown History ondansetron 4 mg disintegrating 4 mg PO Q8H PRN PRN Nausea #10 tabs 07/24/23 Unknown Rx tablet Allergy/AdvReac Type Severity Reaction Status Date / Time aspirin Allergy Hives Verified 07/24/23 17:08 ibuprofen Allergy Hives Verified 07/24/23 17:08 simvastatin AdvReac Other Verified 07/24/23 17:08 tramadol AdvReac Other Verified 07/24/23 17:08 Surgical History H/O section History of tubal ligation Social History household members: other housing: homeless number of children: 4 Smoking Status: Never smoker ROS ROS ED Review of Systems ROS Unobtainable: other Constitutional Constitutional ED: Reports lethargy; Denies chills, fever(s), sweats or weight loss Eyes Eyes: Denies blurry vision, change in vision or diplopia ENT ENT ED: Denies rhinorrhea or sore throat Cardiovascular Cardiovascular: Denies chest pain, orthopnea or racing heartbeat Respiratory/Chest Respiratory/Chest: Denies cough, dyspnea, dyspnea on exertion, orthopnea or sputum Gastrointestinal Gastrointestinal: Reports abdominal pain and nausea; Denies diarrhea or vomiting Genitourinary Genitourinary ED: Denies dysuria, hematuria or urinary frequency Musculoskeletal Musculoskeletal: Reports back pain; Denies arthralgias, myalgias or neck pain Integumentary Denies abscess, Abrasions or rash Neurologic Neurologic: Denies headache(s) or weakness Psychiatric Psychiatric: Denies anxiety, depression or suicidal thoughts Endocrine Endocrinology: Denies polydipsia, polyphagia or polyuria Hematologic/Lymphatic Hematologic/Lymphatic: Denies easy bleeding, easy bruising or lymphadenopathy Allergic/Immunologic Allergic/Immunologic ED: Denies mouth swelling, tongue swelling or urticaria EXAM Physical Exam Const Vital Signs: 09/15/23 10:47 09/15/23 12:20 Temperature 97.7 F L Temperature Source Temporal Pulse Rate 99 81 Respiratory Rate 20 H 16 Blood Pressure 125/85 H 129/83 H Blood Pressure Mean 98 98 Pulse Ox 97 97 Oxygen Delivery Method Room Air Room Air Positive well nourished and well developed General Appearance ED: well developed and NAD HEENT Reports TM's clear and moist mucous membranes normocephalic and atraumatic; Negative for trauma or tenderness Tympanic Membrane ED: Yes TM's clear Eyes PERRL and EOMs intact bilaterally General Eye ED: Negative for pale conjunctiva or scleral icterus Neck no lymphadenopathy, supple and no JVD General: Negative for tenderness Chest Wall inspection of chest normal and palpation of chest normal Chest: Negative for tenderness Resp normal respiratory effort and clear to auscultation bilaterally Effort and Inspection: Negative for respiratory distress or pain with movement Auscultation: Negative for rhonchi, wheezes or diminished lung sounds Cardio regular rate, regular rhythm, S1 normal heart sound, S2 normal heart sound and no murmurs Peripheral Pulses: pulses 2+ throughout GI normal to inspection, nondistended, normoactive bowel sounds, soft to palpation, non-tender, non-distended and no masses Back/Spine no thoracic nor lumbar tenderness General Back: CVA tenderness right Extremity normal to inspection General Extremety ED: Negative for edema General Extremity: Negative for edema Neuro oriented x3, CN's II-XII intact bilaterally, no sensory deficits noted and gait normal Sensorium / Orientation: awake, alert, oriented to person, oriented to place and oriented to time Motor Exam: strength 5/5 throughout and strength abnormal Psych mental status grossly normal Skin no rashes or lesions noted and no wounds MDM MDM MDM Narrative Medical decision making narrative: Patient presents with urinary symptoms and history of kidney stone. IV line established. Patient was medicated with morphine and Zofran. She had a CBC with differential that showed a white count of 9.4 with hemoglobin 14 and platelet count 273. Chemistries unremarkable. Urinalysis positive for infection with greater than 100 WBCs and 500 consign Estrace +3 bacteria. Urine culture was sent. I did start patient on Rocephin [address] scan of the abdomen pelvis without contrast obtained showed punctate urolithiasis at the UVJ with mild degree of hydroureter. Patient case discussed with Dr. Yennifer Ramirez who will admit patient as she continues to have pain and had to be remedicated with Dilaudid 1 mg IV. Lab Data Labs: Laboratory Results - last 24 hr 09/15/23 11:08 WBC 9.4 RBC 5.14 Hgb 14.1 Hct 43.8 MCV 85.2 MCH 27.4 MCHC 32.2 RDW Std Deviation 41.0 RDW Coeff of Obed 13.2 Plt Count 273 MPV 10.2 Immature Gran % (Auto) 0.200 Neut % (Auto) 67.1 Lymph % (Auto) 24.7 [place] % (Auto) 3.9 Eos % (Auto) 3.8 Baso % (Auto) 0.3 Absolute Neuts (auto) 6.3 Absolute Lymphs (auto) 2.32 Nucleated RBC % 0 Sodium 138 Potassium 3.9 Chloride 106 Carbon Dioxide 27.0 Anion Gap 5 BUN 14 Creatinine 0.74 Est GFR (MDRD) Af Amer 110 Est GFR (MDRD) Non-Af 91 BUN/Creatinine Ratio 19.0 Glucose 183 H Calcium 10.0 Total Bilirubin 1.60 H AST 9 L ALT 18 Alkaline Phosphatase 74 Total Protein 7.9 Albumin 3.7 Globulin 4.2 Albumin/Globulin Ratio 0.9 Serum , Qual NEGATIVE Urine Color Yellow Urine Clarity Turbid Urine pH 6.0 Ur Specific [place] 1.020 Urine Protein 500 H Urine Glucose (UA) Normal Urine Ketones Negative Urine Occult Blood 250 H Urine Nitrite Negative Urine Bilirubin Negative Urine Urobilinogen Normal Ur Leukocyte Esterase 500 H Urine RBC 0 SEEN Urine WBC >100 SEEN Ur Squamous Epith Cells 0 SEEN Urine Bacteria 3+ Urine Mucus 0 SEEN Radiography Diagnostic Testing: Clinical Impression(s) from Imaging Studies Abdomen/Pelvis CT 09/15/23 10:56 IMPRESSION: Findings suggestive of a punctate calculus at the right ureterovesical junction causing a mild degree of a right hydronephrosis and right hydroureter. Electronically Signed: Diego Melvin MD at 12:06 EDT , Discharge Plan Triage Chief Complaint: Flank Pain ED Provider: Leticia Seth Dx/Rx/DC Orders Clinical Impression: Kidney stone, UTI (urinary tract infection), Intractable pain Prescriptions: No Action metformin 500 MG tablet 1,000 mg PO BID levothyroxine 50 MCG tablet 50 mcg PO DAILY Jardiance 25 mg tablet 25 mg PO DAILY Patient Comments: TAKE 1 TABLET BY MOUTH ONCE DAILY IN THE MORNING fluoxetine [Prozac] 20 mg Capsule 20 mg PO DAILY Trulicity 1.5 mg/0.5 mL Pen Injector 1.5 mg SUBCUT TH buspirone 1 tab PO DAILY ondansetron [ondansetron] 4 mg tablet,disintegrating 4 mg PO Q8H PRN PRN (Reason: Nausea) Qty: 10 0RF Primary Care Provider: Padilla Osborne Referrals: Padilla Osborne DO [Primary Care Provider] - Print Language: Sami Disposition Disposition: Acute Care [facility]
[2023-09-15 11:12] LABS: Mucous, Urine 0 SEEN /hpf (<or=2+); Red Blood Cells-Urine 0 SEEN /hpf (0-5); Squamous Epithelial Cells - UA 0 SEEN /hpf (5-10)
[2023-09-15 11:13] LABS: Absolute Lymphocyte Count 2.32 X10^3/uL (0.83-4.51); Absolute Neutrophil Count 6.3 X10^3/uL (2.0-7.7); Basophil# 0.03 X10^3/uL; Basophil% 0.3 % (0-1); Eosinophil# 0.36 X10^3/uL; Eosinophils% 3.8 % (0-5); Hematocrit 43.8 % (37-47); Hemoglobin 14.1 g/dL (12.0-15.0); Lymphocyte # 2.32 X10^3/ul (0.83-4.51); Lymphocyte % 24.7 % (19-41); Mean Corp Hgb Conc 32.2 g/dL (32-36); Mean Corpuscular Hgb 27.4 pg (27.0-32.0); Mean Corpuscular Volume 85.2 fL (81-99); Mean Platelet Vol. 10.2 fl (6.2-12.0); Monocyte# 0.37 X10^3/uL; Monocyte% 3.9 % (0-10); NRBC Flagged by Analyzer 0 % (0-5); Neutrophil # 6.31 X10^3/uL (2.7-7.7); Neutrophil % 67.1 % (47-70); Platelet Count 273 K/mm3 (150-450); RBC Distribution Width CV 13.2 % (11.6-14.6); Red Blood Count 5.14 M/mm3 (4.2-5.4); White Blood Count 9.4 K/mm3 (4.4-11.0)
[2023-09-15 11:14] LABS: Color, Urine Yellow (Yellow); Glucose, Dipstick Normal (Normal); Ketone-Dipstick Negative (Negative); Leukocyte Esterase-Dipstick 500 /ul (Negative); Nitrite-Dipstick Negative (Negative); Occult Blood-Urine 250 /ul (Negative); Protein-Dipstick 500 mg/dl (Negative); Urine Bilirubin Dipstick Negative (Negative); Urine Clarity Turbid (Clear); Urine Urobilinogen Normal (Normal)
[2023-09-15] MEDS: Morphine 4 MG/ML Syringe IV (11:14)
[2023-09-15] MEDS: 0.9% Normal Saline (1000mL) 1,000 ML 150 ML IV (11:14)
[2023-09-15] MEDS: Ondansetron 4 MG/2 ML Vial IV ×2 (11:14→20:14)
[2023-09-15 11:21] LABS: Bacteria 3+ /hpf (None Seen); White Blood Cells >100 SEEN /hpf (0-5)
[2023-09-15 11:25] LABS: Internal QC Validated? YES +Cl - CLEAR BKGD; Pregnancy, Serum, hCG Quali. NEGATIVE Negative
[2023-09-15 11:32] LABS: ALB/GLOB Ratio 0.9 RATIO (0.9-2.4); AST(SGOT) 9 U/L (15-37); Alanine Aminotransfer ALT/SGPT 18 U/L (13-56); Albumin, Serum 3.7 g/dL (3.2-5.0); Alkaline Phosphatase 74 U/L (45-117); Anion Gap 5 (5-15); BUN 14 mg/dL (7-18); Chloride 106 mmol/L (98-107); Creatinine, Serum 0.74 mg/dL (0.55-1.02); EST Glomerular Filtration Rate 91 mL/min (>60); Est Glom Filt Rate - Afr Amer 110 mL/min (>60); Globulin 4.2 g/dL (2.2-4.2); Glucose 183 mg/dL (74-106); Potassium 3.9 mmol/L (3.5-5.1); Protein, Total 7.9 g/dL (6.4-8.2); Sodium Level 138 mmol/L (136-145)
[2023-09-15] MEDS: HYDROmorphone 1 MG/ML Syringe IV (12:14)
[2023-09-15] MEDS: Ceftriaxone 1 GM/50 ML BAG IV (12:14)
[2023-09-15 12:20] VITALS: BP 129/83; PULSE 81; RESP 16; O2SAT 97
[2023-09-15 13:30] VITALS: BP 109/65; PULSE 68; RESP 18; TEMP 36.6; O2SAT 96
[2023-09-15 14:00] VITALS: BP 128/80; PULSE 80; RESP 18; O2SAT 96
[2023-09-15 15:09] VITALS: BP 132/78; PULSE 73; RESP 18; TEMP 36.7; O2SAT 100
[2023-09-15 15:11] VITALS: BMI 36.1
[2023-09-15] MEDS: Lactated Ringers 1,000 ML 125 ML IV ×2 (15:33→23:47)
--- NOTE | 2023-09-15 16:21 | PCM.RX.CS ---
Consult Antibiotic Management Pharmacy has been consulted to manage selected antibiotic: Vancomycin Type of Intervention Type of Consult: New start Suspected Infection Suspected Infection: Skin/Soft tissue Prior Doses of Antibiotics Prior Doses of Antibiotics Received/Current Regimen: 09/15/23 @ 1456 2000MG X ONE Labs Labs: Sodium 138 mmol/L (136-145) 09/15/23 11:08 Potassium 3.9 mmol/L (3.5-5.1) 09/15/23 11:08 Chloride 106 mmol/L (98-107) 09/15/23 11:08 Carbon Dioxide 27.0 mmol/L (21.0-32.0) 09/15/23 11:08 Anion Gap 5 (5-15) 09/15/23 11:08 BUN 14 mg/dL (7-18) 09/15/23 11:08 Creatinine 0.74 mg/dL (0.55-1.02) 09/15/23 11:08 Est GFR (MDRD) Af Amer 110 mL/min (>60) 09/15/23 11:08 Est GFR (MDRD) Non-Af 91 mL/min (>60) 09/15/23 11:08 BUN/Creatinine Ratio 19.0 RATIO (10-20) 09/15/23 11:08 Glucose 183 mg/dL (74-106) H 09/15/23 11:08 Dosing Weight Weight used for dosin.6 kg Estimated Creatinine Clearance Estimated Creatinine Clearance: 12 Goal Trough Goal Trough: 15-20 mcg/mL Pharmacy Plan for Drug Dosing Pharmacy Plan for Drug Dosing: 09/17/23 at 0600 give 1000mg vancomycin x 1 before dialysis Pharmacy Service will continue to monitor and adjust dosing as required. Date/Time Labs Ordered Labs to be done on [date and time ordered]: random Vancomycin level 09/18/23 @ 0600
[2023-09-15] MEDS: oxyCODONE 5 MG Tablet 10 MG PO (16:55)
[2023-09-15] MEDS: metFORMIN (XR) 500 MG Tablet 1000 MG PO (16:56)
[2023-09-15] MEDS: Tamsulosin HCl 0.4 MG Capsule PO (16:59)
[2023-09-15 17:11] LABS: Bedside Glucose 100 mg/dL (74-106)
[2023-09-15 20:09] VITALS: BP 134/77; PULSE 84; RESP 16; TEMP 36.6; O2SAT 95
[2023-09-15] MEDS: Rizatriptan Benzoate 10 MG Tablet PO (20:14)
[2023-09-15] MEDS: busPIRone 5 MG Tablet 10 MG PO (21:20)
[2023-09-16 06:00] VITALS: BP 126/78; PULSE 80; RESP 16; TEMP 36.6; O2SAT 97
[2023-09-16] MEDS: busPIRone 5 MG Tablet 10 MG PO ×2 (06:03→13:28)
[2023-09-16] MEDS: Levothyroxine 75 MCG Tablet PO (06:03)
[2023-09-16] MEDS: 0.9% Normal Saline (1000mL) 1,000 ML 150 ML IV (06:03)
[2023-09-16 06:26] LABS: Bedside Glucose 92 mg/dL (74-106)
[2023-09-16] MEDS: Lactated Ringers 1,000 ML 125 ML IV (06:44)
--- NOTE | 2023-09-16 08:01 | HP.PCM_ITS ---
[facility] - General General Date of Admission: 09/15/23 Chief Complaint: back and abdominal pain. [facility] Narrative NEYMAR KITCHEN, is a 43 F who presented to the emergency department after having 4 days of right-sided flank and abdominal discomfort. She had nausea along with this but no fever or chills. The day she presented to the ED, she developed vomiting. She has a history of 1 kidney stone in the past approximately 20 years ago. This morning she is feeling better, the pain is down by her bladder. There is no longer any flank discomfort. She does report that she has had some stabbing bladder discomfort at the end of voiding. No history of hematuria, no recurrent urinary tract infections no other urologic complaints. [facility] Medical History (Updated 09/16/23 @ 08:[address] Jessenia Thompson MD) Ureteral calculus Hearing loss, left Hearing loss, right Chronic pain Migraines Hypothyroidism Diabetes Home Medications ?Medication ?Instructions ?Recorded ?Last Taken ?Type metformin 500 mg tablet,extended 1,000 mg PO BID DIABETES 12/04/16 07/12/17 08:00 History release 24 hr empagliflozin 25 mg tablet 25 mg PO DAILY DIABETES 08/22/20 Unknown History (Jardiance) dulaglutide 1.5 mg/0.5 mL 1.5 mg subcut TH DIABETES 05/24/21 Unknown History subcutaneous pen injector (Trulicity) albuterol sulfate 90 mcg/actuation 2 puff inhalation Q4H PRN 09/15/23 Unknown History aerosol inhaler SHORTNESS OF BREATH/WHEEZING buspirone 10 mg tablet 10 mg PO TID ANXIETY 09/15/23 Unknown History fluoxetine 40 mg capsule 40 mg PO DAILY DEPRESSION 09/15/23 Unknown History levothyroxine 75 mcg tablet 75 mcg PO DAILY THYROID 09/15/23 Unknown History ondansetron 4 mg disintegrating 4 mg PO Q8H PRN NAUSEA/VOMITING 09/15/23 Unknown History tablet sumatriptan succinate 50 mg tablet 50 mg PO Q2H PRN MIGRAINES 09/15/23 Unknown History Allergy/AdvReac Type Severity Reaction Status Date / Time aspirin Allergy Hives Verified 07/24/23 17:08 ibuprofen Allergy Hives Verified 07/24/23 17:08 simvastatin AdvReac Other Verified 07/24/23 17:08 tramadol AdvReac Other Verified 07/24/23 17:08 Surgical History History of tubal ligation H/O section Social History household members: other housing: homeless number of children: 4 Smoking Status: Never smoker ROS Constitutional Constitutional: Denies chills, fatigue, fever(s) or weakness Eyes Eyes: Reports systems reviewed and no addt'l complaints, except as documented ENT HEENT: Reports systems reviewed and no addt'l complaints, except as documented Cardiovascular Cardiovascular: Reports abdominal pain; Denies chest pain, dizziness or dyspnea Respiratory/Chest Respiratory/Chest: Reports systems reviewed and no addt'l complaints, except as documented Gastrointestinal Gastrointestinal: Reports cramping, nausea and vomiting Genitourinary Genitourinary: Reports low back pain; Denies dysuria, flank pain, hematuria, urinary frequency, urinary hesitancy, urinary incontinence or urinary urgency Musculoskeletal Musculoskeletal: Reports systems reviewed and no addt'l complaints, except as documented Integumentary Integumentary: Reports systems reviewed and no addt'l complaints, except as documented Neurologic Neurologic: Reports systems reviewed and no addt'l complaints, except as documented Psychiatric Psychiatric: Reports systems reviewed and no addt'l complaints, except as documented Endocrine Endocrinology: Reports systems reviewed and no addt'l complaints, except as documented Hematologic/Lymphatic Hematologic/Lymphatic: Reports systems reviewed and no addt'l complaints, except as documented Allergic/Immunologic Allergic/Immunologic: Reports systems reviewed and no addt'l complaints, except as documented Vital Signs Vital Signs Vital Signs: 09/15/23 10:47 09/15/23 12:20 09/15/23 13:30 Temperature 97.7 F L 97.9 F Temperature Source Temporal Pulse Rate 99 81 68 Pulse Strength Respiratory Rate 20 H 16 18 Respiratory Effort Respiratory Depth Respiratory Pattern Blood Pressure 125/85 H 129/83 H 109/65 Blood Pressure Mean 98 98 79 Blood Pressure Source Blood Pressure Position Blood Pressure Location Pulse Ox 97 97 96 Oxygen Delivery Method Room Air Room Air 09/15/23 14:00 09/15/23 15:04 09/15/23 15:09 Temperature 98.0 F Temperature Source Oral Pulse Rate 80 73 Pulse Strength Respiratory Rate 18 18 Respiratory Effort Normal Non-Labored Respiratory Depth Normal Respiratory Pattern Normal Blood Pressure 128/80 H 132/78 H Blood Pressure Mean 96 96 Blood Pressure Source Monitor Blood Pressure Position Semi-Fowlers Blood Pressure Location Right Arm Pulse Ox 96 100 Oxygen Delivery Method Room Air Room Air 09/15/23 20:09 09/15/23 20:10 09/16/23 06:00 Temperature 97.8 F 97.9 F Temperature Source Oral Oral Pulse Rate 84 80 Pulse Strength Normal (2+) Respiratory Rate 16 16 Respiratory Effort Respiratory Depth Respiratory Pattern Blood Pressure 134/77 H 126/78 H Blood Pressure Mean 96 94 Blood Pressure Source Monitor Monitor Blood Pressure Position Semi-Fowlers Semi-Fowlers Blood Pressure Location Right Arm Right Arm Pulse Ox 95 97 Oxygen Delivery Method Room Air Room Air Weight Weight: 101.6 kg Body Mass Index (BMI) 36.1 Physical Exam Const alert, oriented x3 and no apparent distress General Appearance: cooperative, comfortable and well kempt HEENT normocephalic, head/scalp atraumatic, hearing grossly normal bilaterally, external ears normal, external nose normal and moist oral mucous membranes Eyes General Eye: normal appearance of both eyes Neck supple General: normal visual inspection and trachea midline Lymph Lymphatic: no lymphedema noted Chest inspection of chest normal Chest: symmetrical chest wall rise Resp normal respiratory effort, normal air movement, no retractions and no use of accessory muscles Cardio regular rate Cardio Narrative: tachycardia from earlier is resolved GI normal to inspection, nondistended, normoactive bowel sounds, soft to palpation, non-tender and non-distended no CVA tenderness Back/Spine no CVA tenderness Extremity normal to inspection Skin no rashes or lesions noted, skin turgor normal, no jaundice, no petechiae and no mottling Neuro oriented x3, CN's II-XII intact bilaterally and moves all extremities Psych mental status grossly normal and thought process normal Results Lab / Micro Data 09/15/23 11:08 09/15/23 11:08 Labs: Laboratory Results - last 24 hr 09/15/23 11:08: WBC 9.4, RBC 5.14, Hgb 14.1, Hct 43.8, MCV 85.2, MCH 27.4, MCHC 32.2, RDW Std Deviation 41.0, RDW Coeff of Obed 13.2, Plt Count 273, MPV 10.2, Immature Gran % (Auto) 0.200, Neut % (Auto) 67.1, Lymph % (Auto) 24.7, [place] % (Auto) 3.9, Eos % (Auto) 3.8, Baso % (Auto) 0.3, Absolute Neuts (auto) 6.3, Absolute Lymphs (auto) 2.32, Nucleated RBC % 0, Sodium 138, Potassium 3.9, Chloride 106, Carbon Dioxide 27.0, Anion Gap 5, BUN 14, Creatinine 0.74, Est GFR (MDRD) Af Amer 110, Est GFR (MDRD) Non-Af 91, BUN/Creatinine Ratio 19.0, Glucose 183 H, Calcium 10.0, Total Bilirubin 1.60 H, AST 9 L, ALT 18, Alkaline Phosphatase 74, Total Protein 7.9, Albumin 3.7, Globulin 4.2, Albumin/Globulin Ratio 0.9, Serum , Qual NEGATIVE, Urine Color Yellow, Urine Clarity Turbid, Urine pH 6.0, Ur Specific [place] 1.020, Urine Protein 500 H, Urine Glucose (UA) Normal, Urine Ketones Negative, Urine Occult Blood 250 H, Urine Nitrite Negative, Urine Bilirubin Negative, Urine Urobilinogen Normal, Ur Leukocyte Esterase 500 H, Urine RBC 0 SEEN, Urine WBC >100 SEEN, Ur Squamous Epith Cells 0 SEEN, Urine Bacteria 3+, Urine Mucus 0 SEEN 09/15/23 16:52: POC Glucose 100 09/16/23 06:05: POC Glucose 92 Imaging Radiology Impression Abdomen/Pelvis CT 09/15/23 10:56 IMPRESSION: Findings suggestive of a punctate calculus at the right ureterovesical junction causing a mild degree of a right hydronephrosis and right hydroureter. Electronically Signed: Diego Melvin MD at 12:06 EDT , Assessment & Plan Assessment/Plan (1) UTI (urinary tract infection): (2) Ureteral calculus: (3) Hydronephrosis: PLAN: Plan hydration and supportive care pain management continue trial of passage if doing well after lunch, plan to discharge home in follow up will plan for renal ultrasound in 4 weeks and 24hr UA
--- NOTE | 2023-09-16 08:07 | DCINST_ITS ---
Discharge Instructions Diet Discharge Diet: No restrictions Activity Discharge Activity: Return to Normal Activity Dressing / Incision Call your doctor if you observe: Fever of 101 or Higher, Inability to urinate and Inability to have a bowel movement Follow Up Care Please Follow Up With: Jessenia Thompson MD When: in the office in 3-4 weeks with renal ultrasound Test Results: Test results from this visit will be discussed in further detail at your follow- up appointment, if applicable. Discharge Plan Admission Admit Date/Time: 09/15/23 15:16 Attending Provider: Jessenia Thompson Primary Care Provider: Padilla Osborne Discharge Orders/Prescriptions Prescriptions: New tamsulosin 0.4 mg Capsule 0.4 mg PO DAILY@1730 10 Days Qty: 10 0RF oxycodone-acetaminophen [Percocet] 5-325 mg tablet 1 tab PO Q8H PRN (Reason: pain) 3 Days Qty: 15 0RF cephalexin 500 mg capsule 500 mg PO 3XD 5 Days Qty: 15 0RF ondansetron 4 mg tablet,disintegrating 4 mg PO Q8H PRN (Reason: nausea and vomiting) Qty: 10 0RF Continued metformin 500 MG tablet 1,000 mg PO BID Jardiance 25 mg tablet 25 mg PO DAILY Trulicity 1.5 mg/0.5 mL Pen Injector 1.5 mg SUBCUT TH fluoxetine 40 mg capsule 40 mg PO DAILY sumatriptan succinate 50 mg tablet 50 mg PO Q2H PRN (Reason: MIGRAINES ) Rx Instructions: TAKE ONE TABLET Y MOUTHAS NEEDED FROR MIGRAINE HEADACHE AT ONSET OF HEADACHE. MAY REPEAT AFTER 2 HOURS. DO NOT TAKE MO RE THAN 10 DOSES IN A MONTH. levothyroxine 75 mcg tablet 75 mcg PO DAILY buspirone 10 mg tablet 10 mg PO TID ondansetron 4 mg tablet,disintegrating 4 mg PO Q8H PRN (Reason: NAUSEA/VOMITING ) albuterol sulfate 90 mcg/actuation HFA aerosol inhaler 2 puff inhalation Q4H PRN (Reason: SHORTNESS OF BREATH/WHEEZING ) Referrals / Follow Up: Padilla Osborne DO [Primary Care Provider] - Disposition Disposition (needs filled in before D/C Order can be placed): Home, Self Care
[2023-09-16] MEDS: metFORMIN (XR) 500 MG Tablet 1000 MG PO (08:11)
[2023-09-16] MEDS: Empagliflozin 25 MG Tablet PO (08:11)
[2023-09-16] MEDS: Fluoxetine HCl 40 MG CAPSULE PO (08:11)
[2023-09-16 10:00] VITALS: BP 115/74; PULSE 77; RESP 18; TEMP 37; O2SAT 98
[2023-09-16] MEDS: Ceftriaxone 1 GM/50 ML BAG IV (10:06)
[2023-09-16 11:35] LABS: Bedside Glucose 158 mg/dL (74-106)
[2023-09-16] MEDS: Rizatriptan Benzoate 10 MG Tablet PO (13:28)
[2023-09-16 14:06] VITALS: BP 119/67; PULSE 79; RESP 18; TEMP 37.1; O2SAT 100
== END 2023-09-16 17:00 | disposition home or self-care (01) ==
LOC: ED 12:56 → MS3 15:52
PROVIDERS: Admitting Provider Urology; Emergency Provider Emergency Medicine; PCP Student in an Organized Health Care Education/Training Program; Visit Provider Urology
DX: N13.6 Pyonephrosis (principal); E11.9 Type 2 diabetes mellitus without complications; Z59.00 Homelessness unspecified; Z79.84 Long term (current) use of oral hypoglycemic drugs; E03.9 Hypothyroidism, unspecified; Z79.899 Other long term (current) drug therapy; Z79.890 Hormone replacement therapy
CPT/HCPCS: 74176; 80053; 81001; 82962; 84703; 85025; 87086; 87088; 87186; 96361; 96365; 96366; 96375; 96376; 99221; 99283; J7030; J7120; A4216; G0378; J2405

== ENCOUNTER 2023-11-21 16:42 | Emergency (ER) | payer MEDICAID, SELFPAY ==
[2023-11-21 16:42] VITALS: BP 150/83; PULSE 90; RESP 18; TEMP 37.2; O2SAT 97; BMI 34.2
[2023-11-21 17:05] VITALS: BP 145/62; PULSE 77; RESP 18; TEMP 37.1; O2SAT 99
--- NOTE | 2023-11-21 17:06 | EX.ED.DYSGE1 ---
HPI History of Present Illness Chief Complaint: Flank Pain Informant: patient Narrative Narrative: Patient is a 43-year-old female with history of kidney stones as well as urinary tract infections presenting with worsening back pain and dysuria. Patient states she has had worsening over the past 3 days. Is the pain is across her lower back on both sides. Has had chills denies fever. Has had nausea and vomiting today. Not taken thing for symptoms prior to arrival. Notes that she did have a kidney stone about a month ago was not sure if she ever passed it. States this feels like her prior kidney stones. Denies any other abdominal pain or change in bowel movements. No other complaints or concerns reported at this time. [facility] Medical History Ureteral calculus Hearing loss, left Hearing loss, right Chronic pain Migraines Hypothyroidism Diabetes Home Medications ?Medication ?Instructions ?Recorded ?Last Taken ?Type metformin 500 mg tablet,extended 1,000 mg PO BID DIABETES 12/04/16 07/12/17 08:00 History release 24 hr empagliflozin 25 mg tablet 25 mg PO DAILY DIABETES 08/22/20 Unknown History (Jardiance) dulaglutide 1.5 mg/0.5 mL 1.5 mg subcut TH DIABETES 05/24/21 Unknown History subcutaneous pen injector (Trulicity) albuterol sulfate 90 mcg/actuation 2 puff inhalation Q4H PRN 09/15/23 Unknown History aerosol inhaler SHORTNESS OF BREATH/WHEEZING buspirone 10 mg tablet 10 mg PO TID ANXIETY 09/15/23 Unknown History fluoxetine 40 mg capsule 40 mg PO DAILY DEPRESSION 09/15/23 Unknown History levothyroxine 75 mcg tablet 75 mcg PO DAILY THYROID 09/15/23 Unknown History ondansetron 4 mg disintegrating 4 mg PO Q8H PRN NAUSEA/VOMITING 09/15/23 Unknown History tablet sumatriptan succinate 50 mg tablet 50 mg PO Q2H PRN MIGRAINES 09/15/23 Unknown History cephalexin 500 mg capsule 500 mg PO 3XD post-operative 5 09/16/23 Unknown Rx days #15 CAPSULES ondansetron 4 mg disintegrating 4 mg PO Q8H PRN nausea and 09/16/23 Unknown Rx tablet vomiting #10 tabs oxycodone-acetaminophen 5 mg-325 1 tab PO Q8H PRN pain 3 days #15 09/16/23 Unknown Rx mg tablet (Percocet) tabs tamsulosin 0.4 mg capsule 0.4 mg PO DAILY@1730 10 days #10 09/16/23 Unknown Rx caps hydrocodone-acetaminophen 5-325mg 1 tab PO Q8H PRN Pain 2 days #6 11/21/23 Unknown Rx 5mg-325mg TABLETS ondansetron 4 mg disintegrating 4 mg PO Q8H PRN PRN Nausea #14 tabs 11/21/23 Unknown Rx tablet phenazopyridine 200 mg tablet 200 mg PO TID #6 tabs 11/21/23 Unknown Rx (Pyridium) sulfamethoxazole 800 1 tab PO BID #14 tabs 11/21/23 Unknown Rx mg-trimethoprim 160 mg tablet (Bactrim DS) Allergy/AdvReac Type Severity Reaction Status Date / Time aspirin Allergy Hives Verified 11/21/23 16:44 ibuprofen Allergy Hives Verified 11/21/23 16:44 simvastatin AdvReac Other Verified 11/21/23 16:44 tramadol AdvReac Other Verified 11/21/23 16:44 Surgical History History of tubal ligation H/O section Social History household members: other housing: homeless number of children: 4 Smoking Status: Never smoker ROS ROS ED Constitutional Constitutional ED: Reports chills; Denies fever(s) Cardiovascular Cardiovascular: Denies chest pain Respiratory/Chest Respiratory/Chest: Denies cough Gastrointestinal Gastrointestinal: Reports nausea and vomiting; Denies abdominal pain, constipation, diarrhea or melena Genitourinary Genitourinary ED: Reports dysuria; Denies hematuria Musculoskeletal Musculoskeletal: Reports back pain; Denies arthralgias Integumentary Denies rash Neurologic Neurologic: Denies headache(s) EXAM Physical Exam Const Vital Signs: 11/21/23 16:42 11/21/23 17:05 11/21/23 18:00 Temperature 98.9 F 98.7 F 97 F L Temperature Source Oral Oral Tympanic Pulse Rate 90 77 80 Respiratory Rate 18 18 16 Blood Pressure 150/83 H 145/62 H 138/69 H Blood Pressure Mean 105 89 92 Pulse Ox 97 99 99 Oxygen Delivery Method Room Air Room Air Room Air 11/21/23 19:00 11/21/23 19:33 Temperature 97.2 F L 97.7 F L Temperature Source Tympanic Pulse Rate 81 75 Respiratory Rate 16 16 Blood Pressure 135/60 H 119/71 Blood Pressure Mean 85 87 Pulse Ox 99 99 Oxygen Delivery Method Room Air Positive well nourished and well developed General Appearance ED: well developed and NAD HEENT Reports moist mucous membranes Neck supple Chest Wall inspection of chest normal Resp normal respiratory effort and clear to auscultation bilaterally Cardio regular rate, regular rhythm and no murmurs GI normal to inspection, nondistended, normoactive bowel sounds Palpation: tender suprapubic; Negative for guarding Back/Spine no CVA tenderness Back/Spine Narrative: Patient does not have reproducible tenderness with points to her lower lumbar back bilaterally as area of pain Extremity normal to inspection Neuro oriented x3 Sensorium / Orientation: alert Motor Exam: Negative for general weakness Psych mental status grossly normal Skin no rashes or lesions noted and no wounds MDM MDM MDM Narrative Medical decision making narrative: Patient is evaluated for dysuria and low back pain as well as nausea and vomiting. Differential includes urinary tract infection as well as pyelonephritis. Patient is concerned that she could have kidney stone that is passing since she had a kidney stone a month ago but does not feel like she ever passed it completely. Discussed that based on her physical presentation I feel this is more infectious but given her concerns will also obtain a CT of the abdomen pelvis to further evaluate. She is agreeable with this. Patient on IV fluids, morphine for pain control (allergic to NSAIDs) and Zofran in the ER. On repeat evaluation patient is feeling improved but the pain is coming back. She has no further vomiting. CBC and BMP largely unremarkable. Normal kidney function. Urinalysis is highly consistent with urinary tract infection with greater than 100 white blood cells and 1+ bacteria with minimal contamination. CT of the abdomen/pelvis does not show any acute pathology. Will treat as cystitis. Patient started on Bactrim. Previous urine culture from 10/04 reviewed which showed presented E. coli that was pansensitive. She is given first dose of Bactrim and pretty many emergency room. She is also given a dose of Drury for pain control. Will be discharged home with prescription antibiotics, pre-DM, Drury and Zofran. Encouraged follow-up with her primary care doctor as well as urology (previously seen Dr. Thompson). Patient does not have a fever, leukocytosis or flank pain to lower suspicion for pyelonephritis. History & Record Review Additional record(s) reviewed:: Prior inpatient record (H&P from 09/16/2023-had small obstructing kidney stone with associated infection. Treated conservatively with fluids, antibiotics and nausea/pain control.) and Prior labs Lab Data Attestation: I reviewed the patient's lab results. Labs: Laboratory Results - last 24 hr 11/21/23 17:12 WBC 7.1 RBC 4.97 Hgb 13.6 Hct 42.2 MCV 84.9 MCH 27.4 MCHC 32.2 RDW Std Deviation 41.4 RDW Coeff of Obed 13.3 Plt Count 311 MPV 10.2 Immature Gran % (Auto) 0.300 Neut % (Auto) 53.3 Lymph % (Auto) 35.4 [place] % (Auto) 5.1 Eos % (Auto) 5.5 H Baso % (Auto) 0.4 Absolute Neuts (auto) 3.8 Absolute Lymphs (auto) 2.51 Nucleated RBC % 0 Sodium 141 Potassium 3.6 Chloride 109 H Carbon Dioxide 26.0 Anion Gap 6 BUN 14 Creatinine 0.74 Estim Creat Clear Calc 113.40 Est GFR (MDRD) Af Amer 110 Est GFR (MDRD) Non-Af 91 BUN/Creatinine Ratio 19.0 Glucose 125 H Calcium 9.5 Urine Color Yellow Urine Clarity Cloudy Urine pH 6.0 Ur Specific [place] 1.015 Urine Protein 30 H Urine Glucose (UA) 1000 H Urine Ketones Negative Urine Occult Blood 25 H Urine Nitrite Negative Urine Bilirubin 3 H Urine Urobilinogen Normal Ur Leukocyte Esterase 500 H Urine RBC 0-5 SEEN Urine WBC >100 SEEN Ur Squamous Epith Cells 0-5 SEEN Urine Bacteria 1+ Urine Mucus 0 SEEN Urine Test Negative Radiography Diagnostic Testing: Clinical Impression(s) from Imaging Studies Abdomen/Pelvis CT 11/21/23 17:50 IMPRESSION: Normal unenhanced CT of the abdomen and pelvis. Electronically Signed: Anjel Estrada MD at 18:45 EDT Reading Location ID and State: [id number] / Tel , Service support , Discharge Plan Triage Chief Complaint: Flank Pain ED Provider: Peg Wolf Dx/Rx/DC Orders Clinical Impression: UTI (urinary tract infection), Lower abdominal pain, Nausea Instructions: ED UTIs Women Prescriptions: New sulfamethoxazole-trimethoprim [Bactrim DS] 800-160 mg tablet 1 tab PO BID Qty: 14 0RF phenazopyridine [Pyridium] 200 mg tablet 200 mg PO TID Qty: 6 0RF ondansetron 4 mg tablet,disintegrating 4 mg PO Q8H PRN PRN (Reason: Nausea) Qty: 14 0RF hydrocodone-acetaminophen 5-325 mg tablet 1 tab PO Q8H PRN (Reason: Pain) 2 Days Qty: 6 0RF No Action metformin 500 MG tablet 1,000 mg PO BID Jardiance 25 mg tablet 25 mg PO DAILY Trulicity 1.5 mg/0.5 mL Pen Injector 1.5 mg SUBCUT TH fluoxetine 40 mg capsule 40 mg PO DAILY sumatriptan succinate 50 mg tablet 50 mg PO Q2H PRN (Reason: MIGRAINES ) Rx Instructions: TAKE ONE TABLET Y MOUTHAS NEEDED FROR MIGRAINE HEADACHE AT ONSET OF HEADACHE. MAY REPEAT AFTER 2 HOURS. DO NOT TAKE MO RE THAN 10 DOSES IN A MONTH. levothyroxine 75 mcg tablet 75 mcg PO DAILY buspirone 10 mg tablet 10 mg PO TID ondansetron 4 mg tablet,disintegrating 4 mg PO Q8H PRN (Reason: NAUSEA/VOMITING ) albuterol sulfate 90 mcg/actuation HFA aerosol inhaler 2 puff inhalation Q4H PRN (Reason: SHORTNESS OF BREATH/WHEEZING ) tamsulosin 0.4 mg Capsule 0.4 mg PO DAILY@1730 10 Days Qty: 10 0RF oxycodone-acetaminophen [Percocet] 5-325 mg tablet 1 tab PO Q8H PRN (Reason: pain) 3 Days Qty: 15 0RF cephalexin 500 mg capsule 500 mg PO 3XD 5 Days Qty: 15 0RF ondansetron 4 mg tablet,disintegrating 4 mg PO Q8H PRN (Reason: nausea and vomiting) Qty: 10 0RF Primary Care Provider: Padilla Osborne Referrals: Jessenia Thompson MD [Med Staff - Active Staff] - 3-5 Days if not improving Padilla Osborne, DO [Primary Care Provider] - Activity Restrictions/Additional Instructions: Drink plenty of fluids. You may also take Tylenol as needed for pain control however please be aware that the pain medicine prescribed does contain 1 regular strength Tylenol in it as well. You do not have a kidney stone at this time but you do have a urinary tract infection Print Language: Persian Disposition Disposition: Home, Self Care Discharge Date/Time: 11/21/23 19:45
[2023-11-21 17:23] LABS: Absolute Lymphocyte Count 2.51 X10^3/uL (0.83-4.51); Absolute Neutrophil Count 3.8 X10^3/uL (2.0-7.7); Basophil# 0.03 X10^3/uL; Basophil% 0.4 % (0-1); Eosinophil# 0.39 X10^3/uL; Eosinophils% 5.5 % (0-5); Hematocrit 42.2 % (37-47); Hemoglobin 13.6 g/dL (12.0-15.0); Lymphocyte # 2.51 X10^3/ul (0.83-4.51); Lymphocyte % 35.4 % (19-41); Mean Corp Hgb Conc 32.2 g/dL (32-36); Mean Corpuscular Hgb 27.4 pg (27.0-32.0); Mean Corpuscular Volume 84.9 fL (81-99); Mean Platelet Vol. 10.2 fl (6.2-12.0); Monocyte# 0.36 X10^3/uL; Monocyte% 5.1 % (0-10); NRBC Flagged by Analyzer 0 % (0-5); Neutrophil # 3.79 X10^3/uL (2.7-7.7); Neutrophil % 53.3 % (47-70); Platelet Count 311 K/mm3 (150-450); RBC Distribution Width CV 13.3 % (11.6-14.6); RBC Distribution Width SD 41.4 fl (35.1-43.9); Red Blood Count 4.97 M/mm3 (4.2-5.4); White Blood Count 7.1 K/mm3 (4.4-11.0)
[2023-11-21] MEDS: Morphine 4 MG/ML Syringe IV (17:26)
[2023-11-21] MEDS: Ondansetron 4 MG/2 ML Vial IV (17:26)
[2023-11-21] MEDS: 0.9% Normal Saline (1000mL) 1,000 ML 250 ML IV (17:31)
[2023-11-21 17:34] LABS: Mucous, Urine 0 SEEN /hpf (<or=2+)
[2023-11-21 17:40] LABS: Anion Gap 6 (5-15); BUN 14 mg/dL (7-18); Calcium,Total 9.5 mg/dL (8.5-10.1); Chloride 109 mmol/L (98-107); Creatinine, Serum 0.74 mg/dL (0.55-1.02); EST Glomerular Filtration Rate 91 mL/min (>60); Est Glom Filt Rate - Afr Amer 110 mL/min (>60); Glucose 125 mg/dL (74-106); Potassium 3.6 mmol/L (3.5-5.1); Sodium Level 141 mmol/L (136-145)
[2023-11-21 17:45] LABS: Color, Urine Yellow (Yellow); Glucose, Dipstick 1000 mg/dl (Normal); Ketone-Dipstick Negative (Negative); Leukocyte Esterase-Dipstick 500 /ul (Negative); Nitrite-Dipstick Negative (Negative); Occult Blood-Urine 25 /ul (Negative); Protein-Dipstick 30 mg/dl (Negative); Specific Gravity, Urine 1.015 (1.002-1.030); Urine Clarity Cloudy (Clear); Urine Urobilinogen Normal (Normal)
[2023-11-21 17:46] LABS: Urine Bilirubin Dipstick 3 mg/dL (Negative)
--- NOTE | 2023-11-21 17:50 | CT_ITS ---
STUDY: CT ABDOMEN AND PELVIS WITHOUT CONTRAST REASON FOR EXAM: Female, 43 years old. BACK PAIN RADIATION DOSAGE (If Supplied By Facility): CTDIvol = ( 17.49 ) mGy, DLP = ( 900.07 ) mGycm TECHNIQUE: Transaxial images were obtained from the dome of the diaphragm to the symphysis pubis without oral contrast, and without intravenous contrast. Sagittal and coronal images were reconstructed. Individualized dose optimization techniques were used for this CT. COMPARISON: 09/15/2023 FINDINGS: The visualized lung bases are unremarkable. The visualized portions of the heart are within normal limits. Normal liver. Normal gallbladder and extrahepatic biliary system. Normal spleen. Normal pancreas. Normal bilateral adrenal glands. Normal right kidney. Normal left kidney. Normal visualized stomach. Normal small intestine. Normal colon. The appendix is visualized and appears normal. Normal abdominal aorta. Normal inferior vena cava. Normal retroperitoneum. Normal urinary bladder. There is a small umbilical hernia containing fat. Normal osseous structures. CT/Abdomen/Pelvis without Cont IMPRESSION: Normal unenhanced CT of the abdomen and pelvis. Electronically Signed: Anjel Estrada MD at 18:45 EDT ,
[2023-11-21 17:52] LABS: Bacteria 1+ /hpf (None Seen); Red Blood Cells-Urine 0-5 SEEN /hpf (0-5); Squamous Epithelial Cells - UA 0-5 SEEN /hpf (5-10); White Blood Cells >100 SEEN /hpf (0-5)
[2023-11-21 17:53] LABS: Internal QC Validated? YES +Cl - CLEAR BKGD; Pregnancy, Urine Negative Negative
[2023-11-21 18:00] VITALS: BP 138/69; PULSE 80; RESP 16; TEMP 36.1; O2SAT 99
[2023-11-21 19:00] VITALS: BP 135/60; PULSE 81; RESP 16; TEMP 36.2; O2SAT 99
[2023-11-21] MEDS: Smz/Tmp Ds Tablet 1 TABLET PO (19:28)
[2023-11-21] MEDS: HYDROcodone Bitartrate/Apap 5/325 Tablet PO (19:28)
[2023-11-21] MEDS: Phenazopyridine 95 MG Tablet 190 MG PO (19:28)
[2023-11-21 19:33] VITALS: BP 119/71; PULSE 75; RESP 16; TEMP 36.5; O2SAT 99
== END 2023-11-21 19:45 | disposition home or self-care (01) ==
PROVIDERS: Emergency Provider Emergency Medicine; PCP Student in an Organized Health Care Education/Training Program; Visit Provider Emergency Medicine
DX: N30.90 Cystitis, unspecified without hematuria (principal); E11.9 Type 2 diabetes mellitus without complications; R11.2 Nausea with vomiting, unspecified; R10.30 Lower abdominal pain, unspecified; Z87.442 Personal history of urinary calculi; Z87.440 Personal history of urinary (tract) infections; Z59.00 Homelessness unspecified
CPT/HCPCS: 74176; 80048; 81001; 81025; 85025; 96361; 96374; 96375; 96376; 99283; J7030; A4216; J2405

== ENCOUNTER 2023-12-03 15:59 | Emergency (ER) | payer MEDICAID, SELFPAY ==
[2023-12-03 16:00] VITALS: BP 128/81; PULSE 90; RESP 18; TEMP 36.1; O2SAT 100; BMI 35.4
[2023-12-03 16:21] LABS: Bacteria 0 SEEN /hpf (None Seen); Mucous, Urine 0 SEEN /hpf (<or=2+); Red Blood Cells-Urine 0 SEEN /hpf (0-5); Squamous Epithelial Cells - UA 0 SEEN /hpf (5-10); White Blood Cells 0 SEEN /hpf (0-5)
[2023-12-03 16:26] LABS: Absolute Lymphocyte Count 1.76 X10^3/uL (0.83-4.51); Absolute Neutrophil Count 2.6 X10^3/uL (2.0-7.7); Basophil# 0.03 X10^3/uL; Basophil% 0.6 % (0-1); Color, Urine Yellow (Yellow); Eosinophil# 0.47 X10^3/uL; Eosinophils% 8.9 % (0-5); Glucose, Dipstick 1000 mg/dl (Normal); Hematocrit 40.9 % (37-47); Hemoglobin 13.2 g/dL (12.0-15.0); Ketone-Dipstick Negative (Negative); Leukocyte Esterase-Dipstick Negative /ul (Negative); Lymphocyte # 1.76 X10^3/ul (0.83-4.51); Lymphocyte % 33.4 % (19-41); Mean Corp Hgb Conc 32.3 g/dL (32-36); Mean Corpuscular Hgb 27.6 pg (27.0-32.0); Mean Corpuscular Volume 85.4 fL (81-99); Mean Platelet Vol. 10.4 fl (6.2-12.0); Monocyte# 0.41 X10^3/uL; Monocyte% 7.8 % (0-10); NRBC Flagged by Analyzer 0 % (0-5); Neutrophil % 49.3 % (47-70); Nitrite-Dipstick Negative (Negative); Occult Blood-Urine 10 /ul (Negative); Platelet Count 309 K/mm3 (150-450); Protein-Dipstick 15 mg/dl (Negative); RBC Distribution Width CV 13.5 % (11.6-14.6); Red Blood Count 4.79 M/mm3 (4.2-5.4); Specific Gravity, Urine 1.015 (1.002-1.030); Urine Clarity Clear (Clear); Urine Urobilinogen Normal (Normal); White Blood Count 5.3 K/mm3 (4.4-11.0)
[2023-12-03 16:27] LABS: Urine Bilirubin Dipstick 1 mg/dL (Negative)
[2023-12-03 16:41] LABS: AST(SGOT) 13 U/L (15-37); Alanine Aminotransfer ALT/SGPT 22 U/L (13-56); Albumin, Serum 3.7 g/dL (3.2-5.0); Alkaline Phosphatase 61 U/L (45-117); Anion Gap 8 (5-15); BUN 10 mg/dL (7-18); BUN/Creat Ratio 13.3 RATIO (10-20); Calcium,Total 9.7 mg/dL (8.5-10.1); Chloride 104 mmol/L (98-107); Creatinine, Serum 0.75 mg/dL (0.55-1.02); EST Glomerular Filtration Rate 89 mL/min (>60); Est Glom Filt Rate - Afr Amer 107 mL/min (>60); Estimated Creatinine Clearance 113.85 ml/min; Globulin 3.7 g/dL (2.2-4.2); Glucose 115 mg/dL (74-106); Potassium 4.1 mmol/L (3.5-5.1); Protein, Total 7.4 g/dL (6.4-8.2); Sodium Level 139 mmol/L (136-145)
--- NOTE | 2023-12-03 17:13 | CT_ITS ---
STUDY: CT ABDOMEN AND PELVIS WITH CONTRAST REASON FOR EXAM: Female, 43 years old. Left flank pain RADIATION DOSAGE (If Supplied By Facility): CTDIvol = ( 16.49 ) mGy, DLP = ( 1226.15 ) mGycm TECHNIQUE: Transaxial images were obtained from the dome of the diaphragm to the symphysis pubis without oral contrast. IV 100mL [id number]-300 was administered. Sagittal and coronal images were reconstructed. Individualized dose optimization techniques were used for this CT. COMPARISON: November 21, 2023. FINDINGS: The visualized lung bases are unremarkable. The visualized portions of the heart are within normal limits. There is hepatomegaly with diffuse hepatic enlargement. Normal gallbladder and extrahepatic biliary system. Normal spleen. Normal pancreas. Normal bilateral adrenal glands. Normal right kidney. Normal left kidney. Normal visualized stomach. Normal small intestine. Normal colon. The appendix is visualized and appears normal. Normal abdominal aorta. Normal inferior vena cava. Normal retroperitoneum. Normal urinary bladder. Normal visualized uterus. There is 1.6 cm right adnexal cyst. There is no free fluid in the abdomen or pelvis. There is a small umbilical hernia containing fat. Normal osseous structures. CT/Abdomen/Pelvis W IV Cont ONLY IMPRESSION: Hepatomegaly. No biliary dilatation. Right adnexal cyst. Electronically Signed: Vini Al MD at 18:34 EDT ,
[2023-12-03] MEDS: Ondansetron 4 MG/2 ML Vial IV (17:28)
[2023-12-03] MEDS: 0.9% Normal Saline (1000mL) 1,000 ML 999 ML IV (17:28)
[2023-12-03] MEDS: Morphine 4 MG/ML Syringe IV (17:28)
[2023-12-03 17:30] VITALS: BP 116/75; PULSE 75; RESP 16; O2SAT 99
[2023-12-03 18:12] LABS: Lipase 44 U/L (13-75)
[2023-12-03 19:00] VITALS: BP 139/76; PULSE 84; RESP 16; O2SAT 99
--- NOTE | 2023-12-03 19:48 | EX.ED.DYSGE1 ---
HPI History of Present Illness Chief Complaint: Abd Pain Narrative Narrative: Patient is a 43-year-old female past medical history of migraine headaches, hypothyroidism, diabetes, urolithiasis who presents to the emergency department with a chief complaint of left back pain/flank plain. Patient states that approximately 2 days ago she started developing this discomfort and she states that she recently was prescribed antibiotics for a urinary tract infection. Patient states that she was at her house earlier when her symptoms started to worsen prompting her to come here for further evaluation management. Patient states that she does have a history of kidney stones as noted however that she did note that that she passed these on her own. Patient states that she has had chills but no fevers. [facility] Medical History Ureteral calculus Hearing loss, left Hearing loss, right Chronic pain Migraines Hypothyroidism Diabetes Home Medications ?Medication ?Instructions ?Recorded ?Last Taken ?Type metformin 500 mg tablet,extended 1,000 mg PO BID DIABETES 12/04/16 07/12/17 08:00 History release 24 hr empagliflozin 25 mg tablet 25 mg PO DAILY DIABETES 08/22/20 Unknown History (Jardiance) dulaglutide 1.5 mg/0.5 mL 1.5 mg subcut TH DIABETES 05/24/21 Unknown History subcutaneous pen injector (Trulicity) albuterol sulfate 90 mcg/actuation 2 puff inhalation Q4H PRN 09/15/23 Unknown History aerosol inhaler SHORTNESS OF BREATH/WHEEZING buspirone 10 mg tablet 10 mg PO TID ANXIETY 09/15/23 Unknown History fluoxetine 40 mg capsule 40 mg PO DAILY DEPRESSION 09/15/23 Unknown History levothyroxine 75 mcg tablet 75 mcg PO DAILY THYROID 09/15/23 Unknown History ondansetron 4 mg disintegrating 4 mg PO Q8H PRN NAUSEA/VOMITING 09/15/23 Unknown History tablet sumatriptan succinate 50 mg tablet 50 mg PO Q2H PRN MIGRAINES 09/15/23 Unknown History cephalexin 500 mg capsule 500 mg PO 3XD post-operative 5 09/16/23 Unknown Rx days #15 CAPSULES ondansetron 4 mg disintegrating 4 mg PO Q8H PRN nausea and 09/16/23 Unknown Rx tablet vomiting #10 tabs oxycodone-acetaminophen 5 mg-325 1 tab PO Q8H PRN pain 3 days #15 09/16/23 Unknown Rx mg tablet (Percocet) tabs tamsulosin 0.4 mg capsule 0.4 mg PO DAILY@1730 10 days #10 09/16/23 Unknown Rx caps hydrocodone-acetaminophen 5-325mg 1 tab PO Q8H PRN Pain 2 days #6 11/21/23 Unknown Rx 5mg-325mg TABLETS ondansetron 4 mg disintegrating 4 mg PO Q8H PRN PRN Nausea #14 tabs 11/21/23 Unknown Rx tablet phenazopyridine 200 mg tablet 200 mg PO TID #6 tabs 11/21/23 Unknown Rx (Pyridium) sulfamethoxazole 800 1 tab PO BID #14 tabs 11/21/23 Unknown Rx mg-trimethoprim 160 mg tablet (Bactrim DS) ondansetron 4 mg disintegrating 4 mg PO Q6H PRN nausea and 12/03/23 Unknown Rx tablet vomiting #14 tabs oxycodone-acetaminophen 5 mg-325 1 tab PO Q6H PRN pain 3 days #12 12/03/23 Unknown Rx mg tablet (Endocet) tabs tamsulosin 0.4 mg capsule 0.4 mg PO DAILY 14 days #14 caps 12/03/23 Unknown Rx Allergy/AdvReac Type Severity Reaction Status Date / Time aspirin Allergy Hives Verified 12/03/23 16:00 ibuprofen Allergy Hives Verified 12/03/23 16:00 simvastatin AdvReac Other Verified 12/03/23 16:00 tramadol AdvReac Other Verified 12/03/23 16:00 Surgical History History of tubal ligation H/O section Social History household members: other housing: homeless number of children: 4 Smoking Status: Never smoker ROS ROS ED ROS Narrative Constitutional: Complains of chills noted above denies any fevers, headaches, lightness, dizziness Cardiovascular: Denies chest pain or palpitations Respiratory: Denies cough or wheezing shortness of breath Abdomen: Complains of some left sided abdominal pain as well as flank pain as noted above as well as nausea denies vomiting or diarrhea. States that she has had normal bowel movements : Denies any pain urination, hematuria, polyuria denies any difficulty urinating Neurological: Denies numbness, weakness, tingling Musculoskeletal: Complains of left back pain as noted above denies any radicular symptoms down her leg Skin: Denies rashes or lesions EXAM Physical Exam Narrative Exam Narrative: General: Patient lying in bed did appear to be uncomfortable secondary her back pain Head: Atraumatic, normocephalic Eyes: PERRL bilaterally, EOMI bilaterally, no conjunctival injection noted Neck: Soft, supple, trachea midline Cardiovascular: Regular rate and rhythm no murmurs gallops rubs noted Respiratory: Clear to auscultation bilaterally no rales rhonchi wheeze noted Abdomen: Soft, nondistended, nontender to palpation, bowel sounds present x 4 Musculoskeletal: No midline tenderness palpation thoracolumbar spine, no CVA tenderness bilaterally Extremities: +5/5 strength noted in the bilateral upper and lower extremities, no pedal edema neuroexam Neurological: Patient following commands knew that she is at [facility] the year is 2023. No saddle anesthesia noted Skin: Warm, dry, intact Const Vital Signs: 12/03/23 16:00 12/03/23 17:30 12/03/23 19:00 Temperature 97 F L Temperature Source Temporal Pulse Rate 90 75 84 Respiratory Rate 18 16 16 Blood Pressure 128/81 H 116/75 139/76 H Blood Pressure Mean 96 88 97 Pulse Ox 100 99 99 Oxygen Delivery Method Room Air Room Air Room Air MDM MDM MDM Narrative Medical decision making narrative: Patient is a 43-year-old female who presented to the emergency department with chief complaint of left-sided back pain radiating to her front of her abdomen. Patient will have a workup performed here on the differential diagnose includes but not limited to UTI, pyelonephritis, urolithiasis, diverticulitis. Once workup is obtained reviewed she will be reevaluated. Patient will given IV fluids, morphine and Zofran. Patient's CBC reviewed was largely unremarkable no leukocytosis noted white blood count normal at 5.3, hemoglobin 13.2, platelet count was noted to be 309. Patient sodium normal 139, potassium normal at 4.1, creatinine normal at 0.75. Patient's AST and ALT were 13 and 22 respectively. Patient lipase normal at 44, urinalysis showed thousand glucose, 10 occult blood, negative nitrates negative leukocyte esterase and no white blood cells and no bacteria noted. Patient's CT abdomen pelvis was reviewed and showed hepatomegaly no biliary dilation right adnexal cyst noted. Did discuss the results with the patient she is feeling better she would like to go home. I discussed with her she likely is passing a kidney stone and was likely missed secondary to small nature with IV contrast. She will be given prescription for Zofran, Percocet and Zofran. She was encouraged to use the narcotics for severe pain and use ibuprofen and Tylenol [id number] for mild to moderate pain. She will be referred to urology in the outpatient setting. She was encouraged to follow-up with her primary care physician in the outpatient setting. She was encouraged return with worsening symptoms or other concerns. Patient is agreeable this plan as well as her significant other at bedside. Lab Data Labs: Laboratory Results - last 24 hr 12/03/23 16:10 WBC 5.3 RBC 4.79 Hgb 13.2 Hct 40.9 MCV 85.4 MCH 27.6 MCHC 32.3 RDW Std Deviation 42.0 RDW Coeff of Obed 13.5 Plt Count 309 MPV 10.4 Immature Gran % (Auto) 0.000 Neut % (Auto) 49.3 Lymph % (Auto) 33.4 Sumner % (Auto) 7.8 Eos % (Auto) 8.9 H Baso % (Auto) 0.6 Absolute Neuts (auto) 2.6 Absolute Lymphs (auto) 1.76 Nucleated RBC % 0 Sodium 139 Potassium 4.1 Chloride 104 Carbon Dioxide 27.0 Anion Gap 8 BUN 10 Creatinine 0.75 Estim Creat Clear Calc 113.85 Est GFR (MDRD) Af Amer 107 Est GFR (MDRD) Non-Af 89 BUN/Creatinine Ratio 13.3 Glucose 115 H Calcium 9.7 Total Bilirubin 0.60 AST 13 L ALT 22 Alkaline Phosphatase 61 Total Protein 7.4 Albumin 3.7 Globulin 3.7 Albumin/Globulin Ratio 1.0 Lipase 44 Urine Color Yellow Urine Clarity Clear Urine pH 6.0 Ur Specific [place] 1.015 Urine Protein 15 H Urine Glucose (UA) 1000 H Urine Ketones Negative Urine Occult Blood 10 H Urine Nitrite Negative Urine Bilirubin 1 H Urine Urobilinogen Normal Ur Leukocyte Esterase Negative Urine RBC 0 SEEN Urine WBC 0 SEEN Ur Squamous Epith Cells 0 SEEN Urine Bacteria 0 SEEN Urine Mucus 0 SEEN Radiography Diagnostic Testing: Clinical Impression(s) from Imaging Studies Abdomen/Pelvis CT 12/03/23 17:13 IMPRESSION: Hepatomegaly. No biliary dilatation. Right adnexal cyst. Electronically Signed: Vini Al MD at 18:34 EDT , Discharge Plan Triage Chief Complaint: Abd Pain ED Provider: Jonathan Salamanca Dx/Rx/DC Orders Clinical Impression: Urolithiasis Prescriptions: New oxycodone-acetaminophen [Endocet] 5-325 mg tablet 1 tab PO Q6H PRN (Reason: pain) 3 Days Qty: 12 0RF ondansetron 4 mg tablet,disintegrating 4 mg PO Q6H PRN (Reason: nausea and vomiting) Qty: 14 0RF tamsulosin 0.4 mg capsule 0.4 mg PO DAILY 14 Days Qty: 14 0RF No Action metformin 500 MG tablet 1,000 mg PO BID Jardiance 25 mg tablet 25 mg PO DAILY Trulicity 1.5 mg/0.5 mL Pen Injector 1.5 mg SUBCUT TH fluoxetine 40 mg capsule 40 mg PO DAILY sumatriptan succinate 50 mg tablet 50 mg PO Q2H PRN (Reason: MIGRAINES ) Rx Instructions: TAKE ONE TABLET Y MOUTHAS NEEDED FROR MIGRAINE HEADACHE AT ONSET OF HEADACHE. MAY REPEAT AFTER 2 HOURS. DO NOT TAKE MO RE THAN 10 DOSES IN A MONTH. levothyroxine 75 mcg tablet 75 mcg PO DAILY buspirone 10 mg tablet 10 mg PO TID ondansetron 4 mg tablet,disintegrating 4 mg PO Q8H PRN (Reason: NAUSEA/VOMITING ) albuterol sulfate 90 mcg/actuation HFA aerosol inhaler 2 puff inhalation Q4H PRN (Reason: SHORTNESS OF BREATH/WHEEZING ) tamsulosin 0.4 mg Capsule 0.4 mg PO DAILY@1730 10 Days Qty: 10 0RF oxycodone-acetaminophen [Percocet] 5-325 mg tablet 1 tab PO Q8H PRN (Reason: pain) 3 Days Qty: 15 0RF cephalexin 500 mg capsule 500 mg PO 3XD 5 Days Qty: 15 0RF ondansetron 4 mg tablet,disintegrating 4 mg PO Q8H PRN (Reason: nausea and vomiting) Qty: 10 0RF sulfamethoxazole-trimethoprim [Bactrim DS] 800-160 mg tablet 1 tab PO BID Qty: 14 0RF phenazopyridine [Pyridium] 200 mg tablet 200 mg PO TID Qty: 6 0RF ondansetron 4 mg tablet,disintegrating 4 mg PO Q8H PRN PRN (Reason: Nausea) Qty: 14 0RF hydrocodone-acetaminophen 5-325 mg tablet 1 tab PO Q8H PRN (Reason: Pain) 2 Days Qty: 6 0RF Primary Care Provider: Padilla Osborne Referrals: Padilla Osborne DO [Primary Care Provider] - Eric Carmona MD [Med Staff - Active Staff] - Activity Restrictions/Additional Instructions: Follow-up with your primary care physician outpatient setting. Follow-up with urology that you are referred to. Return if worsening symptoms or any concerns. Take the prescriptions as prescribed and do not operate anything under the influence of the Percocet. Print Language: Swedish Disposition Disposition: Home, Self Care
[2023-12-03 19:59] VITALS: BP 118/97; PULSE 67; RESP 16; TEMP 36.9; O2SAT 100
== END 2023-12-03 20:02 | disposition home or self-care (01) ==
PROVIDERS: Emergency Provider Emergency Medicine; PCP Student in an Organized Health Care Education/Training Program; Visit Provider Emergency Medicine
DX: N20.9 Urinary calculus, unspecified (principal); E11.9 Type 2 diabetes mellitus without complications
CPT/HCPCS: 74177; 80053; 81001; 83690; 85025; 93005; 96361; 96374; 96375; 96376; 99284; J7030; Q9967; A4216; J2405

== ENCOUNTER 2024-01-18 08:00 | Emergency (ER) | payer MEDICAID, SELFPAY ==
[2024-01-18 08:02] VITALS: BP 118/84; PULSE 86; RESP 16; TEMP 36.8; O2SAT 99; BMI 33.9
--- NOTE | 2024-01-18 08:28 | CT_ITS ---
STUDY: CT ABDOMEN AND PELVIS WITH CONTRAST REASON FOR EXAM: Female, 43 years old. BACK PAIN, DIARRHEA RADIATION DOSAGE (If Supplied By Facility): CTDIvol = ( 31.43 ) mGy, DLP = ( 1168.57 ) mGycm TECHNIQUE: Transaxial images were obtained from the dome of the diaphragm to the symphysis pubis without oral contrast. ISOVUE 300 100CC was administered. Sagittal and coronal images were reconstructed. Individualized dose optimization techniques were used for this CT. COMPARISON: Comparison is made with prior study December 03, 2023. FINDINGS: The visualized lung bases are unremarkable. The visualized portions of the heart are within normal limits. There is decreased attenuation of the liver consistent with steatosis. Mild hepatomegaly. Normal gallbladder and extrahepatic biliary system. Normal spleen. Normal pancreas. Normal bilateral adrenal glands. Normal right kidney. Normal left kidney. Normal visualized stomach. Normal small intestine. Normal colon. The appendix is visualized and appears normal. Normal abdominal aorta. Normal inferior vena cava. There is small retroperitoneal lymphadenopathy with enlarged nodes no greater than 10mm in the short axis diameter. Normal urinary bladder. Normal abdominal wall. Normal osseous structures. CT/Abdomen/Pelvis W IV Cont ONLY IMPRESSION: Mild hepatomegaly and diffuse fatty infiltration of the liver. Electronically Signed: Diego Melvin MD at 10:46 EDT ,
--- NOTE | 2024-01-18 08:34 | EDS_ITS ---
HPI History of Present Illness Chief Complaint: Abd Pain Narrative Narrative: Patient is a 43-year-old female past medical history hypothyroidism, diabetes who presents to the emergency department with a chief complaint of abdominal pain nausea vomiting diarrhea for the past 4 days. Patient denies any recent sick contacts. Patient states that her abdominal pain is in the lower portion of her abdomen and rates this a 8 out of 10. Patient states that she has not had a previous abdominal surgeries. Patient states that she did have a fever at home of 101. Patient states that her diarrhea is now occurring approximately every 20 to 30 minutes and denies any recent antibiotic use [facility] Medical History Ureteral calculus Hearing loss, left Hearing loss, right Chronic pain Migraines Hypothyroidism Diabetes Home Medications ?Medication ?Instructions ?Recorded ?Last Taken ?Type metformin 500 mg tablet,extended 1,000 mg PO BID DIABETES 12/04/16 07/12/17 08:00 History release 24 hr empagliflozin 25 mg tablet 25 mg PO DAILY DIABETES 08/22/20 Unknown History (Jardiance) dulaglutide 1.5 mg/0.5 mL 1.5 mg subcut TH DIABETES 05/24/21 Unknown History subcutaneous pen injector (Trulicity) albuterol sulfate 90 mcg/actuation 2 puff inhalation Q4H PRN 09/15/23 Unknown Hi story aerosol inhaler SHORTNESS OF BREATH/WHEEZING buspirone 10 mg tablet 10 mg PO TID ANXIETY 09/15/23 Unknown History fluoxetine 40 mg capsule 40 mg PO DAILY DEPRESSION 09/15/23 Unknown History levothyroxine 75 mcg tablet 75 mcg PO DAILY THYROID 09/15/23 Unknown History ondansetron 4 mg disintegrating 4 mg PO Q8H PRN NAUSEA/VOMITING 09/15/23 Unknown History tablet sumatriptan succinate 50 mg tablet 50 mg PO Q2H PRN MIGRAINES 09/15/23 Unknown History cephalexin 500 mg capsule 500 mg PO 3XD post-operative 5 09/16/23 Unknown Rx days #15 CAPSULES ondansetron 4 mg disintegrating 4 mg PO Q8H PRN nausea and 09/16/23 Unknown Rx tablet vomiting #10 tabs oxycodone-acetaminophen 5 mg-325 1 tab PO Q8H PRN pain 3 days #15 09/16/23 Unknown Rx mg tablet (Percocet) tabs tamsulosin 0.4 mg capsule 0.4 mg PO DAILY@1730 10 days #10 09/16/23 Unknown Rx caps hydrocodone-acetaminophen 5-325mg 1 tab PO Q8H PRN Pain 2 days #6 11/21/23 Unknown Rx 5mg-325mg TABLETS ondansetron 4 mg disintegrating 4 mg PO Q8H PRN PRN Nausea #14 tabs 11/21/23 Unknown Rx tablet phenazopyridine 200 mg tablet 200 mg PO TID #6 tabs 11/21/23 Unknown Rx (Pyridium) sulfamethoxazole 800 1 tab PO BID #14 tabs 11/21/23 Unknown Rx mg-trimethoprim 160 mg tablet (Bactrim DS) ondansetron 4 mg disintegrating 4 mg PO Q6H PRN nausea and 12/03/23 Unknown Rx tablet vomiting #14 tabs oxycodone-acetaminophen 5 mg-325 1 tab PO Q6H PRN pain 3 days #12 12/03/23 Unknown Rx mg tablet (Endocet) tabs tamsulosin 0.4 mg capsule 0.4 mg PO DAILY 14 days #14 caps 12/03/23 Unknown Rx hyoscyamine sulfate 0.125 mg 0.125 mg PO Q4H PRN dyspepsia #20 01/18/24 Unknown Rx tablet (Levsin) tabs ondansetron 4 mg disintegrating 4 mg PO Q6H PRN nausea and 01/18/24 Unknown Rx tablet vomiting #14 tabs Allergy/AdvReac Type Severity Reaction Status Date / Time aspirin Allergy Hives Verified 01/18/24 08:02 ibuprofen Allergy Hives Verified 01/18/24 08:02 simvastatin AdvReac Other Verified 01/18/24 08:02 tramadol AdvReac Other Verified 01/18/24 08:02 Surgical History History of tubal ligation H/O section Social History household members: other housing: homeless number of children: 4 Smoking Status: Never smoker ROS ROS ED ROS Narrative Constitutional: Complains of fever and chills noted above denies any headaches, lightness, dizziness Cardiovascular: Denies chest pain or palpitations Respiratory: Denies coughing wheezing shortness of breath Abdomen: Complains of abdominal pain nausea vomiting diarrhea as noted above : Denies any painful urination, hematuria, polyuria Neurological: Denies numbness, weakness, tingling Musculoskeletal: Denies back pain Skin: Denies rashes or lesions EXAM Physical Exam Narrative Exam Narrative: General: Patient lying in bed did appear to be uncomfortable secondary to her abdominal pain Head: Atraumatic, normocephalic Eyes: PERRL bilateral, EOMI bilateral, no conjunctival injection noted Neck: Soft, supple, trachea midline Cardiovascular: Regular in rhythm no murmurs gallops rubs noted Respiratory: Clear to auscultation bilaterally no rales rhonchi or wheeze noted Abdomen: Patient is tender to palpation in the left lower quadrant no rebound or guarding on exam, bowel sounds present x 4 Extremities: +5/5 strength noted in the bilateral upper and lower extremities, no pedal edema neuroexam Neurological: Patient following commands knew that she was at [facility] years 2023 Skin: Warm, dry, intact Const Vital Signs: 01/18/24 08:02 Temperature 98.3 F Temperature Source Oral Pulse Rate 86 Respiratory Rate 16 Blood Pressure 118/84 H Blood Pressure Mean 95 Pulse Ox 99 Oxygen Delivery Method Room Air MDM MDM MDM Narrative Medical decision making narrative: Patient is a 43-year-old female who presented to the emergency department with a chief complaint of abdominal pain nausea vomit diarrhea. Patient will have workup performed here on the differential diagnose includes Melamin to viral gastroenteritis, diverticulitis, appendicitis, pancreatitis. Once workup obtained reviewed she will be reevaluated. Patient be given IV fluids, morphine Zofran. Patient CBC reviewed and showed a white blood count of 4.3, hemoglobin stable 14.4, platelet count normal at 257. Patient sodium normal at 136, potassium was 3.3 she was given 40 mill equivalents of potassium supplementation here, creatinine normal at 0.70. Patient's total bilirubin was 1.20 AST and ALT normal at 33 and 37 respectively. Patient has normal alk phosphatase of 70. Patient's lipase normal at 31. Patient CT abdomen pelvis with IV contrast was reviewed and showed mild hepatomegaly and diffuse fatty infiltration of the liver no other acute intra-abdominal processes noted. Did discuss this with the patient and she would like to go home at this point time she states that she is feeling better. Patient will be given prescription for Bentyl/Levsin as well as Zofran. She was advised to follow-up with her primary care physician outpatient setting. She is to return with worsening symptoms or any concerns. She is agreeable this plan all question concerns answered she is discharged home in stable condition Lab Data Labs: Laboratory Results - last 24 hr 01/18/24 08:17 WBC 4.3 L RBC 5.23 Hgb 14.4 Hct 44.4 MCV 84.9 MCH 27.5 MCHC 32.4 RDW Std Deviation 40.2 RDW Coeff of Obed 13.1 Plt Count 257 MPV 10.3 Immature Gran % (Auto) 0.200 Neut % (Auto) 57.4 Lymph % (Auto) 26.0 Bennett % (Auto) 6.8 Eos % (Auto) 9.1 H Baso % (Auto) 0.5 Absolute Neuts (auto) 2.5 Absolute Lymphs (auto) 1.11 Nucleated RBC % 0 Sodium 136 Potassium 3.3 L Chloride 105 Carbon Dioxide 25.0 Anion Gap 6 BUN 12 Creatinine 0.70 Estim Creat Clear Calc 119.29 Est GFR (MDRD) Af Amer 116 Est GFR (MDRD) Non-Af 96 BUN/Creatinine Ratio 17.0 Glucose 148 H Calcium 9.0 Total Bilirubin 1.20 H AST 33 ALT 37 Alkaline Phosphatase 70 Total Protein 7.4 Albumin 3.6 Globulin 3.8 Albumin/Globulin Ratio 0.9 Lipase 31 Radiography Diagnostic Testing: Clinical Impression(s) from Imaging Studies Abdomen/Pelvis CT 01/18/24 08:28 IMPRESSION: Mild hepatomegaly and diffuse fatty infiltration of the liver. Electronically Signed: Diego Melvin MD at 10:46 EDT , Discharge Plan Triage Chief Complaint: Abd Pain ED Provider: Jonathan Salamanca Dx/Rx/DC Orders Clinical Impression: Abdominal pain Prescriptions: New hyoscyamine sulfate [Levsin] 0.125 mg tablet 0.125 mg PO Q4H PRN (Reason: dyspepsia) Qty: 20 0RF ondansetron 4 mg tablet,disintegrating 4 mg PO Q6H PRN (Reason: nausea and vomiting) Qty: 14 0RF No Action metformin 500 MG tablet 1,000 mg PO BID Jardiance 25 mg tablet 25 mg PO DAILY Trulicity 1.5 mg/0.5 mL Pen Injector 1.5 mg SUBCUT TH oxycodone-acetaminophen [Endocet] 5-325 mg tablet 1 tab PO Q6H PRN (Reason: pain) 3 Days Qty: 12 0RF ondansetron 4 mg tablet,disintegrating 4 mg PO Q6H PRN (Reason: nausea and vomiting) Qty: 14 0RF tamsulosin 0.4 mg capsule 0.4 mg PO DAILY 14 Days Qty: 14 0RF fluoxetine 40 mg capsule 40 mg PO DAILY sumatriptan succinate 50 mg tablet 50 mg PO Q2H PRN (Reason: MIGRAINES ) Rx Instructions: TAKE ONE TABLET Y MOUTHAS NEEDED FROR MIGRAINE HEADACHE AT ONSET OF HEADACHE. MAY REPEAT AFTER 2 HOURS. DO NOT TAKE MO RE THAN 10 DOSES IN A MONTH. levothyroxine 75 mcg tablet 75 mcg PO DAILY buspirone 10 mg tablet 10 mg PO TID ondansetron 4 mg tablet,disintegrating 4 mg PO Q8H PRN (Reason: NAUSEA/VOMITING ) albuterol sulfate 90 mcg/actuation HFA aerosol inhaler 2 puff inhalation Q4H PRN (Reason: SHORTNESS OF BREATH/WHEEZING ) tamsulosin 0.4 mg Capsule 0.4 mg PO DAILY@1730 10 Days Qty: 10 0RF oxycodone-acetaminophen [Percocet] 5-325 mg tablet 1 tab PO Q8H PRN (Reason: pain) 3 Days Qty: 15 0RF cephalexin 500 mg capsule 500 mg PO 3XD 5 Days Qty: 15 0RF ondansetron 4 mg tablet,disintegrating 4 mg PO Q8H PRN (Reason: nausea and vomiting) Qty: 10 0RF sulfamethoxazole-trimethoprim [Bactrim DS] 800-160 mg tablet 1 tab PO BID Qty: 14 0RF phenazopyridine [Pyridium] 200 mg tablet 200 mg PO TID Qty: 6 0RF ondansetron 4 mg tablet,disintegrating 4 mg PO Q8H PRN PRN (Reason: Nausea) Qty: 14 0RF hydrocodone-acetaminophen 5-325 mg tablet 1 tab PO Q8H PRN (Reason: Pain) 2 Days Qty: 6 0RF Primary Care Provider: Padilla Osborne Referrals: Padilla Osborne DO [Primary Care Provider] - Activity Restrictions/Additional Instructions: Take prescriptions as prescribed. Ensure adequate hydration start with a bland diet and advance as tolerated. Follow-up with your primary care physician outpatient setting. Return with worsening symptoms or any other concerns Print Language: Sudanese Disposition Disposition: Home, Self Care
[2024-01-18 08:38] LABS: Absolute Lymphocyte Count 1.11 X10^3/uL (0.83-4.51); Absolute Neutrophil Count 2.5 X10^3/uL (2.0-7.7); Basophil# 0.02 X10^3/uL; Basophil% 0.5 % (0-1); Eosinophil# 0.39 X10^3/uL; Eosinophils% 9.1 % (0-5); Hematocrit 44.4 % (37-47); Hemoglobin 14.4 g/dL (12.0-15.0); Lymphocyte # 1.11 X10^3/ul (0.83-4.51); Mean Corp Hgb Conc 32.4 g/dL (32-36); Mean Corpuscular Hgb 27.5 pg (27.0-32.0); Mean Corpuscular Volume 84.9 fL (81-99); Mean Platelet Vol. 10.3 fl (6.2-12.0); Monocyte# 0.29 X10^3/uL; Monocyte% 6.8 % (0-10); NRBC Flagged by Analyzer 0 % (0-5); Neutrophil # 2.45 X10^3/uL (2.7-7.7); Neutrophil % 57.4 % (47-70); Platelet Count 257 K/mm3 (150-450); RBC Distribution Width CV 13.1 % (11.6-14.6); RBC Distribution Width SD 40.2 fl (35.1-43.9); Red Blood Count 5.23 M/mm3 (4.2-5.4); White Blood Count 4.3 K/mm3 (4.4-11.0)
[2024-01-18] MEDS: Ondansetron 4 MG/2 ML Vial IV (08:45)
[2024-01-18] MEDS: Morphine 4 MG/ML Syringe IV (08:45)
[2024-01-18] MEDS: 0.9% Normal Saline (1000mL) 1,000 ML 999 ML IV (08:45)
[2024-01-18 08:53] LABS: ALB/GLOB Ratio 0.9 RATIO (0.9-2.4); AST(SGOT) 33 U/L (15-37); Alanine Aminotransfer ALT/SGPT 37 U/L (13-56); Albumin, Serum 3.6 g/dL (3.2-5.0); Alkaline Phosphatase 70 U/L (45-117); Anion Gap 6 (5-15); BUN 12 mg/dL (7-18); Chloride 105 mmol/L (98-107); EST Glomerular Filtration Rate 96 mL/min (>60); Est Glom Filt Rate - Afr Amer 116 mL/min (>60); Estimated Creatinine Clearance 119.29 ml/min; Globulin 3.8 g/dL (2.2-4.2); Glucose 148 mg/dL (74-106); Lipase 31 U/L (13-75); Potassium 3.3 mmol/L (3.5-5.1); Protein, Total 7.4 g/dL (6.4-8.2); Sodium Level 136 mmol/L (136-145)
[2024-01-18 10:02] VITALS: PULSE 73; O2SAT 100
[2024-01-18 11:02] VITALS: BP 100/68; PULSE 71; O2SAT 100
[2024-01-18 11:02] LABS: Bacteria 0 SEEN /hpf (None Seen); Mucous, Urine 0 SEEN /hpf (<or=2+); Red Blood Cells-Urine 0 SEEN /hpf (0-5)
[2024-01-18 11:06] LABS: Color, Urine Yellow (Yellow); Glucose, Dipstick 250 mg/dl (Normal); Ketone-Dipstick Negative (Negative); Leukocyte Esterase-Dipstick 25 /ul (Negative); Nitrite-Dipstick Negative (Negative); Occult Blood-Urine 50 /ul (Negative); Protein-Dipstick 30 mg/dl (Negative); Urine Bilirubin Dipstick Negative (Negative); Urine Clarity Clear (Clear); Urine Urobilinogen Normal (Normal)
[2024-01-18] MEDS: Potassium Chloride Oral Soln 20 MEQ/15 ML UDC 40 MEQ PO (11:38)
[2024-01-18 11:42] VITALS: BP 106/86; PULSE 79; RESP 19; TEMP 36.4; O2SAT 100
[2024-01-18 12:10] LABS: Squamous Epithelial Cells - UA 0-5 SEEN /hpf (5-10); White Blood Cells 0-5 SEEN /hpf (0-5)
== END 2024-01-18 11:43 | disposition home or self-care (01) ==
PROVIDERS: Emergency Provider Emergency Medicine; PCP Student in an Organized Health Care Education/Training Program; Visit Provider Emergency Medicine
DX: R10.9 Unspecified abdominal pain (principal); E11.9 Type 2 diabetes mellitus without complications; E03.9 Hypothyroidism, unspecified; Z79.51 Long term (current) use of inhaled steroids; Z79.899 Other long term (current) drug therapy; Z79.84 Long term (current) use of oral hypoglycemic drugs; Z59.00 Homelessness unspecified
CPT/HCPCS: 96361; 96374; 96375; 96376; 74177; 80053; 81001; 83690; 85025; 93005; 99283; Q9967; J2405

== ENCOUNTER 2024-06-19 18:37 | Emergency (ER) | payer MEDICAID, SELFPAY ==
[2024-06-19 18:37] VITALS: BP 150/92; PULSE 89; RESP 16; TEMP 36.6; O2SAT 98; BMI 35.5
--- NOTE | 2024-06-19 18:52 | EX.ED.DYSGE1 ---
HPI <PEREZ Lawler - Last Filed: 06/19/24 19:53> History of Present Illness Chief Complaint: Sore Throat Narrative Narrative: 44-year-old female states she has had 2 days of sore throat. She states her daughter just had strep throat. Patient denies fever or chills. She developed a slight cough today. She also reports pain in her suprapubic region and bilateral low back with dysuria over the last 2 days. PFS <PEREZ Lawler - Last Filed: 06/19/24 19:53> [facility] Medical History (Updated 06/19/24 @ 19:48 by PEREZ Lawler) Cellulitis of right breast Ureteral calculus Hearing loss, left Hearing loss, right Chronic pain Migraines Hypothyroidism Diabetes Home Medications ?Medication ?Instructions ?Recorded ?Last Taken ?Type metformin 500 mg tablet,extended 1,000 mg PO BID DIABETES 12/04/16 07/12/17 08:00 History release 24 hr empagliflozin 25 mg tablet 25 mg PO DAILY DIABETES 08/22/20 Unknown History (Jardiance) dulaglutide 1.5 mg/0.5 mL 1.5 mg subcut TH DIABETES 05/24/21 Unknown History subcutaneous pen injector (Trulicity) albuterol sulfate 90 mcg/actuation 2 puff inhalation Q4H PRN 09/15/23 Unknown History aerosol inhaler SHORTNESS OF BREATH/WHEEZING buspirone 10 mg tablet 10 mg PO TID ANXIETY 09/15/23 Unknown History fluoxetine 40 mg capsule 40 mg PO DAILY DEPRESSION 09/15/23 Unknown History levothyroxine 75 mcg tablet 75 mcg PO DAILY THYROID 09/15/23 Unknown History ondansetron 4 mg disintegrating 4 mg PO Q8H PRN PRN Nausea #14 tabs 11/21/23 Unknown Rx tablet hyoscyamine sulfate 0.125 mg 0.125 mg PO Q4H PRN dyspepsia #20 01/18/24 Unknown Rx tablet (Levsin) tabs ondansetron 4 mg disintegrating 4 mg PO Q6H PRN nausea and 01/18/24 Unknown Rx tablet vomiting #14 tabs doxycycline monohydrate 100 mg 100 mg PO BID #20 caps 01/25/24 Unknown Rx capsule cephalexin 500 mg capsule 500 mg PO Q12 #13 CAPSULES 06/19/24 Unknown Rx Allergy/AdvReac Type Severity Reaction Status Date / Time aspirin Allergy Hives Verified 06/19/24 18:39 ibuprofen Allergy Hives Verified 06/19/24 18:39 simvastatin AdvReac Other Verified 06/19/24 18:39 tramadol AdvReac Other Verified 06/19/24 18:39 Surgical History History of tubal ligation H/O section Social History household members: other housing: homeless number of children: 4 Smoking Status: Never smoker ROS <PEREZ Lawler - Last Filed: 06/19/24 19:53> ROS ED ROS Narrative Constitutional: Negative for fever, chills. CVS: Negative for chest pain. Respiratory: Negative for shortness of breath. GI: Positive for suprapubic pain. No nausea or vomiting. : Positive for dysuria. EXAM <PEREZ Lawler - Last Filed: 06/19/24 19:53> Physical Exam Narrative Exam Narrative: CONST: Patient sitting in no acute distress. EYES: Normal inspection. ENT: Moist mucous membranes, no tonsillar swelling or exudate, midline uvula. No trismus or tongue elevation, sublingual space is soft. No drooling or stridor. NECK: Normal inspection. No lymphadenopathy. RESP: No respiratory distress, CTAB. CVS: Regular rate and rhythm, no murmur, no gallop. ABD: Soft with suprapubic tenderness, no guarding or rebound, no distention. Back: Normal inspection, no CVA tenderness. SKIN: Color normal, no rash, warm, dry, intact. EXTREMITIES: Normal appearance, no pedal edema. NEURO: Alert and answering questions appropriately. PSYCH: Normal affect. Const Vital Signs: 06/19/24 18:37 Temperature 97.8 F Temperature Source Temporal Pulse Rate 89 Respiratory Rate 16 Blood Pressure 150/92 H Blood Pressure Mean 111 Pulse Ox 98 Oxygen Delivery Method Room Air <Dr. Vini Peterson MD - Last Filed: 06/19/24 19:14> Physical Exam Const Vital Signs: 06/19/24 18:37 Temperature 97.8 F Temperature Source Temporal Pulse Rate 89 Respiratory Rate 16 Blood Pressure 150/92 H Blood Pressure Mean 111 Pulse Ox 98 Oxygen Delivery Method Room Air [facility] <PEREZ Lawler - Last Filed: 06/19/24 19:53> [facility] Narrative Medical decision making narrative: 44-year-old female presents with 2 days of sore throat and 2 days of suprapubic discomfort and dysuria. She appears well and nontoxic. Afebrile and hemodynamically stable. Her HEENT exam is normal. She is concerned she was exposed to strep so a swab was obtained and is negative. She has a soft, benign abdomen with mild suprapubic tenderness. No CVA tenderness. Urinalysis is consistent with UTI. She was treated with Keflex and discharged in stable condition. Lab Data Attestation: I reviewed the patient's lab results. Labs: Laboratory Results - last 24 hr 06/19/24 18:59 Urine Color Yellow Urine Clarity Clear Urine pH 6.0 Ur Specific [place] 1.025 Urine Protein 15 H Urine Glucose (UA) 1000 H Urine Ketones 5 H Urine Occult Blood 10 H Urine Nitrite Negative Urine Bilirubin Negative Urine Urobilinogen Normal Ur Leukocyte Esterase 25 H Urine RBC 0-5 SEEN Urine WBC 10-25 SEEN Ur Squamous Epith Cells 0-5 SEEN Urine Bacteria 2+ Urine Mucus 0 SEEN <Dr. Vini Peterson MD - Last Filed: 06/19/24 19:14> [facility] Lab Data Labs: Laboratory Results - last 24 hr 06/19/24 18:59 Urine Color Yellow Urine Clarity Clear Urine pH 6.0 Ur Specific [place] 1.025 Urine Protein 15 H Urine Glucose (UA) 1000 H Urine Ketones 5 H Urine Occult Blood 10 H Urine Nitrite Negative Urine Bilirubin Negative Urine Urobilinogen Normal Ur Leukocyte Esterase 25 H Urine RBC 0-5 SEEN Urine WBC 10-25 SEEN Ur Squamous Epith Cells 0-5 SEEN Urine Bacteria 2+ Urine Mucus 0 SEEN Treatment and Re-Evaluation Comments:: I have personally performed a face to face assessment of the patient and have reviewed the CHARLES Note. I performed a substantive portion of the visit including all aspects of the following. My glez findings include: History is 1-2 days of odynophagia, minor nonproductive cough, and lower suprapubic pressure that radiates into her general low back nonlateralizing, urinary frequency, and urinary hesitancy. No fevers, chills, vomiting. Exposed to strep and concerned she has it. Exam is well-appearing no CVA tenderness abdomen benign, posterior pharynx is completely normal-appearing with no exudates or asymmetry or trismus. No cervical lymphadenopathy. Medical Decison Making rapid strep and UA sent and will treat accordingly, although her throat does not look like strep pharyngitis. Other additions or changes: [None] Discharge Plan Triage Chief Complaint: Sore Throat ED Midlevel Provider: Michelle Jean ED Provider: Vini Peterson Dx/Rx/DC Orders Clinical Impression: UTI (urinary tract infection), Acute upper respiratory infection Instructions: UTIs Understanding Prescriptions: New cephalexin 500 mg capsule 500 mg PO Q12 Qty: 13 0RF No Action doxycycline monohydrate 100 mg capsule 100 mg PO BID Qty: 20 0RF metformin 500 MG tablet 1,000 mg PO BID Jardiance 25 mg tablet 25 mg PO DAILY Trulicity 1.5 mg/0.5 mL Pen Injector 1.5 mg SUBCUT TH hyoscyamine sulfate [Levsin] 0.125 mg tablet 0.125 mg PO Q4H PRN (Reason: dyspepsia) Qty: 20 0RF ondansetron 4 mg tablet,disintegrating 4 mg PO Q6H PRN (Reason: nausea and vomiting) Qty: 14 0RF fluoxetine 40 mg capsule 40 mg PO DAILY levothyroxine 75 mcg tablet 75 mcg PO DAILY buspirone 10 mg tablet 10 mg PO TID albuterol sulfate 90 mcg/actuation HFA aerosol inhaler 2 puff inhalation Q4H PRN (Reason: SHORTNESS OF BREATH/WHEEZING ) ondansetron 4 mg tablet,disintegrating 4 mg PO Q8H PRN PRN (Reason: Nausea) Qty: 14 0RF Primary Care Provider: Padilla Osborne Referrals: Padilla Osborne DO [Primary Care Provider] - Activity Restrictions/Additional Instructions: The strep test is negative. You have a urinary tract infection. Take all the antibiotics as prescribed. Follow-up with your primary care doctor if needed. Print Language: New Zealander Disposition Disposition: Home, Self Care
[2024-06-19 19:04] LABS: Mucous, Urine 0 SEEN /hpf (<or=2+)
[2024-06-19 19:05] LABS: Color, Urine Yellow (Yellow); Glucose, Dipstick 1000 mg/dl (Normal); Ketone-Dipstick 5 mg/dl (Negative); Leukocyte Esterase-Dipstick 25 /ul (Negative); Nitrite-Dipstick Negative (Negative); Occult Blood-Urine 10 /ul (Negative); Protein-Dipstick 15 mg/dl (Negative); Specific Gravity, Urine 1.025 (1.002-1.030); Urine Bilirubin Dipstick Negative (Negative); Urine Clarity Clear (Clear); Urine Urobilinogen Normal (Normal)
[2024-06-19 19:47] LABS: Bacteria 2+ /hpf (None Seen); Red Blood Cells-Urine 0-5 SEEN /hpf (0-5); Squamous Epithelial Cells - UA 0-5 SEEN /hpf (5-10); White Blood Cells 10-25 SEEN /hpf (0-5)
[2024-06-19] MEDS: Cephalexin 250 MG Capsule 500 MG PO (20:01)
== END 2024-06-19 20:03 | disposition home or self-care (01) ==
PROVIDERS: Physician Assistant; Emergency Provider Emergency Medicine; PCP Student in an Organized Health Care Education/Training Program; Visit Provider Emergency Medicine
DX: N39.0 Urinary tract infection, site not specified (principal); E11.9 Type 2 diabetes mellitus without complications; J06.9 Acute upper respiratory infection, unspecified; Z59.00 Homelessness unspecified
CPT/HCPCS: 81001; 87077; 87086; 87088; 87186; 87651; 99282

== ENCOUNTER 2024-06-21 21:10 | Emergency (ER) | payer MEDICAID, SELFPAY ==
[2024-06-21 21:12] VITALS: BP 161/99; PULSE 94; RESP 18; TEMP 36.6; O2SAT 99; BMI 34.2
--- NOTE | 2024-06-21 21:18 | RAD_ITS ---
PROCEDURE: ELBOW MIN 3 VIEWS REASON FOR EXAM: PAIN, LOSS OF MOBILITY TECHNIQUE: 3 view(s) of the left elbow COMPARISON: None. FINDINGS: See impression RAD/Elbow min 3 Views IMPRESSION: Negative for fracture or malalignment. No significant joint effusion. Reading Location: [facility]
--- NOTE | 2024-06-21 21:18 | RAD_ITS ---
PROCEDURE: Left wrist radiographs REASON FOR EXAM: PAIN, LOSS OF MOBILITY TECHNIQUE: 3 view(s) of each wrist COMPARISON: None. FINDINGS: See impression RAD/Wrist min 3 Views IMPRESSION: Negative for acute displaced fracture or dislocation. Reading Location: [facility]
--- NOTE | 2024-06-21 21:18 | RAD_ITS ---
PROCEDURE: HAND MIN 3 VIEWS REASON FOR EXAM: PAIN, LOSS OF MOBILITY TECHNIQUE: 3 view(s) of the left hand COMPARISON: None. FINDINGS: See impression RAD/Hand Min 3 Views IMPRESSION: Negative for acute fracture or malalignment. No significant arthropathy. Reading Location: [facility]
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
[2024-06-21] MEDS: oxyCODONE 5 MG Tablet 10 MG PO (22:36)
[2024-06-21] MEDS: Orphenadrine 100 MG Tablet PO (22:37)
[2024-06-21 22:41] VITALS: BP 161/99; PULSE 94; RESP 18; TEMP 36.6; O2SAT 99
== END 2024-06-21 22:42 | disposition home or self-care (01) ==
PROVIDERS: Emergency Provider Emergency Medicine; PCP Student in an Organized Health Care Education/Training Program; Visit Provider Emergency Medicine
DX: S70.02XA Contusion of left hip, initial encounter (principal); E11.9 Type 2 diabetes mellitus without complications; S63.92XA Sprain of unspecified part of left wrist and hand, initial encounter; S53.402A Unspecified sprain of left elbow, initial encounter; I10 Essential (primary) hypertension; V03.10XA Pedestrian on foot injured in collision with car, pick-up truck or van in traffic accident, initial encounter
CPT/HCPCS: 73080; 73110; 73130; 99283

== ENCOUNTER 2024-07-04 11:40 | Observation (INO) | payer MEDICAID, SELFPAY ==
[2024-07-04 11:40] VITALS: BP 128/87; PULSE 86; RESP 16; TEMP 36.4; O2SAT 98; BMI 34.2
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
[2024-07-04] MEDS: 0.9% Normal Saline (1000mL) 1,000 ML 1000 ML IV (12:10)
[2024-07-04 12:13] LABS: Bacteria 0 SEEN /hpf (None Seen); Mucous, Urine 0 SEEN /hpf (<or=2+); White Blood Cells 0 SEEN /hpf (0-5)
[2024-07-04] MEDS: Ondansetron 4 MG/2 ML Vial IV (12:15)
[2024-07-04] MEDS: diazePAM 5 MG Tablet PO (12:15)
[2024-07-04 12:21] LABS: Color, Urine Yellow (Yellow); Glucose, Dipstick 1000 mg/dl (Normal); Ketone-Dipstick Negative (Negative); Leukocyte Esterase-Dipstick 25 /ul (Negative); Nitrite-Dipstick Negative (Negative); Occult Blood-Urine 250 /ul (Negative); Protein-Dipstick 15 mg/dl (Negative); Specific Gravity, Urine 1.015 (1.002-1.030); Urine Bilirubin Dipstick Negative (Negative); Urine Clarity Clear (Clear); Urine Urobilinogen Normal (Normal)
[2024-07-04 12:26] LABS: Squamous Epithelial Cells - UA 5-10 SEEN /hpf (5-10)
[2024-07-04 12:27] LABS: Red Blood Cells-Urine 0 SEEN /hpf (0-5)
[2024-07-04 12:39] LABS: Internal QC Validated? YES +Cl - CLEAR BKGD; Pregnancy, Urine Negative Negative
[2024-07-04 12:39] LABS: Absolute Lymphocyte Count 2.23 X10^3/uL (0.83-4.51); Absolute Neutrophil Count 3.5 X10^3/uL (2.0-7.7); Basophil# 0.04 X10^3/uL; Basophil% 0.6 % (0-1); Eosinophil# 0.35 X10^3/uL; Eosinophils% 5.4 % (0-5); Hematocrit 42.6 % (37-47); Hemoglobin 13.9 g/dL (12.0-15.0); Lymphocyte # 2.23 X10^3/ul (0.83-4.51); Lymphocyte % 34.7 % (19-41); Mean Corp Hgb Conc 32.6 g/dL (32-36); Mean Corpuscular Hgb 28.1 pg (27.0-32.0); Mean Corpuscular Volume 86.2 fL (81-99); Mean Platelet Vol. 10.4 fl (6.2-12.0); Monocyte# 0.28 X10^3/uL; Monocyte% 4.4 % (0-10); NRBC Flagged by Analyzer 0 % (0-5); Neutrophil # 3.51 X10^3/uL (2.7-7.7); Neutrophil % 54.6 % (47-70); Platelet Count 340 K/mm3 (150-450); RBC Distribution Width CV 13.2 % (11.6-14.6); RBC Distribution Width SD 41.1 fl (35.1-43.9); Red Blood Count 4.94 M/mm3 (4.2-5.4); White Blood Count 6.4 K/mm3 (4.4-11.0)
[2024-07-04 13:52] LABS: BUN 13 mg/dL (4-19); BUN/Creat Ratio 18.7 RATIO (10-20); Calcium,Total 9.5 mg/dL (7.6-11.0); Carbon Dioxide 25.6 mmol/L (21.0-32.0); Creatinine, Serum 0.68 mg/dL (0.70-1.20); EST Glomerular Filtration Rate 109 (>60); Estimated Creatinine Clearance 122.12 ml/min (50-250); Glucose 105 mg/dL (70-99)
--- NOTE | 2024-07-04 14:34 | ED.RN ---
pt updated on what we are waiting on pt verbalizes understanding no needs voiced
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
--- NOTE | 2024-07-04 14:45 | CT_ITS ---
EXAM: CT Abdomen, Pelvis and Lumbar Spine With Intravenous Contrast CLINICAL INDICATION: FLANK PAIN TECHNIQUE: Axial computed tomography images of the abdomen, pelvis and lumbar spine with intravenous contrast. This CT exam was performed using one or more of the following dose reduction techniques: automated exposure control, adjustment of the mA and/or kV according to patient size, and/or use of iterative reconstruction technique. COMPARISON: No relevant prior studies available. FINDINGS: LUNG BASES: Unremarkable. No mass. No consolidation. ABDOMEN: LIVER: Hepatomegaly with fatty infiltration. GALLBLADDER AND BILE DUCTS: Unremarkable. No calcified stones. No ductal dilation. PANCREAS: Unremarkable. No mass. No ductal dilation. SPLEEN: Unremarkable. No splenomegaly. ADRENALS: Unremarkable. No mass. KIDNEYS AND URETERS: Unremarkable. No stones within either kidney. No hydronephrosis. STOMACH AND BOWEL: Anterior ventral hernia of the lower mid abdomen. No bowel obstruction. Fecal retention in the colon consistent with constipation. No mucosal thickening. PELVIS: APPENDIX: No findings to suggest acute appendicitis. BLADDER: Unremarkable. No mass. REPRODUCTIVE: Unremarkable as visualized. LUMBAR SPINE: VERTEBRAE: Unremarkable. No acute fracture. DISCS/SPINAL CANAL/NEURAL FORAMINA: No acute findings. No significant spinal canal stenosis. ABDOMEN and PELVIS: INTRAPERITONEAL SPACE: Unremarkable. No free air. No significant fluid collection. BONES/JOINTS: No acute fracture. No dislocation. SOFT TISSUES: See above. VASCULATURE: Unremarkable. No abdominal aortic aneurysm. LYMPH NODES: Unremarkable. No enlarged lymph nodes. CT/Abdomen/Pelvis W IV Cont ONLY IMPRESSION: 1. Anterior ventral hernia of the lower mid abdomen. No bowel obstruction. 2. Hepatomegaly with fatty infiltration. 3. Fecal retention in the colon consistent with constipation. 4. No obstructive uropathy. Reading Location: [facility]
[2024-07-04 15:34] LABS: Anion Gap 12 (5-15); Chloride 103 mmol/L (98-108); Sodium Level 141 mmol/L (133-145)
[2024-07-04 16:40] VITALS: BP 134/88; PULSE 82; RESP 18; O2SAT 100
[2024-07-04] MEDS: Acetaminophen 325 MG Tablet 650 MG PO (18:31)
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
[2024-07-04 20:00] VITALS: BP 123/91
[2024-07-04 20:06] VITALS: BP 123/91; PULSE 82; RESP 18; TEMP 36.4; O2SAT 100
--- NOTE | 2024-07-04 20:48 | ECHOD_ITS ---
Reason For Study Reason For Study: TIA/Stroke Procedure This was a 2D Doppler, Color Flow transthoracic echocardiogram. Exam performed portable in patient room. Left Ventricle Normal LV size. Left ventricular systolic function is normal. The left ventricular ejection fraction is 60 %. No regional wall motion abnormalities noted. Right Ventricle Normal RV size. Normal systolic function. Atria Normal left atrium. Normal right atrium. Patent foramen ovale. Mitral Valve Normal mitral valve. Tricuspid Valve Normal tricuspid valve. Aortic Valve Normal aortic valve. Trisinus/trileaflet aortic valve. Pulmonic Valve Normal pulmonic valve. Great Vessels Normal sized aortic root. The pulmonary artery is normal size. Inferior vena cava collapse with respiration. Pericardium/Pleural No pericardial effusion. Medication Performed a rapid injection of agitated mix of 9 cc saline and 1cc air to assess for atrial septal defect. MMode/2D Measurements & Calculations LVIDd: 4.1 cm IVSd: 0.84 cm Ao root diam: 3.0 cm LVIDs: 2.6 cm LVPWd: 0.84 cm RVDd: 3.1 cm FS: 37.3 % LAV(MOD-bp): 35.3 ml LVAd ap4: 28.8 cm2 SV(MOD-sp4): 53.9 ml LAV(MOD-bp) Indexed: 17.3 ml/m2 LVLd ap4: 8.7 cm SI(MOD-sp4): 26.4 ml/m2 LAV(MOD-sp2): 25.6 ml EDV(MOD-sp4): 79.9 ml LAV(MOD-sp4): 42.7 ml EDV(sp4-el): 80.9 ml LVAs ap4: 14.5 cm2 LVLs ap4: 6.9 cm ESV(MOD-sp4): 25.9 ml ESV(sp4-el): 25.6 ml EF(MOD-sp4): 67.5 % EF(sp4-el): 68.3 % SV(sp4-el): 55.2 ml LA A4 area: 17.3 cm2 LA dimension(2D): 4.0 cm RA A4 area: 7.5 cm2 TAPSE: 2.0 cm Time Measurements MV dec time: 0.23 sec Doppler Measurements & Calculations MV E max greg: 92.3 cm/sec Lat Peak E' Greg: 16.1 cm/sec Med Peak E' Greg: 10.4 cm/sec MV A max greg: 79.2 cm/sec E/E' lat: 5.8 E/E' med: 8.9 MV E/A: 1.2 MV dec slope: 406.3 cm/sec2 Ao V2 max: 162.3 cm/sec LV V1 max: 124.1 cm/sec Ao max P.5 mmHg LV V1 max P.2 mmHg Ao V2 mean: 117.3 cm/sec Ao mean P.1 mmHg Ao V2 VTI: 33.5 cm PA V2 max: 113.6 cm/sec ECHO/Echo Complete Interpretation Summary Normal LV size. Left ventricular systolic function is normal. The left ventricular ejection fraction is 60 %. Patent foramen ovale. Ordering Physician: Avril Farias Referring Physician: Padilla Osborne Performed By: Melissa Driscoll, BLUE, RVT
[2024-07-04 21:14] VITALS: BMI 34.1
[2024-07-04 21:41] VITALS: BP 126/86; PULSE 69; RESP 18; TEMP 36.2; O2SAT 100
[2024-07-04] MEDS: Senna/Docusate Sodium 1 Tablet 2 TABLET PO (21:50)
[2024-07-04] MEDS: busPIRone 5 MG Tablet 10 MG PO (21:50)
[2024-07-04 22:22] LABS: Bedside Glucose 74 mg/dL (74-106)
[2024-07-05] VITALS (8 sets, daily range): BP systolic 109–131; BP diastolic 74–85; PULSE 68–88; RESP 14–18; TEMP 36.1–37.1; O2SAT 96–99; BMI 34.1
[2024-07-05] MEDS: Levothyroxine 88 MCG Tablet PO (05:42)
[2024-07-05] MEDS: busPIRone 5 MG Tablet 10 MG PO ×3 (05:42→21:23)
[2024-07-05 06:21] LABS: Absolute Lymphocyte Count 2.62 X10^3/uL (0.83-4.51); Absolute Neutrophil Count 3.2 X10^3/uL (2.0-7.7); Basophil# 0.04 X10^3/uL; Basophil% 0.6 % (0-1); Eosinophil# 0.47 X10^3/uL; Hematocrit 38.6 % (37-47); Hemoglobin 12.7 g/dL (12.0-15.0); Lymphocyte # 2.62 X10^3/ul (0.83-4.51); Lymphocyte % 39.2 % (19-41); Mean Corp Hgb Conc 32.9 g/dL (32-36); Mean Corpuscular Volume 85.2 fL (81-99); Mean Platelet Vol. 10.3 fl (6.2-12.0); Monocyte# 0.34 X10^3/uL; Monocyte% 5.1 % (0-10); NRBC Flagged by Analyzer 0 % (0-5); Platelet Count 309 K/mm3 (150-450); RBC Distribution Width CV 13.2 % (11.6-14.6); RBC Distribution Width SD 40.5 fl (35.1-43.9); Red Blood Count 4.53 M/mm3 (4.2-5.4); White Blood Count 6.7 K/mm3 (4.4-11.0)
[2024-07-05 06:42] LABS: Bedside Glucose 95 mg/dL (74-106)
[2024-07-05 06:52] LABS: Thyroid Stim Hormone (TSH) 0.911 uIU/mL (0.300-4.200)
[2024-07-05 07:12] LABS: Cholesterol 159 mg/dL (<=200); High Density Lipoprotein 42 mg/dL; Low Density Lipoprotein Calc. 87 mg/dL; Triglycerides 148 mg/dL; Very Low Density Lipoprotein 30 mg/dL (5-40); cholesterol:hdl ratio screen 3.79
[2024-07-05 07:28] LABS: Anion Gap 11 (5-15); BUN 11 mg/dL (4-19); BUN/Creat Ratio 18.8 RATIO (10-20); Calcium,Total 8.6 mg/dL (7.6-11.0); Carbon Dioxide 23.7 mmol/L (21.0-32.0); Chloride 105 mmol/L (98-108); Creatinine, Serum 0.56 mg/dL (0.70-1.20); EST Glomerular Filtration Rate 115 (>60); Estimated Creatinine Clearance 148.16 ml/min (50-250); Glucose 95 mg/dL (70-99); Potassium 3.5 mmol/L (3.3-5.1); Sodium Level 139 mmol/L (133-145)
[2024-07-05] MEDS: Fluoxetine HCl 40 MG CAPSULE PO (09:59)
[2024-07-05] MEDS: Empagliflozin 25 MG Tablet PO (09:59)
[2024-07-05] MEDS: Senna/Docusate Sodium 1 Tablet 2 TABLET PO ×2 (10:00→21:22)
[2024-07-05] MEDS: buPROPion 75 MG Tablet PO (10:00)
--- NOTE | 2024-07-05 10:00 | MRI_ITS ---
EXAM: MRI of the brain without and with IV contrast CLINICAL HISTORY: Vertigo, headache post cardiac surgery COMPARISON: CT of brain dated 07/04/2024 TECHNIQUE: Sagittal coronal and axial MRI images of the brain were performed with and without the use of IV contrast utilizing routine MRI sequences. FINDINGS: There is no hemorrhage, hematoma or mass effect. Hartmann-white matter is well differentiated. Cisterns sulci and ventricles are within normal limits. Intraorbital structures appear unremarkable. Mucosal thickening is seen in the maxillary sinuses. The remaining paranasal sinuses are clear. The skull appears grossly unremarkable. MRI/Brain without Contrast IMPRESSION: Mucosal thickening of the maxillary sinuses bilaterally otherwise unremarkable MRI brain. Reading Location: [id number]
[2024-07-05] MEDS: Acetaminophen 325 MG Tablet 650 MG PO (10:12)
[2024-07-05 12:04] LABS: Bedside Glucose 115 mg/dL (74-106)
--- NOTE | 2024-07-05 14:40 | CHAPLAIN ---
Type of Pastoral Visit _x__ Initial Visit ___ Follow-up Visit ___ On-call Visit ___ General Patient Visit ___ Spiritual Assessment ___ Family Conference ___ Bereavement ___ Rapid Response ___ Code Blue ___ Other (describe below) Pastoral Care Referral From _x__ Patient ___ Family ___ Nurse ___ Physician ___ Assurance Manager Insurance ___ Tool Inspector ___ Other (describe below) Sacrament/Intervention _x__ Active listening ___ Anointing ___ Pentecostal ___ Bereavement ___ Communion ___ Iman exploration ___ ___ Life review _x__ Prayer ___ Reconciliation ___ Sacrament of Sick _x__ Supportive presence ___ Wedding ___ Other (describe below) Pastoral Comments sat in room to review circumstances of patient's admission to the hospital; pt's shares her concern as knowing what it is and why; pt states that she has four children but that her mother is watching them now; pt welcomes a prayer for support
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
[2024-07-05 17:12] LABS: Bedside Glucose 110 mg/dL (74-106)
[2024-07-05 21:50] LABS: Bedside Glucose 104 mg/dL (74-106)
[2024-07-06 00:15] VITALS: BMI 34.1
[2024-07-06 03:20] VITALS: BP 106/75; PULSE 69; RESP 18; TEMP 36.5; O2SAT 96
[2024-07-06] MEDS: Levothyroxine 88 MCG Tablet PO (05:24)
[2024-07-06] MEDS: busPIRone 5 MG Tablet 10 MG PO (05:24)
[2024-07-06 06:35] LABS: Bedside Glucose 107 mg/dL (74-106)
--- NOTE | 2024-07-06 07:14 | DCINST_ITS ---
Discharge Instructions Diet Discharge Diet: Carb Control Diet DC O2, CPAP, BIPAP needs Home O2 Discharge instructions: No Dressing / Incision Discharge Activity: Return to Normal Activity Dressing / Incision Call your doctor if you observe: Fever of 101 or Higher, Shortness of breath, Dizziness, Fainting spells, Swelling in the ankles, Chest pain and Increased palpitations (irregular heartbeat) Follow Up Care Test Results: Test results from this visit will be discussed in further detail at your follow- up appointment, if applicable. Discharge Plan Admission Admit Date/Time: 07/04/24 19:51 Attending Provider: Velasquez Wheeler Primary Care Provider: Padilla Osborne Consulting Providers: Avril Farias Discharge Orders/Prescriptions Prescriptions: Continued metformin 500 MG tablet 1,000 mg PO DAILY Jardiance 25 mg tablet 25 mg PO DAILY ondansetron 4 mg tablet,disintegrating 4 mg PO Q6H PRN (Reason: nausea and vomiting) Qty: 14 0RF cyanocobalamin (vitamin B-12) 1,000 mcg tablet 1,000 mcg PO DAILY bupropion HCl 75 mg tablet 75 mg PO DAILY fluticasone propionate 50 mcg/actuation spray,suspension 2 spray INTRANASAL BID Emgality Syringe 120 mg/mL syringe 120 mg subcut QMONTH Trulicity 4.5 mg/0.5 mL pen injector 4.5 mg subcut QWEEK levothyroxine 88 mcg tablet 88 mcg PO DAILY fluoxetine 40 mg capsule 40 mg PO DAILY buspirone 10 mg tablet 10 mg PO TID albuterol sulfate 90 mcg/actuation HFA aerosol inhaler 2 puff inhalation Q4H PRN (Reason: SHORTNESS OF BREATH/WHEEZING ) Referrals / Follow Up: Padilla Osborne DO [Primary Care Provider] - Within 1 Week Disposition Disposition (needs filled in before D/C Order can be placed): Home, Self Care
--- NOTE | 2024-07-06 09:15 | CASEMGMT ---
SW did not complete a PHQ9 as patient did not have a Stroke or TIA. Nia ADAM
[2024-07-06 09:20] VITALS: BP 120/76; PULSE 78; RESP 12; TEMP 37; O2SAT 99
[2024-07-06] MEDS: buPROPion 75 MG Tablet PO (09:45)
[2024-07-06] MEDS: Fluoxetine HCl 40 MG CAPSULE PO (09:45)
[2024-07-06] MEDS: Empagliflozin 25 MG Tablet PO (09:45)
--- NOTE | 2024-07-06 09:53 | CASEMGMT ---
Patient has order for discharge. RN CM in to discuss needs at discharge. Patient denies needs or help at discharge. Patient had no further questions or concerns.
--- NOTE | 2024-07-06 10:05 | PHA.DC.MR.R ---
Pharmacy [place] [facility]con[facility] has performed discharge medication reconciliation for this patient. The patient's discharge medication list was reviewed for discrepancies and discrepancies were resolved. Medications at Discharge Home Medications metformin 500 mg tablet,extended release 24 hr 1,000 mg PO DAILY DIABETES 12/04/16 empagliflozin 25 mg tablet (Jardiance) 25 mg PO DAILY DIABETES 08/22/20 albuterol sulfate 90 mcg/actuation aerosol inhaler 2 puff inhalation Q4H PRN SHORTNESS OF BREATH/WHEEZING 09/15/23 buspirone 10 mg tablet 10 mg PO TID ANXIETY 09/15/23 fluoxetine 40 mg capsule 40 mg PO DAILY DEPRESSION 09/15/23 ondansetron 4 mg disintegrating tablet 4 mg PO Q6H PRN nausea and vomiting #14 tabs 01/18/24 bupropion HCl 75 mg tablet 75 mg PO DAILY 07/04/24 cyanocobalamin (vitamin B-12) 1,000 mcg tablet 1,000 mcg PO DAILY 07/04/24 dulaglutide 4.5 mg/0.5 mL subcutaneous pen injector (Trulicity) 4.5 mg subcut QWEEK 07/04/24 fluticasone propionate 50 mcg/actuation nasal spray,suspension 2 spray intranasal BID 07/04/24 galcanezumab-gnlm 120 mg/mL subcutaneous syringe (Emgality) 120 mg subcut QMONTH 07/04/24 levothyroxine 88 mcg tablet 88 mcg PO DAILY disorder of thyroid gland 07/04/24
--- NOTE | 2024-07-06 13:42 | PCM.DC.SUM ---
Providers Date of Admission: 07/04/24 Primary Care Physician: Dr. Padilla Osborne, DO Reason For Visit: CVA RULE OUT Diagnosis Discharge Diagnosis (1) Vertigo: Status: Acute Code(s): R42 - Dizziness and giddiness Medications at Discharge Home Medications metformin 500 mg tablet,extended release 24 hr 1,000 mg PO DAILY DIABETES 12/04/16 empagliflozin 25 mg tablet (Jardiance) 25 mg PO DAILY DIABETES 08/22/20 albuterol sulfate 90 mcg/actuation aerosol inhaler 2 puff inhalation Q4H PRN SHORTNESS OF BREATH/WHEEZING 09/15/23 buspirone 10 mg tablet 10 mg PO TID ANXIETY 09/15/23 fluoxetine 40 mg capsule 40 mg PO DAILY DEPRESSION 09/15/23 ondansetron 4 mg disintegrating tablet 4 mg PO Q6H PRN nausea and vomiting #14 tabs 01/18/24 bupropion HCl 75 mg tablet 75 mg PO DAILY 07/04/24 cyanocobalamin (vitamin B-12) 1,000 mcg tablet 1,000 mcg PO DAILY 07/04/24 dulaglutide 4.5 mg/0.5 mL subcutaneous pen injector (Trulicity) 4.5 mg subcut QWEEK 07/04/24 fluticasone propionate 50 mcg/actuation nasal spray,suspension 2 spray intranasal BID 07/04/24 galcanezumab-gnlm 120 mg/mL subcutaneous syringe (Emgality) 120 mg subcut QMONTH 07/04/24 levothyroxine 88 mcg tablet 88 mcg PO DAILY disorder of thyroid gland 07/04/24 Hospital Course Operations None Procedures 2-D Echocardiogram Summary of Care Provided Minutes Spent on Discharge: 35 Hospital Course: Per HPI: NEYMAR KITCHEN, is a 44-year-old female history of diabetes, hypertension, depression, hypothyroidism presented [facility] ED 07/04/2024 due to dizziness and headache. Got up at 5:30 AM and noticed occipital headache that went down her back, between 8 and 9 AM she began to feel that the room was spinning, does have history of vertigo and took meclizine, symptoms lasted for several hours before resolving. In the ED patient had CTA of the head and neck with no acute process, hospitalist contacted for admission for CVA rule out due to concern for central vertigo. Patient evaluated in the ED and reports the history as above, 1 other time had the similar occipital headache that radiated down towards her back and dizziness and was given meclizine at that time and symptoms resolved, reports she still has a bit of a headache and is nauseous but is not having any more overt dizziness. No vision changes. No other new or acute complaints. Hospital Course: 1. 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 This improved with increased p.o. intake. MRI was negative for stroke and echo was unremarkable besides a patent foramen ovale, her EF was 60%. I encouraged her to increase her p.o. intake and to stay hydrated while at work and at home. I discussed with her the possibility for discharge today she expressed understanding of the risks and benefits of going home and would like to go today. Recommend she follow-up with her PCP as an outpatient, she did express that she has no dizziness today on the day of discharge. 2. Type 2 diabetes, hypothyroidism, anxiety, depression all chronic medical conditions which complicate her care. Her home medications were continued where appropriate Physical Exam Narrative General: Alert, Oriented x3, Cooperative, No apparent distress HEENT: Atraumatic, PERRLA, EOMI, Normocephalic Oral: Moist Mucosa Neck: Supple, No JVD Lungs: Diminished, Normal air movement, No rhonchi, No wheeze, No rales Cardiovascular: Regular rate, Regular Rhythm, Normal S1, Normal S2, No murmurs Abdomen: Soft, Non Tender, Non-Distended, No Hepato-splenomegaly Extremities: No edema, Capillary Refill Less than 3 Seconds Skin: No rashes, No breakdown Musculoskeletal: No Tenderness to Palpation of Joints or Extremities Neurological: No focal neurological deficits, Motor Exam 5/5 strength throughout, Sensory exam intact to light touch and pain Psych/Mental Status: Normal Affect, Appropriate Weight / BMI Weight Weight: 211 lb 10.3 oz Body Mass Index (BMI) 34.1 ABG / Lab / Microbiology Data 07/05/24 05:34 07/05/24 05:34 Laboratory: Laboratory Results - last 24 hr 07/05/24 16:53: POC Glucose 110 H 07/05/24 21:18: POC Glucose 104 07/06/24 06:17: POC Glucose 107 H Radiography Diagnostic Testing: Radiology Impression Brain MRI 07/05/24 10:00 IMPRESSION: Mucosal thickening of the maxillary sinuses bilaterally otherwise unremarkable MRI brain. Reading Location: [facility] D/C Instructions Discharge Diet: Carb Control Diet Call your doctor if you observe: Fever of 101 or Higher, Shortness of breath, Dizziness, Fainting spells, Swelling in the ankles, Chest pain and Increased palpitations (irregular heartbeat) DC O2, CPAP, BIPAP Needs Home O2 Discharge instructions: No Meaningful Use Info Meaningful Use Meaningful Use Diagnoses (Choose all that apply): None applicable Ischemic Stroke Statin Dosing Therapy Reference: STATIN DOSE THERAPY REFERENCE: * Patients > 75 years receive moderate or high dose statin therapy. * Patients 75 years or YOUNGER should receive HIGH intensity statin dose unless contraindicated. You will be required to document reason for non-treatment if statin daily dose does not meet guidelines. HIGH DOSE STATIN THERAPY DAILY Atorvastatin > than or = to 40 mg Rosuvastatin > than or = to 20 mg Amlodipine + Atorvastatin > than or = to 2.5/40 mg Ezetimibe + Simvastatin 10/80 mg Simvastatin 80mg Discharge Plan Admission Admit Date/Time: 07/04/24 19:51 Attending Provider: Velasquez Wheeler Primary Care Provider: Padilla Osborne Consulting Providers: Avril Farias Discharge Orders/Prescriptions Prescriptions: Continued metformin 500 MG tablet 1,000 mg PO DAILY Jardiance 25 mg tablet 25 mg PO DAILY ondansetron 4 mg tablet,disintegrating 4 mg PO Q6H PRN (Reason: nausea and vomiting) Qty: 14 0RF cyanocobalamin (vitamin B-12) 1,000 mcg tablet 1,000 mcg PO DAILY bupropion HCl 75 mg tablet 75 mg PO DAILY fluticasone propionate 50 mcg/actuation spray,suspension 2 spray INTRANASAL BID Emgality Syringe 120 mg/mL syringe 120 mg subcut QMONTH Trulicity 4.5 mg/0.5 mL pen injector 4.5 mg subcut QWEEK levothyroxine 88 mcg tablet 88 mcg PO DAILY fluoxetine 40 mg capsule 40 mg PO DAILY buspirone 10 mg tablet 10 mg PO TID albuterol sulfate 90 mcg/actuation HFA aerosol inhaler 2 puff inhalation Q4H PRN (Reason: SHORTNESS OF BREATH/WHEEZING ) Referrals / Follow Up: Padilla Osborne DO [Primary Care Provider] - Within 1 Week Disposition Disposition (needs filled in before D/C Order can be placed): Home, Self Care Charges/Coding Visit Charges Inpatient E&M: 98852 Disch Hosp >30min
== END 2024-07-06 07:17 | disposition home or self-care (01) ==
LOC: ED 11:58 → PCU 20:17
PROVIDERS: Admitting Provider Internal Medicine; Emergency Provider Emergency Medicine; PCP Student in an Organized Health Care Education/Training Program; Referring Provider Emergency Medicine; Visit Provider Family Medicine
DX: R42 Dizziness and giddiness (principal); E11.9 Type 2 diabetes mellitus without complications; I10 Essential (primary) hypertension; E03.9 Hypothyroidism, unspecified; Z59.00 Homelessness unspecified; M54.2 Cervicalgia; R51.9 Headache, unspecified; F32.A Depression, unspecified; F41.9 Anxiety disorder, unspecified; Z79.84 Long term (current) use of oral hypoglycemic drugs; Z79.85 Long-term (current) use of injectable non-insulin antidiabetic drugs; Z79.890 Hormone replacement therapy; Z79.899 Other long term (current) drug therapy
CPT/HCPCS: 36415; 70496; 70498; 70551; 74177; 80048; 80061; 81001; 81025; 82962; 84443; 85025; 92611; 93306; 94762; 96374; 97162; 97166; 97802; 99221; 99283; Q9967; A4216; G0378; J2405

== ENCOUNTER 2025-01-02 12:58 | Emergency (ER) | payer MEDICAID, SELFPAY ==
[2025-01-02 12:58] VITALS: BP 129/83; PULSE 103; RESP 18; TEMP 36.9; O2SAT 98; BMI 34.0
[2025-01-02 13:28] LABS: Hematocrit 43.2 % (37-47); Hemoglobin 14.5 g/dL (12.0-15.0); Immature Granulocytes Count 0.020 X10^3/uL (0.0-0.0); Mean Corp Hgb Conc 33.6 g/dL (32-36); Mean Corpuscular Volume 83.9 fL (81-99); Mean Platelet Vol. 10.0 fl (6.2-12.0); NRBC Flagged by Analyzer 0 % (0-5); Platelet Count 301 K/mm3 (150-450); RBC Distribution Width CV 13.1 % (11.6-14.6); RBC Distribution Width SD 40.3 fl (35.1-43.9); Red Blood Count 5.15 M/mm3 (4.2-5.4); White Blood Count 9.0 K/mm3 (4.4-11.0)
[2025-01-02 14:16] LABS: AST(SGOT) 14 U/L (<=31); Alanine Aminotransfer ALT/SGPT 17 U/L (<=34); Albumin, Serum 4.5 g/dL (3.5-5.0); Alkaline Phosphatase 68 U/L (35-104); Anion Gap 15 (5-15); BUN 18 mg/dL (4-19); BUN/Creat Ratio 21.6 RATIO (10-20); Calcium,Total 9.9 mg/dL (7.6-11.0); Carbon Dioxide 19.9 mmol/L (21.0-32.0); Chloride 103 mmol/L (98-108); Estimated Creatinine Clearance 98.55 ml/min (50-250); Globulin 3.2 g/dL (2.2-4.2); Glucose 158 mg/dL (70-99); Lipase 45 U/L (13-75); Potassium 4.2 mmol/L (3.3-5.1)
--- NOTE | 2025-01-02 14:59 | ED.VIS.GI ---
HPI HPI - GI History of Present Illness Chief Complaint: Abd Pain Narrative Narrative: Patient is a 44-year-old female presenting to the emergency department for lower abdominal pain for the past 2 days. Patient has a past medical history of hydronephrosis, ureteral calculus and UTI as well as hypertension and diabetes. Patient states that the pain has been fairly constant since it started. She is been taking Tylenol for pain, last taken at 7 AM this morning. She reports dysuria and urinary frequency. Endorses nonbloody diarrhea that started yesterday as well. Denies vaginal bleeding, discharge or pain. Last period was the of this month. Denies fever of chills. [facility] Medical History Cellulitis of right breast Ureteral calculus Hearing loss, left Hearing loss, right Chronic pain Migraines Hypothyroidism Diabetes Home Medications ?Medication ?Instructions ?Recorded ?Last Taken ?Type metformin 500 mg tablet,extended 1,000 mg PO DAILY DIABETES 12/04/16 07/04/24 History release 24 hr empagliflozin 25 mg tablet 25 mg PO DAILY DIABETES 08/22/20 07/04/24 History (Jardiance) albuterol sulfate 90 mcg/actuation 2 puff inhalation Q4H PRN 09/15/23 Unknown History aerosol inhaler SHORTNESS OF BREATH/WHEEZING buspirone 10 mg tablet 10 mg PO TID ANXIETY 09/15/23 07/04/24 History fluoxetine 40 mg capsule 40 mg PO DAILY DEPRESSION 09/15/23 07/04/24 History ondansetron 4 mg disintegrating 4 mg PO Q6H PRN nausea and 01/18/24 07/04/24 Rx tablet vomiting #14 tabs bupropion HCl 75 mg tablet 75 mg PO DAILY 07/04/24 07/04/24 History cyanocobalamin (vitamin B-12) 1,000 mcg PO DAILY 07/04/24 07/04/24 History 1,000 mcg tablet dulaglutide 4.5 mg/0.5 mL 4.5 mg subcut QWEEK 07/04/24 06/30/24 History subcutaneous pen injector (Trulicity) fluticasone propionate 50 2 spray intranasal BID 07/04/24 07/03/24 History mcg/actuation nasal spray,suspension galcanezumab-gnlm 120 mg/mL 120 mg subcut QMONTH 07/04/24 07/03/24 History subcutaneous syringe (Emgality) levothyroxine 88 mcg tablet 88 mcg PO DAILY disorder of 07/04/24 07/04/24 History thyroid gland nitrofurantoin 100 mg PO BID 5 days #10 caps 01/02/25 Unknown Rx monohydrate/macrocrystals 100 mg capsule (Macrobid) Allergy/AdvReac Type Severity Reaction Status Date / Time aspirin Allergy Hives Verified 01/02/25 13:01 ibuprofen Allergy Hives Verified 01/02/25 13:01 simvastatin AdvReac Other Verified 01/02/25 13:01 tramadol AdvReac Other Verified 01/02/25 13:01 Surgical History History of tubal ligation H/O section Social History household members: other housing: homeless number of children: 4 Smoking Status: Never smoker ROS ROS ED ROS Narrative See HPI EXAM Physical Exam Narrative Exam Narrative: Vital signs: Reviewed General: Alert and oriented x 3. No acute distress HEENT: Head is normocephalic and atraumatic, sinuses nontender, pupils equal round and reactive. Nares are patent. Oropharynx and throat exams normal. Neck: Supple without lymphadenopathy nontender Cardiovascular: Regular rate and rhythm, no murmurs. No rubs or gallops. Normal S1 and S2 Respiratory: Clear to auscultation bilaterally. No wheezes, rales, rhonchi Abdominal: Soft and tender to palpation diffusely in the lower quadrants, mainly suprapubic. Normal bowel sounds. No guarding or rebound. Nonsurgical abdomen. No CVA tenderness to palpation Extremities: No tenderness. No bruising. Normal range of motion. Normal sensation. Skin: No rash or redness. The rest of the physical exam is unremarkable Const Vital Signs: 01/02/25 12:58 01/02/25 16:09 01/02/25 18:00 Temperature 98.4 F Temperature Source Oral Pulse Rate 103 H 86 67 Respiratory Rate 18 14 Blood Pressure 129/83 H 151/86 H 137/86 H Blood Pressure Mean 98 107 103 Pulse Ox 98 100 Oxygen Delivery Method Room Air Room Air 01/02/25 18:19 Temperature 98.4 F Temperature Source Pulse Rate 67 Respiratory Rate 14 Blood Pressure 137/86 H Blood Pressure Mean 103 Pulse Ox 100 Oxygen Delivery Method MDM MDM MDM Narrative Medical decision making narrative: Patient is a 44-year-old female presenting to emergency department for lower abdominal pain for the past 2 days. Patient was seen and examined. Vitals are stable. Patient resting bed comfortably in no acute distress. Differential includes but is not limited to: UTI, gastroenteritis, colitis, appendicitis Patient started on fluids and given morphine and Zofran for symptomatic control. CBC with no leukocytosis and a normal hemoglobin. CMP with no significant abnormalities. Normal kidney and liver functioning. Lipase within normal limits. Urinalysis with 1+ bacteria and 10-25 BBC is as well as 100 leukocyte esterase. No nitrites. Given the patient's urinary symptoms and lower abdominal pain we will treat this for possible UTI with Macrobid. Sent for urine culture as well. CT of the abdomen pelvis shows no acute intra-abdominal abnormalities. Patient was reevaluated. Feeling well. Updated on the findings. Given first dose of Macrobid here and discharged home with prescription for Macrobid as well. Patient discharged from the Emergency Department. I do not feel that the patient's evaluation reveals any acute reason for admission at this time. I instructed them to either follow-up with their primary care physician or promptly return to the Emergency Department for reevaluation should symptoms worsen or new symptoms develop. I explained what symptoms would indicate the need to return to the emergency department. Shared decision making was used. The patient voiced understanding of the treatment plan and is agreeable with it. Clinical impression: UTI History & Record Review Discussion w/independent historian: Patient Additional record(s) reviewed:: Prior labs Lab Data Attestation: I reviewed the patient's lab results. Labs: Laboratory Results - last 24 hr 01/02/25 01/02/25 13:10 16:15 WBC 9.0 RBC 5.15 Hgb 14.5 Hct 43.2 MCV 83.9 MCH 28.2 MCHC 33.6 RDW Std Deviation 40.3 RDW Coeff of Obed 13.1 Plt Count 301 MPV 10.0 Immature Gran % (Auto) 0.200 Neut % (Auto) 68.9 Lymph % (Auto) 21.6 [place] % (Auto) 3.8 Eos % (Auto) 5.1 H Baso % (Auto) 0.4 Absolute Neuts (auto) 6.2 Absolute Lymphs (auto) 1.95 Nucleated RBC % 0 Sodium 138 Potassium 4.2 Chloride 103 Carbon Dioxide 19.9 L Anion Gap 15 BUN 18 Creatinine 0.84 Estim Creat Clear Calc 98.55 Est GFR (MDRD) Non-Af 88 BUN/Creatinine Ratio 21.6 H Glucose 158 H Calcium 9.9 Total Bilirubin 0.79 AST 14 ALT 17 Alkaline Phosphatase 68 Total Protein 7.7 Albumin 4.5 Globulin 3.2 Albumin/Globulin Ratio 1.4 Lipase 45 Urine Color Yellow Urine Clarity Sl. Cloudy Urine pH 6.0 Ur Specific [place] 1.015 Urine Protein 15 H Urine Glucose (UA) 1000 H Urine Ketones Negative Urine Occult Blood Negative Urine Nitrite Negative Urine Bilirubin Negative Urine Urobilinogen Normal Ur Leukocyte Esterase 100 H Urine RBC 0 SEEN Urine WBC 10-25 SEEN Ur Squamous Epith Cells 0-5 SEEN Urine Bacteria 1+ Urine Mucus 0 SEEN Urine Test Negative Radiography Diagnostic Testing: Clinical Impression(s) from Imaging Studies Abdomen/Pelvis CT 01/02/25 15:20 IMPRESSION: No acute abdominopelvic abnormalities Reading [facility] Discharge Plan Triage Chief Complaint: Abd Pain ED Provider: Nia Craig Dx/Rx/DC Orders Clinical Impression: UTI (urinary tract infection), Abdominal pain Instructions: ED Cystitis Female Adult Prescriptions: New nitrofurantoin monohyd/m-cryst [Macrobid] 100 mg capsule 100 mg PO BID 5 Days Qty: 10 0RF Rx Instructions: must administer with a meal/food No Action metformin 500 MG tablet 1,000 mg PO DAILY Jardiance 25 mg tablet 25 mg PO DAILY ondansetron 4 mg tablet,disintegrating 4 mg PO Q6H PRN (Reason: nausea and vomiting) Qty: 14 0RF cyanocobalamin (vitamin B-12) 1,000 mcg tablet 1,000 mcg PO DAILY bupropion HCl 75 mg tablet 75 mg PO DAILY fluticasone propionate 50 mcg/actuation spray,suspension 2 spray INTRANASAL BID Emgality Syringe 120 mg/mL syringe 120 mg subcut QMONTH Trulicity 4.5 mg/0.5 mL pen injector 4.5 mg subcut QWEEK levothyroxine 88 mcg tablet 88 mcg PO DAILY fluoxetine 40 mg capsule 40 mg PO DAILY buspirone 10 mg tablet 10 mg PO TID albuterol sulfate 90 mcg/actuation HFA aerosol inhaler 2 puff inhalation Q4H PRN (Reason: SHORTNESS OF BREATH/WHEEZING ) Primary Care Provider: Padilla Osborne Referrals: Padilla Osborne, DO [Primary Care Provider, Medical] - 2 Days Activity Restrictions/Additional Instructions: Take the antibiotic as prescribed twice a day for 5 days. Your evaluation in the Emergency Department did not reveal any acute reason for admission. However, I want to emphasize that you may be early in the course of a disease process or illness even if it is not present. For this reason you should follow-up within 24 hours for reevaluation with either your primary care physician or if necessary back here in the Emergency Department. You should return to the Emergency Department immediately if your symptoms worsen or new symptoms develop. Print Language: Chadian Disposition Disposition: Home, Self Care Discharge Date/Time: 01/02/25 18:22
--- NOTE | 2025-01-02 15:20 | CT_ITS ---
PROCEDURE: ABDOMEN/PELVIS W IV CONT ONLY 01/02/2025 REASON FOR EXAM: LOWER ABDOMINAL PAIN TECHNIQUE: Procedure Code: [id number] Modality: CT Procedure: ABDOMEN/PELVIS W IV CONT ONLY Coronal and Sagittal reconstruction series were provided. CONTRAST: Isovue 370 VOLUME: 100 mL One or more dose reduction techniques were used (e.g., Automated exposure control, adjustment of the mA and/or kV according to patient size, use of iterative reconstruction technique. RADIATION DOSE SUMMARY: CTDlvol: 17.87 mGy DLP: 962.28 mGycm COMPARISON: CT abdomen and pelvis July 04, 2024. FINDINGS: Lung bases: Clear. Liver: Hepatomegaly with the liver measures 22 cm in length. Gallbladder: Unremarkable. No biliary dilation. Spleen: Unremarkable. Pancreas: Unremarkable. Adrenals: Unremarkable. Kidneys: No hydronephrosis. No nephrolithiasis. Bladder: Unremarkable. Reproductive Organs: Unremarkable. Bowel: No bowel obstruction. No bowel wall thickening. Large amount of fecal load in the colon. Appendix: Unremarkable. Lymph nodes: Unremarkable. Vasculature: No aneurysm. Peritoneum / Retroperitoneum: No free air or free fluid. Bones: No acute intracranial abnormalities. CT/Abdomen/Pelvis W IV Cont ONLY IMPRESSION: No acute abdominopelvic abnormalities Reading Location: [facility]
[2025-01-02] MEDS: 0.9% Normal Saline (1000mL) 1,000 ML 1000 ML IV (16:07)
[2025-01-02 16:09] VITALS: BP 151/86; PULSE 86; RESP 14; O2SAT 100
[2025-01-02 16:17] LABS: Mucous, Urine 0 SEEN /hpf (<or=2+); Red Blood Cells-Urine 0 SEEN /hpf (0-5)
[2025-01-02 16:25] LABS: Color, Urine Yellow (Yellow); Glucose, Dipstick 1000 mg/dl (Normal); Ketone-Dipstick Negative (Negative); Leukocyte Esterase-Dipstick 100 /ul (Negative); Nitrite-Dipstick Negative (Negative); Occult Blood-Urine Negative /ul (Negative); Protein-Dipstick 15 mg/dl (Negative); Specific Gravity, Urine 1.015 (1.002-1.030); Urine Bilirubin Dipstick Negative (Negative)
[2025-01-02 16:26] LABS: Internal QC Validated? YES +Cl - CLEAR BKGD; Pregnancy, Urine Negative Negative; Record Kit Lot#,Urine Preg 964736
[2025-01-02 17:54] LABS: Squamous Epithelial Cells - UA 0-5 SEEN /hpf (5-10)
[2025-01-02 18:00] VITALS: BP 137/86; PULSE 67
[2025-01-02 18:19] VITALS: BP 137/86; PULSE 67; RESP 14; TEMP 36.9; O2SAT 100
== END 2025-01-02 18:22 | disposition home or self-care (01) ==
PROVIDERS: Emergency Provider Student in an Organized Health Care Education/Training Program; PCP Student in an Organized Health Care Education/Training Program; Visit Provider Student in an Organized Health Care Education/Training Program
DX: N39.0 Urinary tract infection, site not specified (principal); E11.9 Type 2 diabetes mellitus without complications; R10.30 Lower abdominal pain, unspecified; Z59.00 Homelessness unspecified
CPT/HCPCS: 74177; 80053; 81001; 81025; 83690; 85025; 87077; 87086; 87088; 87186; 96361; 96374; 96375; 96376; 99283; Q9967; A4216; J2405

== ENCOUNTER 2025-02-27 09:44 | Day surgery (SDC) | payer MEDICAID, SELFPAY ==
[2025-02-27 10:11] VITALS: BP 107/77; PULSE 84; RESP 16; TEMP 36.6; O2SAT 98; BMI 33.0
--- NOTE | 2025-02-27 10:20 | RAD_ITS ---
PROCEDURE: SPINE 1 VIEW ANY LEVEL 02/27/2025 REASON FOR EXAM: CAUDAL BLOCK TECHNIQUE: Procedure Code: RADSPCV Modality: DX Procedure: SPINE 1 VIEW ANY LEVEL. Intraoperative fluoroscopy provided. 9.3 seconds of fluoroscopy. 4.82 mGy of radiation dose. 1 image was submitted. COMPARISON: None FINDINGS: Intraoperative fluoroscopic services provided for caudal block. RAD/Spine 1 View Any Level IMPRESSION: Intraoperative fluoroscopic services provided for caudal block. Reading Location: [facility]
[2025-02-27] MEDS: 0.9% Normal Saline (Pres. free 10 ML Vial (10:48)
[2025-02-27] MEDS: Lidocaine 1% (5 ml sdv) 5 ML Vial (10:48)
--- NOTE | 2025-02-27 10:50 | PCM.OPRPT ---
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 COMPLICATIONS: None. DESCRIPTION OF PROCEDURE: History and physical of today was reviewed. Risks and benefits of the procedure were explained. The patient understood and agreed to proceed. Informed consent was obtained. IV inserted per routine protocol. The patient was taken to the operating room and placed in the prone position with a pillow positioned underneath the abdomen. The lower back and tailbone area was prepped and draped in a sterile fashion using iodine x3. Under fluoroscopy guidance on a lateral view, the caudal space was identified. The skin and subcutaneous tissue was anesthetized with approximately 3 mL of 1% lidocaine using a 25-gauge regular needle. Under direct visualization with fluoroscopy, using a 22-gauge 3-1/2-inch spinal needle, the needle was advanced via the skin through the sacral hiatus. The tip of the needle was passed through the sacrococcygeal ligament and advanced to approximately S4 area. After negative aspiration of blood or CSF, a total of 3 mL of contrast was injected to confirm correct placement of the needle as well as cephalad spread. The spread was followed to approximately L5 area. After confirmation on AP as well as lateral view and repeated negative aspiration, a total of 15 mL of preservative-free 0.125% Marcaine with 80 mg of Depo-Medrol was injected easily. The needle was then removed intact. The patient experienced no sign or symptoms of intrathecal or intravascular injection. The patient experienced no paresthesia. The procedure was completed without any apparent difficulty or any complications. The patient appeared to tolerate it well. ASSESSMENT AND PLAN: This is a 44-year-old female with lumbosacral radiculopathy, lumbosacral spinal stenosis, lumbosacral degenerative disc disease, status post diagnostic/therapeutic caudal epidural steroid injection under fluoroscopic guidance, patient will continue her current medications, patient will follow-up in approximately 2 weeks for reevaluation. Surgical Findings: 0 Complications Complications: No Admit VTE Documentation VTE Present on Admission: No VTE Mechan Device Prophylaxis: None VTE Pharm Prophylaxis ordered?: No
[2025-02-27 10:59] VITALS: BP 100/58; BP 107/77; PULSE 93; RESP 16; TEMP 36.3; O2SAT 100
--- NOTE | 2025-02-27 11:10 | SUR.PHASEII ---
HIVES NOTED ON PATIENTS ABDOMEN, LEGS, ARMS BACK. DR AKINS NOTIFIED, 50MG PO BENADRYL ORDERED PER DR AKINS. OBSERVE PATIENT
[2025-02-27 12:09] VITALS: BP 101/69; BP 107/77; PULSE 82; RESP 16; TEMP 36.4; O2SAT 100
--- NOTE | 2025-02-27 12:10 | SUR.PHASEII ---
HIVES ARE STARTING TO GO AWAY. VSS, OKAY FOR DISCHARGE PER DR AKINS
== END 2025-02-27 12:16 | disposition home or self-care (01) ==
LOC: SDC 09:45 → AC 09:49
PROVIDERS: PCP Student in an Organized Health Care Education/Training Program; Referring Provider Anesthesiology Pain Medicine; Visit Provider Anesthesiology Pain Medicine
DX: M51.17 Intervertebral disc disorders with radiculopathy, lumbosacral region (principal); E11.9 Type 2 diabetes mellitus without complications; M48.07 Spinal stenosis, lumbosacral region; E03.9 Hypothyroidism, unspecified; F32.A Depression, unspecified; F41.9 Anxiety disorder, unspecified; Z79.82 Long term (current) use of aspirin; Z79.890 Hormone replacement therapy; Z79.84 Long term (current) use of oral hypoglycemic drugs; Z79.85 Long-term (current) use of injectable non-insulin antidiabetic drugs; Z79.899 Other long term (current) drug therapy
CPT/HCPCS: 62323; 64483; 72020; 82962; A4216